=== PATIENT | male | born 1940 | race Caucasian/White ===

== ENCOUNTER → 2016-09-30 | Outpatient (CLI) | payer MEDICARE, OTHER ==
[2016-06-11 15:03] VITALS: BP 95/42
[~2016-09-30] MED LIST: ACLI400A2 IH; AMLO5TAB4 PO; ASPI-171 PO; BUSP10TA PO; CLON1TAB3 PO; CLOP75TA PO; DICL100G7 TP; DUTA0.5C PO; FLUO40CA9 PO; HYDR-2666 PO; HYDR25TA9 PO; LIDO700A4 TP; LISI-338 PO; LISI2.5T PO; LITH300T3 PO; MOME13HF2 IH; PROAIR HFA8.5 GM INH; PROP1VIA IV; TAMS0.4C97 PO; buspar
[2016-09-30 11:06] LABS: BILIRUBIN,URINE NEGATIVE (NEG); GLUCOSE,URINE NEGATIVE (NEG); NITRITE,URINE NEGATIVE (NEG); UROBILINOGEN,URINE 0.2 mg/dL (0.2 mg/dL)
[2016-09-30 11:25] LABS: BACTERIA,URINE FEW /HPF (0-FEW); RBC,URINE 0 /HPF (0-2); WBC,URINE TNTC /HPF (0-4)
[2016-09-30 11:26] LABS: PROTEIN,URINE 30 mg/dL (NEG-TRACE)
== END | disposition home or self-care (01) ==
LOC: SPEC 10:51
PROVIDERS: ATTEND Family Medicine
DX: N39.0 Urinary tract infection, site not specified (principal)
CPT/HCPCS: 81001; 87086; 87186

== ENCOUNTER → 2016-12-14 | Outpatient (CLI) | payer MEDICARE, OTHER ==
[2016-06-11 15:03] VITALS: BP 95/42
[2016-12-14 20:37] LABS: BILIRUBIN,URINE NEGATIVE (NEG); GLUCOSE,URINE NEGATIVE (NEG); NITRITE,URINE NEGATIVE (NEG); PROTEIN,URINE NEGATIVE (NEG-TRACE); UROBILINOGEN,URINE 0.2 mg/dL (0.2 mg/dL)
[2016-12-14 20:48] LABS: BACTERIA,URINE MANY /HPF (0-FEW); RBC,URINE 0 /HPF (0-2); WBC,URINE 20-40 /HPF (0-4)
[2016-12-14 20:49] LABS: SQUAMOUS EPITHELIAL CELL,UR FEW /LPF
== END | disposition home or self-care (01) ==
LOC: SPEC 13:30
PROVIDERS: ATTEND Family Medicine
DX: N39.0 Urinary tract infection, site not specified (principal)
CPT/HCPCS: 81001; 87086

== ENCOUNTER → 2017-02-24 | Outpatient (CLI) | payer MEDICARE, OTHER ==
[2016-06-11 15:03] VITALS: BP 95/42
[~2017-02-24] MED LIST changes: +ACET325T9 PO; +ALBU2.5V14 NEB; +ATOR10TA60 PO; +BISA-42 PO; +BISA-42 RC; +BUDE10.2 IH; +CIPR500T94 PO; +DICL100G18 TP; -DICL100G7 TP; +GUAI237L83 PO; -HYDR-2666 PO; +HYDR-2758 PO; +LINE600T PO; +MAG360OR24 PO; +MAGN400O7 PO; +METO25TA4 PO; +NITR1PAT9 TD; +NYST15PO9 TP; +PANT20TA2 PO; +TIOT18CA IH
[2017-02-24 10:23] LABS: BACTERIA,URINE MANY /HPF (0-FEW); BILIRUBIN,URINE NEGATIVE (NEG); GLUCOSE,URINE NEGATIVE (NEG); NITRITE,URINE NEGATIVE (NEG); PROTEIN,URINE NEGATIVE (NEG-TRACE); UROBILINOGEN,URINE 0.2 mg/dL (0.2 mg/dL); WBC,URINE TNTC /HPF (0-4)
== END | disposition home or self-care (01) ==
LOC: SPEC 08:30
PROVIDERS: ATTEND Family Medicine
DX: N39.0 Urinary tract infection, site not specified (principal)
CPT/HCPCS: 81001; 87086; 87186

== ENCOUNTER 2017-02-25 12:21 | Inpatient (IN) | payer MEDICARE, OTHER ==
[~2017-02-25] VITALS: Ht 180.3 cm; Wt 113.0 kg
[~2017-02-25 12:21] MED LIST changes: -ACET325T9 PO; -ALBU2.5V14 NEB; -ATOR10TA60 PO; -BISA-42 PO; -BISA-42 RC; -BUDE10.2 IH; -CIPR500T94 PO; -GUAI237L83 PO; -LINE600T PO; -MAG360OR24 PO; -MAGN400O7 PO; -METO25TA4 PO; -NITR1PAT9 TD; -NYST15PO9 TP; -PANT20TA2 PO; -TIOT18CA IH
--- NOTE | 2017-02-25 13:05 | PHYS DOC ---
Past Medical History Past Medical History: Anxiety, Bipolar, COPD, Diabetes-Type II, Hypertension, Renal Failure, UTI Additional Past Medical Histor: Morbid obesity Past Surgical History: Other Additional Past Surgical Histo: Ear Alcohol Use: None Drug Use: None Adult General Chief Complaint Chief Complaint: FEVER HPI HPI Patient is a 76 year old male who presents with. He states he was on a antibiotics for a urinary tract infections been having a fever overnight. He also presents with some substernal chest pressure that's been there since she has today. He states is nonradiating. Nothing makes it better or worse. He denies any abdominal pain, shortness of breath. Review of Systems Review of Systems Constitutional: Denies fever or chills [] Eyes: Denies change in visual acuity, redness, or eye pain [] HENT: Denies nasal congestion or sore throat [] Respiratory: Denies cough or shortness of breath [] Cardiovascular: No additional information not addressed in HPI [] GI: Denies abdominal pain, nausea, vomiting, bloody stools or diarrhea [] : Denies dysuria or hematuria [] Musculoskeletal: Denies back pain or joint pain [] Integument: Denies rash or skin lesions [] Neurologic: Denies headache, focal weakness or sensory changes [] Endocrine: Denies polyuria or polydipsia [] Current Medications Current Medications Current Medications Medications (Trade) Dose Ordered Sig/Jeannette Start Time Stop Time Status Last Admin Dose Admin Aspirin (Eriak Aspirin) 325 mg 1X ONCE 02/25/17 16:00 02/25/17 16:01 DC Aspirin (Ecotrin) 81 mg [id number] 02/26/17 08:00 Clopidogrel Bisulfate (Plavix) 75 mg DAILY 02/26/17 09:00 Furosemide (Lasix) 40 mg 1X ONCE 02/25/17 17:00 02/25/17 17:01 Magnesium Sulfate/ Dextrose 100 ml @ 25 mls/hr 1X ONCE 02/25/17 16:30 02/25/17 20:29 Ondansetron HCl (Zofran) 4 mg PRN Q8HRS PRN 02/25/17 16:00 02/26/17 15:59 Piperacillin Sod/ Tazobactam Sod (Zosyn Per Pharmacy) 1 each PRN DAILY PRN 02/25/17 15:45 Piperacillin Sod/ Tazobactam Sod 4.5 gm/Sodium Chloride 100 ml @ 200 mls/hr 1X ONCE 02/25/17 16:00 02/25/17 16:29 DC Vancomycin HCl (Vanco Per Pharmacy) 1 each PRN DAILY PRN 02/25/17 15:45 Vancomycin HCl 2 gm/Sodium Chloride 500 ml @ 250 mls/hr 1X ONCE 02/25/17 16:30 02/25/17 18:29 Allergies Allergies Allergies Coded Allergies Type Severity Reaction Last Updated Verified I S O L A T I O N *CONTACT* Allergy Unknown 06/03/16 Yes No Known Medication Allergies Allergy Unknown 06/03/16 Yes Physical Exam Physical Exam Constitutional: Well developed, well nourished, no acute distress, non-toxic appearance. [] HENT: Normocephalic, atraumatic, bilateral external ears normal, oropharynx moist, no oral exudates, nose normal. [] Eyes: PERRLA, EOMI, conjunctiva normal, no discharge. [] Neck: Normal range of motion, no tenderness, supple, no stridor. [] Cardiovascular:Heart rate regular rhythm, no murmur [] Lungs & Thorax: Bilateral breath sounds clear to auscultation [] Abdomen: Bowel sounds normal, soft, no tenderness, no masses, no pulsatile masses. [] Skin: Warm, dry, no erythema, no rash. [] Back: No tenderness, no CVA tenderness. [] Extremities: No tenderness, no cyanosis, no clubbing, ROM intact, no edema. [] Neurologic: Alert and oriented X 3, normal motor function, normal sensory function, no focal deficits noted. [] Psychologic: Affect normal, judgement normal, mood normal. [] Current Patient Data Vital Signs Vital Signs Date Time Temp Pulse Resp B/P (MAP) Pulse Ox O2 Delivery O2 Flow Rate FiO2 02/25/17 12:28 99.6 107 26 149/71 (97) 94 Nasal Cannula 3.0 99.6 Lab Values Laboratory Tests Test 02/25/17 14:30 White Blood Count 10.3 x10^3/uL (4.0-11.0) Red Blood Count 3.54 x10^6/uL (4.30-5.70) L Hemoglobin 9.7 g/dL (13.0-17.5) L Hematocrit 30.6 % (39.0-53.0) L Mean Corpuscular Volume 87 fL (79-100) Mean Corpuscular Hemoglobin 28 pg (25-35) Mean Corpuscular Hemoglobin Concent 32 g/dL (31-37) Red Cell Distribution Width 16.0 % (11.5-14.5) H Platelet Count 164 x10^3/uL (140-400) Neutrophils (%) (Auto) 99 % (31-73) H Lymphocytes (%) (Auto) 1 % (24-48) L Monocytes (%) (Auto) 0 % (0-9) Eosinophils (%) (Auto) 0 % (0-3) Basophils (%) (Auto) 0 % (0-3) Neutrophils # (Auto) 10.2 x10^3uL (1.8-7.7) H Lymphocytes # (Auto) 0.1 x10^3/uL (1.0-4.8) L Monocytes # (Auto) 0.0 x10^3/uL (0.0-1.1) Eosinophils # (Auto) 0.0 x10^3/uL (0.0-0.7) Basophils # (Auto) 0.0 x10^3/uL (0.0-0.2) Platelet Estimate Pending Prothrombin Time 15.6 SEC (11.7-14.0) H Prothrombin Time INR 1.3 (0.8-1.1) H Sodium Level 138 mmol/L (136-145) Potassium Level 4.6 mmol/L (3.5-5.1) Chloride Level 104 mmol/L (98-107) Carbon Dioxide Level 23 mmol/L (21-32) Anion Gap 11 (6-14) Blood Urea Nitrogen 40 mg/dL (8-26) H Creatinine 2.3 mg/dL (0.7-1.3) H Estimated GFR (Cockcroft-Gault) 27.8 Glucose Level 117 mg/dL (70-99) H Calcium Level 8.3 mg/dL (8.5-10.1) L Magnesium Level 1.2 mg/dL (1.8-2.4) L Total Bilirubin 0.4 mg/dL (0.2-1.0) Direct Bilirubin 0.1 mg/dL (0.0-0.2) Aspartate Amino Transferase (AST) 20 U/L (15-37) Alanine Aminotransferase (ALT) 19 U/L (16-63) Alkaline Phosphatase 80 U/L (46-116) Creatine Kinase 69 U/L (39-308) Creatine Kinase MB (Mass) < 0.5 ng/mL (0.0-3.6) Creatine Kinase MB Relative Index 0.7 % (0-4) Troponin I Quantitative 0.201 ng/mL (0.000-0.055) UI-Zju-Q-Type Natriuretic Peptide 71308 pg/mL (0-449) H Total Protein 6.4 g/dL (6.4-8.2) Albumin 3.2 g/dL (3.4-5.0) L Triglycerides Level 50 mg/dL (0-150) Cholesterol Level 122 mg/dL (0-200) LDL Cholesterol, Calculated 71 mg/dL (0-100) VLDL Cholesterol, Calculated 10 mg/dL (0-40) Non-HDL Cholesterol Calculated 81 mg/dL (0-129) HDL Cholesterol 41 mg/dL (40-60) Cholesterol/HDL Ratio 3.0 Lipase 87 U/L (73-393) Laboratory Tests 02/25/17 14:30 Laboratory Tests 02/25/17 14:30 EKG EKG EKG shows sinus rhythm with a rate of [address] depression in lead 2, T-wave inversions noted in leads V4 V5 V6, left axis deviation, QTC 473 ms, as interpreted by me. Radiology/Procedures Radiology/Procedures [facility] [address] [place] [address] IMAGING REPORT Signed PATIENT: CHAPARRO FUNG ACCOUNT: [id number] : 1940 LOCATION: ER AGE: 76 SEX: M EXAM STATUS: REG ER ORD. PHYSICIAN: ANNA SHAHID MD REASON: fever PROCEDURE: PORTABLE CHEST 1V Portable AP upright chest x-ray History: Fever. Body aches. Findings: Since February 12, 2017, there is a new finding of bilateral perihilar interstitial lung infiltrates or pulmonary edema. A left infrahilar lung infiltrate is seen. The heart size and mediastinum are stable. No pneumothorax or pleural effusion is seen. IMPRESSION: Bilateral bronchitis or interstitial pulmonary edema. Left infrahilar infiltrate which may represent pulmonary edema or developing pneumonia or aspiration pneumonitis. DICTATED and SIGNED BY: LUPE GUY MD DATE: 02/25/17 1345 CC: ANNA SHAHID MD; LOY BATES MD ~ Impressions: Pneumonia Elevated troponin UTI Course & Med Decision Making Course & Med Decision Making Pertinent Labs and Imaging studies reviewed. (See chart for details) Patient presents with history of a fever and a UTI. He complains of mild chest discomfort. His EKG is nonacute. Does have an elevated troponin of 0.2. Spoke with Dr. Bates who is agreeable to admitting the patient because of his chest x- ray shows infiltrate starting on ankle myosin and Zosyn and have a cardiology consultation. Patient's in stable condition this time be admitted the hospital. I spoke with Lorraine with cardiology. Jackie Disclaimer Dragon Disclaimer This electronic medical record was generated, in whole or in part, using a voice recognition dictation system. Departure Departure Impression: Primary Impression: Pneumonia Disposition: ADMITTED INPATIENT Admitting Physician: Lexx Bates Condition: STABLE Referrals: LOY BATES MD (PCP) Problem Qualifiers Primary Impression: Pneumonia Pneumonia type: due to unspecified organism Laterality: unspecified laterality Lung location: unspecified part of lung Qualified Codes: J18.9 - Pneumonia, unspecified organism ANNA SHAHID MD Feb 25, 2017 13:05
--- NOTE | 2017-02-25 13:46 | RAD ---
Portable AP upright chest x-ray History: Fever. Body aches. Findings: Since February 12, 2017, there is a new finding of bilateral perihilar interstitial lung infiltrates or pulmonary edema. A left infrahilar lung infiltrate is seen. The heart size and mediastinum are stable. No pneumothorax or pleural effusion is seen. IMPRESSION: Bilateral bronchitis or interstitial pulmonary edema. Left infrahilar infiltrate which may represent pulmonary edema or developing pneumonia or aspiration pneumonitis.
--- NOTE | 2017-02-25 14:51 | EKG ---
[facility] [address] [place] [address] Test Date: 2017-02-25 Test Time: 14:42:03 Pat Name: CHAPARRO FUNG Department: Room: Gender: M Wan Support Specialist: : 1940 Requested By: ANNA SHAHID Order Number: [id number] Reading MD: Reynold Condon Measurements Intervals [place] Rate: 93 P: 24 [place]: 164 QRS: -17 QRSD: 94 T: -82 QT: 378 QTc: 473 Interpretive Statements SINUS RHYTHM NON SPECIFIC ST/T CHANGES Electronically Signed On 02-25-2017 23:23:11 CDT by Reynold Condon
[2017-02-25 15:18] LABS: BASO % 0 % (0-3); EOS % 0 % (0-3); HEMATOCRIT 30.6 % (39.0-53.0); HEMOGLOBIN 9.7 g/dL (13.0-17.5); LYMPH # 0.1 x10^3/uL (1.0-4.8); LYMPH % 1 % (24-48); MEAN CORPUSCULAR HEMOGLOBIN 28 pg (25-35); MEAN CORPUSCULAR HGB CONC 32 g/dL (31-37); MEAN CORPUSCULAR VOLUME 87 fL (79-100); MONO % 0 % (0-9); NEUT % 99 % (31-73); PLATELET COUNT 164 x10^3/uL (140-400); RED BLOOD COUNT 3.54 x10^6/uL (4.30-5.70); WHITE BLOOD COUNT 10.3 x10^3/uL (4.0-11.0)
[2017-02-25 15:20] LABS: CALCIUM 8.3 mg/dL (8.5-10.1); CREATININE 2.3 mg/dL (0.7-1.3); GFR 27.8; POTASSIUM 4.6 mmol/L (3.5-5.1)
[2017-02-25 15:26] LABS: ALBUMIN 3.2 g/dL (3.4-5.0); DIRECT BILIRUBIN 0.1 mg/dL (0.0-0.2); MAGNESIUM 1.2 mg/dL (1.8-2.4); TOTAL BILIRUBIN 0.4 mg/dL (0.2-1.0); TOTAL PROTEIN 6.4 g/dL (6.4-8.2)
[2017-02-25 15:27] LABS: INR 1.3 (0.8-1.1); PROTHROMBIN TIME PATIENT 15.6 SEC (11.7-14.0)
[2017-02-25 15:35] LABS: CREATINE KINASE 69 U/L (39-308)
[2017-02-25 15:36] LABS: CKMB MASS < 0.5 ng/mL (0.0-3.6)
[2017-02-25] MEDS ORDERED: PIP/TAZO PER PHARMACY MC PRN (15:45)
[2017-02-25] MEDS ORDERED: ASPIRIN 325 MG TABLET PO ONE (16:00)
[2017-02-25] MEDS ORDERED: PIPERACILLIN/TAZOBACTAM 4.5 GM in IV NORMAL SALINE 100ML 100 ML IV ONE (16:00)
[2017-02-25] MEDS ORDERED: ONDANSETRON PF 4 MG/2 ML VIAL. IV PRN ×2 (16:00→18:15)
--- NOTE | 2017-02-25 16:05 | PDOC2 ---
CARDIAC CONSULT DATE OF CONSULT Date of Consult DATE: 02/25/17 TIME: 15:43 REASON FOR CONSULT Reason for Consult: Chest pain REFERRING PHYSICIAN Referring Physician: Thomas SOURCE Source: Chart review, Patient HISTORY OF PRESENT ILLNESS HISTORY OF PRESENT ILLNESS This is a 76 yo male admitted for multiple complaints. He is rather a poor historian. Reports of chills in the last 2-3 days, he was reportedly having fever with apparent hx of UTI. Verbalized body aches and complained of CP but none for me. Also mild SOA. Currently he is laying flat for his echo and appears uncomfortable but her O2 sat is >92% and denies any SOA. Reports some nausea and vomiting this am. Denies any palpitations. [place] [facility] [place] her mobility baseline is poor and he is sedentary and WC bound. Currently CP free, reports no jaw or radiated arm pain. Reported decreased appetite. PAST MEDICAL HISTORY Cardiovascular: CAD, HTN, Hyperlipidemia Pulmonary: COPD CENTRAL NERVOUS SYSTEM: Other (No pertinent history) GI: Constipation, GERD Heme/Onc: Anemia NOS Hepatobiliary: No pertinent hx Psych: Anxiety, Bipolar Musculoskeletal: Osteoarthritis, Other (deconditioning) Rheumatologic: No pertinent hx Infectious disease: Other (MRSA and VRE) ENT: No pertinent hx Renal/: Chronic renal insuff, UTI, Urinary Incontinence Dermatology: Other (decubitus coccyx ulcer) PAST SURGICAL HISTORY Past Surgical History PCI/stent 05/2016 FAMILY HISTORY Family History noncontributory SOCIAL HISTORY Smoke: No ALCOHOL: none Drugs: None Lives: [facility] ALLERGIES ALLERGIES: Coded Allergies: I S O L A T I O N *CONTACT* (Verified Allergy, Unknown, 06/03/16) mrsa No Known Medication Allergies (Verified Allergy, Unknown, 06/03/16) ROS Review of System limited details, poor historian PHYSICAL EXAM General: Alert, Cooperative, mild distress HEENT: Atraumatic, Mucous membr. moist/pink Lungs: Other (bibasilar crackles, upper rhonchi) Heart: Regular rate (SR), Normal S1, Normal S2, Other (S4; 2/6 systolic murmur to LLS border) Abdomen: Soft, No tenderness Extremities: No cyanosis, Other (4+ bilateral LE pitting edema) Skin: No breakdown, No significant lesion Neuro: Sensation intact, Other (trembling voice) Psych/Mental Status: Mood NL MUSCULOSKELETAL: Osteoarthritic changes both hands VITALS VITALS Vital Signs Date Time Temp Pulse Resp B/P (MAP) Pulse Ox O2 Delivery O2 Flow Rate FiO2 02/25/17 12:28 99.6 107 26 149/71 (97) 94 Nasal Cannula 3.0 99.6 LABS Lab: Laboratory Tests Test 02/25/17 14:30 White Blood Count 10.3 x10^3/uL (4.0-11.0) Red Blood Count 3.54 x10^6/uL (4.30-5.70) Hemoglobin 9.7 g/dL (13.0-17.5) Hematocrit 30.6 % (39.0-53.0) Mean Corpuscular Volume 87 fL (79-100) Mean Corpuscular Hemoglobin 28 pg (25-35) Mean Corpuscular Hemoglobin Concent 32 g/dL (31-37) Red Cell Distribution Width 16.0 % (11.5-14.5) Platelet Count 164 x10^3/uL (140-400) Neutrophils (%) (Auto) 99 % (31-73) Lymphocytes (%) (Auto) 1 % (24-48) Monocytes (%) (Auto) 0 % (0-9) Eosinophils (%) (Auto) 0 % (0-3) Basophils (%) (Auto) 0 % (0-3) Neutrophils # (Auto) 10.2 x10^3uL (1.8-7.7) Lymphocytes # (Auto) 0.1 x10^3/uL (1.0-4.8) Monocytes # (Auto) 0.0 x10^3/uL (0.0-1.1) Eosinophils # (Auto) 0.0 x10^3/uL (0.0-0.7) Basophils # (Auto) 0.0 x10^3/uL (0.0-0.2) Prothrombin Time 15.6 SEC (11.7-14.0) Prothromb Time International Ratio 1.3 (0.8-1.1) Sodium Level 138 mmol/L (136-145) Potassium Level 4.6 mmol/L (3.5-5.1) Chloride Level 104 mmol/L (98-107) Carbon Dioxide Level 23 mmol/L (21-32) Anion Gap 11 (6-14) Blood Urea Nitrogen 40 mg/dL (8-26) Creatinine 2.3 mg/dL (0.7-1.3) Estimated GFR (Cockcroft-Gault) 27.8 Glucose Level 117 mg/dL (70-99) Calcium Level 8.3 mg/dL (8.5-10.1) Magnesium Level 1.2 mg/dL (1.8-2.4) Total Bilirubin 0.4 mg/dL (0.2-1.0) Direct Bilirubin 0.1 mg/dL (0.0-0.2) Aspartate Amino Transf (AST/SGOT) 20 U/L (15-37) Alanine Aminotransferase (ALT/SGPT) 19 U/L (16-63) Alkaline Phosphatase 80 U/L (46-116) Creatine Kinase 69 U/L (39-308) Creatine Kinase MB (Mass) < 0.5 ng/mL (0.0-3.6) Creatine Kinase MB Relative Index 0.7 % (0-4) Troponin I Quantitative 0.201 ng/mL (0.000-0.055) TX-Rsi-S-Type Natriuretic Peptide 70539 pg/mL (0-449) Total Protein 6.4 g/dL (6.4-8.2) Albumin 3.2 g/dL (3.4-5.0) Lipase 87 U/L (73-393) HEART CATH HEART CATH CORONARY ANGIOGRAPHY: LM is a large caliber vessel withan ostial 30% stenosis. LAD is a large caliber vessel with mild diffuse irregularities of up to 40%. D1 is a large caliber vessel with a patent mid stent. LCx is a moderate caliber non-dominant vessel with a proximal 100% occlusion at the site of the previously placed stent. RCA is a large caliber dominant vessel with mild to moderate diffuse irregularities of up to 30%. RPDA and RPL are moderate caliber vessels with mild diffuse irregularities of up to 30%. Based on lack of chest pain or EKG changes and small size the previously visualized LCx segment, further intervention was deferred in favor of medical therapy. Conclusion 1. Two vessel coronary artery disease. 2. Patent 1st diagonal stent. 3. Occluded LCx stent. Recommendations Aggressive Medical Therapy DATE: 06/09/161707 Conclusion 1. Mildly elevated left sided filling pressures. 2. Successful PCI of the 1st diagonal with a Vision 2.5/12 BMS 3. Successful PCI of the Lcx/1st OM with a Resolute 2.25/30 JORGE A. Recommendations Cardiac Rehabilitation Referral Aggressive Medical Therapy Medications Administered Aspirin (any) Beta Mary (any) Statin (any) Ticagrelor DATE: 06/03/16 1650 ASSESSMENT/PLAN ASSESSMENT/PLAN 1. Fever/UTI 2. NSTEMI: Initial troponin 0.2 in the setting of fever and DUONG. EKG with inferolateral ST depression changes. Presently CP free. 3. CAD: prior PCI/stent as described in report. Notable for small size LCx with occluded stent which was then treated medically 4. Acute on chronic systolic CHF 5. DUONG on CKD: Cr 2.3 6. DLP 7. HTN: controlled 8. Morbid obesity/deconditioning: sedentary with BMI of 50. 9. Hx of MRSA/VRE Recommendations 1. Preliminary TTE with reduced EF at 40%. Lasix IV x1. 2. Heparin drip protocol 3. Continue with DAPT. 4. Secondary prevention per home med list. 5. Hold ACEi/ARB 6. Replace Mg. 7. Trend troponin, lipid panel. 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
[2017-02-25] MEDS ORDERED: MAGNESIUM SULFATE 4GM 100 ML IV ONE (16:30)
[2017-02-25] MEDS ORDERED: HEPARIN for IV BOLUS 10,000 UNIT/10 ML VIAL. IV PRN (16:30)
[2017-02-25] MEDS ORDERED: LABETALOL 20 MG/4 ML DISP.SYRIN. IVP PRN (16:30)
[2017-02-25] MEDS ORDERED: VANCOMYCIN 2 GM in IV NORMAL SALINE 500ML BAG 500 ML IV ONE (16:30)
[2017-02-25] MEDS ORDERED: HEPARIN 25,000UTS/500ML PREMIX 500 ML IV PRN (16:30)
--- NOTE | 2017-02-25 16:54 | ACF ---
Admission Forms Criteria SEPSIS and OTHER FEBRILE ILLNESS, W/O FOCAL INFECTION Clinical Indications for Admission to Inpatient Care ( Place 'X' for any and all applicable criteria): Admission is indicated for ANY ONE of the following (1)(2)(3)(4): [ ] I. Bacteremia [X ]II. Suspected or identified specific infection requiring hospitalization (eg, meningitis, endocarditis) [ ]III. Hemodynamic instability [ ]IV. Altered mental status [ ]V. Failure or unavailability of outpatient antimicrobial treatment [ ]. Hypoxemia [ ]VII. Seizures [ ]VIII. High-risk febrile neutropenia [ ]IX. Need for parenteral antibiotic in patient who is likely to abuse vascular access device (eg, injection drug user) [A](7) [ ]X. Temperature greater than 104.9 degrees F (40.5 degrees C) (oral) [ ]XI. Inpatient admission required rather than observation care because of ANY ONE of the following: [ ]1) Specific infection identified that is too severe for outpatient treatment or observation care trial [ ]2) Metabolic disorder (eg, hypoglycemia, hyperglycemia, metabolic acidosis) that is severe or persistent [ ]3) Temperature greater than 103.1 degrees F (39.5 degrees C) ( oral) that is not responsive to observation care treatment [ ]4) IV fluid to replace significant ongoing (eg, for over 24 hours) losses (> 3 L/m2 per day) [ ]5) Supplemental oxygen or respiratory treatments for over 24 hours that is performable only in acute inpatient setting [ ]6) Parenteral nutrition regimen need that must be implemented on inpatient basis [ ]7) Strict or protective (eg, laminar flow) isolation [ ]8) Other condition, treatment or monitoring requiring inpatient admission Extended stay beyond goal length of stay may be needed for(1)(3) [ ]a) Sepsis or septic shock(22) [ ]b) Positive blood cultures [ ]c) Insufficient oral intake [ ]d) High-risk febrile neutropenia(29)(30) [ ]e) Continued fever and clinical instability [ ]f) Clinically active comorbid illness (e.g,heart failure, renal failure , diabetes) The original [employer] content created by [employer] has been revised. The portions of the content which have been revised are identified through the use of italic text or in bold, and [employer] has neither reviewed nor approved the modified material. All other unmodified content is copyright [facility]. Please see references footnoted in the original [facility] edition 2016 Admission Criteria Met?: Yes MICHEAL DICKENS Feb 25, 2017 16:54
[2017-02-25] MEDS ORDERED: FUROSEMIDE 40 MG/4 ML VIAL. IVP ONE (17:00)
[2017-02-25 17:58] LABS: PLT ESTIMATE ADEQUATE (ADEQUATE)
[2017-02-25 17:59] LABS: ANISOCYTOSIS SLIGHT; HYPOCHROMIA SLIGHT; OVALOCYTES OCC; POIKILOCYTOSIS SLIGHT; POLYCHROMASIA SLIGHT; TEAR DROP CELLS OCC
--- NOTE | 2017-02-25 18:12 | PDOC1 ---
History and Physical Date of Admission Date of Admission DATE: 02/25/17 TIME: 17:47 Identification/Chief Complaint Chief Complaint fever, chest pain Problems: Source Source: Caregiver, Chart review, Patient History of Present Illness History of Present Illness Mino is a LTC patient at [facility] who was started yesterday on cipro for a UTI but had a 101 fever today and sent to the ER for further eval and tx and complained of chest pain while in the ER and has a slightly elevated troponin and elevated proBNP and has known cardiac disease, having been stented x [address] Condon and being admitted. Pt seen in ER. He has a history of diabetes and has urinary retention from spinal stenosis and is generally confined to bed or a wheelchair but does go to the dining room for meals. His chest Xray suggests an infiltrate vs CHF but he has not been noted to aspirate or have and new respiratory complaints Past Medical History Cardiovascular: CAD, HTN, Hyperlipidemia Pulmonary: COPD CENTRAL NERVOUS SYSTEM: Other (No pertinent history) GI: Constipation, GERD Heme/Onc: Anemia NOS Hepatobiliary: No pertinent hx Psych: Anxiety, Bipolar Musculoskeletal: Osteoarthritis, Other (deconditioning) Rheumatologic: No pertinent hx Infectious disease: Other (MRSA and VRE) ENT: No pertinent hx Renal/: Chronic renal insuff, UTI, Urinary Incontinence Dermatology: Other (decubitus coccyx ulcer) Past Surgical History Past Surgical History: No pertinent history Social History Smoke: No ALCOHOL: none Drugs: None Current Problem List Problem List Problems Medical Problems: (1) Pneumonia Status: Acute Problems: (1) Sepsis (2) Chest pain (3) CAD (coronary artery disease), [place] coronary artery Current Medications Current Medications Current Medications Vancomycin HCl (Vanco Per Pharmacy) 1 each PRN DAILY PRN [facility] SEE COMMENTS; Start 02/25/17 at 15:45 Piperacillin Sod/ Tazobactam Sod (Zosyn Per Pharmacy) 1 each PRN DAILY PRN [facility] SEE COMMENTS; Start 02/25/17 at 15:45 Aspirin (Erika Aspirin) 325 mg 1X ONCE PO Last administered on 02/25/17t 17:17 ; Start 02/25/17 at 16:00; Stop 02/25/17 at 16:01; Status DC Vancomycin HCl 2 gm/Sodium Chloride 500 ml @ 250 mls/hr 1X ONCE IV ; Start at 16:30; Stop 02/25/17 at 18:29 Piperacillin Sod/ Tazobactam Sod 4.5 gm/Sodium Chloride 100 ml @ 200 mls/hr 1X ONCE IV Last administered on 02/25/17 17:04; Start 02/25/17 at 16:00; Stop 02/25/17 at 16:29; Status DC Ondansetron HCl (Zofran) 4 mg PRN Q8HRS PRN IV NAUSEA/VOMITING; Start 02/25/17 at 16:00; Stop 02/26/17 at 15:59 Magnesium Sulfate/ Dextrose 100 ml @ 25 mls/hr 1X ONCE IV Last administered on 02/25/17 17:03; Start 02/25/17 at 16:30; Stop 02/25/17 at 20:29 Aspirin (Ecotrin) 81 mg DAILYWBKFT PO ; Start 02/26/17 at 08:00 Clopidogrel Bisulfate (Plavix) 75 mg DAILY PO ; Start 02/26/17 at 09:00 Furosemide (Lasix) 40 mg 1X ONCE IVP Last administered on 02/25/17 17:17; Start 02/25/17 at 17:00; Stop 02/25/17 at 17:01; Status DC Heparin Sodium/ Dextrose 500 ml @ 20 mls/hr CONT PRN IV SEE I/O RECORD; Start 02/25/17 at 16:30 Heparin Sodium (Porcine) (Heparin Sodium) 4,050 unit PRN Q6HRS PRN IV FOR UFH LEVEL LESS THAN 0.2; Start 02/25/17 at 16:30 Labetalol HCl (Normodyne) 20 mg PRN Q2HR PRN IVP ELEVATED BP, SEE COMMENTS; Start 02/25/17 at 16:30 Active Scripts Active Reported Clopidogrel (Clopidogrel Bisulfate) 75 Mg Tablet 1 Tab PO DAILY Lo-Dose Aspirin EC (Aspirin) 81 Mg Tablet. 81 Mg PO Voltaren (Diclofenac Sodium) 100 Gm Gel..gram. 100 Gm TP TID Tudorza Pressair (Aclidinium [place]) 400 Mcg Aer.pow.ba 400 Mcg IH BID Proair Hfa Inhaler (Albuterol Sulfate) 8.5 Gm Hfa.aer.ad 1 Puff INH PRN Q6HRS PRN [place] Carbonate 300 Mg Tablet 300 Mg PO HS Lisinopril 2.5 Mg Tablet 1 Tab PO DAILY Lidoderm (Lidocaine) 700 Mg Adh..patch 1 Patch TP DAILY Hydrocodone-Apap 5-325 (Hydrocodone Bit/Acetaminophen) 1 Each Tablet 1 Tab PO QID Flomax (Tamsulosin Hcl) 0.4 Mg Cap.er.24h 1 Cap PO DAILY Dulera 100 Mcg/5 Mcg Inhaler (Mometasone/Formoterol) 13 Gm Hfa.aer.ad 2 Puff IH BID Buspirone Hcl 10 Mg Tablet 10 Mg PO TID Avodart (Dutasteride) 0.5 Mg Capsule 1 Cap PO DAILY Prozac (Fluoxetine Hcl) 40 Mg Capsule 40 Mg PO DAILY Clonazepam 1 Mg Tablet 1 Mg PO TID Allergies Allergies: Coded Allergies: I S O L A T I O N *CONTACT* (Verified Allergy, Unknown, 06/03/16) mrsa No Known Medication Allergies (Verified Allergy, Unknown, 06/03/16) ROS General: YES: Chills, Night Sweats, Fatigue, Malaise PSYCHOLOGICAL ROS: YES: Anxiety, Concentration difficultie, Depression, Disorientation, No: Behavioral Disorder, Decreased libido, Hallucinations, Hostility, Irritablity, Memory difficulties, Mood Swings, Obsessive thoughts, Physical abuse, Sexual abuse, Sleep disturbances, Suicidal ideation Eyes: Yes Uses glasses, No Blurry vision, No Decreased vision, No Double vision, No Dry eyes, No Excessive tearing, No Eye Pain, No Itchy Eyes, No Loss of vision, No Photophobia , No [place], No Uses contacts HEENT: YES: Snoring, No: Heacaches, Visual Changes, Hearing change, Nasal congestion, Nasal discharge, Oral lesions, Sinus pain, Sore Throat, Epistaxis, Sneezing, Tinnitus , Vertigo, Vocal changes ALLERGY AND IMMUNOLOGY: No: Hives, Insect Bite Sensitivity, Itchy/Watery Eyes, Nasal Congestion, Post Nasal Drip, Seasonal Allergies Hematological and Lymphatic: No: Bleeding Problems, Blood Clots, Blood Transfusions, Brusing, Night Sweats, Pallor, Swollen Lymph Nodes ENDOCRINE: YES: Malaise/lethargy, No: Hair Pattern Changes, Hot Flashes, Mood Swings, Palpitations, Polydipsia/ polyuria, Skin Changes, Temperature Intolerance, Unexpected Weight Changes Respiratory: YES: Pleuritic Pain, Shortness of breath, No: Cough, Hemoptysis, Orthopnea, SOB with excertion, Sputum Changes, Stridor , Tachypnea, Wheezing Cardiovascular: yes Chest Pain, yes Edema, No Palpitations, No Orthopnea, No Paroxysmal Noc. Dyspnea, No Lt Headedness Gastrointestinal: No Nausea, No Vomiting, No Abdominal Pain, No Diarrhea, No Constipation, No Melena, No Hematochezia Genitourinary: YES Dysuria, YES Frequency, YES Incontinence, YES Retention, YES Urgency Musculoskeletal: Yes Gait Disturbance, Yes Joint Pain, Yes Joint Stiffness, Yes Muscular Weakness Neurological: Yes Bowel/Bladder ControlChng, Yes Confusion, Yes Weakness Skin: Yes Dry Skin Physical Exam General: Alert, Cooperative, mild distress HEENT: Atraumatic Lungs: Clear to auscultation Heart: RRR, no murmurs, no jug vein distention Abdomen: Normal bowel sounds, Soft, No tenderness, Other (morbidly obese) Extremities: No clubbing, No cyanosis Skin: No breakdown Psych/Mental Status: Other (confused) Vitals Vitals Vital Signs Date Time Temp Pulse Resp B/P (MAP) Pulse Ox O2 Delivery O2 Flow Rate FiO2 02/25/17 17:23 80 23 100/55 (70) 94 Nasal Cannula 2.0 02/25/17 12:28 99.6 99.6 Labs Labs Laboratory Tests Test 02/25/17 14:30 White Blood Count 10.3 x10^3/uL (4.0-11.0) Red Blood Count 3.54 x10^6/uL (4.30-5.70) Hemoglobin 9.7 g/dL (13.0-17.5) Hematocrit 30.6 % (39.0-53.0) Mean Corpuscular Volume 87 fL (79-100) Mean Corpuscular Hemoglobin 28 pg (25-35) Mean Corpuscular Hemoglobin Concent 32 g/dL (31-37) Red Cell Distribution Width 16.0 % (11.5-14.5) Platelet Count 164 x10^3/uL (140-400) Neutrophils (%) (Auto) 99 % (31-73) Lymphocytes (%) (Auto) 1 % (24-48) Monocytes (%) (Auto) 0 % (0-9) Eosinophils (%) (Auto) 0 % (0-3) Basophils (%) (Auto) 0 % (0-3) Neutrophils # (Auto) 10.2 x10^3uL (1.8-7.7) Lymphocytes # (Auto) 0.1 x10^3/uL (1.0-4.8) Monocytes # (Auto) 0.0 x10^3/uL (0.0-1.1) Eosinophils # (Auto) 0.0 x10^3/uL (0.0-0.7) Basophils # (Auto) 0.0 x10^3/uL (0.0-0.2) Prothrombin Time 15.6 SEC (11.7-14.0) Prothromb Time International Ratio 1.3 (0.8-1.1) Sodium Level 138 mmol/L (136-145) Potassium Level 4.6 mmol/L (3.5-5.1) Chloride Level 104 mmol/L (98-107) Carbon Dioxide Level 23 mmol/L (21-32) Anion Gap 11 (6-14) Blood Urea Nitrogen 40 mg/dL (8-26) Creatinine 2.3 mg/dL (0.7-1.3) Estimated GFR (Cockcroft-Gault) 27.8 Glucose Level 117 mg/dL (70-99) Calcium Level 8.3 mg/dL (8.5-10.1) Magnesium Level 1.2 mg/dL (1.8-2.4) Total Bilirubin 0.4 mg/dL (0.2-1.0) Direct Bilirubin 0.1 mg/dL (0.0-0.2) Aspartate Amino Transf (AST/SGOT) 20 U/L (15-37) Alanine Aminotransferase (ALT/SGPT) 19 U/L (16-63) Alkaline Phosphatase 80 U/L (46-116) Creatine Kinase 69 U/L (39-308) Creatine Kinase MB (Mass) < 0.5 ng/mL (0.0-3.6) Creatine Kinase MB Relative Index 0.7 % (0-4) Troponin I Quantitative 0.201 ng/mL (0.000-0.055) GE-Ntb-M-Type Natriuretic Peptide 17892 pg/mL (0-449) Total Protein 6.4 g/dL (6.4-8.2) Albumin 3.2 g/dL (3.4-5.0) Triglycerides Level 50 mg/dL (0-150) Cholesterol Level 122 mg/dL (0-200) LDL Cholesterol, Calculated 71 mg/dL (0-100) VLDL Cholesterol, Calculated 10 mg/dL (0-40) Non-HDL Cholesterol Calculated 81 mg/dL (0-129) HDL Cholesterol 41 mg/dL (40-60) Cholesterol/HDL Ratio 3.0 Lipase 87 U/L (73-393) Laboratory Tests Test 02/25/17 14:30 White Blood Count 10.3 x10^3/uL (4.0-11.0) Red Blood Count 3.54 x10^6/uL (4.30-5.70) Hemoglobin 9.7 g/dL (13.0-17.5) Hematocrit 30.6 % (39.0-53.0) Mean Corpuscular Volume 87 fL (79-100) Mean Corpuscular Hemoglobin 28 pg (25-35) Mean Corpuscular Hemoglobin Concent 32 g/dL (31-37) Red Cell Distribution Width 16.0 % (11.5-14.5) Platelet Count 164 x10^3/uL (140-400) Neutrophils (%) (Auto) 99 % (31-73) Lymphocytes (%) (Auto) 1 % (24-48) Monocytes (%) (Auto) 0 % (0-9) Eosinophils (%) (Auto) 0 % (0-3) Basophils (%) (Auto) 0 % (0-3) Neutrophils # (Auto) 10.2 x10^3uL (1.8-7.7) Lymphocytes # (Auto) 0.1 x10^3/uL (1.0-4.8) Monocytes # (Auto) 0.0 x10^3/uL (0.0-1.1) Eosinophils # (Auto) 0.0 x10^3/uL (0.0-0.7) Basophils # (Auto) 0.0 x10^3/uL (0.0-0.2) Prothrombin Time 15.6 SEC (11.7-14.0) Prothromb Time International Ratio 1.3 (0.8-1.1) Sodium Level 138 mmol/L (136-145) Potassium Level 4.6 mmol/L (3.5-5.1) Chloride Level 104 mmol/L (98-107) Carbon Dioxide Level 23 mmol/L (21-32) Anion Gap 11 (6-14) Blood Urea Nitrogen 40 mg/dL (8-26) Creatinine 2.3 mg/dL (0.7-1.3) Estimated GFR (Cockcroft-Gault) 27.8 Glucose Level 117 mg/dL (70-99) Calcium Level 8.3 mg/dL (8.5-10.1) Magnesium Level 1.2 mg/dL (1.8-2.4) Total Bilirubin 0.4 mg/dL (0.2-1.0) Direct Bilirubin 0.1 mg/dL (0.0-0.2) Aspartate Amino Transf (AST/SGOT) 20 U/L (15-37) Alanine Aminotransferase (ALT/SGPT) 19 U/L (16-63) Alkaline Phosphatase 80 U/L (46-116) Creatine Kinase 69 U/L (39-308) Creatine Kinase MB (Mass) < 0.5 ng/mL (0.0-3.6) Creatine Kinase MB Relative Index 0.7 % (0-4) Troponin I Quantitative 0.201 ng/mL (0.000-0.055) QS-Jtu-E-Type Natriuretic Peptide 74609 pg/mL (0-449) Total Protein 6.4 g/dL (6.4-8.2) Albumin 3.2 g/dL (3.4-5.0) Triglycerides Level 50 mg/dL (0-150) Cholesterol Level 122 mg/dL (0-200) LDL Cholesterol, Calculated 71 mg/dL (0-100) VLDL Cholesterol, Calculated 10 mg/dL (0-40) Non-HDL Cholesterol Calculated 81 mg/dL (0-129) HDL Cholesterol 41 mg/dL (40-60) Cholesterol/HDL Ratio 3.0 Lipase 87 U/L (73-393) Images Images INTERVENTIONAL TECHNIQUE: (from June 03, 2016) Based upon the present symptoms of dyspnea, angiographic findings of severe stenosis and elevated biomarkers and intervention was performed on the left circumflex and first diagonal vessels. Bivalirudin was used for anticoagulation. Through a 6 [place] EBU 3.75 guide catheter a 0.014 inch Happy [place] run through wire was advanced into the first diagonal. Next, the lesion was direct stented with a 2.5 x 12 MultiLink vision bare metal stent. Subsequently, the wire was then redirected into the left circumflex and distal obtuse marginal vessels. This lesion was then direct stented with a resolute to 2.25 x 30 mm drug-eluting stent. Post PCI angiography revealed excellent stent expansion in the left circumflex and diagonal vessels without any proximal guide her distal wire related complications. All catheter exchanges and advancements were performed over a guidewire. At case completion the right radial sheath was removed and a Terumo radial band was applied with 14 ml of air. The patient tolerated the procedure well and there were no immediate complications. Conclusion 1. Mildly elevated left sided filling pressures. 2. Successful PCI of the 1st diagonal with a Vision 2.5/12 BMS 3. Successful PCI of the Lcx/1st OM with a Resolute 2.25/30 JORGE A. Recommendations Cardiac Rehabilitation Referral Aggressive Medical Therapy CXR today: IMPRESSION: Bilateral bronchitis or interstitial pulmonary edema. Left infrahilar infiltrate which may represent pulmonary edema or developing pneumonia or aspiration pneumonitis. VTE Prophylaxis Ordered VTE Prophylaxis Devices: Yes VTE Pharmacological Prophylaxi: Yes Assessment/Plan Assessment/Plan 1. Chest pain likely from ischemia with known CAD, s/p D1, LCx/M1 stents 06/15 - serial troponin, Heparin drip, cardiology consult 2. gram negative sepsis - urinary source - IV antibiotics 3. aspiration pneumonitis vs CHF - IV lasix, antibiotics 4. chronic diastolic heart failure - continue meds 5. Type 2 diabetes - SSI 6. spinal stenosis with urinary retention and LE weakness with limited mobility 7. Morbid obesity Problem Qualifiers (1) Sepsis: Sepsis type: Escherichia coli Qualified Codes: A41.51 - Sepsis due to Escherichia coli [e. coli] (2) Chest pain: Chest pain type: chest pain due to myocardial ischemia (3) CAD (coronary artery disease), [place] coronary artery: [place] vs. transplanted heart: [place] heart Associated angina: with unstable angina Qualified Codes: I25.110 - Atherosclerotic heart disease of [place] coronary artery with unstable angina pectoris LOY MULLER MD Feb 25, 2017 18:12
[2017-02-25] MEDS ORDERED: ACETAMINOPHEN 325 MG TABLET. PO PRN (18:15)
[2017-02-25] MEDS ORDERED: NITROGLYCERIN SUBLINGUAL 0.4 MG BOTTLE OF 25. SL PRN (18:15)
[2017-02-25] MEDS ORDERED: 0.9 % SODIUM CHLORIDE 10 ML DISP.SYRIN. IV PRN (18:15)
[2017-02-25] MEDS: VANCOMYCIN PER PHARMACY MC PRN (19:01)
[2017-02-25] MEDS: SENNOSIDES/DOCUSATE 8.6/50MG TABLET. PO SCH (21:00)
[2017-02-25] MEDS: HEPARIN PF for SUB-Q USE 5,000 UNIT/0.5 ML VIAL. SQ SCH ×2 (21:00→22:16)
[2017-02-25 21:02] VITALS: BP 108/52
[2017-02-25 21:11] LABS: BILIRUBIN,URINE NEGATIVE (NEG); GLUCOSE,URINE NEGATIVE (NEG); NITRITE,URINE NEGATIVE (NEG); PH,URINE 7.5; PROTEIN,URINE 30 mg/dL (NEG-TRACE); UROBILINOGEN,URINE 0.2 mg/dL (0.2 mg/dL)
[2017-02-25 21:20] LABS: BACTERIA,URINE MANY /HPF (0-FEW); SQUAMOUS EPITHELIAL CELL,UR FEW /LPF; WBC,URINE TNTC /HPF (0-4)
[2017-02-25] MEDS: PIPERACILLIN/TAZOBACTAM 4.5 GM in IV NORMAL SALINE 100ML 100 ML IV SCH (23:01)
[2017-02-25 23:05] VITALS: BP 107/53
[2017-02-25] MEDS: ZOLPIDEM 5 MG TABLET. PO PRN (23:05)
[2017-02-25] MEDS: MORPHINE SULFATE 2 MG/ML DISP.SYRIN. IV PRN (23:06)
[2017-02-26] VITALS (17 sets, daily range): BP systolic 72–142; BP diastolic 33–88
[2017-02-26] MEDS ORDERED: GUAI237L83 PO (02:31)
[2017-02-26] MEDS ORDERED: MAGN400O7 PO (02:31)
[2017-02-26] MEDS ORDERED: ACET325T9 PO (02:31)
[2017-02-26] MEDS ORDERED: BISA-42 RC (02:31)
[2017-02-26] MEDS ORDERED: METO25TA4 PO (02:31)
[2017-02-26] MEDS ORDERED: NYST15PO9 TP (02:31)
[2017-02-26] MEDS ORDERED: PANT20TA2 PO (02:31)
[2017-02-26] MEDS ORDERED: TIOT18CA IH (02:31)
[2017-02-26] MEDS ORDERED: NITR1PAT9 TD (02:31)
[2017-02-26] MEDS ORDERED: MAG360OR24 PO (02:31)
[2017-02-26] MEDS ORDERED: BISA-42 PO (02:31)
[2017-02-26] MEDS ORDERED: ATOR10TA60 PO (02:31)
[2017-02-26] MEDS ORDERED: CIPR500T94 PO (02:31)
[2017-02-26] MEDS ORDERED: BUDE10.2 IH (02:31)
[2017-02-26] MEDS ORDERED: FLUO40CA9 PO (02:40)
[2017-02-26] MEDS ORDERED: ALBU2.5V14 NEB (02:50)
[2017-02-26] MEDS: MORPHINE SULFATE 2 MG/ML DISP.SYRIN. IV PRN (04:18)
[2017-02-26 05:19] LABS: BASO # 0.1 x10^3/uL (0.0-0.2); BASO % 0 % (0-3); EOS % 0 % (0-3); HEMATOCRIT 28.6 % (39.0-53.0); HEMOGLOBIN 8.8 g/dL (13.0-17.5); LYMPH # 0.3 x10^3/uL (1.0-4.8); LYMPH % 1 % (24-48); MEAN CORPUSCULAR HEMOGLOBIN 27 pg (25-35); MEAN CORPUSCULAR HGB CONC 31 g/dL (31-37); MEAN CORPUSCULAR VOLUME 88 fL (79-100); MONO % 3 % (0-9); NEUT % 96 % (31-73); PLATELET COUNT 155 x10^3/uL (140-400); RED BLOOD COUNT 3.24 x10^6/uL (4.30-5.70); RED CELL DISTRIBUTION WIDTH 16.2 % (11.5-14.5)
[2017-02-26 05:33] LABS: CALCIUM 8.2 mg/dL (8.5-10.1); CREATININE 2.9 mg/dL (0.7-1.3); GFR 21.3; POTASSIUM 5.1 mmol/L (3.5-5.1); WHITE BLOOD COUNT 34.3 x10^3/uL (4.0-11.0)
[2017-02-26 05:37] LABS: MAGNESIUM 2.3 mg/dL (1.8-2.4); PHOSPHORUS 4.7 mg/dL (2.6-4.7)
[2017-02-26] MEDS: PIPERACILLIN/TAZOBACTAM 4.5 GM in IV NORMAL SALINE 100ML 100 ML IV SCH (05:42)
[2017-02-26 06:37] LABS: PLT ESTIMATE ADEQUATE (ADEQUATE)
[2017-02-26 06:51] LABS: ANISOCYTOSIS SLIGHT; OVALOCYTES FEW; TEAR DROP CELLS FEW
[2017-02-26 06:53] LABS: POLYCHROMASIA SLIGHT
[2017-02-26] MEDS ORDERED: NON FORMULARY ITEM (Albuterol Sulfate (Proair Hfa Inhaler) 1 PUFF) INH PRN (08:00)
[2017-02-26] MEDS ORDERED: NYSTATIN TOPICAL POWDER 15GM BOTTLE. TP PRN ×2 (08:00→08:45)
[2017-02-26] MEDS ORDERED: MAGNESIUM HYDROXIDE 2,400 MG/30 ML ORAL.SUSP. PO PRN (08:00)
[2017-02-26] MEDS ORDERED: ACETAMINOPHEN 325 MG TABLET. PO PRN (08:00)
[2017-02-26] MEDS ORDERED: BISACODYL 5 MG TABLET.DR. PO PRN (08:00)
[2017-02-26] MEDS ORDERED: MAG HYDROX/ALUMINUM HYD/SIMETH 30 ML ORAL.SUSP PO PRN (08:30)
[2017-02-26] MEDS ORDERED: ALBUTEROL SULFATE 2.5 MG/3 ML NEBU. NEB PRN (08:30)
[2017-02-26] MEDS ORDERED: guaiFENesin DM 200MG/20MG 10 ML SYRUP PO PRN (08:30)
--- NOTE | 2017-02-26 08:31 | EKG ---
[facility] [address] [place] [id number] Test Date: 2017-02-26 Test Time: 07:44:56 Pat Name: CHAPARRO FUNG Department: Room: Gender: M Manager Disaster Recovery: : 1940 Requested By: ROSALBA PACHECO Order Number: [id number] Reading MD: Measurements Intervals [place] Rate: 76 P: 90 HI: 192 QRS: -21 QRSD: 92 T: -90 QT: 442 QTc: 502 Interpretive Statements SINUS RHYTHM LEFTWARD AXIS R-S TRANSITION ZONE IN V LEADS DISPLACED TO THE RIGHT CONSIDER LEFT VENTRICULAR HYPERTROPHY ST & T ABNORMALITY, CONSIDER INFERIOR ISCHEMIA OR LEFT VENTRICULAR STRAIN T ABNORMALITY IN ANTERIOR LEADS LATERAL LEADS ABNORMAL ECG RI6.01 No previous ECG available for comparison
--- NOTE | 2017-02-26 08:31 | PDOC ---
PROGRESS NOTES Subjective Subjective Mr. Patrick reports a difficult night of sleep and worry about making it to the morning. He states he is not having trouble breathing while laying semi- recumbent. He does report his snore is a barrier to adequate sleep. He did not get much sleep last night. He does not report in current chest pain or pleuritic pain. He has difficulty articulating his words and moans frequently with breaths. Objective Objective His white blood cells valorie to 34.3 overnight from 10.3 with bandemia. His temperature remained stable throughout the night around 98 degrees F. His is mildly anemic. His BUN is 55 and Cr 2.9, up from admission. BP was 142/60 overnight and 108/54 this morning. Troponin is trending down back to .167 after a peak of .264. Vital Signs Date Time Temp Pulse Resp B/P (MAP) Pulse Ox O2 Delivery O2 Flow Rate FiO2 02/26/17 07:43 98.7 76 19 108/54 (72) 97 Nasal Cannula 2.0 98.7 Intake and Output 02/26/17 06:59 Intake Total 100 ml Output Total 3150 ml Balance -3050 ml Intake Oral 0 ml IV Total 100 ml Output Urine Total 3150 ml Physical Exam Physical Exam Heart - difficult to auscultate due to loud moans with breathing and the extent of his chest wall. Lungs - good air movement anteriorly, tachypneic. Extremities - there is some 3+ edema on the right leg extending up to mid fernandez, there is no edema in the left leg. He has difficulty articulating words, he makes expiratory moans. Abdomen: Soft Heart: Regular rate, Other (monitor sinus ,rate normal, no PVCs) Extremities: No clubbing, No cyanosis General: Alert, Cooperative, mild distress Neck: No JVD Neuro: Normal speech, Other (but having 2-3 word dyspnea) Psych/Mental Status: Mental status NL Skin: Other (minor traumatic bruising of arms, yeast of groin area) Diagnosis CHEST PAIN: CAD RESPIRATORY DISEASE: Pulmonary edema (Acute) RENAL FAILURE: Acute (Acute tubular necrosis) Assessment Assessment Problems Medical Problems: (1) gram negative sepsis with end organ involvement Status: Acute 2. DUONG - developing with rise in BUN and Cr, likely pre-renal 3. Acute on Chronic Heart Failure - improving with diuresis 4. UTI - Infection - infection appears uncontrolled at this time but temperature remains normal, leukemoid reaction concerning for worsening sepsis. Plan Plan of Care Sepsis - start sepsis protocol, consult ID, add Levaquin, await urine C&S done as OP, await blood cultures (positive for gram negative rods 1 of 2 bottles) Pulmonary Edema - continue lasix, continue O2, repeat CXR reviewed and similar, start MYRIAM inhibitor home med DUONG - monitor, repeat BMP, Acute on Chronic Heart failure - continue lasix, O2, start MYRIAM, continue current medications, no evidence of AMI per enzymes, cardiology following UTI-Infection - continue antibiotics, repeat CBC with differential Comment Review of Relevant I have reviewed the following items wilmer (where applicable) has been applied. Labs Laboratory Tests Test 02/25/17 14:30 02/25/17 20:55 02/25/17 21:02 02/25/17 22:10 White Blood Count 10.3 x10^3/uL (4.0-11.0) Red Blood Count 3.54 x10^6/uL (4.30-5.70) Hemoglobin 9.7 g/dL (13.0-17.5) Hematocrit 30.6 % (39.0-53.0) Mean Corpuscular Volume 87 fL (79-100) Mean Corpuscular Hemoglobin 28 pg (25-35) Mean Corpuscular Hemoglobin Concent 32 g/dL (31-37) Red Cell Distribution Width 16.0 % (11.5-14.5) Platelet Count 164 x10^3/uL (140-400) Neutrophils (%) (Auto) 99 % (31-73) Lymphocytes (%) (Auto) 1 % (24-48) Monocytes (%) (Auto) 0 % (0-9) Eosinophils (%) (Auto) 0 % (0-3) Basophils (%) (Auto) 0 % (0-3) Neutrophils # (Auto) 10.2 x10^3uL (1.8-7.7) Lymphocytes # (Auto) 0.1 x10^3/uL (1.0-4.8) Monocytes # (Auto) 0.0 x10^3/uL (0.0-1.1) Eosinophils # (Auto) 0.0 x10^3/uL (0.0-0.7) Basophils # (Auto) 0.0 x10^3/uL (0.0-0.2) Segmented Neutrophils % 63 % (35-66) Band Neutrophils % 33 % (0-9) Metamyelocytes % 3 % (0-0) Myelocytes % 1 % (0-0) Platelet Estimate Adequate (ADEQUATE) Large Platelets Present Polychromasia Slight Hypochromasia Slight Poikilocytosis Slight Basophilic Stippling Present Anisocytosis Slight Tear Drop Cells Occ Ovalocytes Occ Prothrombin Time 15.6 SEC (11.7-14.0) Prothromb Time International Ratio 1.3 (0.8-1.1) Activated Partial Thromboplast Time 31 SEC (24-38) Sodium Level 138 mmol/L (136-145) Potassium Level 4.6 mmol/L (3.5-5.1) Chloride Level 104 mmol/L (98-107) Carbon Dioxide Level 23 mmol/L (21-32) Anion Gap 11 (6-14) Blood Urea Nitrogen 40 mg/dL (8-26) Creatinine 2.3 mg/dL (0.7-1.3) Estimated GFR (Cockcroft-Gault) 27.8 Glucose Level 117 mg/dL (70-99) Calcium Level 8.3 mg/dL (8.5-10.1) Magnesium Level 1.2 mg/dL (1.8-2.4) Total Bilirubin 0.4 mg/dL (0.2-1.0) Direct Bilirubin 0.1 mg/dL (0.0-0.2) Aspartate Amino Transf (AST/SGOT) 20 U/L (15-37) Alanine Aminotransferase (ALT/SGPT) 19 U/L (16-63) Alkaline Phosphatase 80 U/L (46-116) Creatine Kinase 69 U/L (39-308) Creatine Kinase MB (Mass) < 0.5 ng/mL (0.0-3.6) Creatine Kinase MB Relative Index 0.7 % (0-4) Troponin I Quantitative 0.201 ng/mL (0.000-0.055) 0.264 ng/mL (0.000-0.055) DF-Dab-X-Type Natriuretic Peptide 57271 pg/mL (0-449) Total Protein 6.4 g/dL (6.4-8.2) Albumin 3.2 g/dL (3.4-5.0) Triglycerides Level 50 mg/dL (0-150) Cholesterol Level 122 mg/dL (0-200) LDL Cholesterol, Calculated 71 mg/dL (0-100) VLDL Cholesterol, Calculated 10 mg/dL (0-40) Non-HDL Cholesterol Calculated 81 mg/dL (0-129) HDL Cholesterol 41 mg/dL (40-60) Cholesterol/HDL Ratio 3.0 Lipase 87 U/L (73-393) Glucose (Fingerstick) 147 mg/dL (70-99) Urine Collection Type Void Urine Color Yellow Urine Clarity Cloudy Urine pH 7.5 Urine Specific [place]mm[place] 1.010 Urine Protein 30 mg/dL (NEG-TRACE) Urine Glucose (UA) Negative mg/dL (NEG) Urine Ketones (Stick) Negative mg/dL (NEG) Urine Blood Moderate (NEG) Urine Nitrite Negative (NEG) Urine Bilirubin Negative (NEG) Urine Urobilinogen Dipstick 0.2 mg/dL (0.2 mg/dL) Urine Leukocyte Esterase Large (NEG) Urine RBC 3-5 /HPF (0-2) Urine WBC Tntc /HPF (0-4) Urine Squamous Epithelial Cells Few /LPF Urine Bacteria Many /HPF (0-FEW) Test 02/26/17 04:15 White Blood Count 34.3 x10^3/uL (4.0-11.0) Red Blood Count 3.24 x10^6/uL (4.30-5.70) Hemoglobin 8.8 g/dL (13.0-17.5) Hematocrit 28.6 % (39.0-53.0) Mean Corpuscular Volume 88 fL (79-100) Mean Corpuscular Hemoglobin 27 pg (25-35) Mean Corpuscular Hemoglobin Concent 31 g/dL (31-37) Red Cell Distribution Width 16.2 % (11.5-14.5) Platelet Count 155 x10^3/uL (140-400) Neutrophils (%) (Auto) 96 % (31-73) Lymphocytes (%) (Auto) 1 % (24-48) Monocytes (%) (Auto) 3 % (0-9) Eosinophils (%) (Auto) 0 % (0-3) Basophils (%) (Auto) 0 % (0-3) Neutrophils # (Auto) 32.8 x10^3uL (1.8-7.7) Lymphocytes # (Auto) 0.3 x10^3/uL (1.0-4.8) Monocytes # (Auto) 1.1 x10^3/uL (0.0-1.1) Eosinophils # (Auto) 0.0 x10^3/uL (0.0-0.7) Basophils # (Auto) 0.1 x10^3/uL (0.0-0.2) Segmented Neutrophils % 47 % (35-66) Band Neutrophils % 38 % (0-9) Lymphocytes % 3 % (24-48) Monocytes % 4 % (0-10) Metamyelocytes % 5 % (0-0) Myelocytes % 3 % (0-0) Platelet Estimate Adequate (ADEQUATE) Polychromasia Slight Anisocytosis Slight Tear Drop Cells Few Ovalocytes Few Heparin Anti-Xa Act, Unfractionated 0.33 IU/mL (0.30-0.70) Sodium Level 137 mmol/L (136-145) Potassium Level 5.1 mmol/L (3.5-5.1) Chloride Level 101 mmol/L (98-107) Carbon Dioxide Level 26 mmol/L (21-32) Anion Gap 10 (6-14) Blood Urea Nitrogen 55 mg/dL (8-26) Creatinine 2.9 mg/dL (0.7-1.3) Estimated GFR (Cockcroft-Gault) 21.3 Glucose Level 113 mg/dL (70-99) Calcium Level 8.2 mg/dL (8.5-10.1) Phosphorus Level 4.7 mg/dL (2.6-4.7) Magnesium Level 2.3 mg/dL (1.8-2.4) Troponin I Quantitative 0.167 ng/mL (0.000-0.055) Thyroid Stimulating Hormone (TSH) 1.515 uIU/mL (0.358-3.74) Laboratory Tests Test 02/25/17 14:30 02/25/17 20:55 02/25/17 21:02 02/25/17 22:10 White Blood Count 10.3 x10^3/uL (4.0-11.0) Red Blood Count 3.54 x10^6/uL (4.30-5.70) Hemoglobin 9.7 g/dL (13.0-17.5) Hematocrit 30.6 % (39.0-53.0) Mean Corpuscular Volume 87 fL (79-100) Mean Corpuscular Hemoglobin 28 pg (25-35) Mean Corpuscular Hemoglobin Concent 32 g/dL (31-37) Red Cell Distribution Width 16.0 % (11.5-14.5) Platelet Count 164 x10^3/uL (140-400) Neutrophils (%) (Auto) 99 % (31-73) Lymphocytes (%) (Auto) 1 % (24-48) Monocytes (%) (Auto) 0 % (0-9) Eosinophils (%) (Auto) 0 % (0-3) Basophils (%) (Auto) 0 % (0-3) Neutrophils # (Auto) 10.2 x10^3uL (1.8-7.7) Lymphocytes # (Auto) 0.1 x10^3/uL (1.0-4.8) Monocytes # (Auto) 0.0 x10^3/uL (0.0-1.1) Eosinophils # (Auto) 0.0 x10^3/uL (0.0-0.7) Basophils # (Auto) 0.0 x10^3/uL (0.0-0.2) Segmented Neutrophils % 63 % (35-66) Band Neutrophils % 33 % (0-9) Metamyelocytes % 3 % (0-0) Myelocytes % 1 % (0-0) Platelet Estimate Adequate (ADEQUATE) Large Platelets Present Polychromasia Slight Hypochromasia Slight Poikilocytosis Slight Basophilic Stippling Present Anisocytosis Slight Tear Drop Cells Occ Ovalocytes Occ Prothrombin Time 15.6 SEC (11.7-14.0) Prothromb Time International Ratio 1.3 (0.8-1.1) Activated Partial Thromboplast Time 31 SEC (24-38) Sodium Level 138 mmol/L (136-145) Potassium Level 4.6 mmol/L (3.5-5.1) Chloride Level 104 mmol/L (98-107) Carbon Dioxide Level 23 mmol/L (21-32) Anion Gap 11 (6-14) Blood Urea Nitrogen 40 mg/dL (8-26) Creatinine 2.3 mg/dL (0.7-1.3) Estimated GFR (Cockcroft-Gault) 27.8 Glucose Level 117 mg/dL (70-99) Calcium Level 8.3 mg/dL (8.5-10.1) Magnesium Level 1.2 mg/dL (1.8-2.4) Total Bilirubin 0.4 mg/dL (0.2-1.0) Direct Bilirubin 0.1 mg/dL (0.0-0.2) Aspartate Amino Transf (AST/SGOT) 20 U/L (15-37) Alanine Aminotransferase (ALT/SGPT) 19 U/L (16-63) Alkaline Phosphatase 80 U/L (46-116) Creatine Kinase 69 U/L (39-308) Creatine Kinase MB (Mass) < 0.5 ng/mL (0.0-3.6) Creatine Kinase MB Relative Index 0.7 % (0-4) Troponin I Quantitative 0.201 ng/mL (0.000-0.055) 0.264 ng/mL (0.000-0.055) DN-Tta-F-Type Natriuretic Peptide 62345 pg/mL (0-449) Total Protein 6.4 g/dL (6.4-8.2) Albumin 3.2 g/dL (3.4-5.0) Triglycerides Level 50 mg/dL (0-150) Cholesterol Level 122 mg/dL (0-200) LDL Cholesterol, Calculated 71 mg/dL (0-100) VLDL Cholesterol, Calculated 10 mg/dL (0-40) Non-HDL Cholesterol Calculated 81 mg/dL (0-129) HDL Cholesterol 41 mg/dL (40-60) Cholesterol/HDL Ratio 3.0 Lipase 87 U/L (73-393) Glucose (Fingerstick) 147 mg/dL (70-99) Urine Collection Type Void Urine Color Yellow Urine Clarity Cloudy Urine pH 7.5 Urine Specific [place] 1.010 Urine Protein 30 mg/dL (NEG-TRACE) Urine Glucose (UA) Negative mg/dL (NEG) Urine Ketones (Stick) Negative mg/dL (NEG) Urine Blood Moderate (NEG) Urine Nitrite Negative (NEG) Urine Bilirubin Negative (NEG) Urine Urobilinogen Dipstick 0.2 mg/dL (0.2 mg/dL) Urine Leukocyte Esterase Large (NEG) Urine RBC 3-5 /HPF (0-2) Urine WBC Tntc /HPF (0-4) Urine Squamous Epithelial Cells Few /LPF Urine Bacteria Many /HPF (0-FEW) Test 02/26/17 04:15 White Blood Count 34.3 x10^3/uL (4.0-11.0) Red Blood Count 3.24 x10^6/uL (4.30-5.70) Hemoglobin 8.8 g/dL (13.0-17.5) Hematocrit 28.6 % (39.0-53.0) Mean Corpuscular Volume 88 fL (79-100) Mean Corpuscular Hemoglobin 27 pg (25-35) Mean Corpuscular Hemoglobin Concent 31 g/dL (31-37) Red Cell Distribution Width 16.2 % (11.5-14.5) Platelet Count 155 x10^3/uL (140-400) Neutrophils (%) (Auto) 96 % (31-73) Lymphocytes (%) (Auto) 1 % (24-48) Monocytes (%) (Auto) 3 % (0-9) Eosinophils (%) (Auto) 0 % (0-3) Basophils (%) (Auto) 0 % (0-3) Neutrophils # (Auto) 32.8 x10^3uL (1.8-7.7) Lymphocytes # (Auto) 0.3 x10^3/uL (1.0-4.8) Monocytes # (Auto) 1.1 x10^3/uL (0.0-1.1) Eosinophils # (Auto) 0.0 x10^3/uL (0.0-0.7) Basophils # (Auto) 0.1 x10^3/uL (0.0-0.2) Segmented Neutrophils % 47 % (35-66) Band Neutrophils % 38 % (0-9) Lymphocytes % 3 % (24-48) Monocytes % 4 % (0-10) Metamyelocytes % 5 % (0-0) Myelocytes % 3 % (0-0) Platelet Estimate Adequate (ADEQUATE) Polychromasia Slight Anisocytosis Slight Tear Drop Cells Few Ovalocytes Few Heparin Anti-Xa Act, Unfractionated 0.33 IU/mL (0.30-0.70) Sodium Level 137 mmol/L (136-145) Potassium Level 5.1 mmol/L (3.5-5.1) Chloride Level 101 mmol/L (98-107) Carbon Dioxide Level 26 mmol/L (21-32) Anion Gap 10 (6-14) Blood Urea Nitrogen 55 mg/dL (8-26) Creatinine 2.9 mg/dL (0.7-1.3) Estimated GFR (Cockcroft-Gault) 21.3 Glucose Level 113 mg/dL (70-99) Calcium Level 8.2 mg/dL (8.5-10.1) Phosphorus Level 4.7 mg/dL (2.6-4.7) Magnesium Level 2.3 mg/dL (1.8-2.4) Troponin I Quantitative 0.167 ng/mL (0.000-0.055) Thyroid Stimulating Hormone (TSH) 1.515 uIU/mL (0.358-3.74) Medications Current Medications Vancomycin HCl (Vanco Per Pharmacy) 1 each PRN DAILY PRN MC SEE COMMENTS Last administered on 02/25/17 19:01; Start 02/25/17 at 15:45 Piperacillin Sod/ Tazobactam Sod (Zosyn Per Pharmacy) 1 each PRN DAILY PRN MC SEE COMMENTS; Start 02/25/17 at 15:45 Aspirin (Erika Aspirin) 325 mg 1X ONCE PO Last administered on 02/25/17 17:17 ; Start 02/25/17 at 16:00; Stop 02/25/17 at 16:01; Status DC Vancomycin HCl 2 gm/Sodium Chloride 500 ml @ 250 mls/hr 1X ONCE IV Last administered on 02/25/17 17:56; Start 02/25/17 at 16:30; Stop 02/25/17 at 18:29 ; Status DC Piperacillin Sod/ Tazobactam Sod 4.5 gm/Sodium Chloride 100 ml @ 200 mls/hr 1X ONCE IV Last administered on 02/25/17 17:04; Start 02/25/17 at 16:00; Stop 02/25/17 at 16:29; Status DC Ondansetron HCl (Zofran) 4 mg PRN Q8HRS PRN IV NAUSEA/VOMITING; Start 02/25/17 at 16:00; Stop 02/26/17 at 15:59 Magnesium Sulfate/ Dextrose 100 ml @ 25 mls/hr 1X ONCE IV Last administered on 02/25/17 17:03; Start 02/25/17 at 16:30; Stop 02/25/17 at 20:29; Status DC Aspirin (Ecotrin) 81 mg DAILYWBKFT PO ; Start 02/26/17 at 08:00 Clopidogrel Bisulfate (Plavix) 75 mg DAILY PO ; Start 02/26/17 at 09:00 Furosemide (Lasix) 40 mg 1X ONCE IVP Last administered on 02/25/17 17:17; Start 02/25/17 at 17:00; Stop 02/25/17 at 17:01; Status DC Heparin Sodium/ Dextrose 500 ml @ 20 mls/hr CONT PRN IV SEE I/O RECORD Last administered on 02/25/17 22:12; Start 02/25/17 at 16:30 Heparin Sodium (Porcine) (Heparin Sodium) 4,050 unit PRN Q6HRS PRN IV FOR UFH LEVEL LESS THAN 0.2; Start 02/25/17 at 16:30 Labetalol HCl (Normodyne) 20 mg PRN Q2HR PRN IVP ELEVATED BP, SEE COMMENTS; Start 02/25/17 at 16:30 Nitroglycerin (Nitrostat) 0.4 mg PRN Q5MIN PRN SL CHEST PAIN; Start 02/25/17 at 18:15 Morphine Sulfate 1 mg PRN Q10MIN PRN IV CHEST PAIN Last administered on 04:18; Start 02/25/17 at 18:15 Acetaminophen (Tylenol) 650 mg PRN Q6HRS PRN PO MILD PAIN / TEMP; Start at 18:15 Ondansetron HCl (Zofran) 4 mg PRN Q6HRS PRN IV NAUSEA/VOMITING; Start 02/25/17 at 18:15 Zolpidem Tartrate (Ambien) 5 mg PRN QHS PRN PO INSOMNIA Last administered on 23:05; Start 02/25/17 at 18:15 Heparin Sodium (Porcine) (Heparin Sq) 5,000 unit Q12HR SQ Last administered on 02/25/17 22:16; Start 02/25/17 at 19:00 Sodium Chloride (Normal Saline Flush) 3 ml QSHIFT PRN IV AFTER MEDS AND BLOOD DRAWS; Start 02/25/17 at 18:15 Senna/Docusate Sodium (Senna Plus) 1 tab BID PO ; Start 02/25/17 at 21:00 Vancomycin HCl 2 gm/Sodium Chloride 500 ml @ 250 mls/hr Q24H IV ; Start at 18:00 Vancomycin HCl 1 each 1X ONCE MC ; Start 02/27/17 at 17:30; Stop 02/27/17 at 17 :31 Piperacillin Sod/ Tazobactam Sod 4.5 gm/Sodium Chloride 100 ml @ 200 mls/hr Q6HRS IV Last administered on 02/26/17t 05:42; Start 02/26/17 at 00:00 Active Scripts Active Reported Albuterol Sulfate Conc Neb Soln (Albuterol Sulfate) 2.5 Mg/0.5 Ml Vial.neb 2.5 Mg NEB PRN Q4HRS PRN Symbicort 160-4.5 Mcg Inhaler (Budesonide/Formoterol Fumarate) 10.2 Gm Hfa.aer.ad 1 Puff IH DAILY Spiriva (Tiotropium Barron) 18 Mcg Cap.w.dev 1 Cap IH DAILY Nystatin 15 Gm Powder 15 Gm TP PRN PRN NITRO-DUR 0.4mg/hr (Nitroglycerin) 1 Each Patch.td24 1 Each TD DAILY Atorvastatin Calcium 10 Mg Tablet 10 Mg PO HS Cipro (Ciprofloxacin Hcl) 500 Mg Tablet 500 Mg PO BID 7 Days Metoprolol Tartrate 25 Mg Tablet 25 Mg PO BID Alum-Mag Hydroxide-Simeth Liq (Mag Hydrox/Al Hydrox/Simeth) 360 Ml Oral.susp 30 Ml PO PRN Q2HR PRN Dulcolax (Bisacodyl) 5 Mg Tablet.dr 1 Supp RC PRN DAILY PRN Robitussin Cough-Chest Dm Liq (Guaifenesin/Dextromethorphan) 237 Ml Liquid 10 Ml PO PRN Q4HRS PRN Milk Of Magnesia (Magnesium Hydroxide) 400 Mg/5 Ml Oral.susp 400 Mg PO PRN DAILY PRN Tylenol (Acetaminophen) 325 Mg Tablet 650 Mg PO PRN Q4HRS PRN Protonix (Pantoprazole Sodium) 20 Mg Tablet. 20 Mg PO DAILY Clopidogrel (Clopidogrel Bisulfate) 75 Mg Tablet 1 Tab PO DAILY Lo-Dose Aspirin EC (Aspirin) 81 Mg Tablet. 81 Mg PO Voltaren (Diclofenac Sodium) 100 Gm Gel..gram. 100 Gm TP TID Proair Hfa Inhaler (Albuterol Sulfate) 8.5 Gm Hfa.aer.ad 1 Puff INH PRN Q6HRS PRN [place] Carbonate 300 Mg Tablet 300 Mg PO HS Lisinopril 2.5 Mg Tablet 1 Tab PO DAILY Hydrocodone-Apap 5-325 (Hydrocodone Bit/Acetaminophen) 1 Each Tablet 1 Tab PO QID Flomax (Tamsulosin Hcl) 0.4 Mg Cap.er.24h 1 Cap PO DAILY Buspirone Hcl 10 Mg Tablet 10 Mg PO TID Avodart (Dutasteride) 0.5 Mg Capsule 1 Cap PO DAILY Prozac (Fluoxetine Hcl) 40 Mg Capsule 40 Mg PO DAILY Vitals/I & O Vital Sign - Last 24 Hours 02/25/17 02/25/17 02/25/17 02/25/17 12:28 15:56 16:20 17:23 Temp 99.6 99.6 Pulse 107 89 86 80 Resp 25 18 23 B/P (MAP) 149/71 (97) 116/50 (72) 123/54 (77) 100/55 (70) Pulse Ox 94 94 93 94 O2 Delivery Nasal Cannula Nasal Cannula Nasal Cannula Nasal Cannula O2 Flow Rate 3.0 2.0 2.0 2.0 02/25/17 02/25/17 02/25/17 02/25/17 18:20 19:15 21:02 23:05 Temp 97.5 97.2 97.5 97.2 Pulse 80 77 75 68 Resp 23 24 22 14 B/P (MAP) 161/77 (105) 167/76 (106) 108/52 (70) 107/53 (71) Pulse Ox 95 94 94 94 O2 Delivery Nasal Cannula Nasal Cannula Nasal Cannula Nasal Cannula O2 Flow Rate 2.0 2.0 2.0 2.0 02/25/17 02/25/17 02/26/17 02/26/17 23:06 23:39 03:05 07:43 Temp 97.9 98.7 97.9 98.7 Pulse 69 76 Resp 18 16 19 B/P (MAP) 142/60 (87) 108/54 (72) Pulse Ox 94 94 98 97 O2 Delivery Nasal Cannula Nasal Cannula O2 Flow Rate 2.0 2.0 2.0 2.0 Intake and Output 02/25/17 02/25/17 02/26/17 14:59 22:59 06:59 Intake Total 100 ml 0 ml Output Total 1500 ml 1650 ml Balance -1400 ml -1650 ml LOY MULLER MD Feb 26, 2017 08:31
[2017-02-26] MEDS: HYDROcodone/APAP 5/325MG 1 TAB TABLET PO SCH ×4 (08:34→21:06)
[2017-02-26] MEDS: busPIRone 10 MG TABLET. PO SCH ×3 (08:34→21:06)
[2017-02-26] MEDS: ASPIRIN ENTERIC COATED 81 MG TABLET.DR. PO SCH (08:34)
[2017-02-26] MEDS: CLOPIDOGREL BISULFATE 75 MG TABLET PO SCH (08:34)
[2017-02-26] MEDS: FLUoxetine HCL 20 MG CAPSULE PO SCH (08:35)
[2017-02-26] MEDS: PANTOPRAZOLE 40 MG TABLET.DR. PO SCH (08:35)
[2017-02-26] MEDS: TAMSULOSIN 0.4 MG CAP.ER.24H. PO SCH (08:35)
[2017-02-26] MEDS: SENNOSIDES/DOCUSATE 8.6/50MG TABLET. PO SCH ×2 (08:35→21:06)
[2017-02-26] MEDS: DUTASTERIDE 0.5 MG CAPSULE PO SCH (08:36)
[2017-02-26] MEDS: METOPROLOL TART IMMED RELEASE 25 MG TABLET. PO SCH ×2 (08:39→21:00)
[2017-02-26] MEDS: HEPARIN PF for SUB-Q USE 5,000 UNIT/0.5 ML VIAL. SQ SCH (08:39)
[2017-02-26] MEDS: NITROGLYCERIN 0.4MG/HR PATCH. TD SCH (08:40)
--- NOTE | 2017-02-26 08:55 | RAD ---
Indication: CHF. Time of exam 0844 hours. Correlation is made with prior study 1 day earlier. The heart is enlarged. There is central congestion but no overt failure. No effusion or pneumothorax is seen. Impression: Improved central congestive changes when compared with exam one day earlier.
[2017-02-26] MEDS ORDERED: NOREPINEPHRIN PREMIX 250 ML IV PRN ×2 (09:00→21:30)
[2017-02-26] MEDS ORDERED: DICLOFENAC SODIUM 1% TOPICAL GEL 100GM TUBE. TP SCH (09:00)
[2017-02-26] MEDS ORDERED: IV NORMAL SALINE 500ML BAG 500 ML IV PRN (09:00)
[2017-02-26] MEDS ORDERED: LISINOPRIL 2.5 MG TABLET PO SCH (09:00)
[2017-02-26] MEDS: IV NORMAL SALINE 1000ML BAG 1,000 ML IV SCH ×5 (09:13→11:54)
[2017-02-26] MEDS: IPRATRPIUM/ALBUTEROL 0.5/2.5MG 3 ML NEBU. NEB SCH ×4 (09:14→19:59)
[2017-02-26] MEDS: BUDESONIDE 0.5 MG/2 ML NEBU. NEB SCH ×2 (09:15→19:59)
[2017-02-26] MEDS: DICLOFENAC SODIUM 1% TOPICAL GEL 100GM TUBE. TP SCH ×3 (10:22→21:18)
[2017-02-26] MEDS: VANCOMYCIN PER PHARMACY MC PRN (10:51)
--- NOTE | 2017-02-26 11:00 | PDOC ---
Infectious Disease Note Subjective Subjective ID CONSULT DICTATION SYSTEM DOWN HPI: 76 y/ obese is a LTC patient at [facility] who was started on cipro for a UTI but had a 101 fever and was sent to the ER for further eval and tx. He complained of chest pain while in the ER and has a slightly elevated troponin and elevated proBNP and has known cardiac disease, having been stented x [address] Condon and being admitted. He has a history of diabetes and has urinary retention from spinal stenosis and is generally confined to bed or a wheelchair but does go to the dining room for meals. His chest Xray suggests an infiltrate vs CHF but he has not been noted to aspirate or have and new respiratory complaints. CXR this am is better. This am had a barton placed and had 1500 ml returned. This am blood cults + for GNR. Has h/o UTI with proteus res to quinolones. H/o MRSA +. C/o knee pain b/c it needs to be replaced and now has hip pain as well. Has had a dry cough. No sinus drainage/N/V. Had some loose stool the other day with some cramping. No Rash, mild SOA Past Medical History Cardiovascular: CAD, HTN, Hyperlipidemia Pulmonary: COPD CENTRAL NERVOUS SYSTEM: Other (No pertinent history) GI: Constipation, GERD, Obesity Heme/Onc: Anemia NOS Hepatobiliary: No pertinent hx Psych: Anxiety, Bipolar Musculoskeletal: Osteoarthritis, Other (deconditioning) Rheumatologic: No pertinent hx Infectious disease: Other (MRSA and VRE) ENT: No pertinent hx Renal/: Chronic renal insuff, UTI -h/p proteus, Urinary Incontinence Dermatology: Other (decubitus coccyx ulcer) Past Surgical History Past Surgical History: No pertinent history Social History Smoke: No ALCOHOL: none Drugs: None FM Hx - non contributory MEDS reviewed in [facility] NKDA ROS ROS Otherwise neg except for what is above Vital Sign Vital Signs Vital Signs Date Time Temp Pulse Resp B/P (MAP) Pulse Ox O2 Delivery O2 Flow Rate FiO2 02/26/17 10:14 98.2 78 20 92/54 (67) 90 Nasal Cannula 2.0 98.2 Physical Exam PHYSICAL EXAM GENERAL: NAD, morbidly obese. looks a little tired HEENT: PERRL, OC/OP- dry NECK: Supple, no JVD, no LN LUNGS: Clear HEART: S1S2, no gallop, no murmur ABD: Soft, NT, no organomegaly, no rebound, Obese. mild erythema R lower and mid quad Barton EXT: Trace edema, no cyanosis VP SCIENTIFIC: Alert, oriented x 3, no focal neurologic deficit SKIN: No generalized rash but yeast in groin IV: ok Labs Lab Laboratory Tests Test 02/25/17 14:30 02/25/17 20:55 02/25/17 21:02 02/25/17 22:10 White Blood Count 10.3 x10^3/uL (4.0-11.0) Red Blood Count 3.54 x10^6/uL (4.30-5.70) Hemoglobin 9.7 g/dL (13.0-17.5) Hematocrit 30.6 % (39.0-53.0) Mean Corpuscular Volume 87 fL (79-100) Mean Corpuscular Hemoglobin 28 pg (25-35) Mean Corpuscular Hemoglobin Concent 32 g/dL (31-37) Red Cell Distribution Width 16.0 % (11.5-14.5) Platelet Count 164 x10^3/uL (140-400) Neutrophils (%) (Auto) 99 % (31-73) Lymphocytes (%) (Auto) 1 % (24-48) Monocytes (%) (Auto) 0 % (0-9) Eosinophils (%) (Auto) 0 % (0-3) Basophils (%) (Auto) 0 % (0-3) Neutrophils # (Auto) 10.2 x10^3uL (1.8-7.7) Lymphocytes # (Auto) 0.1 x10^3/uL (1.0-4.8) Monocytes # (Auto) 0.0 x10^3/uL (0.0-1.1) Eosinophils # (Auto) 0.0 x10^3/uL (0.0-0.7) Basophils # (Auto) 0.0 x10^3/uL (0.0-0.2) Segmented Neutrophils % 63 % (35-66) Band Neutrophils % 33 % (0-9) Metamyelocytes % 3 % (0-0) Myelocytes % 1 % (0-0) Platelet Estimate Adequate (ADEQUATE) Large Platelets Present Polychromasia Slight Hypochromasia Slight Poikilocytosis Slight Basophilic Stippling Present Anisocytosis Slight Tear Drop Cells Occ Ovalocytes Occ Prothrombin Time 15.6 SEC (11.7-14.0) Prothromb Time International Ratio 1.3 (0.8-1.1) Activated Partial Thromboplast Time 31 SEC (24-38) Sodium Level 138 mmol/L (136-145) Potassium Level 4.6 mmol/L (3.5-5.1) Chloride Level 104 mmol/L (98-107) Carbon Dioxide Level 23 mmol/L (21-32) Anion Gap 11 (6-14) Blood Urea Nitrogen 40 mg/dL (8-26) Creatinine 2.3 mg/dL (0.7-1.3) Estimated GFR (Cockcroft-Gault) 27.8 Glucose Level 117 mg/dL (70-99) Calcium Level 8.3 mg/dL (8.5-10.1) Magnesium Level 1.2 mg/dL (1.8-2.4) Total Bilirubin 0.4 mg/dL (0.2-1.0) Direct Bilirubin 0.1 mg/dL (0.0-0.2) Aspartate Amino Transf (AST/SGOT) 20 U/L (15-37) Alanine Aminotransferase (ALT/SGPT) 19 U/L (16-63) Alkaline Phosphatase 80 U/L (46-116) Creatine Kinase 69 U/L (39-308) Creatine Kinase MB (Mass) < 0.5 ng/mL (0.0-3.6) Creatine Kinase MB Relative Index 0.7 % (0-4) Troponin I Quantitative 0.201 ng/mL (0.000-0.055) 0.264 ng/mL (0.000-0.055) ZW-Qii-K-Type Natriuretic Peptide 38569 pg/mL (0-449) Total Protein 6.4 g/dL (6.4-8.2) Albumin 3.2 g/dL (3.4-5.0) Triglycerides Level 50 mg/dL (0-150) Cholesterol Level 122 mg/dL (0-200) LDL Cholesterol, Calculated 71 mg/dL (0-100) VLDL Cholesterol, Calculated 10 mg/dL (0-40) Non-HDL Cholesterol Calculated 81 mg/dL (0-129) HDL Cholesterol 41 mg/dL (40-60) Cholesterol/HDL Ratio 3.0 Lipase 87 U/L (73-393) Glucose (Fingerstick) 147 mg/dL (70-99) Urine Collection Type Void Urine Color Yellow Urine Clarity Cloudy Urine pH 7.5 Urine Specific [place] 1.010 Urine Protein 30 mg/dL (NEG-TRACE) Urine Glucose (UA) Negative mg/dL (NEG) Urine Ketones (Stick) Negative mg/dL (NEG) Urine Blood Moderate (NEG) Urine Nitrite Negative (NEG) Urine Bilirubin Negative (NEG) Urine Urobilinogen Dipstick 0.2 mg/dL (0.2 mg/dL) Urine Leukocyte Esterase Large (NEG) Urine RBC 3-5 /HPF (0-2) Urine WBC Tntc /HPF (0-4) Urine Squamous Epithelial Cells Few /LPF Urine Bacteria Many /HPF (0-FEW) Test 02/26/17 04:15 White Blood Count 34.3 x10^3/uL (4.0-11.0) Red Blood Count 3.24 x10^6/uL (4.30-5.70) Hemoglobin 8.8 g/dL (13.0-17.5) Hematocrit 28.6 % (39.0-53.0) Mean Corpuscular Volume 88 fL (79-100) Mean Corpuscular Hemoglobin 27 pg (25-35) Mean Corpuscular Hemoglobin Concent 31 g/dL (31-37) Red Cell Distribution Width 16.2 % (11.5-14.5) Platelet Count 155 x10^3/uL (140-400) Neutrophils (%) (Auto) 96 % (31-73) Lymphocytes (%) (Auto) 1 % (24-48) Monocytes (%) (Auto) 3 % (0-9) Eosinophils (%) (Auto) 0 % (0-3) Basophils (%) (Auto) 0 % (0-3) Neutrophils # (Auto) 32.8 x10^3uL (1.8-7.7) Lymphocytes # (Auto) 0.3 x10^3/uL (1.0-4.8) Monocytes # (Auto) 1.1 x10^3/uL (0.0-1.1) Eosinophils # (Auto) 0.0 x10^3/uL (0.0-0.7) Basophils # (Auto) 0.1 x10^3/uL (0.0-0.2) Segmented Neutrophils % 47 % (35-66) Band Neutrophils % 38 % (0-9) Lymphocytes % 3 % (24-48) Monocytes % 4 % (0-10) Metamyelocytes % 5 % (0-0) Myelocytes % 3 % (0-0) Platelet Estimate Adequate (ADEQUATE) Polychromasia Slight Anisocytosis Slight Tear Drop Cells Few Ovalocytes Few Heparin Anti-Xa Act, Unfractionated 0.33 IU/mL (0.30-0.70) Sodium Level 137 mmol/L (136-145) Potassium Level 5.1 mmol/L (3.5-5.1) Chloride Level 101 mmol/L (98-107) Carbon Dioxide Level 26 mmol/L (21-32) Anion Gap 10 (6-14) Blood Urea Nitrogen 55 mg/dL (8-26) Creatinine 2.9 mg/dL (0.7-1.3) Estimated GFR (Cockcroft-Gault) 21.3 Glucose Level 113 mg/dL (70-99) Calcium Level 8.2 mg/dL (8.5-10.1) Phosphorus Level 4.7 mg/dL (2.6-4.7) Magnesium Level 2.3 mg/dL (1.8-2.4) Troponin I Quantitative 0.167 ng/mL (0.000-0.055) Thyroid Stimulating Hormone (TSH) 1.515 uIU/mL (0.358-3.74) Objective Assessment GNR sepsis POA. now with Hypotension Leukocytosis - large increase urinary retention -s/p barton this am with 1500 out DUONG UTI - POA Abd redness ? early cellulitis Yeast H/u MRSA Afib with CHF on CXR C/o loose stool Plan Plan of Care D/c Levoflox with h/o previous resistance from Urine cult D/c vanc with GNR and increasing Cr Change zosyn to Meropenem Micafungin for yeast with h/o Afib Check C-diff add Flagyl F/u procalcitonin F/u labs and cults F/u right lower quad erythema may need additional GPC coverage To ICU Reviewed previous records 35 mins CC time D/w Cardiology - chicoe D/w nursing Thank you VANESSA NINA MD Feb 26, 2017 11:00
--- NOTE | 2017-02-26 11:24 | PDOC ---
ROSALBA PACHECO [employer]GRAM[employer] 02/26/17 1124: CARDIO Progress Notes Date and Time Date of Service 02/26/2017 Time of Evaluation 1050 Subjective Subjective: No Chest Pain, No shortness of breath, No Palpitations Vitals Vitals Vital Signs Date Time Temp Pulse Resp B/P (MAP) Pulse Ox O2 Delivery O2 Flow Rate FiO2 02/26/17 11:01 91 Nasal Cannula 3.0 02/26/17 10:14 98.2 78 20 92/54 (67) 98.2 Weight Weight [ ] Input and Output Intake and Output Intake and Output 02/26/17 06:59 Intake Total 100 ml Output Total 3150 ml Balance -3050 ml Intake Oral 0 ml IV Total 100 ml Output Urine Total 3150 ml Laboratory Labs Laboratory Tests Test 02/25/17 14:30 02/25/17 20:55 02/25/17 21:02 02/25/17 22:10 White Blood Count 10.3 x10^3/uL (4.0-11.0) Red Blood Count 3.54 x10^6/uL (4.30-5.70) Hemoglobin 9.7 g/dL (13.0-17.5) Hematocrit 30.6 % (39.0-53.0) Mean Corpuscular Volume 87 fL (79-100) Mean Corpuscular Hemoglobin 28 pg (25-35) Mean Corpuscular Hemoglobin Concent 32 g/dL (31-37) Red Cell Distribution Width 16.0 % (11.5-14.5) Platelet Count 164 x10^3/uL (140-400) Neutrophils (%) (Auto) 99 % (31-73) Lymphocytes (%) (Auto) 1 % (24-48) Monocytes (%) (Auto) 0 % (0-9) Eosinophils (%) (Auto) 0 % (0-3) Basophils (%) (Auto) 0 % (0-3) Neutrophils # (Auto) 10.2 x10^3uL (1.8-7.7) Lymphocytes # (Auto) 0.1 x10^3/uL (1.0-4.8) Monocytes # (Auto) 0.0 x10^3/uL (0.0-1.1) Eosinophils # (Auto) 0.0 x10^3/uL (0.0-0.7) Basophils # (Auto) 0.0 x10^3/uL (0.0-0.2) Segmented Neutrophils % 63 % (35-66) Band Neutrophils % 33 % (0-9) Metamyelocytes % 3 % (0-0) Myelocytes % 1 % (0-0) Platelet Estimate Adequate (ADEQUATE) Large Platelets Present Polychromasia Slight Hypochromasia Slight Poikilocytosis Slight Basophilic Stippling Present Anisocytosis Slight Tear Drop Cells Occ Ovalocytes Occ Prothrombin Time 15.6 SEC (11.7-14.0) Prothromb Time International Ratio 1.3 (0.8-1.1) Activated Partial Thromboplast Time 31 SEC (24-38) Sodium Level 138 mmol/L (136-145) Potassium Level 4.6 mmol/L (3.5-5.1) Chloride Level 104 mmol/L (98-107) Carbon Dioxide Level 23 mmol/L (21-32) Anion Gap 11 (6-14) Blood Urea Nitrogen 40 mg/dL (8-26) Creatinine 2.3 mg/dL (0.7-1.3) Estimated GFR (Cockcroft-Gault) 27.8 Glucose Level 117 mg/dL (70-99) Calcium Level 8.3 mg/dL (8.5-10.1) Magnesium Level 1.2 mg/dL (1.8-2.4) Total Bilirubin 0.4 mg/dL (0.2-1.0) Direct Bilirubin 0.1 mg/dL (0.0-0.2) Aspartate Amino Transf (AST/SGOT) 20 U/L (15-37) Alanine Aminotransferase (ALT/SGPT) 19 U/L (16-63) Alkaline Phosphatase 80 U/L (46-116) Creatine Kinase 69 U/L (39-308) Creatine Kinase MB (Mass) < 0.5 ng/mL (0.0-3.6) Creatine Kinase MB Relative Index 0.7 % (0-4) Troponin I Quantitative 0.201 ng/mL (0.000-0.055) 0.264 ng/mL (0.000-0.055) KN-Noi-L-Type Natriuretic Peptide 88846 pg/mL (0-449) Total Protein 6.4 g/dL (6.4-8.2) Albumin 3.2 g/dL (3.4-5.0) Triglycerides Level 50 mg/dL (0-150) Cholesterol Level 122 mg/dL (0-200) LDL Cholesterol, Calculated 71 mg/dL (0-100) VLDL Cholesterol, Calculated 10 mg/dL (0-40) Non-HDL Cholesterol Calculated 81 mg/dL (0-129) HDL Cholesterol 41 mg/dL (40-60) Cholesterol/HDL Ratio 3.0 Lipase 87 U/L (73-393) Glucose (Fingerstick) 147 mg/dL (70-99) Urine Collection Type Void Urine Color Yellow Urine Clarity Cloudy Urine pH 7.5 Urine Specific [place] 1.010 Urine Protein 30 mg/dL (NEG-TRACE) Urine Glucose (UA) Negative mg/dL (NEG) Urine Ketones (Stick) Negative mg/dL (NEG) Urine Blood Moderate (NEG) Urine Nitrite Negative (NEG) Urine Bilirubin Negative (NEG) Urine Urobilinogen Dipstick 0.2 mg/dL (0.2 mg/dL) Urine Leukocyte Esterase Large (NEG) Urine RBC 3-5 /HPF (0-2) Urine WBC Tntc /HPF (0-4) Urine Squamous Epithelial Cells Few /LPF Urine Bacteria Many /HPF (0-FEW) Test 02/26/17 04:15 White Blood Count 34.3 x10^3/uL (4.0-11.0) Red Blood Count 3.24 x10^6/uL (4.30-5.70) Hemoglobin 8.8 g/dL (13.0-17.5) Hematocrit 28.6 % (39.0-53.0) Mean Corpuscular Volume 88 fL (79-100) Mean Corpuscular Hemoglobin 27 pg (25-35) Mean Corpuscular Hemoglobin Concent 31 g/dL (31-37) Red Cell Distribution Width 16.2 % (11.5-14.5) Platelet Count 155 x10^3/uL (140-400) Neutrophils (%) (Auto) 96 % (31-73) Lymphocytes (%) (Auto) 1 % (24-48) Monocytes (%) (Auto) 3 % (0-9) Eosinophils (%) (Auto) 0 % (0-3) Basophils (%) (Auto) 0 % (0-3) Neutrophils # (Auto) 32.8 x10^3uL (1.8-7.7) Lymphocytes # (Auto) 0.3 x10^3/uL (1.0-4.8) Monocytes # (Auto) 1.1 x10^3/uL (0.0-1.1) Eosinophils # (Auto) 0.0 x10^3/uL (0.0-0.7) Basophils # (Auto) 0.1 x10^3/uL (0.0-0.2) Segmented Neutrophils % 47 % (35-66) Band Neutrophils % 38 % (0-9) Lymphocytes % 3 % (24-48) Monocytes % 4 % (0-10) Metamyelocytes % 5 % (0-0) Myelocytes % 3 % (0-0) Platelet Estimate Adequate (ADEQUATE) Polychromasia Slight Anisocytosis Slight Tear Drop Cells Few Ovalocytes Few Heparin Anti-Xa Act, Unfractionated 0.33 IU/mL (0.30-0.70) Sodium Level 137 mmol/L (136-145) Potassium Level 5.1 mmol/L (3.5-5.1) Chloride Level 101 mmol/L (98-107) Carbon Dioxide Level 26 mmol/L (21-32) Anion Gap 10 (6-14) Blood Urea Nitrogen 55 mg/dL (8-26) Creatinine 2.9 mg/dL (0.7-1.3) Estimated GFR (Cockcroft-Gault) 21.3 Glucose Level 113 mg/dL (70-99) Calcium Level 8.2 mg/dL (8.5-10.1) Phosphorus Level 4.7 mg/dL (2.6-4.7) Magnesium Level 2.3 mg/dL (1.8-2.4) Troponin I Quantitative 0.167 ng/mL (0.000-0.055) Thyroid Stimulating Hormone (TSH) 1.515 uIU/mL (0.358-3.74) Microbiology Micro Microbiology 02/25/17 Blood Culture - Final, Complete Physical Exam HEENT: Neck Supple W Full Motion Chest: Symmetric LUNGS: Other (faint crackles to bases with upper rhonchi) Heart: RRR (SR without significant ectopies), no murmurs, no jug vein distention Abdomen: Soft N/T Extremities: No Calf Tenderness, Other (2-3+ bilateral LE pitting edema) Neurology: alert, oriented, follow commands Assessment Assessment 1. Fever/UTI/sepsis: significant increase in WBC 2. NSTEMI: Peaked at 0.26 with underlying sepsis/UTI, DUONG. CP free, no SOA. 3. CAD: PCI/stents in the past. 4. Acute on chronic systolic CHF: appears improved. 5. DUONG on CKD: Cr up to 2.9 likely partially induced by urinary retention/ hydronephrosis 6. DLP: well controlled 7. HTN: presently hypotensive 8. Morbid obesity/deconditioning: sedentary with BMI of 50. 9. Hx of MRSA/VRE Recommendations 1. Preliminary TTE with reduced EF at 40%, final report pending. Will diurese with lasix once BP more adequate, dobutmaine as noted below. 2. IVF to commence per sepsis protocol. Once BP is more adequate then will start on dobutamine drip. 3. DC heparin, continue with DAPT. No intervenable lesions from recent [facility] review. Will treat CAD medically 4. ID following, pt transferring to ICU 5. Secondary prevention per home med list. 6. Hold ACEi/ARB for now. Will start on BB once BP trend is adequate. 7. Supportive care. RADHA FROST MD 02/26/172047: ROSALBA PACHECO APRN Feb 26, 2017 11:24 RADHA FROST MD Feb 26, 2017 20:48
[2017-02-26 11:39] LABS: ALBUMIN 2.4 g/dL (3.4-5.0); ALBUMIN/GLOBULIN RATIO 0.8 (1.0-1.7); CALCIUM 7.6 mg/dL (8.5-10.1); CREATININE 2.9 mg/dL (0.7-1.3); GFR 21.3; TOTAL BILIRUBIN 0.4 mg/dL (0.2-1.0); TOTAL PROTEIN 5.6 g/dL (6.4-8.2)
[2017-02-26] MEDS ORDERED: IV NORMAL SALINE 1000ML BAG 1,000 ML IV ONE ×3 (12:30→14:30)
[2017-02-26] MEDS ORDERED: DEXTROSE 50% 25 GM / 50ML DISP.SYRIN. IV PRN (12:45)
--- NOTE | 2017-02-26 14:00 | RAD ---
Portable AP upright chest x-ray performed at 1349 Indications: PICC line placement. IMPRESSION: Left upper extremity PICC line has been placed and the tip is seen reflected back upon itself within the left axillary region.
[2017-02-26] MEDS: MEROPENEM 500 MG in IV NORMAL SALINE 50ML 50 ML IV SCH ×4 (14:39→23:54)
--- NOTE | 2017-02-26 15:04 | CARD ---
APPROVED REPORT EXAM: Two-dimensional and M-mode echocardiogram with Doppler and color Doppler. Other Information Quality : Fair/LimitedHR: 86bpm Rhythm : NSR INDICATION Chest pain RISK FACTORS Obesity 2D DIMENSIONS RVDd3.9 (2.9-3.5cm)Left Atrium(2D)4.0 (1.6-4.0cm) IVSd1.2 (0.7-1.1cm)Aortic Root(2D)3.0 (2.0-3.7cm) LVDd7.0 (3.9-5.9cm)LVOT Diameter2.4 (1.8-2.4cm) PWd1.3 (0.7-1.1cm)LVDs5.4 (2.5-4.0cm) FS (%) 23.5 %SV116.4 ml LVEF(%)45.7 (>50%) Aortic Valve AoV Peak Dimitry.138.7cm/sAoV VTI26.0cm AO Peak GR.7.7mmHgLVOT Peak Dimitry.95.0cm/s AO Mean GR.4mmHgAVA (VMAX)3.08cm2 Mitral Valve MV E Pmccfeut94.9cm/sMV E Peak Gr.3mmHg MV DECEL [id number] A Hinihcvu649.0cm/s MV E Mean Gr.2mmHgE/A Ratio0.8 MV A [id number] Pulmonary Vein S1 Viwskmqz18.5cm/sD2 Ivifkuct17.3cm/s PVa [id number] LEFT VENTRICLE The patient was uncooperative during the examination. The exam was prematurely terminated by the giuseppe ent and did not allow for apical 2-3 or subcostal views. The Left Ventricle is mildly dilated. There is mild concentric left ventricular hypertrophy. Left ventricle systolic function is mildly impaired. The Ejection Fraction is 40-45%. There is mild to moderate global hypokinesis of the left ventricle. Transmitral Doppler flow pattern is Grade II-pseudonormal filling dynamics. No left ventricle thromb us noted on this study. RIGHT VENTRICLE The right ventricle is normal size. There is normal right ventricular wall thickness. The right ventr icular systolic function is normal. ATRIA The left atrium is mildly dilated. The right atrium size is normal. The interatrial septum is intact with no evidence for an atrial septal defect or patent foramen ovale as noted on 2-D or Doppler imagi ng. AORTIC VALVE The aortic valve is not well visualized but appears to open well. The aortic valve is mildly scleroti c. Doppler and Color Flow revealed no significant aortic regurgitation. There is no significant aorti c valvular stenosis. MITRAL VALVE Mitral annular calcification is mild. The mitral valve leaflets are thickened. There is no evidence o f mitral valve prolapse. There is no mitral valve stenosis. Doppler and Color Flow revealed no mitral valve regurgitation noted. TRICUSPID VALVE Doppler and Color Flow revealed no tricuspid valve regurgitation noted. Unable to determine pulmonary artery pressure at exam time. PULMONIC VALVE The pulmonic valve is not well visualized, unable to adequately assess. Doppler and Color Flow reveal ed no pulmonic valvular regurgitation. There is no pulmonic valvular stenosis. GREAT VESSELS The aortic root is normal in size. The ascending aorta is normal in size. The pulmonary is not well v isualized. The patient did not allow for subcostal views. Unable to assess the IVC. PERICARDIAL EFFUSION There is no evidence of significant pericardial effusion. Critical Notification Critical Value: No <Conclusion> Left ventricle systolic function is mildly impaired. The Ejection Fraction is 40%. Mild to moderate global hypokinesis.
[2017-02-26] MEDS: MICAFUNGIN 100 MG in IV DEXTROSE 5% 100 ML IV SCH (15:50)
[2017-02-26] MEDS: INSULIN ASPART 300 UNITS/3 ML INSULN.PEN SQ SCH (17:00)
[2017-02-26] MEDS ORDERED: VANCOMYCIN 2 GM in IV NORMAL SALINE 500ML BAG 500 ML IV SCH (18:00)
[2017-02-26] MEDS ORDERED: MEROPENEM 500 MG in IV NORMAL SALINE 50ML 50 ML IV SCH (20:00)
[2017-02-26] MEDS: MUPIROCIN 2 % NASAL OINTMENT 22GM TUBE. NS SCH (21:06)
[2017-02-26] MEDS: LITHIUM CARBONATE 300 MG CAPSULE PO SCH (21:06)
[2017-02-26] MEDS: ATORVASTATIN CALCIUM 10 MG TABLET. PO SCH (21:06)
[2017-02-27] VITALS (20 sets, daily range): BP systolic 91–144; BP diastolic 44–74
[2017-02-27 05:34] LABS: BASO # 0.1 x10^3/uL (0.0-0.2); BASO % 1 % (0-3); EOS % 0 % (0-3); HEMOGLOBIN 7.8 g/dL (13.0-17.5); LYMPH # 0.2 x10^3/uL (1.0-4.8); LYMPH % 1 % (24-48); MEAN CORPUSCULAR HEMOGLOBIN 28 pg (25-35); MEAN CORPUSCULAR HGB CONC 33 g/dL (31-37); MEAN CORPUSCULAR VOLUME 85 fL (79-100); MONO % 4 % (0-9); NEUT % 94 % (31-73); PLATELET COUNT 118 x10^3/uL (140-400); RED BLOOD COUNT 2.83 x10^6/uL (4.30-5.70); RED CELL DISTRIBUTION WIDTH 16.8 % (11.5-14.5); WHITE BLOOD COUNT 18.1 x10^3/uL (4.0-11.0)
[2017-02-27 05:52] LABS: CALCIUM 7.6 mg/dL (8.5-10.1); CREATININE 2.6 mg/dL (0.7-1.3); GFR 24.1; POTASSIUM 4.5 mmol/L (3.5-5.1)
[2017-02-27] MEDS: MEROPENEM 500 MG in IV NORMAL SALINE 50ML 50 ML IV SCH ×4 (06:03→23:35)
[2017-02-27] MEDS: INSULIN ASPART 300 UNITS/3 ML INSULN.PEN SQ SCH ×3 (08:00→17:00)
[2017-02-27] MEDS: TAMSULOSIN 0.4 MG CAP.ER.24H. PO SCH (08:32)
[2017-02-27] MEDS: DUTASTERIDE 0.5 MG CAPSULE PO SCH (08:32)
[2017-02-27] MEDS: busPIRone 10 MG TABLET. PO SCH ×3 (08:32→20:49)
[2017-02-27] MEDS: PANTOPRAZOLE 40 MG TABLET.DR. PO SCH (08:32)
[2017-02-27] MEDS: FLUoxetine HCL 20 MG CAPSULE PO SCH (08:32)
[2017-02-27] MEDS: METOPROLOL TART IMMED RELEASE 25 MG TABLET. PO SCH (08:32)
[2017-02-27] MEDS: CLOPIDOGREL BISULFATE 75 MG TABLET PO SCH (08:32)
[2017-02-27] MEDS: SENNOSIDES/DOCUSATE 8.6/50MG TABLET. PO SCH ×2 (08:32→20:49)
[2017-02-27] MEDS: NITROGLYCERIN 0.4MG/HR PATCH. TD SCH (08:33)
[2017-02-27] MEDS: HYDROcodone/APAP 5/325MG 1 TAB TABLET PO SCH ×4 (08:33→20:49)
[2017-02-27] MEDS: MUPIROCIN 2 % NASAL OINTMENT 22GM TUBE. NS SCH ×2 (08:33→20:50)
[2017-02-27] MEDS: ASPIRIN ENTERIC COATED 81 MG TABLET.DR. PO SCH (08:33)
[2017-02-27] MEDS: DICLOFENAC SODIUM 1% TOPICAL GEL 100GM TUBE. TP SCH ×3 (08:34→20:50)
--- NOTE | 2017-02-27 08:58 | PDOC ---
Subjective: Subjective: Sitting up in bed alert and oriented and in no distress, has some mid abdominal discomfort but no diarrhea, no nausea, no chest pain, no SOA but is sneezing and has some heartburn. Objective: Objective: Afebrile overnight with improving WBC and stable renal function with good urine output. Off Levophed and maintaining BP. 1 of 2 blood cultures positive for Gm _ rods, urine from 02/24 growing Morganelli which is sensitive to Meropenenum, positive for nasal MRSA Vital Signs: Vital Signs Date Time Temp Pulse Resp B/P (MAP) Pulse Ox O2 Delivery O2 Flow Rate FiO2 02/27/17 08:33 98 Room Air 02/27/17 08:32 85 118/57 02/27/17 06:00 21 4.0 02/27/17 04:00 97.7 97.7 Physical Exam: Abdomen: Normal bowel sounds, Soft, Other (vague mid abdominal tenderness) Heart: Regular rate, No murmurs Extremities: No clubbing, No cyanosis, No edema General: Alert, Oriented X3, Cooperative, No acute distress HEENT: Atraumatic, Mucous membr. moist/pink Lungs: Normal air movement Musculoskeletal: Weakness Neck: Supple Neuro: Normal speech Psych/Mental Status: Mental status NL, Mood NL Skin: No breakdown Labs/Imaging: CBC, BMP, cultures noted. CXR yesterday improved Assessment/Plan A/P: (1) gram negative sepsis with end organ involvement - now off Levophed, off fluid protocol, on appropriate antibiotics per C&S from 02/24 urine, should be able to transfer out of ICU Status: Acute 2. DUONG - stable BUN and Cr, good urine output, monitor lab 3. Acute on Chronic Heart Failure - compensated 4. Morganella morganii UTI - Infection - infection controlled at this time but temperature remains normal, leukemoid reaction improving 5. GERD, on PPI 6. rhinitis, add Claritin, LOY Farnsworth MD Feb 27, 2017 08:58
[2017-02-27] MEDS: IPRATRPIUM/ALBUTEROL 0.5/2.5MG 3 ML NEBU. NEB SCH ×5 (09:12→21:15)
[2017-02-27] MEDS: BUDESONIDE 0.5 MG/2 ML NEBU. NEB SCH ×2 (09:12→21:15)
--- NOTE | 2017-02-27 09:28 | RAD ---
Indication: Pulmonary edema. Time of exam 0921 hours. Correlation is made with prior study from 1 day earlier. The heart is enlarged. No congestive failure is identified. No effusion or pneumothorax is detected. There may be minimal atelectasis in the left base. Impression: Minimal left basilar subsegmental atelectasis. There is no evidence of congestive failure.
[2017-02-27] MEDS: CETIRIZINE HCL 10 MG TABLET. PO SCH (10:27)
[2017-02-27] MEDS: MICAFUNGIN 100 MG in IV DEXTROSE 5% 100 ML IV SCH (10:29)
--- NOTE | 2017-02-27 10:32 | PDOC ---
Infectious Disease Note Subjective Subjective Feeling better over-all Diminished appetite, tried to eat some breakfast. + gas. Denies N/V/D ROS ROS GEN: Denies fevers, chills, sweats CV: Denies chest pain RESP: Denies shortness of air, cough Vital Sign Vital Signs Vital Signs Date Time Temp Pulse Resp B/P (MAP) Pulse Ox O2 Delivery O2 Flow Rate FiO2 02/27/17 10:04 80 29 108/55 (72) 98 Room Air 02/27/17 09:34 4.0 02/27/17 08:00 97.6 97.6 Physical Exam PHYSICAL EXAM GENERAL: Propped up in bed, calm, NAD HEENT: OC/OP- dry LUNGS: Clear HEART: S1S2, no gallop, no murmur ABD: Obese, soft, NT, mild erythema right lower and mid quad : Mccormick EXT: Trace BLE edema, no cyanosis SERVICE ATTENDANT: Alert, oriented x 3, no focal neurologic deficit SKIN: No generalized rash but yeast in groin LUE-PICC. clean Labs Lab Laboratory Tests Test 02/26/17 10:50 02/26/17 17:18 02/26/17 21:17 02/27/17 05:20 Heparin Anti-Xa Act, Unfractionated 0.29 IU/mL (0.30-0.70) Sodium Level 132 mmol/L (136-145) 136 mmol/L (136-145) Potassium Level 5.0 mmol/L (3.5-5.1) 4.5 mmol/L (3.5-5.1) Chloride Level 101 mmol/L (98-107) 105 mmol/L (98-107) Carbon Dioxide Level 23 mmol/L (21-32) 23 mmol/L (21-32) Anion Gap 8 (6-14) 8 (6-14) Blood Urea Nitrogen 59 mg/dL (8-26) 58 mg/dL (8-26) Creatinine 2.9 mg/dL (0.7-1.3) 2.6 mg/dL (0.7-1.3) Estimated GFR (Cockcroft-Gault) 21.3 24.1 BUN/Creatinine Ratio 20 (6-20) Glucose Level 122 mg/dL (70-99) 90 mg/dL (70-99) Lactic Acid Level 1.1 mmol/L (0.4-2.0) Calcium Level 7.6 mg/dL (8.5-10.1) 7.6 mg/dL (8.5-10.1) Total Bilirubin 0.4 mg/dL (0.2-1.0) Aspartate Amino Transf (AST/SGOT) 21 U/L (15-37) Alanine Aminotransferase (ALT/SGPT) 15 U/L (16-63) Alkaline Phosphatase 34 U/L (46-116) EH-Ktt-E-Type Natriuretic Peptide > 20383 pg/mL (0-449) Total Protein 5.6 g/dL (6.4-8.2) Albumin 2.4 g/dL (3.4-5.0) Albumin/Globulin Ratio 0.8 (1.0-1.7) Procalcitonin > 125.00 ng/mL (0.00-0.10) Glucose (Fingerstick) 118 mg/dL (70-99) 101 mg/dL (70-99) White Blood Count 18.1 x10^3/uL (4.0-11.0) Red Blood Count 2.83 x10^6/uL (4.30-5.70) Hemoglobin 7.8 g/dL (13.0-17.5) Hematocrit 24.0 % (39.0-53.0) Mean Corpuscular Volume 85 fL (79-100) Mean Corpuscular Hemoglobin 28 pg (25-35) Mean Corpuscular Hemoglobin Concent 33 g/dL (31-37) Red Cell Distribution Width 16.8 % (11.5-14.5) Platelet Count 118 x10^3/uL (140-400) Neutrophils (%) (Auto) 94 % (31-73) Lymphocytes (%) (Auto) 1 % (24-48) Monocytes (%) (Auto) 4 % (0-9) Eosinophils (%) (Auto) 0 % (0-3) Basophils (%) (Auto) 1 % (0-3) Neutrophils # (Auto) 17.0 x10^3uL (1.8-7.7) Lymphocytes # (Auto) 0.2 x10^3/uL (1.0-4.8) Monocytes # (Auto) 0.7 x10^3/uL (0.0-1.1) Eosinophils # (Auto) 0.1 x10^3/uL (0.0-0.7) Basophils # (Auto) 0.1 x10^3/uL (0.0-0.2) Test 02/27/17 08:37 Glucose (Fingerstick) 90 mg/dL (70-99) Indication: Pulmonary edema. Time of exam 0921 hours. Correlation is made with prior study from 1 day earlier. The heart is enlarged. No congestive failure is identified. No effusion or pneumothorax is detected. There may be minimal atelectasis in the left base. Impression: Minimal left basilar subsegmental atelectasis. There is no evidence of congestive failure. Micro BLD CULT RESULT 1 Preliminary Gram negative rods Objective Assessment GNR sepsis POA. Now hypotension Leukocytosis - large increase, better Urinary retention -s/p Mccormick DUONG UTI - POA Abd redness ? early cellulitis Yeast H/o MRSA. + nares 02/26 Afib with CHF on CXR Plan Plan of Care Meropenem Micafungin for yeast with h/o Afib C-diff pending, continue Flagyl Procalcitonin >125 F/u labs and cults Monitor right lower quad erythema, may need additional GPC coverage Last dose vanc 02/26. Attending Co-Sign The patient was seen and interviewed as well as examined at the bedside. The chart was reviewed. The case was discussed. Agree with the plan of care. CATIA MOON APRN Feb 27, 2017 10:32 DINESH TOM MD Feb 27, 2017 14:09
--- NOTE | 2017-02-27 11:27 | PDOC ---
FELICIA POLLACK FAILURE ANALYSIS TECHNICIAN 02/27/17 1127: CARDIO Progress Notes Date and Time Date of Service 02/27/17 Time of Evaluation 1050 Subjective Subjective: No Chest Pain, No shortness of breath, No Palpitations, Other ( mild abd tenderness ) Vitals Vitals Vital Signs Date Time Temp Pulse Resp B/P (MAP) Pulse Ox O2 Delivery O2 Flow Rate FiO2 02/27/17 11:04 78 14 98/52 (67) 96 Room Air 02/27/17 09:34 4.0 02/27/17 08:00 97.6 97.6 Weight Weight [ ] Input and Output Intake and Output Intake and Output 02/27/17 06:59 Intake Total 4509.5 ml Output Total 1515 ml Balance 2994.5 ml Intake Oral 950 ml IV Total 3409.5 ml Other 150 ml Output Urine Total 1515 ml Laboratory Labs Laboratory Tests Test 02/26/17 17:18 02/26/17 21:17 02/27/17 05:20 02/27/17 08:37 Glucose (Fingerstick) 118 mg/dL (70-99) 101 mg/dL (70-99) 90 mg/dL (70-99) White Blood Count 18.1 x10^3/uL (4.0-11.0) Red Blood Count 2.83 x10^6/uL (4.30-5.70) Hemoglobin 7.8 g/dL (13.0-17.5) Hematocrit 24.0 % (39.0-53.0) Mean Corpuscular Volume 85 fL (79-100) Mean Corpuscular Hemoglobin 28 pg (25-35) Mean Corpuscular Hemoglobin Concent 33 g/dL (31-37) Red Cell Distribution Width 16.8 % (11.5-14.5) Platelet Count 118 x10^3/uL (140-400) Neutrophils (%) (Auto) 94 % (31-73) Lymphocytes (%) (Auto) 1 % (24-48) Monocytes (%) (Auto) 4 % (0-9) Eosinophils (%) (Auto) 0 % (0-3) Basophils (%) (Auto) 1 % (0-3) Neutrophils # (Auto) 17.0 x10^3uL (1.8-7.7) Lymphocytes # (Auto) 0.2 x10^3/uL (1.0-4.8) Monocytes # (Auto) 0.7 x10^3/uL (0.0-1.1) Eosinophils # (Auto) 0.1 x10^3/uL (0.0-0.7) Basophils # (Auto) 0.1 x10^3/uL (0.0-0.2) Sodium Level 136 mmol/L (136-145) Potassium Level 4.5 mmol/L (3.5-5.1) Chloride Level 105 mmol/L (98-107) Carbon Dioxide Level 23 mmol/L (21-32) Anion Gap 8 (6-14) Blood Urea Nitrogen 58 mg/dL (8-26) Creatinine 2.6 mg/dL (0.7-1.3) Estimated GFR (Cockcroft-Gault) 24.1 Glucose Level 90 mg/dL (70-99) Calcium Level 7.6 mg/dL (8.5-10.1) Microbiology Micro Microbiology 02/26/17 Blood Culture - Preliminary, Resulted NO GROWTH AFTER 1 DAY Physical Exam HEENT: Neck Supple W Full Motion Chest: Symmetric LUNGS: Other (diminished bases ) Heart: RRR (SR without significant ectopies), no murmurs, no jug vein distention Abdomen: Soft N/T, Other (obese ) Extremities: 2+ Dorsalis Pedis, No Calf Tenderness, Other (1+ bialteral LE pitting edema ) Neurology: alert, oriented, follow commands Plan Plan 1. UTI/Sepsis with hypotension 2. NSTEMI 3. Acute on chronic systolic HF . 4. CAD; s/p PCI/stents in the past 5. DUONG on CKD Recommendations Off pressor support; maintaining low-normotensive BP. BB resumed. No MYRIAM/ARB with DUONG Echo pending to evaluate LV function/presence of WMA May need mild diuresis; monitor I & O Continue supportive care RADHA FROST MD 02/27/17 1621: CARDIO Progress Notes Plan Plan Pt. seen and examined. Agree with above CREDIT FRONT OFFICE DEVELOPER Note. No acute events overnight. Doing well off pressors today. More alert today. On exam he has abdominal pain/tenderness. Minimal trop elevation. From a purely CV perspective he is stable. Continue ASA, Statin and Plavix. Would hold metoprolol until stable for 24 hours off pressors. Supportive care. FELICIA POLLACK APRN Feb 27, 2017 11:27 RADHA FROST MD Feb 27, 2017 18:57
[2017-02-27] MEDS: MONTELUKAST SODIUM 10 MG TABLET. PO SCH (20:49)
[2017-02-27] MEDS: ZOLPIDEM 5 MG TABLET. PO PRN (20:49)
[2017-02-27] MEDS: LITHIUM CARBONATE 300 MG CAPSULE PO SCH (20:49)
[2017-02-27] MEDS: ATORVASTATIN CALCIUM 10 MG TABLET. PO SCH (20:49)
[2017-02-28 02:34] VITALS: BP 127/61
[2017-02-28 04:41] LABS: BASO % 0 % (0-3); EOS % 1 % (0-3); HEMATOCRIT 25.3 % (39.0-53.0); HEMOGLOBIN 8.1 g/dL (13.0-17.5); LYMPH # 0.5 x10^3/uL (1.0-4.8); LYMPH % 3 % (24-48); MEAN CORPUSCULAR HEMOGLOBIN 27 pg (25-35); MEAN CORPUSCULAR HGB CONC 32 g/dL (31-37); MEAN CORPUSCULAR VOLUME 85 fL (79-100); MONO % 4 % (0-9); NEUT % 92 % (31-73); PLATELET COUNT 122 x10^3/uL (140-400); RED BLOOD COUNT 2.99 x10^6/uL (4.30-5.70); RED CELL DISTRIBUTION WIDTH 16.3 % (11.5-14.5); WHITE BLOOD COUNT 14.4 x10^3/uL (4.0-11.0)
[2017-02-28 04:56] LABS: CALCIUM 7.9 mg/dL (8.5-10.1); CREATININE 2.1 mg/dL (0.7-1.3); GFR 30.9; POTASSIUM 4.4 mmol/L (3.5-5.1)
[2017-02-28] MEDS: MEROPENEM 500 MG in IV NORMAL SALINE 50ML 50 ML IV SCH ×3 (05:36→17:25)
[2017-02-28 07:50] VITALS: BP 126/57
[2017-02-28] MEDS: INSULIN ASPART 300 UNITS/3 ML INSULN.PEN SQ SCH (08:00)
[2017-02-28] MEDS: BUDESONIDE 0.5 MG/2 ML NEBU. NEB SCH ×2 (08:34→19:51)
[2017-02-28] MEDS: IPRATRPIUM/ALBUTEROL 0.5/2.5MG 3 ML NEBU. NEB SCH ×4 (08:34→19:51)
[2017-02-28] MEDS: CLOPIDOGREL BISULFATE 75 MG TABLET PO SCH (08:59)
[2017-02-28] MEDS: CETIRIZINE HCL 10 MG TABLET. PO SCH (09:00)
[2017-02-28] MEDS: HYDROcodone/APAP 5/325MG 1 TAB TABLET PO SCH ×4 (09:00→20:39)
[2017-02-28] MEDS: FLUoxetine HCL 20 MG CAPSULE PO SCH (09:00)
[2017-02-28] MEDS: ASPIRIN ENTERIC COATED 81 MG TABLET.DR. PO SCH (09:00)
[2017-02-28] MEDS: SENNOSIDES/DOCUSATE 8.6/50MG TABLET. PO SCH ×2 (09:00→20:38)
[2017-02-28] MEDS: TAMSULOSIN 0.4 MG CAP.ER.24H. PO SCH (09:00)
[2017-02-28] MEDS: PANTOPRAZOLE 40 MG TABLET.DR. PO SCH (09:00)
[2017-02-28] MEDS: MUPIROCIN 2 % NASAL OINTMENT 22GM TUBE. NS SCH ×2 (09:01→20:39)
[2017-02-28] MEDS: DUTASTERIDE 0.5 MG CAPSULE PO SCH (09:01)
[2017-02-28] MEDS: DICLOFENAC SODIUM 1% TOPICAL GEL 100GM TUBE. TP SCH ×3 (09:01→20:39)
[2017-02-28] MEDS: busPIRone 10 MG TABLET. PO SCH ×3 (09:02→20:38)
[2017-02-28] MEDS: NITROGLYCERIN 0.4MG/HR PATCH. TD SCH (09:02)
--- NOTE | 2017-02-28 09:38 | PDOC ---
SUBJECTIVE Subjective Pt states that he is feeling better this morning. Abdominal pain, nausea and vomiting have all improved. He is feeling short of air; not bad at rest, but worsens with any movement. OBJECTIVE Vital Signs Vital Signs Date Time Temp Pulse Resp B/P (MAP) Pulse Ox O2 Delivery O2 Flow Rate FiO2 02/28/17 09:00 18 95 Room Air 4.0 02/28/17 08:34 95 Room Air 02/28/17 07:50 98.1 81 18 126/57 (80) 91 Room Air 98.1 02/28/17 02:34 98.9 88 20 127/61 (83) 96 Room Air 98.9 02/27/17 22:48 99.1 93 20 126/61 (82) 94 Room Air 99.1 02/27/17 21:49 20 95 Room Air 02/27/17 21:17 95 Room Air 02/27/17 21:17 95 Room Air 02/27/17 20:49 20 94 Room Air 02/27/17 19:15 Room Air 02/27/17 19:00 98.1 79 20 116/58 (77) 96 Room Air 98.1 02/27/17 17:39 Room Air 02/27/17 17:22 Room Air 02/27/17 16:59 98.3 66 14 122/60 (80) 84 Room Air 98.3 02/27/17 16:30 Room Air 02/27/17 15:15 83 20 124/60 (81) 96 Room Air 02/27/17 13:28 83 20 94/51 (65) 98 Room Air 02/27/17 13:00 Room Air 02/27/17 12:26 98 Room Air 02/27/17 12:10 75 25 96/53 (67) 96 Room Air 02/27/17 12:08 Room Air 02/27/17 11:04 78 14 98/52 (67) 96 Room Air 02/27/17 10:04 80 29 108/55 (72) 98 Room Air 02/27/17 09:34 4.0 I & O Intake and Output 02/28/17 06:59 Intake Total 780 ml Output Total 1650 ml Balance -870 ml Intake Oral 630 ml IV Total 150 ml Output Urine Total 1650 ml PHYSICAL EXAM Physical Exam Abdomen: Normal bowel sounds, Soft, NTTP Heart: Regular rate and rhythm, No murmurs/rubs/gallops Extremities: No clubbing, No cyanosis, No edema General: Alert, Oriented X3, Cooperative, No acute distress HEENT: Atraumatic, Mucous membr. moist/pink Lungs: Normal air movement, CTAB Neck: Supple, no JVD Neuro: Normal speech, CN2-12 GI Psych/Mental Status: Mental status NL, Mood NL Skin: No breakdown ASSESSMENT/PLAN Assessment/Plan Pt is a 76yo CM admitted with urosepsis 1. Urosepsis 2/2 morganella morganii with multiple resistances- ID following. Pt currently receiving Meropenem and also receiving Metronidazole and Micafungin. Pt is no longer requiring pressors and his WBC has decreased to 14.4 from 34.3. He no longer has a bandemia 2. DUONG - Cr continuing to improve. Cr has decreased from 2.9 to 2.1. Baseline around 1.5-1.6. CTM 3. Acute on Chronic Heart Failure - compensated 4. GERD, on PPI 5. Anemia- stable. Hb currently 8.1. Pt's baseline seems to range from 8.1- 10.9. No active bleeding. Likely multifactorial; iron studies pending 6. Thrombocytopenia- mild. Likely 2/2 infection. CTM 7. Depression/Psychiatric conditions- pt has been continued on his [place] 300mg QHS, Fluoxetine 40mg, Buspar 10mg TID. [place] level pending 8. HLD- pt continued on Atorvastatin 10mg 9. ? Hyperglycemia- pt has not required any insulin. HbA1C 12/14 was 5.1. Will discontinue SSI and blood sugar checks 10. +MRSA colonization screening- cont Bactroban 11. BPH- cont Avodart 12. NSTEMI- with history of CAD. Cardiology following. Pt is currently on Plavix. 13. COPD- pt continued on Duonebs, Pulmicort and Albuterol 14. Hx Afib Problems: COMMENT Lab Laboratory Tests Test 02/27/17 12:26 02/27/17 16:44 02/27/17 21:48 02/28/17 04:30 Glucose (Fingerstick) 99 mg/dL (70-99) 332 mg/dL (70-99) 135 mg/dL (70-99) White Blood Count 14.4 x10^3/uL (4.0-11.0) Red Blood Count 2.99 x10^6/uL (4.30-5.70) Hemoglobin 8.1 g/dL (13.0-17.5) Hematocrit 25.3 % (39.0-53.0) Mean Corpuscular Volume 85 fL (79-100) Mean Corpuscular Hemoglobin 27 pg (25-35) Mean Corpuscular Hemoglobin Concent 32 g/dL (31-37) Red Cell Distribution Width 16.3 % (11.5-14.5) Platelet Count 122 x10^3/uL (140-400) Neutrophils (%) (Auto) 92 % (31-73) Lymphocytes (%) (Auto) 3 % (24-48) Monocytes (%) (Auto) 4 % (0-9) Eosinophils (%) (Auto) 1 % (0-3) Basophils (%) (Auto) 0 % (0-3) Neutrophils # (Auto) 13.2 x10^3uL (1.8-7.7) Lymphocytes # (Auto) 0.5 x10^3/uL (1.0-4.8) Monocytes # (Auto) 0.6 x10^3/uL (0.0-1.1) Eosinophils # (Auto) 0.2 x10^3/uL (0.0-0.7) Basophils # (Auto) 0.0 x10^3/uL (0.0-0.2) Sodium Level 139 mmol/L (136-145) Potassium Level 4.4 mmol/L (3.5-5.1) Chloride Level 106 mmol/L (98-107) Carbon Dioxide Level 23 mmol/L (21-32) Anion Gap 10 (6-14) Blood Urea Nitrogen 51 mg/dL (8-26) Creatinine 2.1 mg/dL (0.7-1.3) Estimated GFR (Cockcroft-Gault) 30.9 Glucose Level 91 mg/dL (70-99) Calcium Level 7.9 mg/dL (8.5-10.1) Test 02/28/17 07:51 Glucose (Fingerstick) 102 mg/dL (70-99) SHERRON CASTILLO MD Feb 28, 2017 09:38
[2017-02-28 10:26] LABS: LI 0.7 mmol/L (0.6-1.2)
[2017-02-28 10:27] LABS: % SAT IRON 7 % (15-34); IRON,SERUM 15 ug/dL (65-175)
--- NOTE | 2017-02-28 11:16 | PDOC ---
PROGRESS NOTES Subjective Subjective The patient is feeling better today. Objective Objective Vital Signs Date Time Temp Pulse Resp B/P (MAP) Pulse Ox O2 Delivery O2 Flow Rate FiO2 02/28/17 11:01 95 Room Air 4.0 02/28/17 09:00 18 02/28/17 07:50 98.1 81 126/57 (80) 98.1 Intake and Output 02/28/17 07:00 Intake Total 780 ml Output Total 1650 ml Balance -870 ml Intake Oral 630 ml IV Total 150 ml Output Urine Total 1650 ml # Bowel Movements 1 Physical Exam Abdomen: Normal bowel sounds Heart: Regular rate General: mild distress Lungs: Clear to auscultation Assessment Assessment Problems Medical Problems: (1) Pneumonia Status: Acute 1. UTI/Sepsis with hypotension. Significantly improved today. Continuing antibiotics as above. 2. NSTEMI. Blood pressure and rhythm stable. Continue on present treatment. 3. Acute on chronic systolic HF . Heart failure also improving. 4. CAD; s/p PCI/stents in the past. Continue present treatments. 5. DUONG on CKD. Renal function improved. Comment Review of Relevant I have reviewed the following items wilmer (where applicable) has been applied. Labs Laboratory Tests Test 02/26/17 17:18 02/26/17 21:17 02/27/17 05:20 02/27/17 08:37 Glucose (Fingerstick) 118 mg/dL (70-99) 101 mg/dL (70-99) 90 mg/dL (70-99) White Blood Count 18.1 x10^3/uL (4.0-11.0) Red Blood Count 2.83 x10^6/uL (4.30-5.70) Hemoglobin 7.8 g/dL (13.0-17.5) Hematocrit 24.0 % (39.0-53.0) Mean Corpuscular Volume 85 fL (79-100) Mean Corpuscular Hemoglobin 28 pg (25-35) Mean Corpuscular Hemoglobin Concent 33 g/dL (31-37) Red Cell Distribution Width 16.8 % (11.5-14.5) Platelet Count 118 x10^3/uL (140-400) Neutrophils (%) (Auto) 94 % (31-73) Lymphocytes (%) (Auto) 1 % (24-48) Monocytes (%) (Auto) 4 % (0-9) Eosinophils (%) (Auto) 0 % (0-3) Basophils (%) (Auto) 1 % (0-3) Neutrophils # (Auto) 17.0 x10^3uL (1.8-7.7) Lymphocytes # (Auto) 0.2 x10^3/uL (1.0-4.8) Monocytes # (Auto) 0.7 x10^3/uL (0.0-1.1) Eosinophils # (Auto) 0.1 x10^3/uL (0.0-0.7) Basophils # (Auto) 0.1 x10^3/uL (0.0-0.2) Sodium Level 136 mmol/L (136-145) Potassium Level 4.5 mmol/L (3.5-5.1) Chloride Level 105 mmol/L (98-107) Carbon Dioxide Level 23 mmol/L (21-32) Anion Gap 8 (6-14) Blood Urea Nitrogen 58 mg/dL (8-26) Creatinine 2.6 mg/dL (0.7-1.3) Estimated GFR (Cockcroft-Gault) 24.1 Glucose Level 90 mg/dL (70-99) Calcium Level 7.6 mg/dL (8.5-10.1) Test 02/27/17 12:26 02/27/17 16:44 02/27/17 21:48 02/28/17 04:30 Glucose (Fingerstick) 99 mg/dL (70-99) 332 mg/dL (70-99) 135 mg/dL (70-99) White Blood Count 14.4 x10^3/uL (4.0-11.0) Red Blood Count 2.99 x10^6/uL (4.30-5.70) Hemoglobin 8.1 g/dL (13.0-17.5) Hematocrit 25.3 % (39.0-53.0) Mean Corpuscular Volume 85 fL (79-100) Mean Corpuscular Hemoglobin 27 pg (25-35) Mean Corpuscular Hemoglobin Concent 32 g/dL (31-37) Red Cell Distribution Width 16.3 % (11.5-14.5) Platelet Count 122 x10^3/uL (140-400) Neutrophils (%) (Auto) 92 % (31-73) Lymphocytes (%) (Auto) 3 % (24-48) Monocytes (%) (Auto) 4 % (0-9) Eosinophils (%) (Auto) 1 % (0-3) Basophils (%) (Auto) 0 % (0-3) Neutrophils # (Auto) 13.2 x10^3uL (1.8-7.7) Lymphocytes # (Auto) 0.5 x10^3/uL (1.0-4.8) Monocytes # (Auto) 0.6 x10^3/uL (0.0-1.1) Eosinophils # (Auto) 0.2 x10^3/uL (0.0-0.7) Basophils # (Auto) 0.0 x10^3/uL (0.0-0.2) Sodium Level 139 mmol/L (136-145) Potassium Level 4.4 mmol/L (3.5-5.1) Chloride Level 106 mmol/L (98-107) Carbon Dioxide Level 23 mmol/L (21-32) Anion Gap 10 (6-14) Blood Urea Nitrogen 51 mg/dL (8-26) Creatinine 2.1 mg/dL (0.7-1.3) Estimated GFR (Cockcroft-Gault) 30.9 Glucose Level 91 mg/dL (70-99) Calcium Level 7.9 mg/dL (8.5-10.1) Iron Level 15 ug/dL (65-175) Total Iron Binding Capacity 229 ug/dL (250-450) Iron Saturation 7 % (15-34) [place] Level 0.7 mmol/L (0.6-1.2) [place] Last Dose Date 02/27/17 [place] Last Dose Time 2000 Test 02/28/17 07:51 Glucose (Fingerstick) 102 mg/dL (70-99) Laboratory Tests Test 02/27/17 12:26 02/27/17 16:44 02/27/17 21:48 02/28/17 04:30 Glucose (Fingerstick) 99 mg/dL (70-99) 332 mg/dL (70-99) 135 mg/dL (70-99) White Blood Count 14.4 x10^3/uL (4.0-11.0) Red Blood Count 2.99 x10^6/uL (4.30-5.70) Hemoglobin 8.1 g/dL (13.0-17.5) Hematocrit 25.3 % (39.0-53.0) Mean Corpuscular Volume 85 fL (79-100) Mean Corpuscular Hemoglobin 27 pg (25-35) Mean Corpuscular Hemoglobin Concent 32 g/dL (31-37) Red Cell Distribution Width 16.3 % (11.5-14.5) Platelet Count 122 x10^3/uL (140-400) Neutrophils (%) (Auto) 92 % (31-73) Lymphocytes (%) (Auto) 3 % (24-48) Monocytes (%) (Auto) 4 % (0-9) Eosinophils (%) (Auto) 1 % (0-3) Basophils (%) (Auto) 0 % (0-3) Neutrophils # (Auto) 13.2 x10^3uL (1.8-7.7) Lymphocytes # (Auto) 0.5 x10^3/uL (1.0-4.8) Monocytes # (Auto) 0.6 x10^3/uL (0.0-1.1) Eosinophils # (Auto) 0.2 x10^3/uL (0.0-0.7) Basophils # (Auto) 0.0 x10^3/uL (0.0-0.2) Sodium Level 139 mmol/L (136-145) Potassium Level 4.4 mmol/L (3.5-5.1) Chloride Level 106 mmol/L (98-107) Carbon Dioxide Level 23 mmol/L (21-32) Anion Gap 10 (6-14) Blood Urea Nitrogen 51 mg/dL (8-26) Creatinine 2.1 mg/dL (0.7-1.3) Estimated GFR (Cockcroft-Gault) 30.9 Glucose Level 91 mg/dL (70-99) Calcium Level 7.9 mg/dL (8.5-10.1) Iron Level 15 ug/dL (65-175) Total Iron Binding Capacity 229 ug/dL (250-450) Iron Saturation 7 % (15-34) [place] Level 0.7 mmol/L (0.6-1.2) [place] Last Dose Date 02/27/17 [place] Last Dose Time 2000 Test 02/28/17 07:51 Glucose (Fingerstick) 102 mg/dL (70-99) Microbiology 6/29/17 Blood Culture - Preliminary, Resulted NO GROWTH AFTER 2 DAYS Medications Current Medications Vancomycin HCl (Vanco Per Pharmacy) 1 each PRN DAILY PRN MC SEE COMMENTS Last administered on 02/26/17 10:51; Start 02/25/17 at 15:45; Stop 02/26/17 at 10:55 ; Status DC Piperacillin Sod/ Tazobactam Sod (Zosyn Per Pharmacy) 1 each PRN DAILY PRN MC SEE COMMENTS; Start 02/25/17 at 15:45; Stop 02/27/17 at 10:29; Status DC Aspirin (Erika Aspirin) 325 mg 1X ONCE PO Last administered on 02/25/17 17:17 ; Start 02/25/17 at 16:00; Stop 02/25/17 at 16:01; Status DC Vancomycin HCl 2 gm/Sodium Chloride 500 ml @ 250 mls/hr 1X ONCE IV Last administered on 02/25/17 17:56; Start 02/25/17 at 16:30; Stop 02/25/17 at 18:29 ; Status DC Piperacillin Sod/ Tazobactam Sod 4.5 gm/Sodium Chloride 100 ml @ 200 mls/hr 1X ONCE IV Last administered on 02/25/17 17:04; Start 02/25/17 at 16:00; Stop 02/25/17 at 16:29; Status DC Ondansetron HCl (Zofran) 4 mg PRN Q8HRS PRN IV NAUSEA/VOMITING; Start 02/25/17 at 16:00; Stop 02/26/17 at 08:05; Status DC Magnesium Sulfate/ Dextrose 100 ml @ 25 mls/hr 1X ONCE IV Last administered on 02/25/17 17:03; Start 02/25/17 at 16:30; Stop 02/25/17 at 20:29; Status DC Aspirin (Ecotrin) 81 mg DAILYWBKFT PO Last administered on 02/28/17 09:00; Start 02/26/17 at 08:00 Clopidogrel Bisulfate (Plavix) 75 mg DAILY PO Last administered on 02/28/17 08: 59; Start 02/26/17 at 09:00 Furosemide (Lasix) 40 mg 1X ONCE IVP Last administered on 02/25/17 17:17; Start 02/25/17 at 17:00; Stop 02/25/17 at 17:01; Status DC Heparin Sodium/ Dextrose 500 ml @ 20 mls/hr CONT PRN IV SEE I/O RECORD Last administered on 02/25/17 22:12; Start 02/25/17 at 16:30; Stop 02/26/17 at 12:51 ; Status DC Heparin Sodium (Porcine) (Heparin Sodium) 4,050 unit PRN Q6HRS PRN IV FOR UFH LEVEL LESS THAN 0.2; Start 02/25/17 at 16:30; Stop 02/26/17 at 12:51; Status DC Labetalol HCl (Normodyne) 20 mg PRN Q2HR PRN IVP ELEVATED BP, SEE COMMENTS; Start 02/25/17 at 16:30; Stop 02/28/17 at 09:37; Status DC Nitroglycerin (Nitrostat) 0.4 mg PRN Q5MIN PRN SL CHEST PAIN; Start 02/25/17 at 18:15 Morphine Sulfate 1 mg PRN Q10MIN PRN IV CHEST PAIN Last administered on 04:18; Start 02/25/17 at 18:15 Acetaminophen (Tylenol) 650 mg PRN Q6HRS PRN PO MILD PAIN / TEMP; Start at 18:15; Stop 02/26/17 at 08:05; Status DC Ondansetron HCl (Zofran) 4 mg PRN Q6HRS PRN IV NAUSEA/VOMITING Last administered on 02/27/17 19:01; Start 02/25/17 at 18:15 Zolpidem Tartrate (Ambien) 5 mg PRN QHS PRN PO INSOMNIA Last administered on 20:49; Start 02/25/17 at 18:15; Stop 02/28/17 at 21:00 Heparin Sodium (Porcine) (Heparin Sq) 5,000 unit Q12HR SQ Last administered on 02/25/17 22:16; Start 02/25/17 at 19:00; Stop 02/26/17 at 09:45; Status DC Sodium Chloride (Normal Saline Flush) 3 ml QSHIFT PRN IV AFTER MEDS AND BLOOD DRAWS; Start 02/25/17 at 18:15 Senna/Docusate Sodium (Senna Plus) 1 tab BID PO Last administered on 02/28/17 09:00; Start 02/25/17 at 21:00 Vancomycin HCl 2 gm/Sodium Chloride 500 ml @ 250 mls/hr Q24H IV ; Start at 18:00; Stop 02/26/17 at 18:00; Status DC Vancomycin HCl 1 each 1X ONCE MC ; Start 02/27/17 at 17:30; Stop 02/27/17 at 17 :31; Status Cancel Piperacillin Sod/ Tazobactam Sod 4.5 gm/Sodium Chloride 100 ml @ 200 mls/hr Q6HRS IV Last administered on 02/26/17 05:42; Start 02/26/17 at 00:00; Stop at 10:55; Status DC Acetaminophen (Tylenol) 650 mg PRN Q4HRS PRN PO MILD PAIN / TEMP; Start at 08:00 Atorvastatin Calcium (Lipitor) 10 mg HS PO Last administered on 02/27/17 20:49 ; Start 02/26/17 at 21:00 Bisacodyl (Dulcolax Tab) 5 mg PRN DAILY PRN PO CONSTIPATION; Start 02/26/17 at 08:00 Buspirone HCl (Buspar) 10 mg TID PO Last administered on 02/28/17 09:02; Start 02/26/17 at 09:00 Diclofenac Sodium (Voltaren) 100 [place] TID TP ; Start 02/26/17 at 09:00; Stop at 09:00; Status DC Dutasteride (Avodart) 0.5 mg DAILY PO Last administered on 02/28/17 09:01; Start 02/26/17 at 09:00 Acetaminophen/ Hydrocodone Bitart (Lortab 5/325) 1 tab QID PO Last administered on 02/28/17 09:00; Start 02/26/17 at 09:00 Lisinopril (Prinivil) 2.5 mg DAILY PO ; Start 02/26/17 at 09:00; Stop 02/26/17 at 09:00; Status DC Magnesium Hydroxide (Milk Of Magnesia) 400 mg PRN DAILY PRN PO CONSTIPATION; Start 02/26/17 at 08:00 Metoprolol Tartrate (Lopressor) 25 mg BID PO Last administered on 02/27/17 08: 32; Start 02/26/17 at 09:00; Stop 02/27/17 at 19:06; Status DC Nitroglycerin (Nitro-Dur 0.4mg) 1 patch DAILY TD Last administered on 02/28/17 09:02; Start 02/26/17 at 09:00 Nystatin (Nystop) 15 [place] PRN BID PRN TP REDNESS; Start 02/26/17 at 08:00; Stop 02/26/17 at 08:37; Status DC Tamsulosin HCl (Flomax) 0.4 mg DAILY PO Last administered on 02/28/17 09:00; Start 02/26/17 at 09:00 Albuterol Sulfate (Ventolin Neb Soln) 2.5 mg PRN Q4HRS PRN NEB SHORTNESS OF BREATH; Start 02/26/17 at 08:30 Non-Formulary Medication 1 puff PRN Q6HRS PRN INH SHORTNESS OF BREATH; Start at 08:00; Status UNV Budesonide (Pulmicort) 0.5 mg RTBID NEB Last administered on 02/28/17 08:34; Start 02/26/17 at 08:30 Fluoxetine HCl (PROzac) 40 mg DAILY PO Last administered on 02/28/17 09:00; Start 02/26/17 at 09:00 Guaifenesin (Robitussin Dm) 10 ml PRN Q4HRS PRN PO COUGH; Start 02/26/17 at 08: 30 [place] Carbonate 300 mg QHS PO Last administered on 02/27/17 20:49; Start at 21:00 Al Hydroxide/Mg Hydroxide (Mylanta Plus Xs) 30 ml PRN Q2HR PRN PO HEARTBURN / GAS; Start 02/26/17 at 08:30 Pantoprazole Sodium (Protonix) 40 mg DAILYAC PO Last administered on 02/28/17 09:00; Start 02/26/17 at 09:00 Albuterol/ Ipratropium (Duoneb) 3 ml RTQID NEB Last administered on 02/28/17 08 :34; Start 02/26/17 at 08:30 Nystatin (Nystop) 1 [place] PRN BID PRN TP REDNESS; Start 02/26/17 at 08:45 Diclofenac Sodium (Voltaren) 1 [place] TID TP Last administered on 02/28/17 09:01; Start 02/26/17 at 09:00 Levofloxacin/ Dextrose 100 ml @ 100 mls/hr 1X ONCE IV Last administered on 10:21; Start 02/26/17 at 09:30; Stop 02/26/17 at 10:29; Status DC Sodium Chloride 1,000 ml @ 4,800 mls/hr Q13M IV Last administered on 11:54; Start 02/26/17 at 09:00; Stop 02/26/17 at 10:00; Status DC Sodium Chloride 500 ml @ 1,000 mls/hr PRN Q30MIN PRN IV SEE COMMENTS; Start at 09:00; Stop 02/26/17 at 12:23; Status DC Norepinephrine Bitartrate 250 ml @ 0 mls/hr CONT PRN IV SEE I/O RECORD; Start 02/26/17 at 09:00; Stop 02/26/17 at 10:41; Status DC Dobutamine HCl/ Dextrose 250 ml @ 0 mls/hr CONT PRN IV SEE I/O RECORD; Start at 09:00; Stop 02/28/17 at 09:37; Status DC Meropenem 500 mg/ Sodium Chloride 50 ml @ 100 mls/hr Q6HRS IV Last administered on 02/28/17 05:36; Start 02/26/17 at 12:00 Micafungin Sodium 100 mg/Dextrose 100 ml @ 100 mls/hr Q24H IV Last administered on 02/27/17 10:29; Start 02/26/17 at 11:00 Metronidazole 100 ml @ 100 mls/hr Q8HRS IV Last administered on 02/28/17 05:36 ; Start 02/26/17 at 11:30 Sodium Chloride 1,000 ml @ 1,000 mls/hr 1X ONCE IV Last administered on 14:39; Start 02/26/17 at 12:30; Stop 02/26/17 at 13:29; Status DC Sodium Chloride 1,000 ml @ 1,000 mls/hr 1X ONCE IV Last administered on 15:49; Start 02/26/17 at 13:30; Stop 02/26/17 at 14:45; Status DC Sodium Chloride 1,000 ml @ 1,000 mls/hr 1X ONCE IV Last administered on 16:52; Start 02/26/17 at 14:30; Stop 02/26/17 at 15:29; Status DC Insulin Aspart (NovoLOG) 0-7 UNITS TIDWMEALS SQ ; Start 02/26/17 at 17:00; Stop 02/28/17 at 09:37; Status DC Dextrose (Dextrose 50%-Water Syringe) 12.5 gm PRN Q15MIN PRN IV SEE COMMENTS; Start 02/26/17 at 12:45; Stop 02/28/17 at 09:37; Status DC Meropenem 500 mg/ Sodium Chloride 50 ml @ 100 mls/hr Q6HRS IV ; Start 02/26/17 at 20:00; Status UNV Mupirocin (Bactroban) 1 [place] BID NS Last administered on 02/28/17 09:01; Start 02/26/17 at 21:00 Norepinephrine Bitartrate 250 ml @ 0 mls/hr CONT PRN IV SEE I/O RECORD Last administered on 02/26/17 22:41; Start 02/26/17 at 21:30; Stop 02/28/17 at 09:37 ; Status DC Cetirizine HCl (ZyrTEC) 10 mg DAILY PO Last administered on 02/28/17 09:00; Start 02/27/17 at 09:30 Montelukast Sodium (Singulair) 10 mg QHS PO Last administered on 02/27/17 20: 49; Start 02/27/17 at 21:00 Zolpidem Tartrate (Ambien) 5 mg QHS PO ; Start 02/28/17 at 21:00 Active Scripts Active Reported Albuterol Sulfate Conc Neb Soln (Albuterol Sulfate) 2.5 Mg/0.5 Ml Vial.neb 2.5 Mg NEB PRN Q4HRS PRN Symbicort 160-4.5 Mcg Inhaler (Budesonide/Formoterol Fumarate) 10.2 Gm Hfa.aer.ad 1 Puff IH DAILY Spiriva (Tiotropium [place]) 18 Mcg Cap.w.dev 1 Cap IH DAILY Nystatin 15 Gm Powder 15 Gm TP PRN PRN NITRO-DUR 0.4mg/hr (Nitroglycerin) 1 Each Patch.td24 1 Each TD DAILY Atorvastatin Calcium 10 Mg Tablet 10 Mg PO HS Cipro (Ciprofloxacin Hcl) 500 Mg Tablet 500 Mg PO BID 7 Days Metoprolol Tartrate 25 Mg Tablet 25 Mg PO BID Alum-Mag Hydroxide-Simeth Liq (Mag Hydrox/Al Hydrox/Simeth) 360 Ml Oral.susp 30 Ml PO PRN Q2HR PRN Dulcolax (Bisacodyl) 5 Mg Tablet.dr 1 Supp RC PRN DAILY PRN Robitussin Cough-Chest Dm Liq (Guaifenesin/Dextromethorphan) 237 Ml Liquid 10 Ml PO PRN Q4HRS PRN Milk Of Magnesia (Magnesium Hydroxide) 400 Mg/5 Ml Oral.susp 400 Mg PO PRN DAILY PRN Tylenol (Acetaminophen) 325 Mg Tablet 650 Mg PO PRN Q4HRS PRN Protonix (Pantoprazole Sodium) 20 Mg Tablet. 20 Mg PO DAILY Clopidogrel (Clopidogrel Bisulfate) 75 Mg Tablet 1 Tab PO DAILY Lo-Dose Aspirin EC (Aspirin) 81 Mg Tablet.dr 81 Mg PO Voltaren (Diclofenac Sodium) 100 Gm Gel..gram. 100 Gm TP TID Proair Hfa Inhaler (Albuterol Sulfate) 8.5 Gm Hfa.aer.ad 1 Puff INH PRN Q6HRS PRN [place] Carbonate 300 Mg Tablet 300 Mg PO HS Lisinopril 2.5 Mg Tablet 1 Tab PO DAILY Hydrocodone-Apap 5-325 (Hydrocodone Bit/Acetaminophen) 1 Each Tablet 1 Tab PO QID Flomax (Tamsulosin Hcl) 0.4 Mg Cap.er.24h 1 Cap PO DAILY Buspirone Hcl 10 Mg Tablet 10 Mg PO TID Avodart (Dutasteride) 0.5 Mg Capsule 1 Cap PO DAILY Prozac (Fluoxetine Hcl) 40 Mg Capsule 40 Mg PO DAILY Vitals/I & O Vital Sign - Last 24 Hours 02/27/17 02/27/17 02/27/17 02/27/17 12:08 12:10 12:26 13:00 Pulse 75 Resp 25 B/P (MAP) 96/53 (67) Pulse Ox 96 98 O2 Delivery Room Air Room Air Room Air Room Air 02/27/17 02/27/17 02/27/17 02/27/17 13:28 15:15 16:30 16:59 Temp 98.3 98.3 Pulse 83 83 66 Resp 20 20 14 B/P (MAP) 94/51 (65) 124/60 (81) 122/60 (80) Pulse Ox 98 96 84 O2 Delivery Room Air Room Air Room Air Room Air 02/27/17 02/27/17 02/27/17 02/27/17 17:22 17:39 19:00 19:15 Temp 98.1 98.1 Pulse 79 Resp 20 B/P (MAP) 116/58 (77) Pulse Ox 96 O2 Delivery Room Air Room Air Room Air Room Air 02/27/17 02/27/17 02/27/17 02/27/17 20:49 21:17 21:17 21:49 Resp 20 20 Pulse Ox 94 95 95 O2 Delivery Room Air Room Air Room Air 02/27/17 02/28/17 02/28/17 02/28/17 22:48 02:34 07:50 08:00 Temp 99.1 98.9 98.1 99.1 98.9 98.1 Pulse 93 88 81 Resp 20 20 18 B/P (MAP) 126/61 (82) 127/61 (83) 126/57 (80) Pulse Ox 94 96 91 O2 Delivery Room Air Room Air Room Air Room Air 02/28/17 02/28/17 02/28/17 08:34 09:00 11:01 Resp 18 Pulse Ox 95 95 95 O2 Delivery Room Air Room Air Room Air O2 Flow Rate 4.0 4.0 Intake and Output 02/27/17 02/27/17 02/28/17 15:00 23:00 07:00 Intake Total 480 ml 300 ml Output Total 1650 ml Balance 480 ml -1350 ml ALESSIO WELLINGTON MD Feb 28, 2017 11:15
[2017-02-28 11:30] VITALS: BP 130/49
[2017-02-28] MEDS: MICAFUNGIN 100 MG in IV DEXTROSE 5% 100 ML IV SCH ×2 (11:33→12:58)
--- NOTE | 2017-02-28 11:59 | PDOC ---
Infectious Disease Note Subjective Subjective Comfortable + BM Appetite better ROS ROS GEN: Denies fevers, chills, sweats CV: Denies chest pain RESP: Denies shortness of air, cough GI: Denies n/v/d Vital Sign Vital Signs Vital Signs Date Time Temp Pulse Resp B/P (MAP) Pulse Ox O2 Delivery O2 Flow Rate FiO2 02/28/17 11:30 97.4 82 18 130/49 (76) 92 Room Air 97.4 02/28/17 11:01 4.0 Physical Exam PHYSICAL EXAM GENERAL: Sitting in the chair, relaxed appearance, NAD HEENT: OC/OP- dry LUNGS: Clear HEART: S1S2, no gallop, no murmur ABD: Obese, soft, NT, mild erythema right lower and mid quad : Mccormick EXT: Trace BLE edema, no cyanosis FUNERAL COUNSELOR: Alert, oriented x 3, no focal neurologic deficit SKIN: No generalized rash but yeast in groin LUE-PICC. clean Labs Lab Laboratory Tests Test 02/27/17 12:26 02/27/17 16:44 02/27/17 21:48 02/28/17 04:30 Glucose (Fingerstick) 99 mg/dL (70-99) 332 mg/dL (70-99) 135 mg/dL (70-99) White Blood Count 14.4 x10^3/uL (4.0-11.0) Red Blood Count 2.99 x10^6/uL (4.30-5.70) Hemoglobin 8.1 g/dL (13.0-17.5) Hematocrit 25.3 % (39.0-53.0) Mean Corpuscular Volume 85 fL (79-100) Mean Corpuscular Hemoglobin 27 pg (25-35) Mean Corpuscular Hemoglobin Concent 32 g/dL (31-37) Red Cell Distribution Width 16.3 % (11.5-14.5) Platelet Count 122 x10^3/uL (140-400) Neutrophils (%) (Auto) 92 % (31-73) Lymphocytes (%) (Auto) 3 % (24-48) Monocytes (%) (Auto) 4 % (0-9) Eosinophils (%) (Auto) 1 % (0-3) Basophils (%) (Auto) 0 % (0-3) Neutrophils # (Auto) 13.2 x10^3uL (1.8-7.7) Lymphocytes # (Auto) 0.5 x10^3/uL (1.0-4.8) Monocytes # (Auto) 0.6 x10^3/uL (0.0-1.1) Eosinophils # (Auto) 0.2 x10^3/uL (0.0-0.7) Basophils # (Auto) 0.0 x10^3/uL (0.0-0.2) Sodium Level 139 mmol/L (136-145) Potassium Level 4.4 mmol/L (3.5-5.1) Chloride Level 106 mmol/L (98-107) Carbon Dioxide Level 23 mmol/L (21-32) Anion Gap 10 (6-14) Blood Urea Nitrogen 51 mg/dL (8-26) Creatinine 2.1 mg/dL (0.7-1.3) Estimated GFR (Cockcroft-Gault) 30.9 Glucose Level 91 mg/dL (70-99) Calcium Level 7.9 mg/dL (8.5-10.1) Iron Level 15 ug/dL (65-175) Total Iron Binding Capacity 229 ug/dL (250-450) Iron Saturation 7 % (15-34) [place] Level 0.7 mmol/L (0.6-1.2) [place] Last Dose Date 02/27/17 [place] Last Dose Time 2000 Test 02/28/17 07:51 02/28/17 11:23 Glucose (Fingerstick) 102 mg/dL (70-99) 122 mg/dL (70-99) Micro 6.29. [place] BLOOD CULTURE Preliminary NO GROWTH AFTER 2 DAYS 02/25. BLOOD CULT RESULT 1 Preliminary Morganella morganii Antibiotic RSLT#1 Amoxicillin/Clavulanic Acid R Ampicillin R Cefazolin R Cefepime S Ceftriaxone S Cefuroxime R Cephalothin R Ciprofloxacin S Ertapenem S Gentamicin S Levofloxacin S Nitrofurantoin R Piperacillin I Tetracycline R Tobramycin S Trimethoprim/Sulfa S Objective Assessment GNR sepsis POA. Now hypotension. Morganella Leukocytosis - large increase, better Urinary retention -s/p Mccormick DUONG UTI - POA Abd redness ? early cellulitis Yeast H/o MRSA. + nares 02/26 Afib with CHF on CXR Plan Plan of Care Meropenem Micafungin for yeast with h/o Afib C-diff pending, continue Flagyl Procalcitonin >125 F/u labs and cults Monitor right lower quad erythema, may need additional GPC coverage Last dose vanc 02/26. Attending Co-Sign The patient was seen and interviewed as well as examined at the bedside. The chart was reviewed. The case was discussed. Agree with the plan of care. CATIA MOON APRN Feb 28, 2017 11:59 DINESH TOM MD Feb 28, 2017 13:26
[2017-02-28 15:15] VITALS: BP 134/57
[2017-02-28 19:35] VITALS: BP 123/66
[2017-02-28] MEDS: LITHIUM CARBONATE 300 MG CAPSULE PO SCH (20:38)
[2017-02-28] MEDS: MONTELUKAST SODIUM 10 MG TABLET. PO SCH (20:38)
[2017-02-28] MEDS: ATORVASTATIN CALCIUM 10 MG TABLET. PO SCH (20:38)
[2017-02-28] MEDS: ZOLPIDEM 5 MG TABLET. PO SCH (21:00)
[2017-02-28 22:11] VITALS: BP 119/49
[2017-03-01] MEDS: MEROPENEM 500 MG in IV NORMAL SALINE 50ML 50 ML IV SCH ×4 (00:47→18:04)
[2017-03-01 03:53] VITALS: BP 131/40
[2017-03-01 05:17] LABS: BASO % 0 % (0-3); EOS % 4 % (0-3); HEMATOCRIT 25.1 % (39.0-53.0); HEMOGLOBIN 8.2 g/dL (13.0-17.5); LYMPH # 0.5 x10^3/uL (1.0-4.8); LYMPH % 5 % (24-48); MEAN CORPUSCULAR HEMOGLOBIN 28 pg (25-35); MEAN CORPUSCULAR HGB CONC 33 g/dL (31-37); MEAN CORPUSCULAR VOLUME 85 fL (79-100); MONO % 6 % (0-9); NEUT % 86 % (31-73); PLATELET COUNT 134 x10^3/uL (140-400); RED BLOOD COUNT 2.95 x10^6/uL (4.30-5.70); RED CELL DISTRIBUTION WIDTH 16.6 % (11.5-14.5); WHITE BLOOD COUNT 10.3 x10^3/uL (4.0-11.0)
[2017-03-01 05:41] LABS: CREATININE 1.8 mg/dL (0.7-1.3); GFR 36.9; POTASSIUM 4.5 mmol/L (3.5-5.1)
[2017-03-01] MEDS: PANTOPRAZOLE 40 MG TABLET.DR. PO SCH (06:42)
[2017-03-01 07:00] VITALS: BP 111/60
[2017-03-01] MEDS: IPRATRPIUM/ALBUTEROL 0.5/2.5MG 3 ML NEBU. NEB SCH ×4 (07:47→19:36)
[2017-03-01] MEDS: BUDESONIDE 0.5 MG/2 ML NEBU. NEB SCH ×2 (07:47→19:36)
[2017-03-01] MEDS: MUPIROCIN 2 % NASAL OINTMENT 22GM TUBE. NS SCH ×2 (09:00→21:01)
[2017-03-01] MEDS: DICLOFENAC SODIUM 1% TOPICAL GEL 100GM TUBE. TP SCH ×3 (09:00→18:03)
[2017-03-01] MEDS: DUTASTERIDE 0.5 MG CAPSULE PO SCH (10:05)
[2017-03-01] MEDS: ASPIRIN ENTERIC COATED 81 MG TABLET.DR. PO SCH (10:06)
[2017-03-01] MEDS: TAMSULOSIN 0.4 MG CAP.ER.24H. PO SCH (10:06)
[2017-03-01] MEDS: FLUoxetine HCL 20 MG CAPSULE PO SCH (10:06)
[2017-03-01] MEDS: CETIRIZINE HCL 10 MG TABLET. PO SCH (10:06)
[2017-03-01] MEDS: SENNOSIDES/DOCUSATE 8.6/50MG TABLET. PO SCH ×2 (10:06→21:00)
[2017-03-01] MEDS: CLOPIDOGREL BISULFATE 75 MG TABLET PO SCH (10:06)
[2017-03-01] MEDS: HYDROcodone/APAP 5/325MG 1 TAB TABLET PO SCH ×4 (10:07→21:00)
[2017-03-01] MEDS: busPIRone 10 MG TABLET. PO SCH ×3 (10:07→21:05)
--- NOTE | 2017-03-01 10:21 | PDOC ---
SUBJECTIVE Subjective Pt feeling much better today. Breathing is better as well. OBJECTIVE Vital Signs Vital Signs Date Time Temp Pulse Resp B/P (MAP) Pulse Ox O2 Delivery O2 Flow Rate FiO2 03/01/17 10:07 18 03/01/17 07:55 94 Room Air 03/01/17 07:49 94 Room Air 03/01/17 07:00 98.0 90 18 111/60 (77) 92 Room Air 98.0 03/01/17 03:53 97.7 84 18 131/40 (70) 95 Room Air 97.7 02/28/17 22:11 97.9 85 18 119/49 (72) 97 Room Air 97.9 02/28/17 20:39 Room Air 02/28/17 19:53 92 Room Air 02/28/17 19:51 92 Room Air 02/28/17 19:35 98.2 80 18 123/66 (85) 93 Room Air 98.2 02/28/17 19:22 Room Air 02/28/17 18:26 18 96 Room Air 4.0 02/28/17 17:25 18 96 Room Air 4.0 02/28/17 15:45 96 Room Air 02/28/17 15:15 97.6 71 16 134/57 (82) 93 Room Air 97.6 02/28/17 13:31 16 95 Room Air 4.0 02/28/17 12:17 95 Room Air 02/28/17 11:30 97.4 82 18 130/49 (76) 92 Room Air 97.4 I & O Intake and Output 03/01/17 07:00 Intake Total 800 ml Output Total 2375 ml Balance -1575 ml Intake Oral 500 ml Blood Product 300 ml Output Urine Total 2375 ml # Bowel Movements 4 PHYSICAL EXAM Physical Exam Abdomen: Normal bowel sounds, Soft, NTTP Heart: Regular rate and rhythm, No murmurs/rubs/gallops Extremities: No clubbing, No cyanosis, No edema General: Alert, Oriented X3, Cooperative, No acute distress HEENT: Atraumatic, Mucous membr. moist/pink Lungs: Normal air movement, CTAB Neck: Supple, no JVD Neuro: Normal speech, CN2-12 GI Psych/Mental Status: Mental status NL, Mood NL Skin: No breakdown ASSESSMENT/PLAN Assessment/Plan Pt is a 76yo CM admitted with urosepsis 1. Urosepsis 2/2 morganella morganii and enterococcus with multiple resistances - ID following. Pt currently receiving Meropenem and also receiving Metronidazole and Micafungin. C diff negative so likely deescalation of Metronidazole. Pt is no longer requiring pressors and his WBC has decreased to 10.3 from 34.3. He no longer has a bandemia 2. DUONG - Cr continuing to improve. Cr has decreased from 2.9 to 1.8. Baseline around 1.5-1.6. CTM 3. Acute on Chronic Heart Failure - compensated 4. GERD, on PPI 5. Anemia- stable. Hb currently 8.2. Pt's baseline seems to range from 8.1- 10.9. No active bleeding. Iron studies show combined iron deficiency and anemia of chronic disease. Will start Ferrous Sulfate. 6. Thrombocytopenia- mild, likely 2/2 infection. Improving. 7. Depression/Psychiatric conditions- pt has been continued on his [place] 300mg QHS, Fluoxetine 40mg, Buspar 10mg TID. [place] level WNL 8. HLD- pt continued on Atorvastatin 10mg 9. ? Hyperglycemia- pt has not required any insulin. HbA1C 12/14 was 5.1. Will discontinue SSI and blood sugar checks 10. +MRSA colonization screening- cont Bactroban 11. BPH- cont Avodart 12. NSTEMI- with history of CAD. Cardiology following. Pt is currently on Plavix. 13. COPD- pt continued on Duonebs, Pulmicort and Albuterol 14. Hx Afib Problems: COMMENT Lab Laboratory Tests Test 02/28/17 11:23 02/28/17 16:05 02/28/17 20:21 03/01/17 05:00 Glucose (Fingerstick) 122 mg/dL (70-99) 126 mg/dL (70-99) 122 mg/dL (70-99) White Blood Count 10.3 x10^3/uL (4.0-11.0) Red Blood Count 2.95 x10^6/uL (4.30-5.70) Hemoglobin 8.2 g/dL (13.0-17.5) Hematocrit 25.1 % (39.0-53.0) Mean Corpuscular Volume 85 fL (79-100) Mean Corpuscular Hemoglobin 28 pg (25-35) Mean Corpuscular Hemoglobin Concent 33 g/dL (31-37) Red Cell Distribution Width 16.6 % (11.5-14.5) Platelet Count 134 x10^3/uL (140-400) Neutrophils (%) (Auto) 86 % (31-73) Lymphocytes (%) (Auto) 5 % (24-48) Monocytes (%) (Auto) 6 % (0-9) Eosinophils (%) (Auto) 4 % (0-3) Basophils (%) (Auto) 0 % (0-3) Neutrophils # (Auto) 8.8 x10^3uL (1.8-7.7) Lymphocytes # (Auto) 0.5 x10^3/uL (1.0-4.8) Monocytes # (Auto) 0.6 x10^3/uL (0.0-1.1) Eosinophils # (Auto) 0.4 x10^3/uL (0.0-0.7) Basophils # (Auto) 0.0 x10^3/uL (0.0-0.2) Sodium Level 141 mmol/L (136-145) Potassium Level 4.5 mmol/L (3.5-5.1) Chloride Level 109 mmol/L (98-107) Carbon Dioxide Level 25 mmol/L (21-32) Anion Gap 7 (6-14) Blood Urea Nitrogen 42 mg/dL (8-26) Creatinine 1.8 mg/dL (0.7-1.3) Estimated GFR (Cockcroft-Gault) 36.9 Glucose Level 95 mg/dL (70-99) Calcium Level 8.0 mg/dL (8.5-10.1) Test 03/01/17 07:26 Glucose (Fingerstick) 83 mg/dL (70-99) SHERRON CASTILLO MD Mar 01, 2017 10:21
--- NOTE | 2017-03-01 10:39 | PDOC ---
Infectious Disease Note Subjective Subjective Comfortable, denies pain ROS ROS GEN: Denies fevers, chills, sweats CV: Denies chest pain RESP: Denies shortness of air, cough GI: Denies n/v/d NEURO: Denies confusion, dizziness Vital Sign Vital Signs Vital Signs Date Time Temp Pulse Resp B/P (MAP) Pulse Ox O2 Delivery O2 Flow Rate FiO2 03/01/17 10:07 18 03/01/17 07:55 94 Room Air 03/01/17 07:00 98.0 90 111/60 (77) 98.0 02/28/17 18:26 4.0 Physical Exam PHYSICAL EXAM GENERAL: Lying down, NAD HEENT: OC/OP- dry LUNGS: Clear HEART: S1S2, no gallop, no murmur ABD: Obese, soft, NT : Mccormick EXT: Trace BLE edema, no cyanosis CARDIOVASCULAR LAB DIRECTOR: Alert, oriented x 3, no focal neurologic deficit SKIN: No generalized rash but yeast in groin LUE-PICC. clean Labs Lab Laboratory Tests Test 02/28/17 11:23 02/28/17 16:05 02/28/17 20:21 03/01/17 05:00 Glucose (Fingerstick) 122 mg/dL (70-99) 126 mg/dL (70-99) 122 mg/dL (70-99) White Blood Count 10.3 x10^3/uL (4.0-11.0) Red Blood Count 2.95 x10^6/uL (4.30-5.70) Hemoglobin 8.2 g/dL (13.0-17.5) Hematocrit 25.1 % (39.0-53.0) Mean Corpuscular Volume 85 fL (79-100) Mean Corpuscular Hemoglobin 28 pg (25-35) Mean Corpuscular Hemoglobin Concent 33 g/dL (31-37) Red Cell Distribution Width 16.6 % (11.5-14.5) Platelet Count 134 x10^3/uL (140-400) Neutrophils (%) (Auto) 86 % (31-73) Lymphocytes (%) (Auto) 5 % (24-48) Monocytes (%) (Auto) 6 % (0-9) Eosinophils (%) (Auto) 4 % (0-3) Basophils (%) (Auto) 0 % (0-3) Neutrophils # (Auto) 8.8 x10^3uL (1.8-7.7) Lymphocytes # (Auto) 0.5 x10^3/uL (1.0-4.8) Monocytes # (Auto) 0.6 x10^3/uL (0.0-1.1) Eosinophils # (Auto) 0.4 x10^3/uL (0.0-0.7) Basophils # (Auto) 0.0 x10^3/uL (0.0-0.2) Sodium Level 141 mmol/L (136-145) Potassium Level 4.5 mmol/L (3.5-5.1) Chloride Level 109 mmol/L (98-107) Carbon Dioxide Level 25 mmol/L (21-32) Anion Gap 7 (6-14) Blood Urea Nitrogen 42 mg/dL (8-26) Creatinine 1.8 mg/dL (0.7-1.3) Estimated GFR (Cockcroft-Gault) 36.9 Glucose Level 95 mg/dL (70-99) Calcium Level 8.0 mg/dL (8.5-10.1) Test 03/01/17 07:26 Glucose (Fingerstick) 83 mg/dL (70-99) Micro 6.29. Repeat BLOOD CULTURE Preliminary NO GROWTH AFTER 2 DAYS 02/25. BLOOD CULT RESULT 1 Preliminary Morganella morganii Antibiotic RSLT#1 Amoxicillin/Clavulanic Acid R Ampicillin R Cefazolin R Cefepime S Ceftriaxone S Cefuroxime R Cephalothin R Ciprofloxacin S Ertapenem S Gentamicin S Levofloxacin S Nitrofurantoin R Piperacillin I Tetracycline R Tobramycin S Trimethoprim/Sulfa S URINE CULTURE RES 1 Preliminary Morganella morganii URINE CULTURE RES 2 Preliminary Enterococcus species Greater than 100,000 colony forming units per mL Antibiotic RSLT#1 RSLT#2 Amoxicillin/Clavulanic Acid R Ampicillin R Cefazolin R Cefepime S Ceftriaxone S Cefuroxime R Cephalothin R Ciprofloxacin I Ertapenem S Gentamicin S Levofloxacin S Nitrofurantoin R Piperacillin I Tetracycline R Tobramycin S Trimethoprim/Sulfa S Objective Assessment GNR sepsis POA. Now hypotension. Morganella Leukocytosis, improving Urinary retention -s/p Mccormick DUONG UTI - POA. Morganella & enterococcus spp Abd redness ? early cellulitis Yeast H/o MRSA. + nares 02/26 Afib with CHF on CXR Plan Plan of Care Meropenem Micafungin for yeast with h/o Afib C-diff pending neg, 02/28. d/c Flagyl Procalcitonin >125 f/u enterococcus sensitivities. clinically improving Last dose vanc 02/26. Attending Co-Sign The patient was seen and interviewed as well as examined at the bedside. The chart was reviewed. The case was discussed. Agree with the plan of care. CATIA MOON APRN Mar 01, 2017 10:39 DINESH TOM MD Mar 01, 2017 13:22
[2017-03-01 11:00] VITALS: BP 147/69
[2017-03-01] MEDS: NITROGLYCERIN 0.4MG/HR PATCH. TD SCH (13:39)
[2017-03-01 15:00] VITALS: BP 151/83
[2017-03-01 19:29] VITALS: BP 137/56
[2017-03-01] MEDS: ATORVASTATIN CALCIUM 10 MG TABLET. PO SCH (21:00)
[2017-03-01] MEDS: MONTELUKAST SODIUM 10 MG TABLET. PO SCH (21:01)
[2017-03-01] MEDS: LITHIUM CARBONATE 300 MG CAPSULE PO SCH (21:01)
[2017-03-01] MEDS: ZOLPIDEM 5 MG TABLET. PO SCH (21:05)
[2017-03-01] MEDS: NYSTATIN TOPICAL POWDER 15GM BOTTLE. TP SCH (21:54)
[2017-03-01 22:00] VITALS: BP 125/55
[2017-03-02] MEDS: MEROPENEM 500 MG in IV NORMAL SALINE 50ML 50 ML IV SCH ×2 (00:44→05:29)
[2017-03-02 03:04] VITALS: BP 153/68
[2017-03-02] MEDS: PANTOPRAZOLE 40 MG TABLET.DR. PO SCH ×2 (06:17→09:13)
[2017-03-02 07:00] VITALS: BP 169/69
[2017-03-02] MEDS ORDERED: FERROUS SULFATE 325 MG TABLET. PO SCH (08:00)
[2017-03-02] MEDS: IPRATRPIUM/ALBUTEROL 0.5/2.5MG 3 ML NEBU. NEB SCH ×2 (08:09→11:49)
[2017-03-02] MEDS: BUDESONIDE 0.5 MG/2 ML NEBU. NEB SCH (08:09)
--- NOTE | 2017-03-02 08:34 | PDOC ---
Infectious Disease Note Subjective Subjective Comfortable, denies pain ROS ROS GEN: Denies fevers, chills, sweats HEENT: Denies blurred vision, sore throat CV: Denies chest pain RESP: Denies shortness of air, cough GI: Denies n/v/d NEURO: Denies confusion, dizziness Vital Sign Vital Signs Vital Signs Date Time Temp Pulse Resp B/P (MAP) Pulse Ox O2 Delivery O2 Flow Rate FiO2 03/02/17 08:11 Room Air 03/02/17 07:00 97.8 81 22 169/69 (102) 92 97.8 03/01/17 19:06 4.0 Physical Exam PHYSICAL EXAM GENERAL: NAD, Alert HEENT: PERRL, OC/OP NECK: Supple, no JVD, no LN LUNGS: Clear HEART: S1S2, no gallop, no murmur ABD: Soft, NT, no organomegaly, no rebound EXT: No edema, no cyanosis RESIDENT CARE ASSISTANT: Alert, oriented x 3, no focal neurologic deficit SKIN: No rash IV: ok Labs Lab Laboratory Tests Test 03/01/17 11:31 03/01/17 16:31 03/01/17 20:58 03/02/17 07:07 Glucose (Fingerstick) 109 mg/dL (70-99) 114 mg/dL (70-99) 109 mg/dL (70-99) 92 mg/dL (70-99) Objective Assessment GNR sepsis POA. Now hypotension. Morganella Leukocytosis, improving Urinary retention -s/p Mccormick DUONG UTI - POA. Morganella & enterococcus spp Abd redness ? early cellulitis Yeast H/o MRSA. + nares 02/26 Afib with CHF on CXR Plan Plan of Care change to po cipro and zyvox supportive care pt/ot DINESH TOM MD Mar 02, 2017 08:34
[2017-03-02] MEDS ORDERED: LINEZOLID 600 MG TABLET PO SCH (09:00)
[2017-03-02] MEDS ORDERED: CIPROFLOXACIN HCL 250 MG TABLET. PO SCH (09:00)
[2017-03-02] MEDS ORDERED: LINE600T PO (09:03)
--- NOTE | 2017-03-02 09:07 | PDOC3 ---
Discharge Summary* Date of Admission: Feb 25, 2017 Date of Discharge: Mar 02, 2017 Admitting Diagnosis Problems Medical Problems: (1) Gram-negative sepsis with end-organ dysfunction Status: Acute Problems: (1) Gram-negative sepsis with organ dysfunction (2) Elevated troponin (3) Chest pain (4) acute renal failure with dehydration (5) Benign essential hypertension Final Diagnosis Problems Medical Problems: (1) Gram-negative sepsis with organ dysfunction Status: Acute CONSULTS Infectious Disease - [facility] Card[facility] - [place] Procedures PICC line Brief Hospital Course Mr. Patrick is a 76 old male who presented with fever and history of UTI treated with ciprofloxacin. He then developed chest pain eventually determined to be secondary to demand ischemia from what blood cultures proved to be Morganella. He was admitted to telemetry for monitoring, and started on Vancomycin and Zosyn IV. Because of sepsis he was transferred to the ICU for sepsis protocol and required 3 liters of saline and pressor support with Levaphed, his WBC's were greater than 30,000. Morganella grew in blood culture and the patient was switched to IV meropenem. His heart function remained stable, urinary retention was treated with Mccormick, his fever and WBC's trended down over the course of 2 days and he is currently stable on telemetry and is transitioned to po Cipro and Zyvox which he will remain on for another week. Disposition/Orders: Other (Discharge to SNF) CONDITION AT DISCHARGE: Improved, Stable Diet: Cardiac Scheduled Atorvastatin Calcium (Atorvastatin Calcium), 10 MG PO HS, (Reported) Budesonide/Formoterol Fumarate (Symbicort 160-4.5 Mcg Inhaler), 1 PUFF IH DAILY, (Reported) Buspirone Hcl (Buspirone Hcl), 10 MG PO TID, (Reported) Ciprofloxacin Hcl (Cipro), 500 MG PO BID, (Reported) Clopidogrel Bisulfate (Clopidogrel), 1 TAB PO DAILY, (Reported) Diclofenac Sodium (Voltaren), 100 GM TP TID, (Reported) Dutasteride (Avodart), 1 CAP PO DAILY, (Reported) Fluoxetine Hcl (Prozac), 40 MG PO DAILY, (Reported) Hydrocodone Bit/Acetaminophen (Hydrocodone-Apap 5-325 ), 1 TAB PO QID, ( Reported) Linezolid (Zyvox), 600 MG PO BID, (Reported) Lisinopril (Lisinopril), 1 TAB PO DAILY, (Reported) Chillum Carbonate (Chillum Carbonate), 300 MG PO HS, (Reported) Metoprolol Tartrate (Metoprolol Tartrate), 25 MG PO BID, (Reported) Nitroglycerin (NITRO-DUR 0.4mg/hr), 1 EACH TD DAILY, (Reported) Pantoprazole Sodium (Protonix), 20 MG PO DAILY, (Reported) Tamsulosin Hcl (Flomax), 1 CAP PO DAILY, (Reported) Tiotropium [place] (Spiriva), 1 CAP IH DAILY, (Reported) Scheduled PRN Acetaminophen (Tylenol), 650 MG PO PRN Q4HRS PRN for MILD PAIN / TEMP, (Reported ) Albuterol Sulfate (Proair Hfa Inhaler), 1 PUFF INH PRN Q6HRS PRN for SHORTNESS OF BREATH, (Reported) Albuterol Sulfate (Albuterol Sulfate Conc Neb Soln), 2.5 MG NEB PRN Q4HRS PRN for SHORTNESS OF BREATH, (Reported) Bisacodyl (Dulcolax), 1 SUPP RC PRN DAILY PRN for CONSTIPATION, (Reported) Guaifenesin/Dextromethorphan (Robitussin Cough-Chest Dm Liq), 10 ML PO PRN Q4HRS PRN for COUGH, (Reported) Mag Hydrox/Al Hydrox/Simeth (Alum-Mag Hydroxide-Simeth Liq), 30 ML PO PRN Q2HR PRN for HEARTBURN / GAS, (Reported) Magnesium Hydroxide (Milk Of Magnesia), 400 MG PO PRN DAILY PRN for CONSTIPATION , (Reported) Nystatin (Nystatin), 15 GM TP PRN PRN for REDNESS, (Reported) Miscellaneous Medications Aspirin (Lo-Dose Aspirin EC), 81 MG PO, (Reported) Discontinued Medications Bisacodyl (Dulcolax), 4 TAB PO ONCE, (Reported) Clonazepam (Clonazepam), 1 MG PO TID, (Reported) Fluoxetine Hcl (Prozac), 1 CAP PO DAILY, (Reported) Lidocaine (Lidoderm), 1 PATCH TP DAILY, (Reported) Mometasone/Formoterol (Dulera 100 Mcg/5 Mcg Inhaler), 2 PUFF IH BID, (Reported) FOLLOW UP APPOINTMENT: I will see him at [facility] at [facility] Time Spent Total time spent with patient 30 minutes for coordination of care, counseling, and education. LOY MULLER MD Mar 02, 2017 09:07
[2017-03-02] MEDS: ASPIRIN ENTERIC COATED 81 MG TABLET.DR. PO SCH (09:12)
[2017-03-02] MEDS: MUPIROCIN 2 % NASAL OINTMENT 22GM TUBE. NS SCH (09:12)
[2017-03-02] MEDS: FLUoxetine HCL 20 MG CAPSULE PO SCH (09:12)
[2017-03-02] MEDS: busPIRone 10 MG TABLET. PO SCH (09:12)
[2017-03-02] MEDS: DUTASTERIDE 0.5 MG CAPSULE PO SCH (09:12)
[2017-03-02] MEDS: CLOPIDOGREL BISULFATE 75 MG TABLET PO SCH (09:13)
[2017-03-02] MEDS: TAMSULOSIN 0.4 MG CAP.ER.24H. PO SCH (09:13)
[2017-03-02] MEDS: CETIRIZINE HCL 10 MG TABLET. PO SCH (09:13)
[2017-03-02] MEDS: SENNOSIDES/DOCUSATE 8.6/50MG TABLET. PO SCH (09:13)
[2017-03-02] MEDS: NITROGLYCERIN 0.4MG/HR PATCH. TD SCH (09:14)
[2017-03-02] MEDS: HYDROcodone/APAP 5/325MG 1 TAB TABLET PO SCH (09:15)
[2017-03-02] MEDS: DICLOFENAC SODIUM 1% TOPICAL GEL 100GM TUBE. TP SCH (10:09)
[2017-03-02] MEDS: NYSTATIN TOPICAL POWDER 15GM BOTTLE. TP SCH (10:09)
[2017-03-02 11:00] VITALS: BP 157/65
--- NOTE | 2017-03-02 12:10 | PDOC ---
FELICIA POLLACK BUSINESS STRATEGIST 03/02/17 1210: CARDIO Progress Notes Date and Time Date of Service 03/02/17 Time of Evaluation 1130 Subjective Subjective: No Chest Pain, No shortness of breath, No Palpitations, Other ( mild abd tenderness ) Vitals Vitals Vital Signs Date Time Temp Pulse Resp B/P (MAP) Pulse Ox O2 Delivery O2 Flow Rate FiO2 03/02/17 11:50 Room Air 03/02/17 11:00 97.8 85 22 157/65 (95) 95 97.8 03/02/17 09:15 4.0 Weight Weight [ ] Input and Output Intake and Output Intake and Output 03/02/17 07:00 Intake Total 2138 ml Output Total 2850 ml Balance -712 ml Intake Oral 1738 ml IV Total 100 ml Other 300 ml Output Urine Total 2850 ml # Bowel Movements 1 Laboratory Labs Laboratory Tests Test 03/01/17 16:31 03/01/17 20:58 03/02/17 07:07 Glucose (Fingerstick) 114 mg/dL (70-99) 109 mg/dL (70-99) 92 mg/dL (70-99) Microbiology Micro Microbiology 02/26/17 Blood Culture - Preliminary, Resulted NO GROWTH AFTER 4 DAYS 02/25/17 Urine Culture - Final, Complete 02/25/17 Urine Culture Result 1 (MANDEEP) - Final, Complete 02/25/17 Urine Culture Result 2 (MANDEEP) - Final, Complete 02/25/17 Antimicrobic Susceptibility - Final, Complete Physical Exam HEENT: Neck Supple W Full Motion Chest: Symmetric LUNGS: Other (diminished bases ) Heart: RRR (SR without significant ectopies), no murmurs, no jug vein distention Abdomen: Soft N/T, Other (obese ) Extremities: 2+ Dorsalis Pedis, No Calf Tenderness, Other (1+ bialteral LE pitting edema ) Neurology: alert, oriented, follow commands Assessment Assessment 1. UTI/Sepsis with hypotension 2. NSTEMI 3. Acute on chronic systolic HF; LVEF 40%. 4. CAD; s/p PCI/stents in the past 5. DUONG on CKD Recommendations Continue supportive care Add low-dose oral Lasix for optimization K high-normal range. Facility to monitor and replace as warranted. May discharge from a CV standpoint with f/u in 4-6 weeks. RADHA FROST MD 03/02/17 2208: CARDIO Progress Notes Plan Plan Pt. seen and examined. Agree with above [employer]OOK[employer] note. No acute events overnight. On exam he is severely debilitated. Mild LE edema. Supportive care and add lasix. Follow up in 4-6 weeks. 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 FELICIA POLLACK APRN Mar 02, 2017 12:10 RADHA FROST MD Mar 02, 2017 22:08
[2017-03-02] MEDS ORDERED: FUROSEMIDE 20 MG TABLET PO SCH (13:00)
== END 2017-03-02 12:30 | DRG 871 ==
LOC: ER 12:21 → 2 SOUTH 17:27 → 1 WEST ICU 02-26 11:30 → 2 NORTH 02-27 16:38
PROVIDERS: ADMIT Family Medicine; ATTEND Family Medicine
DX: A41.51 Sepsis due to Escherichia coli [E. coli] (principal); I21.4 Non-ST elevation (NSTEMI) myocardial infarction; I50.43 Acute on chronic combined systolic (congestive) and diastolic (congestive) heart failure; J44.0 Chronic obstructive pulmonary disease with (acute) lower respiratory infection; N17.9 Acute kidney failure, unspecified; N39.0 Urinary tract infection, site not specified; N13.30 Unspecified hydronephrosis; I25.110 Atherosclerotic heart disease of native coronary artery with unstable angina pectoris; L03.90 Cellulitis, unspecified; D50.9 Iron deficiency anemia, unspecified; D63.8 Anemia in other chronic diseases classified elsewhere; D69.6 Thrombocytopenia, unspecified; E11.22 Type 2 diabetes mellitus with diabetic chronic kidney disease; E11.65 Type 2 diabetes mellitus with hyperglycemia; E66.01 Morbid (severe) obesity due to excess calories; Z68.34 Body mass index [BMI] 34.0-34.9, adult; E78.5 Hyperlipidemia, unspecified; F32.9 Major depressive disorder, single episode, unspecified; I48.91 Unspecified atrial fibrillation; J31.0 Chronic rhinitis; K21.9 Gastro-esophageal reflux disease without esophagitis; M48.00 Spinal stenosis, site unspecified; N18.9 Chronic kidney disease, unspecified; N40.1 Benign prostatic hyperplasia with lower urinary tract symptoms; N39.498 Other specified urinary incontinence; R35.0 Frequency of micturition; R33.8 Other retention of urine; Z86.14 Personal history of Methicillin resistant Staphylococcus aureus infection; Z99.3 Dependence on wheelchair; Z98.61 Coronary angioplasty status; Z79.899 Other long term (current) drug therapy; J44.9 Chronic obstructive pulmonary disease, unspecified
CPT/HCPCS: 36415; 71010; 80048; 80053; 80061; 80076; 80178; 81001; 82553; 82962; 83540; 83550; 83605; 83690; 83735; 83880; 84100; 84145; 84443; 84484; 85007; 85027; 85520; 85610; 85730; 86850; 86900; 86901; 87040; 87086; 87186; 87205; 87324; 87641; 93005; 93306; 94250; 94640; 94760; 96365; 96366; J1815; J1940; J1956; J2185; J2248; J2270; J2405; J2543; J3370; J3475; J3490; J7030; J7040; J7620; 97110; 97530; 99285-25

== ENCOUNTER 2017-04-12 10:08 | Inpatient (IN) | payer MEDICARE, OTHER ==
[~2017-04-12] VITALS: Ht 180.3 cm; Wt 152.0 kg
[~2017-04-12 10:08] MED LIST changes: -CETI10TA16 PO; -FERR-26 PO; -FURO40TA4 PO; -MAG355OR11 PO; -METO25TA9 PO; -MONT10TA9 PO; -NITR0.4T SL; -ONDA4TAB12 PO; -PANT40TA5 PO; -PROP20TA PO; -SENN-37 PO; -ZOLP5TAB5 PO
--- NOTE | 2017-04-12 11:05 | RAD ---
AP portable chest radiograph 04/12/2017 Clinical History: Hypoxia and vomiting. 2 AP portable semi erect digital radiographs of the chest was obtained. Comparison study is dated 02/27/2017. The patient is rotated to the right. The cardiac silhouette is borderline enlarged. The thoracic aorta is tortuous. No acute pulmonary infiltrate is seen. No pneumothorax or definite pleural effusion is noted. The osseous structures are unchanged. Impression: No acute abnormality is seen.
[2017-04-12 11:14] LABS: BASO % 1 % (0-3); EOS % 1 % (0-3); HEMATOCRIT 28.5 % (39.0-53.0); LYMPH # 0.2 x10^3/uL (1.0-4.8); LYMPH % 3 % (24-48); MEAN CORPUSCULAR HEMOGLOBIN 27 pg (25-35); MEAN CORPUSCULAR HGB CONC 32 g/dL (31-37); MEAN CORPUSCULAR VOLUME 85 fL (79-100); MONO % 1 % (0-9); NEUT % 95 % (31-73); PLATELET COUNT 172 x10^3/uL (140-400); RED BLOOD COUNT 3.34 x10^6/uL (4.30-5.70); RED CELL DISTRIBUTION WIDTH 17.2 % (11.5-14.5); WHITE BLOOD COUNT 6.2 x10^3/uL (4.0-11.0)
[2017-04-12 11:20] LABS: GFR 32.6
[2017-04-12 11:36] LABS: ALBUMIN/GLOBULIN RATIO 0.8 (1.0-1.7); TOTAL BILIRUBIN 0.4 mg/dL (0.2-1.0); TOTAL PROTEIN 6.7 g/dL (6.4-8.2)
[2017-04-12 11:40] LABS: PLT ESTIMATE ADEQUATE (ADEQUATE)
[2017-04-12 11:41] LABS: ANISOCYTOSIS SLIGHT; POLYCHROMASIA SLIGHT
[2017-04-12 11:42] LABS: OVALOCYTES FEW
[2017-04-12 12:08] LABS: INR 1.1 (0.8-1.1); PROTHROMBIN TIME PATIENT 13.7 SEC (11.7-14.0)
[2017-04-12] MEDS ORDERED: IV NORMAL SALINE 500ML BAG 500 ML IV ONE (12:30)
[2017-04-12] MEDS ORDERED: PIP/TAZO PER PHARMACY MC PRN (12:45)
--- NOTE | 2017-04-12 12:46 | PHYS DOC ---
Past Medical History Past Medical History: Anxiety, Bipolar, COPD, Diabetes-Type II, Hypertension, MO, Renal Failure, UTI Additional Past Medical Histor: Morbid obesity Past Surgical History: Other Additional Past Surgical Histo: Ear, CARDIAC STENTS Alcohol Use: None Drug Use: None Adult General Chief Complaint Chief Complaint: WEAKNESS/GENERALIZED HPI HPI Patient is a 76 year old male, patient of Dr. Bates, who presents by EMS with the complaint of weakness today. The patient has generalized weakness. He was also "shaking all over". Paramedics report that his O2 sat was in the low 80s, it came up and they put him on oxygen. Patient states to me that he is not having any pain. He feels weak and doesn't feel well. He was a little short of breath, that is better. He's had no GI symptoms. He is not on home oxygen. Chart reviewed, the patient was hospitalized in January and released March 02 with a final diagnosis of sepsis from a UTI. PCP Dr. Bates Review of Systems Review of Systems Constitutional: No measured fever, but he is having generalized shaking that may be chills. HENT: Denies nasal congestion or sore throat [] Respiratory: As in history of present illness Cardiovascular: Denies chest pain GI: Denies abdominal pain : Patient was not able to urinate in the ED Musculoskeletal: Denies back pain or joint pain [] Integument: Denies rash or skin lesions [] Neurologic: Denies headache, focal weakness or sensory changes [] Current Medications Current Medications Current Medications Medications (Trade) Dose Ordered Sig/Jeannette Start Time Stop Time Status Last Admin Dose Admin Piperacillin Sod/ Tazobactam Sod (Zosyn Per Pharmacy) 1 each PRN DAILY PRN 04/12/17 12:45 Piperacillin Sod/ Tazobactam Sod 2.25 gm/Sodium Chloride 50 ml @ 100 mls/hr Q6HRS 04/12/17 13:00 04/12/17 12:54 100 MLS/HR Sodium Chloride 1,000 ml @ 100 mls/hr Q10H 04/12/17 12:47 04/13/17 12:46 Allergies Allergies Allergies Coded Allergies Type Severity Reaction Last Updated Verified No Known Medication Allergies Allergy Unknown 06/03/16 Yes Physical Exam Physical Exam Constitutional: Obese male, alert, mentating normally, who is having generalized shaking that may be shaking chills, afebrile HENT: Normocephalic, atraumatic, bilateral external ears normal, nose normal. [] Eyes: conjunctiva normal, no discharge. [] Neck: Normal range of motion, no stridor. [] Cardiovascular:Heart rate regular rhythm, no murmur [] Lungs & Thorax: Bilateral breath sounds clear to auscultation [] Abdomen: Bowel sounds normal, soft, no tenderness, no masses, no pulsatile masses. [] Skin: Warm, dry, no erythema, no rash. [] Extremities: No tenderness, no cyanosis, no clubbing, ROM intact, no edema. [] Neurologic: Alert and oriented X 3, normal motor function, normal sensory function, no focal deficits noted. [] Current Patient Data Vital Signs Vital Signs Date Time Temp Pulse Resp B/P (MAP) Pulse Ox O2 Delivery O2 Flow Rate FiO2 04/12/17 12:33 84 22 131/60 (83) 97 Nasal Cannula 2.0 04/12/17 10:22 98.2 98.2 Lab Values Laboratory Tests Test 04/12/17 10:55 04/12/17 11:35 White Blood Count 6.2 x10^3/uL (4.0-11.0) Red Blood Count 3.34 x10^6/uL (4.30-5.70) L Hemoglobin 9.0 g/dL (13.0-17.5) L Hematocrit 28.5 % (39.0-53.0) L Mean Corpuscular Volume 85 fL (79-100) Mean Corpuscular Hemoglobin 27 pg (25-35) Mean Corpuscular Hemoglobin Concent 32 g/dL (31-37) Red Cell Distribution Width 17.2 % (11.5-14.5) H Platelet Count 172 x10^3/uL (140-400) Neutrophils (%) (Auto) 95 % (31-73) H Lymphocytes (%) (Auto) 3 % (24-48) L Monocytes (%) (Auto) 1 % (0-9) Eosinophils (%) (Auto) 1 % (0-3) Basophils (%) (Auto) 1 % (0-3) Neutrophils # (Auto) 5.9 x10^3uL (1.8-7.7) Lymphocytes # (Auto) 0.2 x10^3/uL (1.0-4.8) L Monocytes # (Auto) 0.0 x10^3/uL (0.0-1.1) Eosinophils # (Auto) 0.1 x10^3/uL (0.0-0.7) Basophils # (Auto) 0.0 x10^3/uL (0.0-0.2) Segmented Neutrophils % 56 % (35-66) Band Neutrophils % 40 % (0-9) H Lymphocytes % 3 % (24-48) L Monocytes % 1 % (0-10) Platelet Estimate Adequate (ADEQUATE) Large Platelets Few Polychromasia Slight Anisocytosis Slight Ovalocytes Few Sodium Level 135 mmol/L (136-145) L Potassium Level 5.0 mmol/L (3.5-5.1) Chloride Level 102 mmol/L (98-107) Carbon Dioxide Level 26 mmol/L (21-32) Anion Gap 7 (6-14) Blood Urea Nitrogen 50 mg/dL (8-26) H Creatinine 2.0 mg/dL (0.7-1.3) H Estimated GFR (Cockcroft-Gault) 32.6 BUN/Creatinine Ratio 25 (6-20) H Glucose Level 182 mg/dL (70-99) H Lactic Acid Level 2.1 mmol/L (0.4-2.0) H Calcium Level 8.0 mg/dL (8.5-10.1) L Total Bilirubin 0.4 mg/dL (0.2-1.0) Aspartate Amino Transferase (AST) 20 U/L (15-37) Alanine Aminotransferase (ALT) 23 U/L (16-63) Alkaline Phosphatase 71 U/L (46-116) BK-Ngt-J-Type Natriuretic Peptide 02911 pg/mL (0-449) H Total Protein 6.7 g/dL (6.4-8.2) Albumin 3.0 g/dL (3.4-5.0) L Albumin/Globulin Ratio 0.8 (1.0-1.7) L Prothrombin Time 13.7 SEC (11.7-14.0) Prothrombin Time INR 1.1 (0.8-1.1) PTT 25 SEC (24-38) Laboratory Tests 04/12/17 10:55 Laboratory Tests 04/12/17 10:55 EKG EKG [] Radiology/Procedures Radiology/Procedures One view portable chest x-ray read by the radiologist. No acute infiltrate. [] Course & Med Decision Making Course & Med Decision Making Pertinent Labs and Imaging studies reviewed. (See chart for details) 76-year-old male brought from home with weakness and generalized shaking which might be chills. Also paramedics reported his O2 sat in the field in the low 80s. He does not usually wear oxygen at home. Evaluation in the ED. The patient is alert and mentating normally but is weak and doesn't feel well. I saw his generalized shaking and it certainly might be shaking chills although he was not febrile here. It's concerning because he recently had an episode of sepsis from UTI. ED nursing staff encourage the patient to give us a urine sample but he was just not able to spontaneously urinate. ED nursing staff then tried to use a straight catheter to obtain urine. ED RN informed me that she was not able to give any urine, felt some resistance, no complaint from the patient, but when the catheter was removed, there was some blood from the urethra. Bladder scan was done and the patient had less than 200 and also in the bladder so we will just wait and see if he is able to urinate later. Labs, chest x-ray unrevealing as to source of complaints at this time. He could have pneumonia that is just not showing up on the chest x-ray yet. He could have urosepsis again. His lactic acid is slightly elevated at 2.1. He was given a fluid bolus for that. I recommended that the patient be admitted for further evaluation and IV antibiotics and oxygen therapy, he is agreeable to that plan. I discussed the case with Dr. Asif, taking calls for Dr. Bates. She will admit the patient. I wrote bridge orders. [] Dragon Disclaimer Dragon Disclaimer This electronic medical record was generated, in whole or in part, using a voice recognition dictation system. Departure Departure Impression: Primary Impression: Weakness Additional Impressions: Shaking chills Elevated lactic acid level Hypoxia Disposition: ADMITTED INPATIENT Admitting Physician: Mohsen Michael Condition: GUARDED Referrals: LUL HACKETT MD (PCP) Problem Qualifiers LOVE LORA MD Apr 12, 2017 12:46
[2017-04-12] MEDS ORDERED: IV NORMAL SALINE 1000ML BAG 1,000 ML IV SCH (12:47)
[2017-04-12] MEDS: PIPERACILLIN/TAZOBACTAM 2.25 GM in IV NORMAL SALINE 50ML 50 ML IV SCH ×3 (12:54→23:59)
[2017-04-12 14:51] VITALS: BP 130/63
[2017-04-12] MEDS ORDERED: METO25TA9 PO (17:07)
[2017-04-12] MEDS ORDERED: PANT40TA5 PO (17:07)
[2017-04-12] MEDS ORDERED: FURO40TA4 PO (17:07)
[2017-04-12] MEDS ORDERED: ONDA4TAB12 PO (17:07)
[2017-04-12] MEDS ORDERED: LISI-338 PO (17:07)
[2017-04-12] MEDS ORDERED: NITR0.4T SL (17:11)
[2017-04-12] MEDS ORDERED: MAG355OR11 PO (17:11)
[2017-04-12] MEDS ORDERED: PROP20TA PO (17:11)
[2017-04-12] MEDS ORDERED: FERR-26 PO (17:15)
[2017-04-12] MEDS ORDERED: TIOT18CA IH (17:15)
[2017-04-12] MEDS ORDERED: MONT10TA9 PO (17:15)
[2017-04-12] MEDS ORDERED: SENN-37 PO (17:15)
[2017-04-12] MEDS ORDERED: ZOLP5TAB5 PO (17:15)
[2017-04-12] MEDS ORDERED: CETI10TA16 PO (17:15)
[2017-04-12] MEDS ORDERED: ALBUTEROL SULFATE 2.5 MG/3 ML NEBU. NEB PRN (18:45)
[2017-04-12 19:20] VITALS: BP 174/92
[2017-04-12] MEDS ORDERED: LISINOPRIL 5 MG TABLET. PO SCH (19:30)
[2017-04-12 19:47] LABS: HCO3 ABG 19 mmol/L (21-28); PCO2 ABG 34 mmHg (35-46); PH ABG 7.37 (7.35-7.45); SAT O2 ABG 85 % (92-99)
[2017-04-12 19:54] LABS: FIO2 ABG 40; PO2 ABG 50 mmHg (65-108)
[2017-04-12] MEDS ORDERED: FUROSEMIDE 40 MG/4 ML VIAL. IVP ONE (20:00)
[2017-04-12 20:20] VITALS: BP 186/75
[2017-04-12] MEDS ORDERED: ONDANSETRON PF 4 MG/2 ML VIAL. ONE ×2 (20:29→21:00)
--- NOTE | 2017-04-12 20:37 | RAD ---
EXAM: Chest, single view. HISTORY: Rapid onset shortness of breath. COMPARISON: Chest radiograph obtained on the same date. FINDINGS: A frontal view of the chest obtained. There has been interval increase in diffuse mixed interstitial and alveolar infiltrate throughout both lungs. There are stable suspected trace effusions. There is no pneumothorax. There is stable enlargement of the cardiac silhouette. IMPRESSION: 1. Diffuse mixed interstitial and alveolar infiltrate, increased compared to a study obtained earlier on the same date. 2. Suspected trace pleural effusions. 3. Stable enlargement of the cardiac silhouette. Electronically signed by: Krissy Woodard MD (04/12/2017 8:34 PM) [id number]
[2017-04-12 21:00] VITALS: BP 164/80
[2017-04-12] MEDS: METOPROLOL SUCC 24HR ER 25 MG TAB.ER.24H. PO SCH (21:32)
[2017-04-12] MEDS: CLOPIDOGREL BISULFATE 75 MG TABLET PO SCH (21:32)
[2017-04-12 22:00] VITALS: BP 165/66
[2017-04-12 23:00] VITALS: BP 153/68
[2017-04-13] VITALS (30 sets, daily range): BP systolic 80–130; BP diastolic 32–67
--- NOTE | 2017-04-13 01:23 | ACF ---
Admission Forms Criteria GENERAL ADMISSION CRITERIA (Place 'X' for any and all applicable criteria): Admission is indicated for ANY ONE of the following: [ ]I. Hemodynamic instability as indicated by ANY ONE of the following(1)(2) (3)(4)(5): [ ]a) Vital sign abnormality not readily corrected by appropriate treatment within 12 to 24 hours indicated by ANY ONE of the following: [ ]i) Hypotension [ ]ii) Symptomatic Tachycardia unresponsive to treatment (eg , analgesia, fluids, sedation as indicated) [ ]iii) Orthostatic vital sign changes unresponsive to treatment (eg, fluids) [ ]b) Vital sign abnormality that is severe indicated by ANY ONE of the following: [ ]i) Inadequate perfusion indicated by ANY ONE of the following: [ ]1) Lactic acidosis (greater than 2 mmol/L) [ ]2) New abnormal capillary refill (greater than 3 seconds) [ ]3) Other metabolic acidosis (arterial pH less than 7.35) not otherwise explained [ ]4) Reduced urine output [ ]5) Altered mental status [ ]6) Myocardial Ischemia [ ]v) Mean arterial pressure[A] less than 60 mm Hg [ ]vi) Mean arterial pressure[A] less than 70 mm Hg after 30 minutes of appropriate treatment (eg, fluid resuscitation) [ ]vii) IV inotropic or vasopressor medication required to maintain adequate blood pressure or perfusion [ ]viii) Sustained heart rate greater than 120 beats per minute in adult or child 6 years or older[B]] [ ]II. Hypertension requiring inpatient treatment as indicated by ANY ONE of the following(6)(7)(8): [ ]a) SBP greater than 220 mm Hg or DBP greater than 120 mm Hg despite treatment [ ]b) SBP greater than 140 mm Hg or DBP greater than 100 mm Hg with evidence of acute end organ damage as indicated by ANY ONE of the following: [ ]i) Encephalopathy [ ]ii) Acute renal failure as indicated by new onset of ANY ONE of the following(9)(10)(11)(12)(13): [ ]1) A 3-fold rise in serum creatinine from baseline [ ]2) Serum creatinine greater than 4 mg/dL ( 354 micromoles/L) with acute rise greater than 0.5 mg/dL (44.2 micromoles/L) [ ]3) Reduction of more than 75% in estimated glomerular filtration rate from baseline [ ]4) Estimated glomerular filtration rate less than 35 mL/min/1.73m2 (0.59 mL/sec/1.73m2) in child up to 18 years of age [ ]5) Cessation of urine output indicated by ALL of the following: [ ]A. Adequate volume status [ ]B. Inadequate urine output as indicated by ANY ONE of the following: [ ]a. Urine output less than 0.3 mL/kg/hr for 24 hours [ ]b. Anuria (urine output less than 0.1 mL/kg/hr) for 12 hours [ ]iii) Aortic dissection [ ]iv) Myocardial ischemia [ ]v) Left ventricular heart failure [ ]vi) Retinal hemorrhage [ ]vii) Other significant finding [ ]c) Hypertension in child requiring inpatient treatment as indicated by ALL of the following(14)(15)(16): [ ]i) Outpatient treatment not effective, not available, or not appropriate [ ]ii) SBP or DBP greater than 95th percentile for age [ ]iii) Evidence of acute end organ damage as indicated by ANY ONE of the following: [ ]1) Altered mental status [ ]2) Acute renal failure as indicated by new onset of ANY ONE of the following(9)(10)(11)(12)(13): [ ]A. A 3-fold rise in serum creatinine from baseline [ ]B. Serum creatinine greater than 4 mg/dL (354 micromoles/L) with acute rise greater than 0.5 mg/dL (44.2 micromoles/L) [ ]C. Reduction of more than 75% in estimated glomerular filtration rate from baseline [ ]D. Estimated glomerular filtration rate less than 35 mL/min/1.73m2 (0.59 mL/sec/1.73m2)in child up to 18 years of age [ ]E. Cessation of urine output indicated by ALL of the following: [ ]a. Adequate volume status [ ]b. Inadequate urine output as indicated by ANY ONE of the following: [ ]1) Urine output less than 0.3 mL/kg/hr for 24 hours [ ]2) Anuria (urine output less than 0.1 mL/kg/hr) for 12 hours [ ]3) Severe headache [ ]4) Visual disturbance [ ]5) Retinal hemorrhage [ ]6) Other significant finding [ ]III. Acute cardiac or peripheral ischemia as indicated by ANY ONE of the following: [ ]a) Acute coronary syndrome(17)(18) [ ]b) Acute peripheral ischemia (eg, pulseless, cool, mottled, or cyanotic extremity)(19) [ ]IV. Cardiac arrhythmias or findings of immediate concern indicated by ANY ONE of the following(20)(21): [ ]a) Heart rhythms that are inherently dangerous or unstable indicated by ANY ONE of the following(22)(23)(24): [ ]i) Resuscitated ventricular fibrillation or cardiac arrest [ ]ii) Ventricular escape rhythm [ ]iii) Sustained ventricular tachycardia (30 seconds or more of ventricular rhythm at greater than 100 beats per minute) [ ]iv) Nonsustained ventricular tachycardia and ANY ONE of the following: [ ]1) Suspected cardiac ischemia as cause or consequence of ventricular tachycardia [ ]2) In setting of acute myocarditis [ ]b) Unstable cardiac conduction defects indicated by ANY ONE of the following(24)(25)(26): [ ]i) Type II second-degree atrioventricular block [ ]ii) Third-degree atrioventricular block [ ]iii) New-onset left bundle branch block with suspected myocardial ischemia [ ]c) Any heart rhythm and ANY ONE of the following(22)(23)(27)(28)( 29): [ ] i) Continuous long-term ECG monitoring needed (eg, initiation of drug requiring monitoring for more than 24 hours) [ ] ii) Patient has automatic implanted cardioverter defibrillator that is repeatedly firing, malfunctioning, or in need of immediate adjustment of settings beyond the scope of ambulatory or observation care. [ ]d) Heart rhythms of concern due to ANY ONE of the following: [ ]i) Hypotension [ ]ii) Respiratory distress [ ]iii) Association with other significant symptoms (eg, bradycardia with syncope or ongoing dizziness, supraventricular tachycardia with chest pain) (27)(28) (30) [ ] V. Severe heart failure as indicated by ANY ONE of the following ( 31)(32): [ ]a) Respiratory distress [ ]b) Hypotension [ ]c) Anasarca (refractory to outpatient therapy) [ ]d) Cardiac arrhythmias of immediate concern [ ]e) Myocardial ischemia [ ]. Respiratory abnormalities, including ANY ONE of the following(33)(34) (35)(36): [ ]a) Respiratory rate greater than 30 breaths per minute unresponsive to treatment [A] [ ]b) New saturation of arterial oxygen less than 90% [ ]c) New partial pressure of carbon dioxide greater than 44 mm Hg ( 5.9 kPa) [ ]d) Supplemental oxygen or respiratory treatments needed that are new or not performable at other levels of care [ ]e) New-onset cyanosis [ ]f) Inability to protect airway [ ]g) Chronic lung disease with severe deterioration (not responsive to emergency and observation care treatment as appropriate) as indicated by ANY ONE of the following(34)(36 ): [ ]i) SaO2 5% below baseline in patient with chronic hypoxemia [ ]ii) New requirement for supplemental oxygen to keep SaO2 at baseline or acceptable level [ ]iii) Required supplemental oxygen performable only in acute inpatient setting [ ]iv) Severe airflow or ventilation abnormalities [ ]v) Previously mobile patient unable to walk between rooms [ ]vi Inability to eat or sleep due to dyspnea [ ]vii) Rapid rate of exacerbation onset [ ]viii) Altered mental status ]VII. Severe airflow or ventilation abnormalities (not responsive to emergency and observation care treatment as appropriate) as indicated by ANY ONE of the following(33)(34)(35)(37): [ ]a) PCO2 greater than 42 mm Hg (5.6 kPa) and pH less than 7.35 (new ) [ ]b) Documented PCO2 increased more than 5 mm Hg (0.7 kPa) from disease baseline [ ]c) Airflow measurements [B] less than 60% of previous best or predicted (eg, peak expiratory flow rate less than 300 L/minute) despite intensive emergent treatment [C] [ ]d) Required respiratory treatments that are performable only in acute inpatient setting [ ]VIII. Impending or actual respiratory arrest ( Also use Respiratory Failure GRG for severe respiratory disease and long-term mechanical ventilation patients) [ ]IX. Neurologic abnormalities, including ANY ONE of the following: [ ]a) New findings that suggest ANY ONE of the following: [ ]i) AGRICULTURE INTERN infection(38) [ ]ii) Cerebral bleeding, ischemia, or vasospasm(39)(40) [ ]iii) Increased intracranial pressure, hydrocephalus, or cerebral edema(41)(42)(43) [ ]iv) Spinal cord injury(44) [ ]b) Uncontrolled seizures(45) [ ]c) New-onset coma (eg, Samara coma scale score less than 9) or unexplained abnormal mental status (eg, Samara coma scale score less than 14) [D](41)(46)(47) [ ]X. New-onset severe neurologic findings requiring inpatient care; examples include(42)(48)(49): [ ]a) Papilledema [ ]b) Cerebral edema [ ]c) Mass effect on CT scan [ ]XI. Suspected acute intra-abdominal process with peritoneal signs, abdominal mass, or similar findings (50)(51)(52) [ ]XII. Severe physiologic disorder remaining after emergency or observation level care (as appropriate) as indicated by ANY ONE of the following (53): [ ]a) Significant dehydration [ ]b) Diabetic ketoacidosis [ ]c) Hyperglycemic hyperosmolar state (eg, osmolality greater than 320 mOsm/kg (mmol/kg) [ ]d) Hypoglycemia [ ]e) Other (new) acid-base disorder with pH less than 7.35 or greater than 7.5(54) [ ]f) Thyroid storm (55) [ ]g) Myxedema coma (55) [ ]XIII. Abdominal abnormalities with ANY ONE of the following(56)(57): [ ]a) Absent bowel sounds with complete ileus [ ]b) Signs of intestinal obstruction or peritonitis [E] [ ]c) Nausea and vomiting that cannot be controlled with outpatient or observation care [ ]XIV. Acute renal failure as indicated by new onset of ANY ONE of the following(9)(10)(11)(12)(13): [ ]a) A 3-fold rise in serum creatinine from baseline [ ]b) Serum creatinine greater than 4 mg/dL (354 micromoles/L) with acute rise greater than 0.5 mg/dL (44.2 micromoles/L) [ ]c) Reduction of more than 75% in estimated glomerular filtration rate from baseline [ ]d) Estimated glomerular filtration rate less than 35 mL/min/ 1.73m2 (0.59 mL/sec/1.73m2) in child up to 18 years of age [ ]e) Cessation of urine output indicated by ALL of the following: [ ]i) Adequate volume status [ ]ii) Inadequate urine output as indicated by ANY ONE of the following: [ ]1) Urine output less than 0.3 mL/kg/hr for 24 hours [ ]2) Anuria (urine output less than 0.1 mL/kg/hr) for 12 hours [ ]XV. Significant uremic complications as indicated by ANY ONE of the following(58)(59)(60): [ ]a) Outpatient therapy is ineffective or not feasible for ANY ONE of the following: [ ]i) Severe heart failure [ ]ii) Severehypertension [ ]iii) Pleural effusion [ ]iv) Pericarditis or pericardial effusion [ ]b) Cardiac arrhythmias of immediate concern [ ]c) Intractable nausea or vomiting [ ]d) Recurrent seizures [ ]e) Encephalopathy [ ]f) Bleeding abnormalities (eg, platelet dysfunction) with active (eg, gastrointestinal) bleeding [ ]g) Dialysis indicated before long-term access or ambulatory arrangements can be made [ ]h) Significant metabolic or electrolyte abnormalities (eg, severe acidosis or hyperkalemia) [ ]XVI. High fever or other high-risk infection situation as indicated by ANY ONE of the following(61)(62)(63)(64): [ ]a) Outpatient and observation care antimicrobial treatment unavailable, not effective, or not appropriate [ ]b) Documented bacteremia [ ]c) Temperature greater than 40.5 degrees C (104.9 degrees F) ( oral) [ ]d) Temperature greater than 39.5 degrees C (103.1 degrees F) ( oral) or less than 36 degrees C (96.8 degrees F) (rectal) that does not respond to e treatment and observation care [ ] XVII. Temperature less than 95 degrees F (35 degrees C)(rectal)(65) [ ] XVIII. Severe nutritional abnormalities as indicated by ALL of the following (66)(67): [ ]a) Inability to tolerate or establish sufficient oral or other enteral nutrition in outpatient setting [ ]b) Parenteral nutrition regimen need that must be implemented on inpatient basis [ ] XIX. Severe electrolyte abnormalities indicated by ALL of the following(68) (69)(70): [ ]a) Electrolytes and associated findings are not as expected for patient baseline or acceptable treatment effects. [ ]b) Severe abnormalities indicated by ANY ONE of the following: [ ]i) Sodium less than 130 mEq/L (mmol/L) (new) [ ]ii)Sodium less than 135 mEq/L (mmol/L) with ANY ONE of the following: [ ]1) Uncorrectable (to near normal or chronic baseline) after trial of outpatient and emergency treatment [ ]2) Altered mental status [ ]3) Seizures [ ]4) Severe medical etiology requiring inpatient management (eg, heart failure, hypovolemia) [ ]iii) Sodium greater than 155 mEq/L (mmol/L) [ ]iv) Sodium greater than 150 mEq/L (mmol/L) with ANY ONE of the following: [ ]1) Uncorrectable (to near normal or chronic baseline) with outpatient and emergency treatment [ ]2) Altered mental status [ ]3) Seizures [ ]4) Severe medical etiology (eg, hypovolemia, diabetes insipidus) [ ]v) Potassium less than 2.5 mEq/L (mmol/L) despite outpatient and emergency treatment [ ]vi) Potassium less than 3 mEq/L (mmol/L) with ANY ONE of the following: [ ]1) Weakness [ ]2) Cardiac abnormality (eg, arrhythmia, conduction disturbance) [ ]3) Cardiac ischemia [ ]4) Ileus [ ]5) Ongoing medical cause requiring inpatient management (eg, acute renal wasting or SIADH) [ ]6) Other severe symptoms [ ]vii) Potassium greater than 6.5 mEq/L (mmol/L) [ ]viii) Potassium greater than 5 mEq/L (mmol/L) with ANY ONE of the following: [ ]1) Uncorrectable (to near normal or chronic baseline) with outpatient and emergency treatment [ ]2) Severe ECG findings [F] [ ]3) Acute worsening of renal failure (creatinine greater than 2.5 mg/dL (221 micromoles/L) or significant elevation for age and size) [ ]4) Severe weakness [ ]5) Severe medical etiology (eg, hemolysis, infection, drug overdose) [ ]ix) Calcium less than 7 mg/dL (1.75 mmol/L) despite outpatient and emergency treatment (72) [ ]x) Calcium less than 8 mg/dL (2 mmol/L) with significant symptoms or findings; examples include(72): [ ]1) Altered mental status [ ]2) Muscle spasms [ ]3) Seizures [ ]4) Breathing difficulty [ ]5) Cardiac abnormality (eg, arrhythmia or conduction disturbance) [ ]xi) Calcium greater than 14 mg/dL (3.5 mmol/L)(72) [ ]xii) Calcium greater than 12 mg/dL (3 mmol/L) with ANY ONE of the following(72): [ ]1) Uncorrectable (to near normal or chronic baseline) with outpatient and emergency treatment [ ]2) Significant dehydration or hypovolemia as indicated by ALL of the following(70)(73)(74): [ ]A. Not resolved with initial treatments [ ]B. Clinically significant dehydration as indicated by ANY ONE of the following: [ ]a. Vomiting refractory to outpatient treatment (ie, precluding oral rehydration) [ ]b. Inability to drink [ ]c. Hypernatremia or other electrolyte abnormality unable to be corrected with outpatient and emergency treatment [ ]d. Failure to remain hydrated with outpatient therapy [ ]e. Reduced urine output [ ]f. Hypotension [ ]g. Serious cause for dehydration requiring acute hospitalization (eg, bowel obstruction, increased intracranial pressure, infectious cause) [ ]h. Child with ANY ONE of the following(75): [ ]1) Severe abdominal tenderness [ ]2) Adequate care not available at home [ ]3) Severe dehydration ( greater than 9% loss of body weight) [ ]4) Significant symptoms or findings; examples include: [ ]A. Altered mental status [ ]B. Cardiac abnormality (eg, arrhythmia, conduction disturbance) [ ]C. Malignant etiology requiring inpatient treatment [ ]xiii) Phosphorus less than 1 mg/dL (0.32 mmol/L) [ ]xiv) Phosphorus less than 1.5 mg/dL (0.48 mmol/L) with ANY ONE of the following: [ ]1) Patient unresponsive to outpatient and emergency treatment [ ]2) Significant symptoms or findings; examples include: [ ]A. Weakness [ ]B. Altered mental status [ ]C. Breathing difficulty [ ]D. Seizures [ ]E. Rhabdomyolysis [ ]xv) Phosphorus greater than 10 mg/dL (3.2 mmol/L) [ ]xvi) Phosphorus greater than 4.5 mg/dL (1.45 mmol/L) (new) with ANY ONE of the following: [ ]1) Severe medical etiology (eg, crush injury, acute renal failure) [ ]2) Associated hypocalcemia with significant findings; examples include: [ ]A. Neurologic symptoms [ ]B. Altered mental status [ ]C. Muscle spasms [ ]D. Seizures [ ]E. Breathing difficulty [ ]F. Cardiac abnormality (eg, arrhythmia, conduction disturbance) [ ]xvii) Magnesium less than 1 mg/dL (0.41 mmol/L) [ ]xviii) Magnesium less than 1.5 mg/dL (0.62 mmol/L) with ANY ONE of the following: [ ]1) Patient unresponsive to outpatient and emergency treatment [ ]2) Associated hypocalcemia with significant findings; examples include: [ ]A. Altered mental status [ ]B. Muscle spasms [ ]C. Seizures [ ]D. Breathing difficulty [ ]E. Cardiac abnormality (eg, arrhythmia , conduction disturbance) [ ]3) Associated hypokalemia (potassium less than 3 mEq/L (mmol/L)) with risk of arrhythmia [ ]xix) Magnesium greater than 4 mEq/L (2 mmol/L) [ ]xx) Magnesium greater than 2.5 mEq/L (1.25 mmol/L) with significant symptoms or findings; examples include: [ ]1) Weakness [ ]2) Altered mental status [ ]3) Cardiac abnormality (eg, arrhythmia, conduction disturbance) [ ]4) Breathing difficulty [ ]5) Severe medical etiology (eg, renal failure, hypovolemia) [ ]xxi) Uric acid greater than 20 mg/dL (1190 micromoles/L)(76) [ ]xxii) Uric acid greater than 8 mg/dL (476 micromoles/L) with significant symptoms or findings of tumor lysis syndrome; examples include(76): [ ]1) Creatinine greater than 1.5 times upper limit of normal [ ]2) Cardiac abnormality (eg, arrhythmia, conduction disturbance) [ ]3) Seizure [ ]XX. Acute blood loss causing significant abnormality as indicated by ANY ONE of the following(77)(78): [ ]a) Hemoglobin less than 10 g/dL (100 g/L) (not baseline) [ ]b) Hematocrit less than 30% (0.30) (not baseline) [ ]c) Repeat hematocrit decreased more than 2% (0.02) [ ]d) Uncontrolled bleeding [ ]XXI. Severe anemia indicated by ANY ONE of the following(78)(79): [ ]a) Altered mental status [ ]b) Chest pain [ ]c) Exertional dyspnea [ ]d) Syncope [ ]e) Other findings suggesting inadequate perfusion [ ]f) Treatment with transfusion or volume replacement is ineffective at resolving ANY ONE of the following [G]: [ ]i) Tachycardia for age [ ]ii) Orthostatic vital sign changes as indicated by ANY ONE of the following(80): [ ]1) Fall in SBP of 20 mm Hg or more 1 to 3 minutes after patient sits or stands from recumbent position [ ]2) Fall in DBP of 10 mm Hg or more 1 to 3 minutes after patient sits or stands from recumbent position [ ]XXII. High-risk low platelet count as indicated by ANY ONE of the following( 81)(82): [ ]a) Severe or life-threatening bleeding (eg, intracranial, major gastrointestinal, or extensive mucosal bleeding), with any reduced platelet count [ ]b) Platelet count less than 20,000/mm3 (20 x109/L) with any active bleeding [ ]c) Platelet count less than 10,000/mm3 (10 x109/L) with minor purpura or petechiae [ ]d) Platelet count less than 5000/mm3 (5 x109/L) [ ]e) Low platelet count with hemolytic anemia [ ]XXIII. Disseminated intravascular coagulation(77)(83) [ ]XXIV. Severe adverse drug or systemic toxin reaction requiring inpatient treatment; examples include(84)(85): [ ]a) Serotonin syndrome(86) [ ]b) Neuroleptic malignant syndrome(86) [ ]c) Cholinergic syndrome with severe symptoms (eg, bronchorrhea, weakness, mental status changes, seizures) [ ]d) Sympathetic syndrome with severe symptoms (eg, seizures, mental status changes, cardiac dysrhythmias) [ ]e) Anticholinergic syndrome [ ]XXV. Severe pain requiring acute inpatient management as indicated by ALL of the following (87)(88)(89): [ ]a) Continuous or frequent (eg, every 2 to 4 hours) parenteral analgesics required [H] [ ]b) Rapid improvement expected from treatment or acute intervention (eg, surgery, anesthesia procedure) [ ]XXVI.Severe behavioral health issues judged unmanageable at a lower level of care (eg, residential) in a patient who is ANY ONE of the following(91) [ ]a) Acutely suicidal [ ]b) A danger to self (eg, self-mutilating or suicidal behavior) [ ]c) A danger to others (eg, assaultive or homicidal behavior) [ ]d) Incapacitated because of grave disability (eg, inability to provide for self at lower level of care) (92) [X ]XXVII. Inpatient monitoring needed; examples include(1)(3)(87)(93)(94)(95)( 96): [X ]a) Vital signs, neurologic signs, or vascular checks more frequently than every 4 hours [ ]b) Cardiac or respiratory monitoring beyond the scope (eg, over 24 hours) of observation care [ ]c) Pulmonary artery catheter monitoring [ ]d) Suspected compartment syndrome(97) (98) [ ]e) Cerebral bleeding, hydrocephalus, or vasospasm monitoring [ ]f) Increased intracranial pressure or cerebral edema monitoring [ ]g) monitoring [ ]XXVIII. Treatment requiring inpatient care; examples include: [ ]a) IV fluid to replace significant ongoing losses (greater than 3 L/m2 per day)(53) [ ]b) High concentration oxygen (greater than 40%)(33)(99)(100) [ ]c) Frequent respiratory therapy (more frequently than every 4 hours) to maintain airflow rates greater than 60% of baseline(33)(99)(100) [ ]d) Epidural analgesia(87) [ ]e) IV anticoagulation, vasoactive, or antiarrhythmic medication(19 )(23) [ ]f) Acute thrombolytics (generally require 24 hours of observation )(101)(102) [ ]XXIX. Emergency procedures needed; examples include: [ ]a) Emergency inpatient surgery [ ]b) Temporary pacemaker placement(103) [ ]c) Chest tube placement with active evacuation (eg, suction, drainage)(104) [ ]d) Emergent cardioversion(105) [ ]e) Emergent cardiac or vascular procedures (eg, cardiac catheterization, angioplasty) (17)(18) [ ]f) Emergent dialysis access placement and institution(10)(106) [ ]g) Emergent pericardiocentesis(107) [ ]h) Emergent plasmapheresis or leukapheresis(83) [ ]i) Emergent tracheostomy The original [employer] content created by [employer] has been revised. The portions of the content which have been revised are identified through the use of italic text or in bold, and [facility] has neither reviewed nor approved the modified material. All other unmodified content is copyright [employer]. Please see references footnoted in the original [employer] edition 2016 Admission Criteria Met?: Yes DEN GEIGER Apr 13, 2017 01:23
[2017-04-13] MEDS: PIPERACILLIN/TAZOBACTAM 2.25 GM in IV NORMAL SALINE 50ML 50 ML IV SCH (05:54)
[2017-04-13] MEDS ORDERED: NON FORMULARY ITEM (Albuterol Sulfate (Proair Hfa Inhaler) 1 PUFF) INH PRN (08:45)
[2017-04-13] MEDS ORDERED: MAGNESIUM HYDROXIDE 2,400 MG/30 ML ORAL.SUSP. PO PRN (08:45)
[2017-04-13] MEDS ORDERED: ACETAMINOPHEN 325 MG TABLET. PO PRN (08:45)
[2017-04-13] MEDS ORDERED: BISACODYL 5 MG TABLET.DR. PO PRN (08:45)
[2017-04-13] MEDS ORDERED: NITROGLYCERIN SUBLINGUAL 0.4 MG BOTTLE OF 25. SL PRN (08:45)
[2017-04-13] MEDS ORDERED: NYSTATIN TOPICAL POWDER 15GM BOTTLE. TP PRN (08:45)
[2017-04-13] MEDS ORDERED: ONDANSETRON ODT 4 MG TAB.RAPDIS. PO PRN (08:45)
--- NOTE | 2017-04-13 08:50 | PDOC ---
Provider Note Provider Note H&P dictated but it appears he is septic from urinary source but the developed acute respiratory failure from fluid bolus, he has spinal stenosis and urinary retention and has been having residuals per bladder scanning and treating with prn straight cath, now requiring bipap. Will cover for now with broad spectrum antibiotics and consult ID, pulm and cardiology. Urine not collected in ER apparently so culture now not likely to be helpful Yenny MULLER MD Apr 13, 2017 08:50
--- NOTE | 2017-04-13 08:50 | RAD ---
Portable chest, 04/13/2017, 6:26 AM: History: Acute respiratory failure Comparison is made to yesterday evenings study at 8:23 PM. The heart is mildly enlarged. The patient is rotated to the right. There are mild ongoing patchy bilateral pulmonary infiltrates. The underlying pulmonary vascularity is poorly defined. No pleural fluid or pneumothorax is evident. IMPRESSION: Mild ongoing patchy pulmonary infiltrates with loss of vascular margination suggesting mild pulmonary edema versus pneumonia.
[2017-04-13] MEDS ORDERED: VANCOMYCIN 2 GM in IV NORMAL SALINE 500ML BAG 500 ML IV ONE (09:00)
[2017-04-13] MEDS ORDERED: VANCOMYCIN 1.25 GM in IV NORMAL SALINE 250ML 250 ML IV ONE (09:00)
[2017-04-13] MEDS: METOPROLOL SUCC 24HR ER 25 MG TAB.ER.24H. PO SCH (09:00)
[2017-04-13] MEDS ORDERED: NON FORMULARY ITEM (Tiotropium Bromide (Spiriva) 1 INH) IH SCH (09:00)
[2017-04-13] MEDS ORDERED: NON FORMULARY ITEM (Budesonide/Formoterol Fumarate (Symbicort 160-4.5 Mcg Inhaler) 1 PUFF) IH SCH (09:00)
[2017-04-13] MEDS ORDERED: FUROSEMIDE 40 MG/4 ML VIAL. IVP ONE ×2 (09:00→17:30)
[2017-04-13 09:04] LABS: BASO % 0 % (0-3); EOS % 0 % (0-3); HEMATOCRIT 27.2 % (39.0-53.0); HEMOGLOBIN 8.6 g/dL (13.0-17.5); LYMPH # 0.1 x10^3/uL (1.0-4.8); LYMPH % 1 % (24-48); MEAN CORPUSCULAR HEMOGLOBIN 27 pg (25-35); MEAN CORPUSCULAR HGB CONC 32 g/dL (31-37); MEAN CORPUSCULAR VOLUME 85 fL (79-100); MONO % 2 % (0-9); NEUT % 97 % (31-73); PLATELET COUNT 149 x10^3/uL (140-400); RED CELL DISTRIBUTION WIDTH 16.6 % (11.5-14.5); WHITE BLOOD COUNT 11.6 x10^3/uL (4.0-11.0)
[2017-04-13 09:17] LABS: ALBUMIN 2.5 g/dL (3.4-5.0); ALBUMIN/GLOBULIN RATIO 0.7 (1.0-1.7); CALCIUM 7.7 mg/dL (8.5-10.1); CREATININE 2.5 mg/dL (0.7-1.3); GFR 25.2; POTASSIUM 3.7 mmol/L (3.5-5.1); TOTAL BILIRUBIN 0.5 mg/dL (0.2-1.0); TOTAL PROTEIN 5.9 g/dL (6.4-8.2)
[2017-04-13] MEDS: ASPIRIN ENTERIC COATED 81 MG TABLET.DR. PO SCH (09:23)
[2017-04-13] MEDS: FERROUS SULFATE 325 MG TABLET. PO SCH (09:23)
[2017-04-13] MEDS: DUTASTERIDE 0.5 MG CAPSULE PO SCH (09:23)
[2017-04-13] MEDS: CLOPIDOGREL BISULFATE 75 MG TABLET PO SCH (09:24)
[2017-04-13] MEDS: FLUoxetine HCL 20 MG CAPSULE PO SCH (09:24)
[2017-04-13] MEDS: PANTOPRAZOLE 40 MG TABLET.DR. PO SCH (09:24)
[2017-04-13] MEDS: SENNOSIDES/DOCUSATE 8.6/50MG TABLET. PO SCH ×2 (09:24→20:14)
[2017-04-13] MEDS: FUROSEMIDE 40 MG TABLET. PO SCH (09:24)
[2017-04-13] MEDS: CETIRIZINE HCL 10 MG TABLET. PO SCH (09:24)
[2017-04-13] MEDS: TAMSULOSIN 0.4 MG CAP.ER.24H. PO SCH (09:24)
[2017-04-13] MEDS: busPIRone 10 MG TABLET. PO SCH ×3 (09:24→20:15)
[2017-04-13] MEDS: HYDROcodone/APAP 5/325MG 1 TAB TABLET PO SCH ×2 (09:25→13:00)
[2017-04-13 09:37] LABS: BILIRUBIN,URINE NEGATIVE (NEG); GLUCOSE,URINE NEGATIVE (NEG); NITRITE,URINE NEGATIVE (NEG); PH,URINE 5.5; PROTEIN,URINE 30 mg/dL (NEG-TRACE); UROBILINOGEN,URINE 0.2 mg/dL (0.2 mg/dL)
[2017-04-13 09:50] LABS: SQUAMOUS EPITHELIAL CELL,UR MOD /LPF
[2017-04-13 09:52] LABS: BACTERIA,URINE MODERATE /HPF (0-FEW); WBC,URINE >40 /HPF (0-4)
--- NOTE | 2017-04-13 09:57 | CARD ---
APPROVED REPORT EXAM: Two-dimensional and M-mode echocardiogram with Doppler and color Doppler. Other Information Quality : FairHR: 59bpm Rhythm : Bradycardia INDICATION Congestive Heart Failure RISK FACTORS Obesity 2D DIMENSIONS RVDd2.7 (2.9-3.5cm)Left Atrium(2D)3.9 (1.6-4.0cm) IVSd1.3 (0.7-1.1cm)Aortic Root(2D)2.9 (2.0-3.7cm) LVDd6.1 (3.9-5.9cm)LVOT Diameter2.4 (1.8-2.4cm) PWd1.5 (0.7-1.1cm)LVDs5.2 (2.5-4.0cm) FS (%) 14.8 %SV58.4 ml LVEF(%)30.8 (>50%) M-Mode DIMENSIONS IVSd6.38 (0.7-1.1cm)LVDd1.44 (4.0-5.6cm) Aortic Valve AoV Peak Dimitry.191.6cm/sAoV VTI48.4cm AO Peak GR.14.7mmHgLVOT VTI 26.34cm AO Mean GR.9mmHg Mitral Valve MV E Qyvujmlt92.8cm/sMV E Peak Gr.4mmHg MV DECEL [id number] A Afnimhzj27.4cm/s MV E Mean Gr.1mmHgE/A Ratio0.7 MV A [id number] TDI Lateral E' P. V5.86cm/sMedial E' P. V6.44cm/s E/Lateral E'11.7E/Medial E'10.7 Tricuspid Valve TR P. Idzaoxaf433vv/sRAP [id number] TR Peak Gr.13mmHg Pulmonary Vein S1 Nxedjntr37.6cm/sS2 Qwxsjbzj40.85cm/s D2 Juosyakm42.8cm/sPVa [id number] LEFT VENTRICLE The Left Ventricle is mildly dilated. There is mild concentric left ventricular hypertrophy. Mild LV dysfunction. EF 40%. No significant change compared to prior. There is moderate global hypokinesis of the left ventricle. Transmitral Doppler flow pattern is Grade I-abnormal relaxation pattern. No left ventricle thrombus noted on this study. RIGHT VENTRICLE The right ventricle is normal size. There is normal right ventricular wall thickness. Grossly normal RV function. ATRIA The left atrium size is normal. The right atrium size is normal. The interatrial septum is intact wit h no evidence for an atrial septal defect or patent foramen ovale as noted on 2-D or Doppler imaging. AORTIC VALVE The aortic valve is not well visualized but appears mildly calcified and opens adequately. Doppler an d Color Flow revealed no significant aortic regurgitation. There is no significant aortic valvular st enosis. MITRAL VALVE Mitral annular calcification is mild. The mitral valve leaflets are thickened. There is no evidence o f mitral valve prolapse. There is no mitral valve stenosis. Doppler and Color Flow revealed trace cullen ral regurgitation. TRICUSPID VALVE Doppler and Color Flow revealed trace tricuspid regurgitation. The pulmonary artery systolic pressure is estimated at 16 mmHg. PULMONIC VALVE The pulmonic valve is not visualized but appears to open adequately. Doppler and Color Flow revealed no pulmonic valvular regurgitation. There is no pulmonic valvular stenosis by spectral Doppler. GREAT VESSELS The aortic root is normal in size. The ascending aorta is normal in size. The pulmonary artery is not visualized. The IVC was obscured, unable to assess. PERICARDIAL EFFUSION There is no evidence of significant pericardial effusion. Critical Notification Critical Value: No <Conclusion> Mild LV dysfunction. EF 40%. No significant change compared to prior. There is moderate global hypokinesis of the left ventricle.
--- NOTE | 2017-04-13 10:48 | PDOC2 ---
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 Bates SOURCE Source: Chart review, Patient HISTORY OF PRESENT ILLNESS HISTORY OF PRESENT ILLNESS This is a 76 yo male, well known to our service, who presented secondary to weakness. HPI obtained from chart review as patient is lethargic and presently on BiPAP. Concern for sepsis upon admission. Treated with IVF's. Patient became SOA- rapid response called, which prompted this consult. Patient placed on BiPAP and transferred to ICU. Also noted with urinary retention. Mccormick placed- 1700 cc output immediately following. PAST MEDICAL HISTORY Past Medical History Cardiovascular: CAD, HTN, Hyperlipidemia, CHF (systolic), ICM Pulmonary: COPD CENTRAL NERVOUS SYSTEM: Other (No pertinent history) GI: Constipation, GERD Heme/Onc: Anemia NOS Hepatobiliary: No pertinent hx Psych: Anxiety, Bipolar Musculoskeletal: Osteoarthritis, Other (deconditioning) Rheumatologic: No pertinent hx Infectious disease: Other (MRSA and VRE) ENT: No pertinent hx Renal/: Chronic renal insuff, UTI, Urinary Incontinence Dermatology: Other (decubitus coccyx ulcer) PAST SURGICAL HISTORY Past Surgical History PCI/stent 05/2016 FAMILY HISTORY Family History: Other (noncontributory ) SOCIAL HISTORY Social History Smoke: No ALCOHOL: none Drugs: None Lives: [facility]) CURRENT MEDICATIONS CURRENT MEDICATIONS Current Medications Medications (Trade) Dose Ordered Sig/Jeannette Route PRN Reason Start Time Stop Time Status Last Admin Dose Admin Sodium Chloride 500 ml @ 500 mls/hr 1X ONCE IV 04/12/17 12:30 04/12/17 13:29 DC 04/12/17 12:38 Piperacillin Sod/ Tazobactam Sod 2.25 gm/Sodium Chloride 50 ml @ 100 mls/hr Q6HRS IV 04/12/17 13:00 04/13/17 05:54 Sodium Chloride 1,000 ml @ 100 mls/hr Q10H IV 04/12/17 12:47 04/12/17 22:37 DC 04/12/17 14:11 Lisinopril (Prinivil) 5 mg DAILY PO 04/12/17 19:30 04/12/17 21:31 Metoprolol Succinate (Toprol Xl) 25 mg DAILY PO 04/12/17 19:30 04/12/17 21:32 Albuterol Sulfate (Ventolin Neb Soln) 2.5 mg PRN Q4HRS PRN NEB SHORTNESS OF BREATH 04/12/17 18:45 04/12/17 19:26 Clopidogrel Bisulfate (Plavix) 75 mg DAILY PO 04/12/17 19:30 04/13/17 09:24 Furosemide (Lasix) 40 mg 1X ONCE IVP 04/12/17 20:00 04/12/17 20:01 DC 04/12/17 20:39 Levofloxacin/ Dextrose 100 ml @ 100 mls/hr 1X ONCE IV 04/13/17 09:00 04/13/17 09:59 DC 04/13/17 09:25 Aspirin (Ecotrin) 81 mg DAILYWBKFT PO 04/13/17 09:00 04/13/17 09:23 Buspirone HCl (Buspar) 10 mg TID PO 04/13/17 09:00 04/13/17 09:24 Cetirizine HCl (ZyrTEC) 10 mg DAILY PO 04/13/17 09:00 04/13/17 09:24 Dutasteride (Avodart) 0.5 mg DAILY PO 04/13/17 09:00 04/13/17 09:23 Ferrous Sulfate (Feosol) 325 mg DAILY PO 04/13/17 09:00 04/13/17 09:23 Furosemide (Lasix) 40 mg DAILY PO 04/13/17 09:00 04/13/17 09:24 Acetaminophen/ Hydrocodone Bitart (Lortab 5/325) 1 tab QID PO 04/13/17 09:00 04/13/17 09:25 Pantoprazole Sodium (Protonix) 40 mg DAILYAC PO 04/13/17 09:00 04/13/17 09:24 Senna/Docusate Sodium (Senna Plus) 1 tab BID PO 04/13/17 09:00 04/13/17 09:24 Tamsulosin HCl (Flomax) 0.4 mg DAILY PO 04/13/17 09:00 04/13/17 09:24 Fluoxetine HCl (PROzac) 40 mg DAILY PO 04/13/17 09:00 04/13/17 09:24 Vancomycin HCl 2 gm/Sodium Chloride 500 ml @ 250 mls/hr 1X ONCE IV 04/13/17 09:00 04/13/17 10:59 04/13/17 09:26 ALLERGIES ALLERGIES: Coded Allergies: I S O L A T I O N *CONTACT* (Verified Allergy, Unknown, 04/13/17) mrsa/vre No Known Medication Allergies (Verified Allergy, Unknown, 06/03/16) ROS Review of System unobtainable. PHYSICAL EXAM PHYSICAL EXAM General: Alert, Cooperative, mild distress HEENT: Atraumatic, Mucous membr. moist/pink Lungs: Other (bibasilar crackles, upper rhonchi- on BiPAP) Heart: Regular rate (SR), Normal S1, Normal S2, Other (heart tones difficult to appreciate) Abdomen: Soft, No tenderness Extremities: No cyanosis, no edema Skin: No breakdown, No significant lesion Neuro: Sensation intact Psych/Mental Status: lethargic MUSCULOSKELETAL: Osteoarthritic changes both hands VITALS VITALS Vital Signs Date Time Temp Pulse Resp B/P (MAP) Pulse Ox O2 Delivery O2 Flow Rate FiO2 04/13/17 10:00 67 32 116/48 (70) 97 BiPAP/CPAP 04/13/17 08:00 97.6 97.6 04/13/17 08:00 5.0 LABS Lab: Laboratory Tests Test 04/12/17 10:55 04/12/17 11:35 04/12/17 19:46 04/13/17 03:24 White Blood Count 6.2 x10^3/uL (4.0-11.0) 11.6 x10^3/uL (4.0-11.0) Red Blood Count 3.34 x10^6/uL (4.30-5.70) 3.20 x10^6/uL (4.30-5.70) Hemoglobin 9.0 g/dL (13.0-17.5) 8.6 g/dL (13.0-17.5) Hematocrit 28.5 % (39.0-53.0) 27.2 % (39.0-53.0) Mean Corpuscular Volume 85 fL (79-100) 85 fL (79-100) Mean Corpuscular Hemoglobin 27 pg (25-35) 27 pg (25-35) Mean Corpuscular Hemoglobin Concent 32 g/dL (31-37) 32 g/dL (31-37) Red Cell Distribution Width 17.2 % (11.5-14.5) 16.6 % (11.5-14.5) Platelet Count 172 x10^3/uL (140-400) 149 x10^3/uL (140-400) Neutrophils (%) (Auto) 95 % (31-73) 97 % (31-73) Lymphocytes (%) (Auto) 3 % (24-48) 1 % (24-48) Monocytes (%) (Auto) 1 % (0-9) 2 % (0-9) Eosinophils (%) (Auto) 1 % (0-3) 0 % (0-3) Basophils (%) (Auto) 1 % (0-3) 0 % (0-3) Neutrophils # (Auto) 5.9 x10^3uL (1.8-7.7) 11.3 x10^3uL (1.8-7.7) Lymphocytes # (Auto) 0.2 x10^3/uL (1.0-4.8) 0.1 x10^3/uL (1.0-4.8) Monocytes # (Auto) 0.0 x10^3/uL (0.0-1.1) 0.2 x10^3/uL (0.0-1.1) Eosinophils # (Auto) 0.1 x10^3/uL (0.0-0.7) 0.0 x10^3/uL (0.0-0.7) Basophils # (Auto) 0.0 x10^3/uL (0.0-0.2) 0.0 x10^3/uL (0.0-0.2) Segmented Neutrophils % 56 % (35-66) Band Neutrophils % 40 % (0-9) Lymphocytes % 3 % (24-48) Monocytes % 1 % (0-10) Platelet Estimate Adequate (ADEQUATE) Large Platelets Few Polychromasia Slight Anisocytosis Slight Ovalocytes Few Sodium Level 135 mmol/L (136-145) 136 mmol/L (136-145) Potassium Level 5.0 mmol/L (3.5-5.1) 3.7 mmol/L (3.5-5.1) Chloride Level 102 mmol/L (98-107) 103 mmol/L (98-107) Carbon Dioxide Level 26 mmol/L (21-32) 23 mmol/L (21-32) Anion Gap 7 (6-14) 10 (6-14) Blood Urea Nitrogen 50 mg/dL (8-26) 48 mg/dL (8-26) Creatinine 2.0 mg/dL (0.7-1.3) 2.5 mg/dL (0.7-1.3) Estimated GFR (Cockcroft-Gault) 32.6 25.2 BUN/Creatinine Ratio 25 (6-20) 19 (6-20) Glucose Level 182 mg/dL (70-99) 139 mg/dL (70-99) Lactic Acid Level 2.1 mmol/L (0.4-2.0) 1.1 mmol/L (0.4-2.0) Calcium Level 8.0 mg/dL (8.5-10.1) 7.7 mg/dL (8.5-10.1) Total Bilirubin 0.4 mg/dL (0.2-1.0) 0.5 mg/dL (0.2-1.0) Aspartate Amino Transf (AST/SGOT) 20 U/L (15-37) 56 U/L (15-37) Alanine Aminotransferase (ALT/SGPT) 23 U/L (16-63) 60 U/L (16-63) Alkaline Phosphatase 71 U/L (46-116) 53 U/L (46-116) KX-Hkk-V-Type Natriuretic Peptide 80237 pg/mL (0-449) Total Protein 6.7 g/dL (6.4-8.2) 5.9 g/dL (6.4-8.2) Albumin 3.0 g/dL (3.4-5.0) 2.5 g/dL (3.4-5.0) Albumin/Globulin Ratio 0.8 (1.0-1.7) 0.7 (1.0-1.7) Prothrombin Time 13.7 SEC (11.7-14.0) Prothromb Time International Ratio 1.1 (0.8-1.1) Activated Partial Thromboplast Time 25 SEC (24-38) O2 Saturation 85 % (92-99) Arterial Blood pH 7.37 (7.35-7.45) Arterial Blood pCO2 at Patient Temp 34 mmHg (35-46) Arterial Blood pO2 at Patient Temp 50 mmHg (65-108) Arterial Blood HCO3 19 mmol/L (21-28) Arterial Blood Base Excess -6 mmol/L (-3-3) FiO2 40 Troponin I Quantitative 0.198 ng/mL (0.000-0.055) ECHOCARDIOGRAM ECHOCARDIOGRAM DATE: 02/26/17 1504 <Conclusion> Left ventricle systolic function is mildly impaired. The Ejection Fraction is 40 %. Mild to moderate global hypokinesis. DATE: 04/13/17 0956 <Conclusion> Mild LV dysfunction. EF 40%. No significant change compared to prior. There is moderate global hypokinesis of the left ventricle. HEART CATH HEART CATH DATE: 06/03/16 1650 Conclusion 1. Mildly elevated left sided filling pressures. 2. Successful PCI of the 1st diagonal with a Vision 2.5/12 BMS 3. Successful PCI of the Lcx/1st OM with a Resolute 2.25/30 JORGE A. Recommendations Cardiac Rehabilitation Referral Aggressive Medical Therapy Medications Administered Aspirin (any) Beta Mary (any) Statin (any) Ticagrelor DATE: 06/09/16 1708 CORONARY ANGIOGRAPHY: LM is a large caliber vessel withan ostial 30% stenosis. LAD is a large caliber vessel with mild diffuse irregularities of up to 40%. D1 is a large caliber vessel with a patent mid stent. LCx is a moderate caliber non-dominant vessel with a proximal 100% occlusion at the site of the previously placed stent. RCA is a large caliber dominant vessel with mild to moderate diffuse irregularities of up to 30%. RPDA and RPL are moderate caliber vessels with mild diffuse irregularities of up to 30%. Based on lack of chest pain or EKG changes and small size the previously visualized LCx segment, further intervention was deferred in favor of medical therapy. Conclusion 1. Two vessel coronary artery disease. 2. Patent 1st diagonal stent. 3. Occluded LCx stent. Recommendations Aggressive Medical Therapy ASSESSMENT/PLAN ASSESSMENT/PLAN 1. Leukocytosis/fevers/UTI/ ?sepsis. 2. Acute on chronic systolic HF with ICM; LVEF 40% 3. NSTEMI: Initial troponin 0.198 in the setting of fever and DUONG. 4. Acute on chronic respiratory failure 5. CAD s/p PCI/stents as noted above. 6. DUONG on CKD 7. Dyslipidemia 8. Hypertension 9. Urinary retention Recommendations Trend troponin Resume secondary prevention measures including DAPT. Continue to manage CAD medically as cath films have recently been reviewed and no clear lesions to intervene upon were identified. . Hold ACEi/ARB given DUONG Continue diuresis with close motoring of output and renal function Consider inotrope given increased CR and now decreased urine output. Will d/w primary evs manager. Supportive care. Problems: RADHA FROST MD 04/13/17 1718: CARDIAC CONSULT ALLERGIES ALLERGIES: Coded Allergies: I S O L A T I O N *CONTACT* (Verified Allergy, Unknown, 04/13/17) mrsa/vre No Known Medication Allergies (Verified Allergy, Unknown, 06/03/16) ASSESSMENT/PLAN ASSESSMENT/PLAN Pt. seen and examined. Agree with above METAL HANGER note. 76 y.o well known to our service. Presenting again with sepsis picture. Stop dobutamine given frequent PVC's Switch to levo -d/w with RN Supportive care. Thanks for consultation. Critically ill - CC time 40 min. Problems: FELICIA POLLACK APRN Apr 13, 2017 10:48 RADHA FROST MD Apr 13, 2017 17:18
--- NOTE | 2017-04-13 11:01 | PDOC ---
Infectious Disease Note Vital Sign Vital Signs Vital Signs Date Time Temp Pulse Resp B/P (MAP) Pulse Ox O2 Delivery O2 Flow Rate FiO2 04/13/17 09:25 22 100 BiPAP/CPAP 04/13/17 09:00 65 119/56 (77) 04/13/17 08:00 97.6 97.6 04/13/17 08:00 5.0 Labs Lab Laboratory Tests Test 04/12/17 10:55 04/12/17 11:35 04/12/17 19:46 04/13/17 03:24 White Blood Count 6.2 x10^3/uL (4.0-11.0) 11.6 x10^3/uL (4.0-11.0) Red Blood Count 3.34 x10^6/uL (4.30-5.70) 3.20 x10^6/uL (4.30-5.70) Hemoglobin 9.0 g/dL (13.0-17.5) 8.6 g/dL (13.0-17.5) Hematocrit 28.5 % (39.0-53.0) 27.2 % (39.0-53.0) Mean Corpuscular Volume 85 fL (79-100) 85 fL (79-100) Mean Corpuscular Hemoglobin 27 pg (25-35) 27 pg (25-35) Mean Corpuscular Hemoglobin Concent 32 g/dL (31-37) 32 g/dL (31-37) Red Cell Distribution Width 17.2 % (11.5-14.5) 16.6 % (11.5-14.5) Platelet Count 172 x10^3/uL (140-400) 149 x10^3/uL (140-400) Neutrophils (%) (Auto) 95 % (31-73) 97 % (31-73) Lymphocytes (%) (Auto) 3 % (24-48) 1 % (24-48) Monocytes (%) (Auto) 1 % (0-9) 2 % (0-9) Eosinophils (%) (Auto) 1 % (0-3) 0 % (0-3) Basophils (%) (Auto) 1 % (0-3) 0 % (0-3) Neutrophils # (Auto) 5.9 x10^3uL (1.8-7.7) 11.3 x10^3uL (1.8-7.7) Lymphocytes # (Auto) 0.2 x10^3/uL (1.0-4.8) 0.1 x10^3/uL (1.0-4.8) Monocytes # (Auto) 0.0 x10^3/uL (0.0-1.1) 0.2 x10^3/uL (0.0-1.1) Eosinophils # (Auto) 0.1 x10^3/uL (0.0-0.7) 0.0 x10^3/uL (0.0-0.7) Basophils # (Auto) 0.0 x10^3/uL (0.0-0.2) 0.0 x10^3/uL (0.0-0.2) Segmented Neutrophils % 56 % (35-66) Band Neutrophils % 40 % (0-9) Lymphocytes % 3 % (24-48) Monocytes % 1 % (0-10) Platelet Estimate Adequate (ADEQUATE) Large Platelets Few Polychromasia Slight Anisocytosis Slight Ovalocytes Few Sodium Level 135 mmol/L (136-145) 136 mmol/L (136-145) Potassium Level 5.0 mmol/L (3.5-5.1) 3.7 mmol/L (3.5-5.1) Chloride Level 102 mmol/L (98-107) 103 mmol/L (98-107) Carbon Dioxide Level 26 mmol/L (21-32) 23 mmol/L (21-32) Anion Gap 7 (6-14) 10 (6-14) Blood Urea Nitrogen 50 mg/dL (8-26) 48 mg/dL (8-26) Creatinine 2.0 mg/dL (0.7-1.3) 2.5 mg/dL (0.7-1.3) Estimated GFR (Cockcroft-Gault) 32.6 25.2 BUN/Creatinine Ratio 25 (6-20) 19 (6-20) Glucose Level 182 mg/dL (70-99) 139 mg/dL (70-99) Lactic Acid Level 2.1 mmol/L (0.4-2.0) 1.1 mmol/L (0.4-2.0) Calcium Level 8.0 mg/dL (8.5-10.1) 7.7 mg/dL (8.5-10.1) Total Bilirubin 0.4 mg/dL (0.2-1.0) 0.5 mg/dL (0.2-1.0) Aspartate Amino Transf (AST/SGOT) 20 U/L (15-37) 56 U/L (15-37) Alanine Aminotransferase (ALT/SGPT) 23 U/L (16-63) 60 U/L (16-63) Alkaline Phosphatase 71 U/L (46-116) 53 U/L (46-116) HV-Qya-J-Type Natriuretic Peptide 38412 pg/mL (0-449) Total Protein 6.7 g/dL (6.4-8.2) 5.9 g/dL (6.4-8.2) Albumin 3.0 g/dL (3.4-5.0) 2.5 g/dL (3.4-5.0) Albumin/Globulin Ratio 0.8 (1.0-1.7) 0.7 (1.0-1.7) Prothrombin Time 13.7 SEC (11.7-14.0) Prothromb Time International Ratio 1.1 (0.8-1.1) Activated Partial Thromboplast Time 25 SEC (24-38) O2 Saturation 85 % (92-99) Arterial Blood pH 7.37 (7.35-7.45) Arterial Blood pCO2 at Patient Temp 34 mmHg (35-46) Arterial Blood pO2 at Patient Temp 50 mmHg (65-108) Arterial Blood HCO3 19 mmol/L (21-28) Arterial Blood Base Excess -6 mmol/L (-3-3) FiO2 40 Troponin I Quantitative 0.198 ng/mL (0.000-0.055) Objective Assessment Sepsis with hypotension, POA Leukocytosis with bandemia HCAP, now on BiPAP ? UTI, POA DUONG Urinary retention s/p indwelling Mccormick. 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 Nina recommends to change to Zyvox and Meropenem. obtain sputum culture monitor labs and f/u cultures Also c/o NV/D after eating some soup prior to admit but now better D/w Dr. Bates and RN Critically ill Thank you [phone] Attending Co-Sign Attending Co-Sign The patient was seen and interviewed as well as examined at the bedside. The chart was reviewed. The case was discussed. Agree with the plan of care. CATIA MOON APRN Apr 13, 2017 11:01 VANESSA NINA MD Apr 13, 2017 14:40
[2017-04-13 11:22] LABS: HCO3 ABG 23 mmol/L (21-28); PCO2 ABG 52 mmHg (35-46); PH ABG 7.27 (7.35-7.45); PO2 ABG 58 mmHg (65-108); SAT O2 ABG 87 % (92-99)
[2017-04-13 11:35] LABS: FIO2 ABG 30
[2017-04-13] MEDS: IPRATRPIUM/ALBUTEROL 0.5/2.5MG 3 ML NEBU. NEB SCH ×3 (11:48→19:45)
[2017-04-13] MEDS: BUDESONIDE 0.5 MG/2 ML NEBU. NEB SCH ×2 (11:48→19:45)
[2017-04-13] MEDS ORDERED: MEROPENEM 500 MG in IV NORMAL SALINE 50ML 50 ML IV SCH (12:00)
--- NOTE | 2017-04-13 12:06 | CONS ---
DATE OF CONSULTATION: ATTENDING PHYSICIAN: Dr. Mohsen Asif. REASON FOR CONSULTATION: Respiratory failure. HISTORY OF PRESENT ILLNESS: The patient is a 76-year-old obese male who has history of COPD, bipolar disorder, anxiety, type 2 diabetes, hypertension, VA, renal insufficiency and UTI. He presented to Emergency Department after he was noted to be progressively weak. He was shaking all over. Paramedics report that his oxygen saturation was in the low 80s. He was seen in the ER and it was felt that he may have recurrent UTI with sepsis. He was started on antibiotics and also aggressive IV fluid resuscitation. Later, I was called after the patient had a rapid response. The patient was noted to be with worsening hypoxia. He was struggling to breathe. His arterial blood gases revealed a pH of 7.37, pCO2 of 34 and a pO2 of 50 with a bicarbonate of 19 on 40% FIO2. He was placed on BiPAP. Chest x-ray was reviewed and it showed development of bilateral interstitial infiltrates consistent with interstitial edema. His ejection fraction was 40% and has moderate global hypokinesis and is being managed medically. At that time, Lasix was given to the patient and he was kept on BiPAP. He made clinical improvement, he is down to 35% FIO2. His chest x-ray is starting to show improving CHF. He is also on broad-spectrum antibiotics. I have been asked to see him for further evaluation. He nods yes and no to questions. He states he smoked for 40 years before quitting. No history of TOBY and no history of deep vein thrombosis or pulmonary embolism. PAST MEDICAL HISTORY: Significant for anxiety, bipolar disorder, COPD, , type 2 diabetes, hypertension, VA, renal failure, UTI, morbid obesity. PAST SURGICAL HISTORY: History of cardiac stents in the past. ALLERGIES: None. CURRENT MEDICATIONS: Reviewed as listed in the MRAD including broad-spectrum antibiotics and nebulizer. REVIEW OF SYSTEMS: Limited, but pertinent positives discussed in my history of present illness, otherwise noncontributory. SOCIAL HISTORY: Smoked for 40 years before quitting. PHYSICAL EXAMINATION: GENERAL: He is awake, following commands. VITAL SIGNS: Blood pressure /48, pulse ox is 97%, afebrile. HEENT: Sclerae nonicteric. NECK: Supple. LUNGS: Diminished breath sounds. CARDIOVASCULAR: Regular rate. ABDOMEN: Soft, obese. EXTREMITIES: With 1+ pitting edema, more on the right than on the left. LABORATORY DATA: Reviewed. BUN 48 and a creatinine of 2.5, creatinine is slightly increased. Troponin 0.198. Albumin 2.5. White cell count was 6.2, now 11.6, hemoglobin 8.6 and platelets are 149. IMPRESSION: 1. Acute hypoxic respiratory failure, which worsened while in the hospital due to development of interstitial pulmonary edema post-fluid resuscitation. 2. Abnormal chest x-ray with development of bilateral interstitial infiltrates with fluid resuscitation, treated with Lasix and now improving. 3. Underlying cardiomyopathy with an EF of 40%, being managed medically. He has moderate global hypokinesis. 4. Suspected urinary tract infection. 5. Chronic renal insufficiency. 6. Increased troponin level. 7. Moderate protein-calorie malnutrition. 8. Underlying chronic obstructive pulmonary disease. 9. Anemia. RECOMMENDATIONS: 1. I will repeat arterial blood gases and if they show improvement, then we will discontinue BiPAP and try him on nasal cannula. 2. Antibiotics per Infectious Disease. 3. Follow Cardiology recommendations. 4. Follow urine cultures. 5. Monitor white cell count. 6. Monitor hemoglobin. 7. Improve nutritional status. 8. Renal function needs to be closely monitored and we may have to hold Lasix if creatinine continues to increase. 9. Consider IV dobutamine if okayed by Cardiology. 10. Discussed with RN and RT and Cardiology SERVICE SECRETARY. Critical care time 45 minutes. NICHOLAS DAVENPORT MD DR: GREGOR/brandon JOB#: [id number] / [id number] RENU
[2017-04-13] MEDS: MEROPENEM 500 MG in IV NORMAL SALINE 50ML 50 ML IV SCH ×2 (13:06→22:00)
--- NOTE | 2017-04-13 13:12 | CONS ---
DATE OF CONSULTATION: 04/13/2017 DATE OF SERVICE: 04/13/2017 Jet Titus, nurse practitioner dictating for Dr. Robert Nina, Infectious Disease. REFERRING PHYSICIAN: Dr. Bates. REASON FOR CONSULTATION: Probable sepsis. HISTORY OF PRESENT ILLNESS: The patient is a 76-year-old male who is currently in the intensive care unit on BiPAP. He is somewhat encephalopathic unable to provide history of present illness, past medical history, and review of systems. According to the medical record and RN, he is a care home resident at [facility] who was sent to the Emergency Room for evaluation and treatment of hypoxia, generalized weakness and shaking. His white blood cell count was 6200 with segs 56% and bands 40%. Lactic acid 2.1 and BNP greater than 24,000. He was in acute renal failure with creatinine of 2.0 and BUN 50. Recent chest x-ray showed mild ongoing patchy pulmonary infiltrates with loss of vascular margination. No pleural fluid or pneumothorax evident. In addition an indwelling Mccormick catheter was placed that returned more than 1700 mL of milky odorous urine. Urinalysis was positive for WBCs greater than 40, leukocyte esterase large, negative nitrite and moderate squamous epithelial cells. Urine and blood cultures are pending. He has a history of urinary retention due to spinal stenosis requiring intermittent catheterizations. He was hospitalized last month with sepsis associated with Morganella bacteremia, and Morganella and VRE urinary tract infection. The patient is afebrile. He was hypotensive earlier, responsive to IV fluids. Concern for sepsis, ID has been asked to consult. PAST MEDICAL HISTORY: 1. Morganella sepsis sensitive to cefepime, ceftriaxone, levofloxacin, ciprofloxacin, ertapenem, gentamicin, tobramycin and trimethoprim/sulfa, otherwise resistant. 2. Urinary tract infection head with Morganella morganii sensitive to cefepime, ceftriaxone, ertapenem, gentamicin, levofloxacin, tobramycin, otherwise resistant. 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 4. History of positive MRSA nares. 5. Chronic obstructive pulmonary disease. 6. Obesity. 7. Spinal stenosis. 8. Hypertension. 9. Chronic anxiety. 10. Hyperlipidemia. 11. Gastroesophageal reflux disease. 12. Osteoarthritis. 13. Urinary retention requiring intermittent catheterizations. 14. Chronic kidney disease. 15. Decubitus coccyx ulcer. 16. Bipolar. 17. Diabetes. 18. History of skin cancer. PAST SURGICAL HISTORY: Cardiac stent. FAMILY HISTORY: Positive for angina. SOCIAL HISTORY: The patient is a care home resident at [facility]. He is bed/wheelchair bound. ALLERGIES: No known drug allergies. CURRENT MEDICATIONS: One time dose of vancomycin, one time dose of levofloxacin, piperacillin/tazobactam. Other medications are available and have been reviewed on the MAR. REVIEW OF SYSTEMS: Unobtainable as the patient is on BiPAP and mumbles to questions. PHYSICAL EXAMINATION: VITAL SIGNS: Temperature is 97.6, blood pressure 119/56, heart rate 65, respiratory rate 22, pulse oximetry is 100% on BiPAP. Weight is 346 pounds, BMI 48. HEENT: The patient is squinting eyes, on BiPAP. Oral mucosa is dry. NECK: Supple. LUNGS: Fine crackles and wheezes. HEART: Normal S1 and S2. ABDOMEN: Obese, bowel sounds are present. Soft. No grimace or guarding to palpation. GENITOURINARY: Mccormick in place. EXTREMITIES: No gross edema or cyanosis. SKIN: Without rash. Peripheral IV. No pressure wounds reported per RN. NEUROLOGIC: Arouses to voice. LABORATORY DATA: Today's WBC 11.6, hemoglobin 8.6, platelet count 149,000. Electrolyte panel remarkable for creatinine 2.5, BUN 48 and glucose 139. Repeat lactic acid 1.1. Total bilirubin 0.5, AST 56, ALT 60, troponin 0.198, BNP greater than 24,000, albumin 2.5. Urine and blood cultures pending. Urinalysis per HPI. Recent chest x-ray per HPI. IMPRESSION: 1. Sepsis with hypotension, present on admission. 2. Healthcare-acquired pneumonia. 3. Urinary tract infection suspected, present on admission. 4. Acute kidney injury. 5. Urinary retention, status post indwelling Mccormick. 6. Acute congestive heart failure. 7. Positive methicillin-resistant Staphylococcus aureus, nares. PLAN: 1. In light of acute kidney injury and previous bacterial cultures, would recommend to change antibiotics to Zyvox and meropenem. We will add a sputum culture. Monitor laboratory values and will modify antibiotics pending culture result. 2. Critically ill. Thank you, Dr. Bates, for asking us to participate in this patient's care. Should you have further questions or concerns, please call. ROBERT NINA MD DR: Mel JOB#: [id number] / [id number]
[2017-04-13 14:49] LABS: HCO3 ABG 21 mmol/L (21-28); PCO2 ABG 35 mmHg (35-46); PO2 ABG 95 mmHg (65-108); SAT O2 ABG 97 % (92-99)
[2017-04-13 14:50] LABS: FIO2 ABG 30
[2017-04-13 15:37] LABS: HCO3 ABG 23 mmol/L (21-28); PCO2 ABG 39 mmHg (35-46); PH ABG 7.38 (7.35-7.45); PO2 ABG 70 mmHg (65-108); SAT O2 ABG 94 % (92-99)
[2017-04-13 15:39] LABS: FIO2 ABG 28
[2017-04-13] MEDS: NOREPINEPHRIN PREMIX 250 ML IV PRN (16:24)
--- NOTE | 2017-04-13 19:08 | HP ---
ADMIT DATE: 04/12/2017 ADMISSION DIAGNOSIS: Sepsis. HISTORY OF PRESENT ILLNESS: This is a 76-year-old senior living care patient at [facility] who has had issues with urinary retention since hospitalization here for urinary tract infection. That required him to have his Mccormick catheter removed. He has been to bladder scan frequently since then, he has had occasional residuals. He was feeling poorly with generalized weakness and noted to have a type of shaking all over, tremor. Staff noted his oxygen saturations were low and EMS was summoned and they placed him on nasal cannula oxygen and his saturations improved. He was transported to the ER where he was seen and evaluated. He had been noted to have a fever, but he was shaking while in the Emergency Room. He denied chills. His white count was normal, but he had several bands on his differential, total of 40%. His BNP was elevated at nearly 25,000. He was mildly anemic. His BUN and creatinine were above baseline. His blood sugar was elevated. Chest x-ray initially was unrevealing. He was admitted to the floor with sepsis protocol. He received quite a bit of fluids. He then developed some respiratory distress and rapid was called and he was transferred to the intensive care unit. Overnight, he has been on BiPAP. His arterial blood gas last evening showed a pH of 7.37 with a pCO2 of 34 and pO2 of 50 on 40%. He was seen and evaluated this morning. He is somewhat lethargic. He does open his eyes, but is not responsive as normal. There is no more shaking going on though. PAST MEDICAL HISTORY: Significant for a spinal stenosis and neurogenic bladder. He is unable to walk, suffers from morbid obesity, coronary artery disease with stent placement in May of last year, hypertension, COPD, asthma, chronic respiratory failure with oxygen use, resistant urinary tract infections, MRSA nasal screen positive, VRE in urine 6 weeks ago, diet-controlled diabetes, tremor treated in the past with propranolol, anxiety, depression, bipolar. PAST SURGICAL HISTORY: Cardiac stents. ALLERGIES: None. PREHOSPITALIZATION MEDICATIONS: Include Tylenol 325 q. 4 hours p.r.n., albuterol inhaled q. 6 hours p.r.n. and nebulized q. 4 hours p.r.n., aspirin 81 daily, atorvastatin 10 mg daily, Dulcolax 5 mg tablet daily p.r.n., Symbicort 160/4.5, buspirone 10 mg t.i.d., cetirizine 10 mg daily, clopidogrel 75 mg daily, diclofenac gel topically t.i.d., Avodart 0.5 mg daily, iron 325 mg daily, fluoxetine 40 mg daily, furosemide 40 mg daily, hydrocodone APAP 5/325 q.i.d. p.r.n., lisinopril 5 mg daily, lithium carbonate 300 mg at bedtime, metoprolol 25 mg extended release daily, montelukast 10 mg daily, nitroglycerin 0.4 mg sublingual p.r.n. chest pain, nystatin ____ topically p.r.n. yeast, propranolol 20 mg daily for tremors, pantoprazole 40 mg daily, tamsulosin 0.4 mg daily, Spiriva 1 inhalation daily, zolpidem 5 mg at bedtime. FAMILY HISTORY: Noncontributory. SOCIAL HISTORY: Does not smoke or drink, long-term care patient at [facility]. REVIEW OF SYSTEMS: Positive for shaking without fever or chills. He has been losing weight lately trying to get below 450 pounds so he can transferred to a different facility. He has had some frequent episodes of urinary retention and has required straight catheterization periodically. He had not had any recent chest pain. He has had intermittent cough, but no dysphagia. No diarrhea. He is nonambulatory due to spinal stenosis and obesity. Typical day includes going to the dining room for meals and then sleeping a good part of the rest of the day. He has been confused. He had not had any sore throat, earache. He has not had any illness exposure. PHYSICAL EXAMINATION: VITAL SIGNS: He has been afebrile since admission. Initially hypertensive, received metoprolol and lisinopril for that and then required fluids. He has been hypotensive here recently. When seen this morning, he was on BiPAP. GENERAL: He would respond to questions, although it was difficult to understand with the mask on. He seemed oriented. He had been less alert though prior to that. Eyes would open track. HEENT: Mucous membranes are moist. NECK: Supple. HEART: Regular. LUNGS: Coarse sounds bilaterally. ABDOMEN: Morbidly obese with bowel sounds present. EXTREMITIES: Without clubbing or cyanosis. SKIN: No significant bruising was encountered. LABORATORY DATA: He is anemic with hemoglobin of 9, MCV of 85, 40% bands with a white count of 6.2 that has gone up this morning to 11.6. His hemoglobin was dropped to 8.6, but that was after hydration. INR is normal. Chemistries, his creatinine has bumped up from a baseline of 1.3 to 2, repeat is 2.5. Lactic acid initially 2.1, improved to 1.1, calcium is low at 7.7. His albumin is also low at 2.5. Troponin is elevated at 0.198. Magnesium is low at 1.5. Urinalysis was yellow and turbid with a small amount of blood, large amount of leukocyte esterase, greater than 40 WBCs, moderate squamous epithelial cells from the 12th. MRSA nasal screen is positive. Blood cultures are negative. Chest x-ray, his initial one was read as no acute abnormality, subsequent one last evening showed diffuse mixed interstitial and alveolar infiltrate with enlargement of the cardiac silhouette and follow up this morning shows mild ongoing patchy pulmonary infiltrates with loss of vascular margination, suggesting mild pulmonary edema versus pneumonia. ASSESSMENT: 1. Sepsis, this is most likely is a urinary source. 2. Acute respiratory failure with interstitial pulmonary edemas, sepsis protocol, fluid resuscitation. 3. Acute on chronic ____ systolic heart failure with ejection fraction of 40% on echo, moderate global hypokinesis. 4. Likely urinary tract infection. 5. Acute kidney injury with stage 3 chronic renal disease. 6. Abnormal troponin. 7. Hypocalcemia, likely related to moderate protein calorie malnutrition. 8. Chronic obstructive pulmonary disease. 9. Anemia with a normal MCV, likely of chronic disease. 10. 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 11. Bipolar. 12. Depression. 13. Anxiety with occasional tremor related to that. PLAN: He is admitted initially to a medical bed, last night he developed acute respiratory distress overnight, was transferred into the intensive care unit, since that time I have consulted Pulmonary, Infectious Disease and Cardiology. He has responded to diuresis with improved blood gas since but that has left him with hypotension, requiring pressor support. Blood cultures are negative to this point. He will remain in the intensive care unit in serious condition. W Gómez MULLER MD DR: Polly JOB#: [id number] / [id number]
[2017-04-13] MEDS: ATORVASTATIN CALCIUM 10 MG TABLET. PO SCH (20:14)
[2017-04-13] MEDS: MONTELUKAST SODIUM 10 MG TABLET. PO SCH (20:15)
[2017-04-13] MEDS: LITHIUM CARBONATE 300 MG CAPSULE PO SCH (20:15)
[2017-04-14] VITALS (32 sets, daily range): BP systolic 82–162; BP diastolic 37–74
[2017-04-14] MEDS: NOREPINEPHRIN PREMIX 250 ML IV PRN (03:18)
[2017-04-14] MEDS: MEROPENEM 500 MG in IV NORMAL SALINE 50ML 50 ML IV SCH ×3 (05:32→22:18)
[2017-04-14 06:51] LABS: BASO % 0 % (0-3); EOS % 1 % (0-3); HEMATOCRIT 27.2 % (39.0-53.0); HEMOGLOBIN 8.9 g/dL (13.0-17.5); LYMPH # 0.7 x10^3/uL (1.0-4.8); LYMPH % 5 % (24-48); MEAN CORPUSCULAR HEMOGLOBIN 27 pg (25-35); MEAN CORPUSCULAR HGB CONC 33 g/dL (31-37); MEAN CORPUSCULAR VOLUME 83 fL (79-100); MONO % 7 % (0-9); NEUT % 87 % (31-73); PLATELET COUNT 141 x10^3/uL (140-400); RED BLOOD COUNT 3.29 x10^6/uL (4.30-5.70); RED CELL DISTRIBUTION WIDTH 17.5 % (11.5-14.5); WHITE BLOOD COUNT 14.7 x10^3/uL (4.0-11.0)
[2017-04-14 07:05] LABS: ALBUMIN 2.6 g/dL (3.4-5.0); ALBUMIN/GLOBULIN RATIO 0.7 (1.0-1.7); CALCIUM 8.5 mg/dL (8.5-10.1); TOTAL PROTEIN 6.4 g/dL (6.4-8.2)
[2017-04-14 07:06] LABS: CREATININE 2.3 mg/dL (0.7-1.3); GFR 27.8; POTASSIUM 4.2 mmol/L (3.5-5.1); TOTAL BILIRUBIN 0.6 mg/dL (0.2-1.0)
--- NOTE | 2017-04-14 07:39 | RAD ---
Portable chest, 04/14/2017: History: Congestive heart failure Comparison is made to yesterday's study. The patient is rotated to the right. The heart is enlarged. The pulmonary vascularity remains prominent with loss of vascular margination. There are minimal residual left perihilar infiltrates. Mild right lung infiltrates have cleared since 04/12/2017. No new pulmonary abnormality is seen. There is no evidence of pleural fluid or pneumothorax. IMPRESSION: Resolving mild pulmonary edema.
[2017-04-14] MEDS: IPRATRPIUM/ALBUTEROL 0.5/2.5MG 3 ML NEBU. NEB SCH ×4 (08:00→19:07)
[2017-04-14] MEDS: BUDESONIDE 0.5 MG/2 ML NEBU. NEB SCH ×2 (08:00→19:07)
[2017-04-14] MEDS ORDERED: DEXTROSE 50% 25 GM / 50ML DISP.SYRIN. IV PRN (08:45)
--- NOTE | 2017-04-14 08:54 | PDOC ---
Infectious Disease Note Subjective Subjective Didn't sleep well but is feeling better ROS ROS GEN: Denies fevers, chills, sweats HEENT: Denies blurred vision, sore throat CV: Denies chest pain RESP: Denies shortness of air, cough GI: Denies n/v/d NEURO: Denies confusion, dizziness MSK: Denies weakness, joint pain/swelling Vital Sign Vital Signs Vital Signs Date Time Temp Pulse Resp B/P (MAP) Pulse Ox O2 Delivery O2 Flow Rate FiO2 04/14/17 08:04 98 Nasal Cannula 2.0 04/14/17 08:00 98.8 74 16 119/56 (77) 98.8 Physical Exam PHYSICAL EXAM GENERAL: NAD, Alert, coop. In chair and eating HEENT: PERRL, OC/OP -clear NECK: Supple, no JVD, no LN LUNGS: Clear HEART: S1S2, no gallop, no murmur ABD: Soft, NT, no organomegaly, no rebound, obese Mccormick EXT: No edema, no cyanosis [employer]END[employer]: Alert, oriented x 3, no focal neurologic deficit SKIN: No rash IV: ok Labs Lab Laboratory Tests Test 04/13/17 11:05 04/13/17 13:30 04/13/17 15:25 04/13/17 18:30 O2 Saturation 87 % (92-99) 97 % (92-99) 94 % (92-99) Arterial Blood pH 7.27 (7.35-7.45) 7.40 (7.35-7.45) 7.38 (7.35-7.45) Arterial Blood pCO2 at Patient Temp 52 mmHg (35-46) 35 mmHg (35-46) 39 mmHg (35-46) Arterial Blood pO2 at Patient Temp 58 mmHg (65-108) 95 mmHg (65-108) 70 mmHg (65-108) Arterial Blood HCO3 23 mmol/L (21-28) 21 mmol/L (21-28) 23 mmol/L (21-28) Arterial Blood Base Excess -4 mmol/L (-3-3) -4 mmol/L (-3-3) -3 mmol/L (-3-3) FiO2 30 30 28 Troponin I Quantitative 0.037 ng/mL (0.000-0.055) Test 04/14/17 00:30 04/14/17 05:00 04/14/17 05:20 Troponin I Quantitative 0.031 ng/mL (0.000-0.055) White Blood Count 14.7 x10^3/uL (4.0-11.0) Red Blood Count 3.29 x10^6/uL (4.30-5.70) Hemoglobin 8.9 g/dL (13.0-17.5) Hematocrit 27.2 % (39.0-53.0) Mean Corpuscular Volume 83 fL (79-100) Mean Corpuscular Hemoglobin 27 pg (25-35) Mean Corpuscular Hemoglobin Concent 33 g/dL (31-37) Red Cell Distribution Width 17.5 % (11.5-14.5) Platelet Count 141 x10^3/uL (140-400) Neutrophils (%) (Auto) 87 % (31-73) Lymphocytes (%) (Auto) 5 % (24-48) Monocytes (%) (Auto) 7 % (0-9) Eosinophils (%) (Auto) 1 % (0-3) Basophils (%) (Auto) 0 % (0-3) Neutrophils # (Auto) 12.8 x10^3uL (1.8-7.7) Lymphocytes # (Auto) 0.7 x10^3/uL (1.0-4.8) Monocytes # (Auto) 1.0 x10^3/uL (0.0-1.1) Eosinophils # (Auto) 0.2 x10^3/uL (0.0-0.7) Basophils # (Auto) 0.0 x10^3/uL (0.0-0.2) Sodium Level 135 mmol/L (136-145) Potassium Level 4.2 mmol/L (3.5-5.1) Chloride Level 101 mmol/L (98-107) Carbon Dioxide Level 23 mmol/L (21-32) Anion Gap 11 (6-14) Blood Urea Nitrogen 54 mg/dL (8-26) Creatinine 2.3 mg/dL (0.7-1.3) Estimated GFR (Cockcroft-Gault) 27.8 BUN/Creatinine Ratio 23 (6-20) Glucose Level 116 mg/dL (70-99) Calcium Level 8.5 mg/dL (8.5-10.1) Total Bilirubin 0.6 mg/dL (0.2-1.0) Aspartate Amino Transf (AST/SGOT) 32 U/L (15-37) Alanine Aminotransferase (ALT/SGPT) 45 U/L (16-63) Alkaline Phosphatase 67 U/L (46-116) Total Protein 6.4 g/dL (6.4-8.2) Albumin 2.6 g/dL (3.4-5.0) Albumin/Globulin Ratio 0.7 (1.0-1.7) Objective Assessment Sepsis with hypotension, POA on 8 of Levophed - but clinically looks better Leukocytosis with bandemia HCAP, now on BiPAP. Levoflox dose 04/13 ? UTI, POA DUONG Urinary retention s/p indwelling Mccormick. Acute CHF + MRSA nares h/o Morganella and VRE Plan Plan of Care Cont Zyvox and Meropenem. Add Micafungin monitor labs and f/u cultures May need additional imaging if WBC persists VANESSA NINA MD Apr 14, 2017 08:54
--- NOTE | 2017-04-14 08:57 | PDOC ---
ICU PROGRESS NOTES Subjective Up in chair, no respiratory distress, hungry, wants to eat, alert, he does not remember his initial hospitalization and he thought he was in [facility] and it was the 70s yesterday but now knows that was incorrect Objective Objective Still on pressor support, diuresed well, WBC increasing but afebrile, CXR improved edema, no pneumonia noted Vitals Vital Signs Date Time Temp Pulse Resp B/P (MAP) Pulse Ox O2 Delivery O2 Flow Rate FiO2 04/14/17 08:04 98 Nasal Cannula 2.0 04/14/17 08:00 98.8 74 16 119/56 (77) 98.8 Input & Output Intake and Output 04/14/17 07:00 Intake Total 828.541 ml Output Total 4160 ml Balance -3331.459 ml Intake Oral 150 ml IV Total 678.541 ml Output Urine Total 4160 ml # Bowel Movements 1 Ventilator Settings O2 Flow Rate: 2.0 Oxygen Delivery Device: Nasal Cannula Temperature (97-99 F): No FiO2: 22 SpO2: 98 DVT Prophylaxis DVT Prophylaxis on clopidogrel Stress Ulcer Prophylaxis Stress Ulcer Prophylaxis pantoprazole Imaging Imaging CXR improved Labs Labs WBC 14.6 K, cr 2.3, albumin 2.6, troponins went down, cultures negative Medications Medications Current Medications Acetaminophen (Tylenol) 650 mg PRN Q4HRS PRN PO MILD PAIN / TEMP Last administered on 04/14/17 02:14; Start 04/13/17 at 08:45 Acetaminophen/ Hydrocodone Bitart (Lortab 5/325) 1 tab QID PO Last administered on 04/13/17 09:25; Start 04/13/17 at 09:00; Stop 04/13/17 at 17:11 ; Status DC Albuterol/ Ipratropium (Duoneb) 3 ml RTQID NEB Last administered on 04/14/17 08:00; Start 04/13/17 at 12:00 Aspirin (Ecotrin) 81 mg DAILYWBKFT PO Last administered on 04/13/17 09:23; Start 04/13/17 at 09:00 Atorvastatin Calcium (Lipitor) 10 mg HS PO Last administered on 04/13/17 20:14 ; Start 04/13/17 at 21:00 Bisacodyl (Dulcolax Tab) 5 mg PRN DAILY PRN PO CONSTIPATION; Start 04/13/17 at 08:45 Budesonide (Pulmicort) 0.5 mg RTBID NEB Last administered on 04/14/17 08:00; Start 04/13/17 at 09:30 Buspirone HCl (Buspar) 10 mg TID PO Last administered on 04/13/17 20:15; Start 04/13/17 at 09:00 Cetirizine HCl (ZyrTEC) 10 mg DAILY PO Last administered on 04/13/17 09:24; Start 04/13/17 at 09:00 Dextrose (Dextrose 50%-Water Syringe) 12.5 gm PRN Q15MIN PRN IV SEE COMMENTS; Start 04/14/17 at 08:45 Dobutamine HCl/ Dextrose 250 ml @ 0 mls/hr CONT PRN IV SEE I/O RECORD Last administered on 04/13/17 15:28; Start 04/13/17 at 15:15 Dutasteride (Avodart) 0.5 mg DAILY PO Last administered on 04/13/17 09:23; Start 04/13/17 at 09:00 Ferrous Sulfate (Feosol) 325 mg DAILY PO Last administered on 04/13/17 09:23; Start 04/13/17 at 09:00 Fluoxetine HCl (PROzac) 40 mg DAILY PO Last administered on 04/13/17 09:24; Start 04/13/17 at 09:00 Furosemide (Lasix) 40 mg 1X ONCE IVP ; Start 04/13/17 at 09:00; Stop 04/13/17 at 09:01; Status DC Furosemide (Lasix) 40 mg 1X ONCE IVP Last administered on 04/13/17 17:35; Start 04/13/17 at 17:30; Stop 04/13/17 at 17:31; Status DC Furosemide (Lasix) 40 mg DAILY PO Last administered on 04/13/17 09:24; Start 04/13/17 at 09:00 Insulin Aspart (NovoLOG) 0-5 UNITS TIDWMEALS SQ ; Start 04/14/17 at 12:00 Levofloxacin/ Dextrose 100 ml @ 100 mls/hr 1X ONCE IV Last administered on 09:25; Start 04/13/17 at 09:00; Stop 04/13/17 at 09:59; Status DC Linezolid 300 ml @ 300 mls/hr Q12HR IV Last administered on 04/13/17 20:15; Start 04/13/17 at 11:00 Rhame Carbonate 300 mg QHS PO Last administered on 04/13/17 20:15; Start at 21:00 Magnesium Hydroxide (Milk Of Magnesia) 400 mg PRN DAILY PRN PO CONSTIPATION; Start 04/13/17 at 08:45 Meropenem 500 mg/ Sodium Chloride 50 ml @ 100 mls/hr Q12HR IV ; Start 04/13/17 at 12:00; Stop 04/13/17 at 12:00; Status DC Meropenem 500 mg/ Sodium Chloride 50 ml @ 100 mls/hr Q8HRS IV Last administered on 04/14/17 05:32; Start 04/13/17 at 12:00 Montelukast Sodium (Singulair) 10 mg HS PO Last administered on 04/13/17 20:15 ; Start 04/13/17 at 21:00 Nitroglycerin (Nitrostat) 0.4 mg PRN Q5MIN PRN SL CHEST PAIN; Start 04/13/17 at 08:45 Non-Formulary Medication 1 inh DAILY IH ; Start 04/13/17 at 09:00; Status UNV Non-Formulary Medication 1 puff DAILY IH ; Start 04/13/17 at 09:00; Status UNV Non-Formulary Medication 1 puff PRN Q6HRS PRN INH SHORTNESS OF BREATH; Start at 08:45; Status UNV Norepinephrine Bitartrate 250 ml @ 0 mls/hr CONT PRN IV SEE I/O RECORD Last administered on 04/14/17 03:18; Start 04/13/17 at 16:15 Nystatin (Nystop) 15 mustapha TID PRN PRN TP REDNESS; Start 04/13/17 at 08:45 Ondansetron HCl (Zofran Odt) 4 mg PRN Q6HRS PRN PO NAUSEA/VOMITING; Start 04/13 at 08:45 Pantoprazole Sodium (Protonix) 40 mg DAILYAC PO Last administered on 04/13/17 09:24; Start 04/13/17 at 09:00 Senna/Docusate Sodium (Senna Plus) 1 tab BID PO Last administered on 04/13/17 20:14; Start 04/13/17 at 09:00 Tamsulosin HCl (Flomax) 0.4 mg DAILY PO Last administered on 04/13/17 09:24; Start 04/13/17 at 09:00 Vancomycin HCl 1.25 gm/Sodium Chloride 250 ml @ 166.667 mls/hr 1X ONCE IV ; Start 04/13/17 at 09:00; Stop 04/13/17 at 10:29; Status Cancel Vancomycin HCl 2 gm/Sodium Chloride 500 ml @ 250 mls/hr 1X ONCE IV Last administered on 04/13/17 09:26; Start 04/13/17 at 09:00; Stop 04/13/17 at 10:32 ; Status DC Physical Exam ROS: No Nausea, No Chest Pain, No Abdominal Pain, No Increase Cough General: Alert, Oriented X4, No acute distress Mental Status: Bipolar Lungs: Clear Cardiovascular: S1, S2 Abdomen: Soft, Non-tender Skin: Warm, Dry Neuro Exam: Alert, Oriented, Normal Speech Impression . 1. Sepsis, this is most likely is a urinary source. 2. Acute respiratory failure with interstitial pulmonary edemas, sepsis protocol, fluid resuscitation. 3. Acute on chronic systolic/diastolic heart failure with ejection fraction of 40% on echo, moderate global hypokinesis. 4. Likely urinary tract infection. 5. Acute kidney injury with stage 3 chronic renal disease. 6. Abnormal troponin. 7. Hypocalcemia, likely related to moderate protein calorie malnutrition. 8. Chronic obstructive pulmonary disease. 9. Anemia with a normal MCV, likely of chronic disease. 10. 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 11. Bipolar. 12. Depression. 13. Anxiety with occasional tremor related to that. 14. toxic encephalopathy - resolved Plan . 1. Sepsis, this is most likely is a urinary source - antibiotics per ID. 2. Acute respiratory failure with interstitial pulmonary edema, sepsis protocol, fluid resuscitation. Responded to diuresis, now resolved. 3. Acute on chronic systolic/diastolic heart failure with ejection fraction of 40% on echo, moderate global hypokinesis. still on pressor support but should wean off and if does will transfer to monitored bed 4. Likely urinary tract infection. 5. Acute kidney injury with stage 3 chronic renal disease - stable, mild bump in creatinine after diuresis 6. Abnormal troponin, now down, likely demand ischemia but he has known CAD and had NSTEMI 10 mo ago. 7. Hypocalcemia, likely related to moderate protein calorie malnutrition. 8. Chronic obstructive pulmonary disease. 9. Anemia with a normal MCV, likely of chronic disease. 10. 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 11. Bipolar. 12. Depression. 13. Anxiety with occasional tremor related to that. 14. toxic encephalopathy - resolved 15. diet controlled diabetes, - ADA diet, SSI if needed Yenny MULLER MD Apr 14, 2017 08:57
[2017-04-14] MEDS: METOPROLOL SUCC 24HR ER 25 MG TAB.ER.24H. PO SCH (09:00)
--- NOTE | 2017-04-14 09:17 | PDOC ---
ICU PROGRESS NOTES Subjective Up in chair, no respiratory distress, hungry, wants to eat, alert, he does not remember his initial hospitalization and he thought he was in [facility] and it was the 70s yesterday but now knows that was incorrect Objective Objective Still on pressor support, diuresed well, WBC increasing but afebrile, CXR improved edema, no pneumonia noted Vitals Vital Signs Date Time Temp Pulse Resp B/P (MAP) Pulse Ox O2 Delivery O2 Flow Rate FiO2 04/14/17 08:04 98 Nasal Cannula 2.0 04/14/17 08:00 98.8 74 16 119/56 (77) 98.8 Input & Output Intake and Output 04/14/17 07:00 Intake Total 828.541 ml Output Total 4160 ml Balance -3331.459 ml Intake Oral 150 ml IV Total 678.541 ml Output Urine Total 4160 ml # Bowel Movements 1 Ventilator Settings O2 Flow Rate: 2.0 Oxygen Delivery Device: Nasal Cannula Temperature (97-99 F): No FiO2: 22 SpO2: 98 DVT Prophylaxis DVT Prophylaxis on clopidogrel Stress Ulcer Prophylaxis Stress Ulcer Prophylaxis pantoprazole Imaging Imaging CXR improved Medications Medications Current Medications Albuterol/ Ipratropium (Duoneb) 3 ml RTQID NEB Last administered on 04/14/17 08:00; Start 04/13/17 at 12:00 Atorvastatin Calcium (Lipitor) 10 mg HS PO Last administered on 04/13/17 20:14 ; Start 04/13/17 at 21:00 Budesonide (Pulmicort) 0.5 mg RTBID NEB Last administered on 04/14/17 08:00; Start 04/13/17 at 09:30 Dextrose (Dextrose 50%-Water Syringe) 12.5 gm PRN Q15MIN PRN IV SEE COMMENTS; Start 04/14/17 at 08:45 Dobutamine HCl/ Dextrose 250 ml @ 0 mls/hr CONT PRN IV SEE I/O RECORD Last administered on 04/13/17 15:28; Start 04/13/17 at 15:15 Furosemide (Lasix) 40 mg 1X ONCE IVP Last administered on 04/13/17 17:35; Start 04/13/17 at 17:30; Stop 04/13/17 at 17:31; Status DC Insulin Aspart (NovoLOG) 0-5 UNITS TIDWMEALS SQ ; Start 04/14/17 at 12:00 Linezolid 300 ml @ 300 mls/hr Q12HR IV Last administered on 04/13/17 20:15; Start 04/13/17 at 11:00 [place] Carbonate 300 mg QHS PO Last administered on 04/13/17 20:15; Start at 21:00 Meropenem 500 mg/ Sodium Chloride 50 ml @ 100 mls/hr Q12HR IV ; Start 04/13/17 at 12:00; Stop 04/13/17 at 12:00; Status DC Meropenem 500 mg/ Sodium Chloride 50 ml @ 100 mls/hr Q8HRS IV Last administered on 04/14/17 05:32; Start 04/13/17 at 12:00 Micafungin Sodium 100 mg/Dextrose 100 ml @ 100 mls/hr Q24H IV ; Start 04/14/17 at 10:00 Montelukast Sodium (Singulair) 10 mg HS PO Last administered on 04/13/17 20:15 ; Start 04/13/17 at 21:00 Norepinephrine Bitartrate 250 ml @ 0 mls/hr CONT PRN IV SEE I/O RECORD Last administered on 04/14/17 03:18; Start 04/13/17 at 16:15 Physical Exam ROS: No Nausea, No Chest Pain, No Abdominal Pain, No Increase Cough General: Alert, Oriented X4, No acute distress Mental Status: Bipolar Lungs: Clear Cardiovascular: S1, S2 Abdomen: Soft, Non-tender Skin: Warm, Dry Neuro Exam: Alert, Oriented, Normal Speech Impression . 1. Sepsis, this is most likely is a urinary source. 2. Acute respiratory failure with interstitial pulmonary edemas, sepsis protocol, fluid resuscitation. 3. Acute on chronic systolic/diastolic heart failure with ejection fraction of 40% on echo, moderate global hypokinesis. 4. Likely urinary tract infection. 5. Acute kidney injury with stage 3 chronic renal disease. 6. Abnormal troponin. 7. Hypocalcemia, likely related to moderate protein calorie malnutrition. 8. Chronic obstructive pulmonary disease. 9. Anemia with a normal MCV, likely of chronic disease. 10. 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 11. Bipolar. 12. Depression. 13. Anxiety with occasional tremor related to that. 14. toxic encephalopathy - resolved Plan . 1. Sepsis, this is most likely is a urinary source - antibiotics per ID. 2. Acute respiratory failure with interstitial pulmonary edema, sepsis protocol, fluid resuscitation. Responded to diuresis, now resolved. 3. Acute on chronic systolic/diastolic heart failure with ejection fraction of 40% on echo, moderate global hypokinesis. still on pressor support but should wean off and if does will transfer to monitored bed 4. Likely urinary tract infection. 5. Acute kidney injury with stage 3 chronic renal disease - stable, mild bump in creatinine after diuresis 6. Abnormal troponin, now down, likely demand ischemia but he has known CAD and had NSTEMI 10 mo ago. 7. Hypocalcemia, likely related to moderate protein calorie malnutrition. 8. Chronic obstructive pulmonary disease. 9. Anemia with a normal MCV, likely of chronic disease. 10. 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 11. Bipolar. 12. Depression. 13. Anxiety with occasional tremor related to that. 14. toxic encephalopathy - resolved 15. diet controlled diabetes, - ADA diet, SSI if needed Yenny MULLER MD Apr 14, 2017 09:17
[2017-04-14] MEDS: TAMSULOSIN 0.4 MG CAP.ER.24H. PO SCH (09:48)
[2017-04-14] MEDS: ASPIRIN ENTERIC COATED 81 MG TABLET.DR. PO SCH (09:49)
[2017-04-14] MEDS: PANTOPRAZOLE 40 MG TABLET.DR. PO SCH (09:49)
[2017-04-14] MEDS: busPIRone 10 MG TABLET. PO SCH ×3 (09:49→21:23)
[2017-04-14] MEDS: CETIRIZINE HCL 10 MG TABLET. PO SCH (09:49)
[2017-04-14] MEDS: FLUoxetine HCL 20 MG CAPSULE PO SCH (09:49)
[2017-04-14] MEDS: FERROUS SULFATE 325 MG TABLET. PO SCH (09:49)
[2017-04-14] MEDS: DUTASTERIDE 0.5 MG CAPSULE PO SCH (09:49)
[2017-04-14] MEDS: SENNOSIDES/DOCUSATE 8.6/50MG TABLET. PO SCH ×2 (09:49→21:00)
[2017-04-14] MEDS: FUROSEMIDE 40 MG TABLET. PO SCH (09:49)
[2017-04-14] MEDS: CLOPIDOGREL BISULFATE 75 MG TABLET PO SCH (09:49)
--- NOTE | 2017-04-14 10:28 | PDOC ---
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 04/14/17 1028: CARDIO Progress Notes Date and Time Date of Service 04/14/17 Time of Evaluation 1040 Subjective Subjective: No Chest Pain, No shortness of breath, No Palpitations Vitals Vitals Vital Signs Date Time Temp Pulse Resp B/P (MAP) Pulse Ox O2 Delivery O2 Flow Rate FiO2 04/14/17 10:00 70 14 110/54 (72) 97 Nasal Cannula 2.0 04/14/17 08:00 98.8 98.8 Weight Weight [ ] Input and Output Intake and Output Intake and Output 04/14/17 07:00 Intake Total 828.541 ml Output Total 4160 ml Balance -3331.459 ml Intake Oral 150 ml IV Total 678.541 ml Output Urine Total 4160 ml # Bowel Movements 1 Laboratory Labs Laboratory Tests Test 04/13/17 11:05 04/13/17 13:30 04/13/17 15:25 04/13/17 18:30 O2 Saturation 87 % (92-99) 97 % (92-99) 94 % (92-99) Arterial Blood pH 7.27 (7.35-7.45) 7.40 (7.35-7.45) 7.38 (7.35-7.45) Arterial Blood pCO2 at Patient Temp 52 mmHg (35-46) 35 mmHg (35-46) 39 mmHg (35-46) Arterial Blood pO2 at Patient Temp 58 mmHg (65-108) 95 mmHg (65-108) 70 mmHg (65-108) Arterial Blood HCO3 23 mmol/L (21-28) 21 mmol/L (21-28) 23 mmol/L (21-28) Arterial Blood Base Excess -4 mmol/L (-3-3) -4 mmol/L (-3-3) -3 mmol/L (-3-3) FiO2 30 30 28 Troponin I Quantitative 0.037 ng/mL (0.000-0.055) Test 04/14/17 00:30 04/14/17 05:00 04/14/17 05:20 Troponin I Quantitative 0.031 ng/mL (0.000-0.055) White Blood Count 14.7 x10^3/uL (4.0-11.0) Red Blood Count 3.29 x10^6/uL (4.30-5.70) Hemoglobin 8.9 g/dL (13.0-17.5) Hematocrit 27.2 % (39.0-53.0) Mean Corpuscular Volume 83 fL (79-100) Mean Corpuscular Hemoglobin 27 pg (25-35) Mean Corpuscular Hemoglobin Concent 33 g/dL (31-37) Red Cell Distribution Width 17.5 % (11.5-14.5) Platelet Count 141 x10^3/uL (140-400) Neutrophils (%) (Auto) 87 % (31-73) Lymphocytes (%) (Auto) 5 % (24-48) Monocytes (%) (Auto) 7 % (0-9) Eosinophils (%) (Auto) 1 % (0-3) Basophils (%) (Auto) 0 % (0-3) Neutrophils # (Auto) 12.8 x10^3uL (1.8-7.7) Lymphocytes # (Auto) 0.7 x10^3/uL (1.0-4.8) Monocytes # (Auto) 1.0 x10^3/uL (0.0-1.1) Eosinophils # (Auto) 0.2 x10^3/uL (0.0-0.7) Basophils # (Auto) 0.0 x10^3/uL (0.0-0.2) Sodium Level 135 mmol/L (136-145) Potassium Level 4.2 mmol/L (3.5-5.1) Chloride Level 101 mmol/L (98-107) Carbon Dioxide Level 23 mmol/L (21-32) Anion Gap 11 (6-14) Blood Urea Nitrogen 54 mg/dL (8-26) Creatinine 2.3 mg/dL (0.7-1.3) Estimated GFR (Cockcroft-Gault) 27.8 BUN/Creatinine Ratio 23 (6-20) Glucose Level 116 mg/dL (70-99) Calcium Level 8.5 mg/dL (8.5-10.1) Total Bilirubin 0.6 mg/dL (0.2-1.0) Aspartate Amino Transf (AST/SGOT) 32 U/L (15-37) Alanine Aminotransferase (ALT/SGPT) 45 U/L (16-63) Alkaline Phosphatase 67 U/L (46-116) Total Protein 6.4 g/dL (6.4-8.2) Albumin 2.6 g/dL (3.4-5.0) Albumin/Globulin Ratio 0.7 (1.0-1.7) Microbiology Micro Microbiology 04/12/17 Blood Culture - Preliminary, Resulted NO GROWTH AFTER 1 DAY Physical Exam HEENT: Neck Supple W Full Motion Chest: Symmetric LUNGS: Clear to Auscultation, Other (diminished bases) Heart: S1S2, RRR Abdomen: Soft N/T, Other (truncal obesity ) Extremities: No Edema, No Calf Tenderness Neurology: alert, oriented, follow commands Assessment Assessment 1. Sepsis with hypotension; requiring pressor support 2. Acute on chronic systolic HF with ICM; LVEF 40% 3. Acute on chronic respiratory failure 4. CAD s/p PCI/stents 5. DUONG on CKD Recommendations Better compensated. Neg 3L yesterday. Cr stable No further aggressive diuresis warranted at this time. Titrate off Levo Supportive care. RADHA FROST MD 04/15/17 0848: CARDIO Progress Notes Plan Plan Late entry for 04/14/2017 Pt. seen and examined. Agree with above LABORER HIDE HOUSE note. Supportive care from a CV perspective for now. Will follow along. FELICIA POLLACK APRN Apr 14, 2017 10:28 RADHA FROST MD Apr 15, 2017 08:48
[2017-04-14] MEDS: INSULIN ASPART 300 UNITS/3 ML INSULN.PEN SQ SCH ×2 (12:00→17:00)
--- NOTE | 2017-04-14 12:14 | PDOC ---
PULMONARY PROGRESS NOTES Subjective fully awake no soa on 12 mics of levophed Vitals Vital Signs Date Time Temp Pulse Resp B/P (MAP) Pulse Ox O2 Delivery O2 Flow Rate FiO2 04/14/17 11:00 82 18 124/61 (82) 96 Nasal Cannula 2.0 04/14/17 08:00 98.8 98.8 ROS: No Nausea, No Chest Pain, No Abdominal Pain, No Increase Cough General: Alert, Oriented X4, No acute distress Lungs: Clear Cardiovascular: S1, S2 Abdomen: Soft, Non-tender Neuro Exam: Alert, Oriented, Normal Speech Extremities: Other (1+edema) Skin: Warm, Dry Labs Laboratory Tests Test 04/12/17 19:46 04/12/17 21:00 04/13/17 03:24 04/13/17 11:05 O2 Saturation 85 % (92-99) 87 % (92-99) Arterial Blood pH 7.37 (7.35-7.45) 7.27 (7.35-7.45) Arterial Blood pCO2 at Patient Temp 34 mmHg (35-46) 52 mmHg (35-46) Arterial Blood pO2 at Patient Temp 50 mmHg (65-108) 58 mmHg (65-108) Arterial Blood HCO3 19 mmol/L (21-28) 23 mmol/L (21-28) Arterial Blood Base Excess -6 mmol/L (-3-3) -4 mmol/L (-3-3) FiO2 40 30 Nasal Screen MRSA (PCR) Positive (Negative) White Blood Count 11.6 x10^3/uL (4.0-11.0) Red Blood Count 3.20 x10^6/uL (4.30-5.70) Hemoglobin 8.6 g/dL (13.0-17.5) Hematocrit 27.2 % (39.0-53.0) Mean Corpuscular Volume 85 fL (79-100) Mean Corpuscular Hemoglobin 27 pg (25-35) Mean Corpuscular Hemoglobin Concent 32 g/dL (31-37) Red Cell Distribution Width 16.6 % (11.5-14.5) Platelet Count 149 x10^3/uL (140-400) Neutrophils (%) (Auto) 97 % (31-73) Lymphocytes (%) (Auto) 1 % (24-48) Monocytes (%) (Auto) 2 % (0-9) Eosinophils (%) (Auto) 0 % (0-3) Basophils (%) (Auto) 0 % (0-3) Neutrophils # (Auto) 11.3 x10^3uL (1.8-7.7) Lymphocytes # (Auto) 0.1 x10^3/uL (1.0-4.8) Monocytes # (Auto) 0.2 x10^3/uL (0.0-1.1) Eosinophils # (Auto) 0.0 x10^3/uL (0.0-0.7) Basophils # (Auto) 0.0 x10^3/uL (0.0-0.2) Sodium Level 136 mmol/L (136-145) Potassium Level 3.7 mmol/L (3.5-5.1) Chloride Level 103 mmol/L (98-107) Carbon Dioxide Level 23 mmol/L (21-32) Anion Gap 10 (6-14) Blood Urea Nitrogen 48 mg/dL (8-26) Creatinine 2.5 mg/dL (0.7-1.3) Estimated GFR (Cockcroft-Gault) 25.2 BUN/Creatinine Ratio 19 (6-20) Glucose Level 139 mg/dL (70-99) Lactic Acid Level 1.1 mmol/L (0.4-2.0) Calcium Level 7.7 mg/dL (8.5-10.1) Magnesium Level 1.5 mg/dL (1.8-2.4) Total Bilirubin 0.5 mg/dL (0.2-1.0) Aspartate Amino Transf (AST/SGOT) 56 U/L (15-37) Alanine Aminotransferase (ALT/SGPT) 60 U/L (16-63) Alkaline Phosphatase 53 U/L (46-116) Troponin I Quantitative 0.198 ng/mL (0.000-0.055) Total Protein 5.9 g/dL (6.4-8.2) Albumin 2.5 g/dL (3.4-5.0) Albumin/Globulin Ratio 0.7 (1.0-1.7) Test 04/13/17 13:30 04/13/17 15:25 04/13/17 18:30 04/14/17 00:30 O2 Saturation 97 % (92-99) 94 % (92-99) Arterial Blood pH 7.40 (7.35-7.45) 7.38 (7.35-7.45) Arterial Blood pCO2 at Patient Temp 35 mmHg (35-46) 39 mmHg (35-46) Arterial Blood pO2 at Patient Temp 95 mmHg (65-108) 70 mmHg (65-108) Arterial Blood HCO3 21 mmol/L (21-28) 23 mmol/L (21-28) Arterial Blood Base Excess -4 mmol/L (-3-3) -3 mmol/L (-3-3) FiO2 30 28 Troponin I Quantitative 0.037 ng/mL (0.000-0.055) 0.031 ng/mL (0.000-0.055) Test 04/14/17 05:00 04/14/17 05:20 White Blood Count 14.7 x10^3/uL (4.0-11.0) Red Blood Count 3.29 x10^6/uL (4.30-5.70) Hemoglobin 8.9 g/dL (13.0-17.5) Hematocrit 27.2 % (39.0-53.0) Mean Corpuscular Volume 83 fL (79-100) Mean Corpuscular Hemoglobin 27 pg (25-35) Mean Corpuscular Hemoglobin Concent 33 g/dL (31-37) Red Cell Distribution Width 17.5 % (11.5-14.5) Platelet Count 141 x10^3/uL (140-400) Neutrophils (%) (Auto) 87 % (31-73) Lymphocytes (%) (Auto) 5 % (24-48) Monocytes (%) (Auto) 7 % (0-9) Eosinophils (%) (Auto) 1 % (0-3) Basophils (%) (Auto) 0 % (0-3) Neutrophils # (Auto) 12.8 x10^3uL (1.8-7.7) Lymphocytes # (Auto) 0.7 x10^3/uL (1.0-4.8) Monocytes # (Auto) 1.0 x10^3/uL (0.0-1.1) Eosinophils # (Auto) 0.2 x10^3/uL (0.0-0.7) Basophils # (Auto) 0.0 x10^3/uL (0.0-0.2) Sodium Level 135 mmol/L (136-145) Potassium Level 4.2 mmol/L (3.5-5.1) Chloride Level 101 mmol/L (98-107) Carbon Dioxide Level 23 mmol/L (21-32) Anion Gap 11 (6-14) Blood Urea Nitrogen 54 mg/dL (8-26) Creatinine 2.3 mg/dL (0.7-1.3) Estimated GFR (Cockcroft-Gault) 27.8 BUN/Creatinine Ratio 23 (6-20) Glucose Level 116 mg/dL (70-99) Calcium Level 8.5 mg/dL (8.5-10.1) Total Bilirubin 0.6 mg/dL (0.2-1.0) Aspartate Amino Transf (AST/SGOT) 32 U/L (15-37) Alanine Aminotransferase (ALT/SGPT) 45 U/L (16-63) Alkaline Phosphatase 67 U/L (46-116) Total Protein 6.4 g/dL (6.4-8.2) Albumin 2.6 g/dL (3.4-5.0) Albumin/Globulin Ratio 0.7 (1.0-1.7) Laboratory Tests Test 04/13/17 13:30 04/13/17 15:25 04/13/17 18:30 04/14/17 00:30 O2 Saturation 97 % (92-99) 94 % (92-99) Arterial Blood pH 7.40 (7.35-7.45) 7.38 (7.35-7.45) Arterial Blood pCO2 at Patient Temp 35 mmHg (35-46) 39 mmHg (35-46) Arterial Blood pO2 at Patient Temp 95 mmHg (65-108) 70 mmHg (65-108) Arterial Blood HCO3 21 mmol/L (21-28) 23 mmol/L (21-28) Arterial Blood Base Excess -4 mmol/L (-3-3) -3 mmol/L (-3-3) FiO2 30 28 Troponin I Quantitative 0.037 ng/mL (0.000-0.055) 0.031 ng/mL (0.000-0.055) Test 04/14/17 05:00 04/14/17 05:20 White Blood Count 14.7 x10^3/uL (4.0-11.0) Red Blood Count 3.29 x10^6/uL (4.30-5.70) Hemoglobin 8.9 g/dL (13.0-17.5) Hematocrit 27.2 % (39.0-53.0) Mean Corpuscular Volume 83 fL (79-100) Mean Corpuscular Hemoglobin 27 pg (25-35) Mean Corpuscular Hemoglobin Concent 33 g/dL (31-37) Red Cell Distribution Width 17.5 % (11.5-14.5) Platelet Count 141 x10^3/uL (140-400) Neutrophils (%) (Auto) 87 % (31-73) Lymphocytes (%) (Auto) 5 % (24-48) Monocytes (%) (Auto) 7 % (0-9) Eosinophils (%) (Auto) 1 % (0-3) Basophils (%) (Auto) 0 % (0-3) Neutrophils # (Auto) 12.8 x10^3uL (1.8-7.7) Lymphocytes # (Auto) 0.7 x10^3/uL (1.0-4.8) Monocytes # (Auto) 1.0 x10^3/uL (0.0-1.1) Eosinophils # (Auto) 0.2 x10^3/uL (0.0-0.7) Basophils # (Auto) 0.0 x10^3/uL (0.0-0.2) Sodium Level 135 mmol/L (136-145) Potassium Level 4.2 mmol/L (3.5-5.1) Chloride Level 101 mmol/L (98-107) Carbon Dioxide Level 23 mmol/L (21-32) Anion Gap 11 (6-14) Blood Urea Nitrogen 54 mg/dL (8-26) Creatinine 2.3 mg/dL (0.7-1.3) Estimated GFR (Cockcroft-Gault) 27.8 BUN/Creatinine Ratio 23 (6-20) Glucose Level 116 mg/dL (70-99) Calcium Level 8.5 mg/dL (8.5-10.1) Total Bilirubin 0.6 mg/dL (0.2-1.0) Aspartate Amino Transf (AST/SGOT) 32 U/L (15-37) Alanine Aminotransferase (ALT/SGPT) 45 U/L (16-63) Alkaline Phosphatase 67 U/L (46-116) Total Protein 6.4 g/dL (6.4-8.2) Albumin 2.6 g/dL (3.4-5.0) Albumin/Globulin Ratio 0.7 (1.0-1.7) Medications Active Scripts Medications Dose Route/Sig Max Daily Dose Days Date Category Montelukast Sodium Tablet (Montelukast Sodium) 10 Mg Tablet 10 Mg PO HS 04/12/17 Reported Zolpidem Tartrate 5 Mg Tablet 5 Mg PO PRN QHS PRN 04/12/17 Reported Ferrous Sulfate 325 Mg Tablet 325 Mg PO DAILY 04/12/17 Reported Senokot-S Tablet (Sennosides/Docusate Sodium) 1 Each Tablet 1 Each PO BID 04/12/17 Reported Spiriva (Tiotropium Alpine) 18 Mcg Cap.w.dev 1 Inh IH DAILY 04/12/17 Reported Cetirizine Hcl 10 Mg Tablet 10 Mg PO DAILY 04/12/17 Reported Propranolol Hcl 20 Mg Tablet 20 Mg PO DAILY 04/12/17 Reported Maalox Advanced Suspension (Mag Hydrox/Aluminum Hyd/Simeth) 355 Ml Oral.susp 5 Ml PO 04/12/17 Reported Nitrostat (Nitroglycerin) 0.4 Mg Tab.subl 0.4 Mg SL PRN Q5MIN PRN 04/12/17 Reported Ondansetron Odt (Ondansetron) 4 Mg Tab.rapdis 4 Mg PO PRN Q6HRS PRN 04/12/17 Reported Furosemide 40 Mg Tablet 40 Mg PO DAILY 04/12/17 Reported Metoprolol Succinate ( Xl ) (Metoprolol Succinate) 25 Mg Tab.er.24h 25 Mg PO DAILY 04/12/17 Reported Pantoprazole Sodium 40 Mg Tablet.dr 40 Mg PO DAILY 04/12/17 Reported Lisinopril 5 Mg Tablet 5 Mg PO DAILY 04/12/17 Reported Albuterol Sulfate Conc Neb Soln (Albuterol Sulfate) 2.5 Mg/0.5 Ml Vial.neb 2.5 Mg NEB PRN Q4HRS PRN 02/26/17 Reported Symbicort 160-4.5 Mcg Inhaler (Budesonide/Formoterol Fumarate) 10.2 Gm Hfa.aer.ad 1 Puff IH DAILY 02/26/17 Reported Nystatin 15 Gm Powder 15 Gm TP PRN PRN 02/26/17 Reported Atorvastatin Calcium 10 Mg Tablet 10 Mg PO HS 02/26/17 Reported Alum-Mag Hydroxide-Simeth Liq (Mag Hydrox/Al Hydrox/Simeth) 360 Ml Oral.susp 30 Ml PO PRN Q2HR PRN 02/26/17 Reported Dulcolax (Bisacodyl) 5 Mg Tablet.dr 1 Supp RC PRN DAILY PRN 02/26/17 Reported Robitussin Cough-Chest Dm Liq (Guaifenesin/Dextromethorphan) 237 Ml Liquid 10 Ml PO PRN Q4HRS PRN 02/26/17 Reported Milk Of Magnesia (Magnesium Hydroxide) 400 Mg/5 Ml Oral.susp 400 Mg PO PRN DAILY PRN 02/26/17 Reported Tylenol (Acetaminophen) 325 Mg Tablet 650 Mg PO PRN Q4HRS PRN 02/26/17 Reported Clopidogrel (Clopidogrel Bisulfate) 75 Mg Tablet 1 Tab PO DAILY 06/08/16 Reported Lo-Dose Aspirin EC (Aspirin) 81 Mg Tablet. 81 Mg PO 06/08/16 Reported Voltaren (Diclofenac Sodium) 100 Gm Gel..gram. 100 Gm TP TID 10/17/14 Reported Proair Hfa Inhaler (Albuterol Sulfate) 8.5 Gm Hfa.aer.ad 1 Puff INH PRN Q6HRS PRN 10/17/14 Reported [place] Carbonate 300 Mg Tablet 300 Mg PO HS 10/17/14 Reported Hydrocodone-Apap 5-325 (Hydrocodone Bit/Acetaminophen) 1 Each Tablet 1 Tab PO QID 10/17/14 Reported Flomax (Tamsulosin Hcl) 0.4 Mg Cap.er.24h 1 Cap PO DAILY 10/17/14 Reported Buspirone Hcl 10 Mg Tablet 10 Mg PO TID 10/17/14 Reported Avodart (Dutasteride) 0.5 Mg Capsule 1 Cap PO DAILY 10/17/14 Reported Prozac (Fluoxetine Hcl) 40 Mg Capsule 40 Mg PO DAILY 09/02/13 Reported Impression . 1. Acute hypoxic respiratory failure, which worsened while in the hospital due to development of interstitial pulmonary edema post-fluid resuscitation. 2. Abnormal chest x-ray with development of bilateral interstitial infiltrates with fluid resuscitation, treated with Lasix and now improving. 3. Underlying cardiomyopathy with an EF of 40%, being managed medically. He has moderate global hypokinesis. 4. Suspected urinary tract infection.culture negative 5. Chronic renal insufficiency. 6. Increased troponin level. 7. Moderate protein-calorie malnutrition. 8. Underlying chronic obstructive pulmonary disease. 9. Anemia. 10. shock, suspect cardiogenic,? septic , on BS antibiotics Plan . 1. repeat arterial blood gases showed improvement, doing well on nasal cannula. 2. Antibiotics per Infectious Disease. 3. Follow Cardiology recommendations.on levophed 4. Neg urine cultures. 5. Monitor white cell count. 6. Monitor hemoglobin. 7. Improve nutritional status. 8. Renal function needs to be closely monitored if creatinine continues to increase. 9. Consider IV dobutamine if ok by Cardiology. 10. 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 NICHOLAS DAVENPORT MD Apr 14, 2017 12:14
[2017-04-14] MEDS: MICAFUNGIN 100 MG in IV DEXTROSE 5% 100 ML IV SCH (12:22)
--- NOTE | 2017-04-14 15:21 | EKG ---
[facility] [address] [place] [address] Test Date: 2017-04-14 Test Time: 15:06:56 Pat Name: CHAPARRO FUNG Department: Room: 112 1 Gender: M Research Compliance Specialist: DESMOND : 1940 Requested By: Yenny MULLER Order Number: [id number] Reading MD: Carmita Castillo Measurements Intervals [place] Rate: 78 P: -28 NV: 144 QRS: -24 QRSD: 98 T: -89 QT: 438 QTc: 503 Interpretive Statements SINUS RHYTHM VENTRICULAR PREMATURE COMPLEX(ES) LEFTWARD AXIS T ABNORMALITY IN ANTERIOR LEADS INFEROLATERAL LEADS PROLONGED QT ABNORMAL ECG Electronically Signed On 04-15-2017 20:40:53 CDT by Carmita Castillo
[2017-04-14] MEDS: MONTELUKAST SODIUM 10 MG TABLET. PO SCH (21:23)
[2017-04-14] MEDS: LITHIUM CARBONATE 300 MG CAPSULE PO SCH (21:23)
[2017-04-14] MEDS: ATORVASTATIN CALCIUM 10 MG TABLET. PO SCH (21:23)
[2017-04-15] VITALS (13 sets, daily range): BP systolic 116–148; BP diastolic 39–72
[2017-04-15] MEDS: MEROPENEM 500 MG in IV NORMAL SALINE 50ML 50 ML IV SCH ×2 (05:44→13:53)
[2017-04-15 06:30] LABS: BASO % 0 % (0-3); EOS % 3 % (0-3); HEMATOCRIT 25.5 % (39.0-53.0); HEMOGLOBIN 8.2 g/dL (13.0-17.5); LYMPH # 0.7 x10^3/uL (1.0-4.8); LYMPH % 6 % (24-48); MEAN CORPUSCULAR HEMOGLOBIN 27 pg (25-35); MEAN CORPUSCULAR HGB CONC 32 g/dL (31-37); MEAN CORPUSCULAR VOLUME 82 fL (79-100); MONO % 8 % (0-9); NEUT % 83 % (31-73); PLATELET COUNT 141 x10^3/uL (140-400); RED CELL DISTRIBUTION WIDTH 17.2 % (11.5-14.5); WHITE BLOOD COUNT 11.1 x10^3/uL (4.0-11.0)
[2017-04-15 06:52] LABS: ALBUMIN 2.5 g/dL (3.4-5.0); ALBUMIN/GLOBULIN RATIO 0.7 (1.0-1.7); CALCIUM 8.5 mg/dL (8.5-10.1); CREATININE 2.1 mg/dL (0.7-1.3); GFR 30.9; TOTAL BILIRUBIN 0.5 mg/dL (0.2-1.0); TOTAL PROTEIN 5.9 g/dL (6.4-8.2)
--- NOTE | 2017-04-15 07:27 | PDOC ---
Infectious Disease Note Subjective Subjective Slept some but not enough. Tired. Has had some loose stools but no cramps/ nausea ROS ROS GEN: Denies fevers, chills, sweats HEENT: Denies blurred vision, sore throat CV: Denies chest pain RESP: Denies shortness of air, cough NEURO: Denies confusion, dizziness MSK: Denies weakness, joint pain/swelling Vital Sign Vital Signs Vital Signs Date Time Temp Pulse Resp B/P (MAP) Pulse Ox O2 Delivery O2 Flow Rate FiO2 04/15/17 06:00 90 21 130/71 (90) 99 Nasal Cannula 2.0 04/15/17 04:00 98.4 98.4 Physical Exam PHYSICAL EXAM GENERAL: NAD, Alert, coop. In bed. Does look a little tired HEENT: PERRL, OC/OP -clear NECK: Supple, no JVD, no LN LUNGS: Clear HEART: S1S2, no gallop, no murmur ABD: Soft, NT, no organomegaly, no rebound, obese Mccormick EXT: No edema, no cyanosis HOG MAN: Alert, oriented x 3, no focal neurologic deficit SKIN: No rash IV: ok Labs Lab Laboratory Tests Test 04/14/17 12:25 04/14/17 17:44 04/14/17 21:29 04/15/17 06:00 Glucose (Fingerstick) 141 mg/dL (70-99) 123 mg/dL (70-99) 146 mg/dL (70-99) White Blood Count 11.1 x10^3/uL (4.0-11.0) Red Blood Count 3.10 x10^6/uL (4.30-5.70) Hemoglobin 8.2 g/dL (13.0-17.5) Hematocrit 25.5 % (39.0-53.0) Mean Corpuscular Volume 82 fL (79-100) Mean Corpuscular Hemoglobin 27 pg (25-35) Mean Corpuscular Hemoglobin Concent 32 g/dL (31-37) Red Cell Distribution Width 17.2 % (11.5-14.5) Platelet Count 141 x10^3/uL (140-400) Neutrophils (%) (Auto) 83 % (31-73) Lymphocytes (%) (Auto) 6 % (24-48) Monocytes (%) (Auto) 8 % (0-9) Eosinophils (%) (Auto) 3 % (0-3) Basophils (%) (Auto) 0 % (0-3) Neutrophils # (Auto) 9.2 x10^3uL (1.8-7.7) Lymphocytes # (Auto) 0.7 x10^3/uL (1.0-4.8) Monocytes # (Auto) 0.9 x10^3/uL (0.0-1.1) Eosinophils # (Auto) 0.4 x10^3/uL (0.0-0.7) Basophils # (Auto) 0.0 x10^3/uL (0.0-0.2) Sodium Level 140 mmol/L (136-145) Potassium Level 4.0 mmol/L (3.5-5.1) Chloride Level 105 mmol/L (98-107) Carbon Dioxide Level 26 mmol/L (21-32) Anion Gap 9 (6-14) Blood Urea Nitrogen 45 mg/dL (8-26) Creatinine 2.1 mg/dL (0.7-1.3) Estimated GFR (Cockcroft-Gault) 30.9 BUN/Creatinine Ratio 21 (6-20) Glucose Level 98 mg/dL (70-99) Calcium Level 8.5 mg/dL (8.5-10.1) Total Bilirubin 0.5 mg/dL (0.2-1.0) Aspartate Amino Transf (AST/SGOT) 26 U/L (15-37) Alanine Aminotransferase (ALT/SGPT) 41 U/L (16-63) Alkaline Phosphatase 72 U/L (46-116) Total Protein 5.9 g/dL (6.4-8.2) Albumin 2.5 g/dL (3.4-5.0) Albumin/Globulin Ratio 0.7 (1.0-1.7) Objective Assessment Sepsis with hypotension, POA - now off Levophed - but clinically looks better Leukocytosis with bandemia - improving HCAP, currently off BiPAP. Levoflox dose 04/13 ? UTI, POA DUONG Urinary retention s/p indwelling Mccormick. 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
[2017-04-15] MEDS: busPIRone 10 MG TABLET. PO SCH ×3 (07:59→22:45)
[2017-04-15] MEDS: DUTASTERIDE 0.5 MG CAPSULE PO SCH (07:59)
[2017-04-15] MEDS: CETIRIZINE HCL 10 MG TABLET. PO SCH (07:59)
[2017-04-15] MEDS: FLUoxetine HCL 20 MG CAPSULE PO SCH (07:59)
[2017-04-15] MEDS: PANTOPRAZOLE 40 MG TABLET.DR. PO SCH (07:59)
[2017-04-15] MEDS: TAMSULOSIN 0.4 MG CAP.ER.24H. PO SCH (07:59)
[2017-04-15] MEDS: FERROUS SULFATE 325 MG TABLET. PO SCH (08:00)
[2017-04-15] MEDS: ASPIRIN ENTERIC COATED 81 MG TABLET.DR. PO SCH (08:00)
[2017-04-15] MEDS: SENNOSIDES/DOCUSATE 8.6/50MG TABLET. PO SCH ×2 (08:00→22:45)
[2017-04-15] MEDS: CLOPIDOGREL BISULFATE 75 MG TABLET PO SCH (08:00)
[2017-04-15] MEDS: METOPROLOL SUCC 24HR ER 25 MG TAB.ER.24H. PO SCH (08:00)
[2017-04-15] MEDS: FUROSEMIDE 40 MG TABLET. PO SCH (08:00)
[2017-04-15] MEDS: INSULIN ASPART 300 UNITS/3 ML INSULN.PEN SQ SCH ×3 (08:00→17:55)
[2017-04-15] MEDS: IPRATRPIUM/ALBUTEROL 0.5/2.5MG 3 ML NEBU. NEB SCH ×4 (08:26→20:36)
[2017-04-15] MEDS: BUDESONIDE 0.5 MG/2 ML NEBU. NEB SCH ×2 (08:26→20:36)
--- NOTE | 2017-04-15 10:14 | PDOC ---
FELICIA POLLACK DAIRY FARMER 04/15/17 1014: CARDIO Progress Notes Date and Time Date of Service 04/15/17 Time of Evaluation 1010 Subjective Subjective: No Chest Pain, No shortness of breath, No Palpitations Vitals Vitals Vital Signs Date Time Temp Pulse Resp B/P (MAP) Pulse Ox O2 Delivery O2 Flow Rate FiO2 04/15/17 09:00 98.6 87 30 148/65 (92) 100 Nasal Cannula 2.0 98.6 Weight Weight [ ] Input and Output Intake and Output Intake and Output 04/15/17 07:00 Intake Total 1476.6 ml Output Total 3420 ml Balance -1943.4 ml Intake Oral 515 ml IV Total 961.6 ml Output Urine Total 3420 ml # Bowel Movements 2 Laboratory Labs Laboratory Tests Test 04/14/17 12:25 04/14/17 17:44 04/14/17 21:29 04/15/17 06:00 Glucose (Fingerstick) 141 mg/dL (70-99) 123 mg/dL (70-99) 146 mg/dL (70-99) White Blood Count 11.1 x10^3/uL (4.0-11.0) Red Blood Count 3.10 x10^6/uL (4.30-5.70) Hemoglobin 8.2 g/dL (13.0-17.5) Hematocrit 25.5 % (39.0-53.0) Mean Corpuscular Volume 82 fL (79-100) Mean Corpuscular Hemoglobin 27 pg (25-35) Mean Corpuscular Hemoglobin Concent 32 g/dL (31-37) Red Cell Distribution Width 17.2 % (11.5-14.5) Platelet Count 141 x10^3/uL (140-400) Neutrophils (%) (Auto) 83 % (31-73) Lymphocytes (%) (Auto) 6 % (24-48) Monocytes (%) (Auto) 8 % (0-9) Eosinophils (%) (Auto) 3 % (0-3) Basophils (%) (Auto) 0 % (0-3) Neutrophils # (Auto) 9.2 x10^3uL (1.8-7.7) Lymphocytes # (Auto) 0.7 x10^3/uL (1.0-4.8) Monocytes # (Auto) 0.9 x10^3/uL (0.0-1.1) Eosinophils # (Auto) 0.4 x10^3/uL (0.0-0.7) Basophils # (Auto) 0.0 x10^3/uL (0.0-0.2) Sodium Level 140 mmol/L (136-145) Potassium Level 4.0 mmol/L (3.5-5.1) Chloride Level 105 mmol/L (98-107) Carbon Dioxide Level 26 mmol/L (21-32) Anion Gap 9 (6-14) Blood Urea Nitrogen 45 mg/dL (8-26) Creatinine 2.1 mg/dL (0.7-1.3) Estimated GFR (Cockcroft-Gault) 30.9 BUN/Creatinine Ratio 21 (6-20) Glucose Level 98 mg/dL (70-99) Calcium Level 8.5 mg/dL (8.5-10.1) Total Bilirubin 0.5 mg/dL (0.2-1.0) Aspartate Amino Transf (AST/SGOT) 26 U/L (15-37) Alanine Aminotransferase (ALT/SGPT) 41 U/L (16-63) Alkaline Phosphatase 72 U/L (46-116) Total Protein 5.9 g/dL (6.4-8.2) Albumin 2.5 g/dL (3.4-5.0) Albumin/Globulin Ratio 0.7 (1.0-1.7) Test 04/15/17 08:02 Glucose (Fingerstick) 115 mg/dL (70-99) Microbiology Micro Microbiology 04/12/17 Blood Culture - Preliminary, Resulted NO GROWTH AFTER 2 DAYS 04/11/17 Urine Culture - Preliminary, Resulted 04/11/17 Urine Culture Result 1 (MANDEEP) - Preliminary, Resulted Physical Exam HEENT: Neck Supple W Full Motion Chest: Symmetric LUNGS: Clear to Auscultation, Other (diminished bases) Heart: S1S2, RRR Abdomen: Soft N/T, Other (truncal obesity ) Extremities: No Edema, No Calf Tenderness Neurology: alert, oriented, follow commands Assessment Assessment 1. Sepsis with hypotension; requiring pressor support 2. Acute on chronic systolic HF with ICM; LVEF 40% 3. Acute on chronic respiratory failure 4. CAD s/p PCI/stents 5. DUONG on CKD Recommendations Compensated; continue routine oral diuretic Continue secondary prevention measures. Will follow along peripherally. F/u in our office with Dr. Condon as scheduled Please call with questions RADHA CONDON MD 04/15/17 1206: CARDIO Progress Notes Plan Plan Pt. seen and examined. Agree with above LINE O SCRIBE OPERATOR note. No acute events overnight. Currently on abx. Continue supportive care. Noted DUONG - likely due to urinary obstruction/sepsis. No further plans for cardiac intervention. Continue lipitor, low dose lasix, asa, plavix and toprol. On an outpt basis could consider arcadio-inh after acute renal issues resolved. Thanks FELICIA POLLACK APRN Apr 15, 2017 10:14 RADHA CONDON MD Apr 15, 2017 12:06
[2017-04-15] MEDS: MICAFUNGIN 100 MG in IV DEXTROSE 5% 100 ML IV SCH (10:31)
--- NOTE | 2017-04-15 12:05 | PDOC ---
PULMONARY PROGRESS NOTES Subjective fully awake no soa OFF levophed Vitals Vital Signs Date Time Temp Pulse Resp B/P (MAP) Pulse Ox O2 Delivery O2 Flow Rate FiO2 04/15/17 11:00 98.4 82 17 136/66 (89) 100 Nasal Cannula 2.0 98.4 ROS: No Nausea, No Chest Pain, No Abdominal Pain, No Increase Cough General: Alert, Oriented X4, No acute distress Lungs: Clear Cardiovascular: S1, S2 Abdomen: Soft, Non-tender Neuro Exam: Alert, Oriented, Normal Speech Extremities: Other (1+edema) Skin: Warm, Dry Labs Laboratory Tests Test 04/13/17 13:30 04/13/17 15:25 04/13/17 18:30 04/14/17 00:30 O2 Saturation 97 % (92-99) 94 % (92-99) Arterial Blood pH 7.40 (7.35-7.45) 7.38 (7.35-7.45) Arterial Blood pCO2 at Patient Temp 35 mmHg (35-46) 39 mmHg (35-46) Arterial Blood pO2 at Patient Temp 95 mmHg (65-108) 70 mmHg (65-108) Arterial Blood HCO3 21 mmol/L (21-28) 23 mmol/L (21-28) Arterial Blood Base Excess -4 mmol/L (-3-3) -3 mmol/L (-3-3) FiO2 30 28 Troponin I Quantitative 0.037 ng/mL (0.000-0.055) 0.031 ng/mL (0.000-0.055) Test 04/14/17 05:00 04/14/17 05:20 04/14/17 12:25 04/14/17 17:44 White Blood Count 14.7 x10^3/uL (4.0-11.0) Red Blood Count 3.29 x10^6/uL (4.30-5.70) Hemoglobin 8.9 g/dL (13.0-17.5) Hematocrit 27.2 % (39.0-53.0) Mean Corpuscular Volume 83 fL (79-100) Mean Corpuscular Hemoglobin 27 pg (25-35) Mean Corpuscular Hemoglobin Concent 33 g/dL (31-37) Red Cell Distribution Width 17.5 % (11.5-14.5) Platelet Count 141 x10^3/uL (140-400) Neutrophils (%) (Auto) 87 % (31-73) Lymphocytes (%) (Auto) 5 % (24-48) Monocytes (%) (Auto) 7 % (0-9) Eosinophils (%) (Auto) 1 % (0-3) Basophils (%) (Auto) 0 % (0-3) Neutrophils # (Auto) 12.8 x10^3uL (1.8-7.7) Lymphocytes # (Auto) 0.7 x10^3/uL (1.0-4.8) Monocytes # (Auto) 1.0 x10^3/uL (0.0-1.1) Eosinophils # (Auto) 0.2 x10^3/uL (0.0-0.7) Basophils # (Auto) 0.0 x10^3/uL (0.0-0.2) Sodium Level 135 mmol/L (136-145) Potassium Level 4.2 mmol/L (3.5-5.1) Chloride Level 101 mmol/L (98-107) Carbon Dioxide Level 23 mmol/L (21-32) Anion Gap 11 (6-14) Blood Urea Nitrogen 54 mg/dL (8-26) Creatinine 2.3 mg/dL (0.7-1.3) Estimated GFR (Cockcroft-Gault) 27.8 BUN/Creatinine Ratio 23 (6-20) Glucose Level 116 mg/dL (70-99) Calcium Level 8.5 mg/dL (8.5-10.1) Total Bilirubin 0.6 mg/dL (0.2-1.0) Aspartate Amino Transf (AST/SGOT) 32 U/L (15-37) Alanine Aminotransferase (ALT/SGPT) 45 U/L (16-63) Alkaline Phosphatase 67 U/L (46-116) Total Protein 6.4 g/dL (6.4-8.2) Albumin 2.6 g/dL (3.4-5.0) Albumin/Globulin Ratio 0.7 (1.0-1.7) Glucose (Fingerstick) 141 mg/dL (70-99) 123 mg/dL (70-99) Test 04/14/17 21:29 04/15/17 06:00 04/15/17 08:02 Glucose (Fingerstick) 146 mg/dL (70-99) 115 mg/dL (70-99) White Blood Count 11.1 x10^3/uL (4.0-11.0) Red Blood Count 3.10 x10^6/uL (4.30-5.70) Hemoglobin 8.2 g/dL (13.0-17.5) Hematocrit 25.5 % (39.0-53.0) Mean Corpuscular Volume 82 fL (79-100) Mean Corpuscular Hemoglobin 27 pg (25-35) Mean Corpuscular Hemoglobin Concent 32 g/dL (31-37) Red Cell Distribution Width 17.2 % (11.5-14.5) Platelet Count 141 x10^3/uL (140-400) Neutrophils (%) (Auto) 83 % (31-73) Lymphocytes (%) (Auto) 6 % (24-48) Monocytes (%) (Auto) 8 % (0-9) Eosinophils (%) (Auto) 3 % (0-3) Basophils (%) (Auto) 0 % (0-3) Neutrophils # (Auto) 9.2 x10^3uL (1.8-7.7) Lymphocytes # (Auto) 0.7 x10^3/uL (1.0-4.8) Monocytes # (Auto) 0.9 x10^3/uL (0.0-1.1) Eosinophils # (Auto) 0.4 x10^3/uL (0.0-0.7) Basophils # (Auto) 0.0 x10^3/uL (0.0-0.2) Sodium Level 140 mmol/L (136-145) Potassium Level 4.0 mmol/L (3.5-5.1) Chloride Level 105 mmol/L (98-107) Carbon Dioxide Level 26 mmol/L (21-32) Anion Gap 9 (6-14) Blood Urea Nitrogen 45 mg/dL (8-26) Creatinine 2.1 mg/dL (0.7-1.3) Estimated GFR (Cockcroft-Gault) 30.9 BUN/Creatinine Ratio 21 (6-20) Glucose Level 98 mg/dL (70-99) Calcium Level 8.5 mg/dL (8.5-10.1) Total Bilirubin 0.5 mg/dL (0.2-1.0) Aspartate Amino Transf (AST/SGOT) 26 U/L (15-37) Alanine Aminotransferase (ALT/SGPT) 41 U/L (16-63) Alkaline Phosphatase 72 U/L (46-116) Total Protein 5.9 g/dL (6.4-8.2) Albumin 2.5 g/dL (3.4-5.0) Albumin/Globulin Ratio 0.7 (1.0-1.7) Laboratory Tests Test 04/14/17 12:25 04/14/17 17:44 04/14/17 21:29 04/15/17 06:00 Glucose (Fingerstick) 141 mg/dL (70-99) 123 mg/dL (70-99) 146 mg/dL (70-99) White Blood Count 11.1 x10^3/uL (4.0-11.0) Red Blood Count 3.10 x10^6/uL (4.30-5.70) Hemoglobin 8.2 g/dL (13.0-17.5) Hematocrit 25.5 % (39.0-53.0) Mean Corpuscular Volume 82 fL (79-100) Mean Corpuscular Hemoglobin 27 pg (25-35) Mean Corpuscular Hemoglobin Concent 32 g/dL (31-37) Red Cell Distribution Width 17.2 % (11.5-14.5) Platelet Count 141 x10^3/uL (140-400) Neutrophils (%) (Auto) 83 % (31-73) Lymphocytes (%) (Auto) 6 % (24-48) Monocytes (%) (Auto) 8 % (0-9) Eosinophils (%) (Auto) 3 % (0-3) Basophils (%) (Auto) 0 % (0-3) Neutrophils # (Auto) 9.2 x10^3uL (1.8-7.7) Lymphocytes # (Auto) 0.7 x10^3/uL (1.0-4.8) Monocytes # (Auto) 0.9 x10^3/uL (0.0-1.1) Eosinophils # (Auto) 0.4 x10^3/uL (0.0-0.7) Basophils # (Auto) 0.0 x10^3/uL (0.0-0.2) Sodium Level 140 mmol/L (136-145) Potassium Level 4.0 mmol/L (3.5-5.1) Chloride Level 105 mmol/L (98-107) Carbon Dioxide Level 26 mmol/L (21-32) Anion Gap 9 (6-14) Blood Urea Nitrogen 45 mg/dL (8-26) Creatinine 2.1 mg/dL (0.7-1.3) Estimated GFR (Cockcroft-Gault) 30.9 BUN/Creatinine Ratio 21 (6-20) Glucose Level 98 mg/dL (70-99) Calcium Level 8.5 mg/dL (8.5-10.1) Total Bilirubin 0.5 mg/dL (0.2-1.0) Aspartate Amino Transf (AST/SGOT) 26 U/L (15-37) Alanine Aminotransferase (ALT/SGPT) 41 U/L (16-63) Alkaline Phosphatase 72 U/L (46-116) Total Protein 5.9 g/dL (6.4-8.2) Albumin 2.5 g/dL (3.4-5.0) Albumin/Globulin Ratio 0.7 (1.0-1.7) Test 04/15/17 08:02 Glucose (Fingerstick) 115 mg/dL (70-99) Medications Active Scripts Medications Dose Route/Sig Max Daily Dose Days Date Category Montelukast Sodium Tablet (Montelukast Sodium) 10 Mg Tablet 10 Mg PO HS 04/12/17 Reported Zolpidem Tartrate 5 Mg Tablet 5 Mg PO PRN QHS PRN 04/12/17 Reported Ferrous Sulfate 325 Mg Tablet 325 Mg PO DAILY 04/12/17 Reported Senokot-S Tablet (Sennosides/Docusate Sodium) 1 Each Tablet 1 Each PO BID 04/12/17 Reported Spiriva (Tiotropium [place]) 18 Mcg Cap.w.dev 1 Inh IH DAILY 04/12/17 Reported Cetirizine Hcl 10 Mg Tablet 10 Mg PO DAILY 04/12/17 Reported Propranolol Hcl 20 Mg Tablet 20 Mg PO DAILY 04/12/17 Reported Maalox Advanced Suspension (Mag Hydrox/Aluminum Hyd/Simeth) 355 Ml Oral.susp 5 Ml PO 04/12/17 Reported Nitrostat (Nitroglycerin) 0.4 Mg Tab.subl 0.4 Mg SL PRN Q5MIN PRN 04/12/17 Reported Ondansetron Odt (Ondansetron) 4 Mg Tab.rapdis 4 Mg PO PRN Q6HRS PRN 04/12/17 Reported Furosemide 40 Mg Tablet 40 Mg PO DAILY 04/12/17 Reported Metoprolol Succinate ( Xl ) (Metoprolol Succinate) 25 Mg Tab.er.24h 25 Mg PO DAILY 04/12/17 Reported Pantoprazole Sodium 40 Mg Tablet. 40 Mg PO DAILY 04/12/17 Reported Lisinopril 5 Mg Tablet 5 Mg PO DAILY 04/12/17 Reported Albuterol Sulfate Conc Neb Soln (Albuterol Sulfate) 2.5 Mg/0.5 Ml Vial.neb 2.5 Mg NEB PRN Q4HRS PRN 02/26/17 Reported Symbicort 160-4.5 Mcg Inhaler (Budesonide/Formoterol Fumarate) 10.2 Gm Hfa.aer.ad 1 Puff IH DAILY 02/26/17 Reported Nystatin 15 Gm Powder 15 Gm TP PRN PRN 02/26/17 Reported Atorvastatin Calcium 10 Mg Tablet 10 Mg PO HS 02/26/17 Reported Alum-Mag Hydroxide-Simeth Liq (Mag Hydrox/Al Hydrox/Simeth) 360 Ml Oral.susp 30 Ml PO PRN Q2HR PRN 02/26/17 Reported Dulcolax (Bisacodyl) 5 Mg Tablet.dr 1 Supp RC PRN DAILY PRN 02/26/17 Reported Robitussin Cough-Chest Dm Liq (Guaifenesin/Dextromethorphan) 237 Ml Liquid 10 Ml PO PRN Q4HRS PRN 02/26/17 Reported Milk Of Magnesia (Magnesium Hydroxide) 400 Mg/5 Ml Oral.susp 400 Mg PO PRN DAILY PRN 02/26/17 Reported Tylenol (Acetaminophen) 325 Mg Tablet 650 Mg PO PRN Q4HRS PRN 02/26/17 Reported Clopidogrel (Clopidogrel Bisulfate) 75 Mg Tablet 1 Tab PO DAILY 06/08/16 Reported Lo-Dose Aspirin EC (Aspirin) 81 Mg Tablet. 81 Mg PO 06/08/16 Reported Voltaren (Diclofenac Sodium) 100 Gm Gel..gram. 100 Gm TP TID 10/17/14 Reported Proair Hfa Inhaler (Albuterol Sulfate) 8.5 Gm Hfa.aer.ad 1 Puff INH PRN Q6HRS PRN 10/17/14 Reported [place] Carbonate 300 Mg Tablet 300 Mg PO HS 10/17/14 Reported Hydrocodone-Apap 5-325 (Hydrocodone Bit/Acetaminophen) 1 Each Tablet 1 Tab PO QID 10/17/14 Reported Flomax (Tamsulosin Hcl) 0.4 Mg Cap.er.24h 1 Cap PO DAILY 10/17/14 Reported Buspirone Hcl 10 Mg Tablet 10 Mg PO TID 10/17/14 Reported Avodart (Dutasteride) 0.5 Mg Capsule 1 Cap PO DAILY 10/17/14 Reported Prozac (Fluoxetine Hcl) 40 Mg Capsule 40 Mg PO DAILY 09/02/13 Reported Impression . 1. Acute hypoxic respiratory failure, which worsened while in the hospital due to development of interstitial pulmonary edema post-fluid resuscitation. improved 2. Abnormal chest x-ray with development of bilateral interstitial infiltrates with fluid resuscitation, treated with Lasix and now improved 3. Underlying cardiomyopathy with an EF of 40%, being managed medically. He has moderate global hypokinesis. 4. Suspected urinary tract infection.culture negative 5. Chronic renal insufficiency. 6. Increased troponin level. 7. Moderate protein-calorie malnutrition. 8. Underlying chronic obstructive pulmonary disease. 9. Anemia. 10. shock, suspect cardiogenic,? septic , on BS antibiotics, off levophed Plan . 1. doing well on nasal cannula. 2. Antibiotics per Infectious Disease. 3. Follow Cardiology recommendations. 4. Neg urine cultures. 5. Monitor white cell count. 6. Monitor hemoglobin. 7. Improve nutritional status. 8. Renal function needs to be closely monitored 10. Discussed with chronometer adjuster to [facility] NICHOLAS DAVENPORT MD Apr 15, 2017 12:05
--- NOTE | 2017-04-15 13:55 | PDOC ---
PROGRESS NOTES Subjective Off levaphed and transferred to monitored bed, no cardiac complaints, staff had difficulty getting him to transfer due to SOA caused by that process. Still on IV antibiotics and antifungals but WBC improved, renal function improved and still afebrile. He denies any GI symptomas and is tolerating Mccormick Objective Afebrile BP: 136/66 General: NAD, sitting in chair, no respiratory distress Heart: RRR, S1, S2 Lungs: clear anteriorly Abd: soft, obese, normal bowel sounds, non tender Ext: LE weakness, no significant edema, no clubbing or cyanosis WBC: 11.1 Hgb: 8.2 K+: 4.0 Creat: 2.1 Albumin 2.5 glucose: 98 Vital Signs Vital Signs Date Time Temp Pulse Resp B/P (MAP) Pulse Ox O2 Delivery O2 Flow Rate FiO2 04/15/17 12:03 Nasal Cannula 3.0 04/15/17 11:00 98.4 82 17 136/66 (89) 100 98.4 I & O Intake and Output 04/15/17 07:00 Intake Total 1476.6 ml Output Total 3420 ml Balance -1943.4 ml Intake Oral 515 ml IV Total 961.6 ml Output Urine Total 3420 ml # Bowel Movements 2 Assessment and Plan 1. Sepsis, resolving. This was most likely is a urinary source but cx from negative - antibiotics per ID. 2. Acute respiratory failure with interstitial pulmonary edema, sepsis protocol, fluid resuscitation. Responded to diuresis, now resolved. 3. Acute on chronic systolic/diastolic heart failure with ejection fraction of 40% on echo, moderate global hypokinesis, off pressor support, transferred to monitored bed. 4. Likely urinary tract infection despite negative culture. 5. Acute kidney injury with stage 3 chronic renal disease - stable, mild bump in creatinine after diuresis, slowly improving and I expect it will slowly return to 1.5 range. 6. Abnormal troponin, now down, likely demand ischemia but he has known CAD and had NSTEMI 10 mo ago. 7. Hypocalcemia, likely related to moderate protein calorie malnutrition. 8. Chronic obstructive pulmonary disease. 9. Anemia with a normal MCV, likely of chronic disease. 10. 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 11. Bipolar. 12. Depression. 13. Anxiety with occasional tremor related to that. 14. toxic encephalopathy - resolved 15. diet controlled diabetes, - ADA diet, SSI if needed 16. deconditioning - PT/OT eval and treat, he has been LTC at [facility] but will likely need [facility] for a couple of weeks. He currently needs Collin lift to safely transfer from bed to chair Problems: Yenny MULLER MD Apr 15, 2017 13:55
[2017-04-15 14:36] LABS: % SAT IRON 22 % (15-34); IRON,SERUM 49 ug/dL (65-175)
[2017-04-15 15:43] LABS: FOLATE 5.88 ng/ml (3.2-20.0)
[2017-04-15] MEDS: LITHIUM CARBONATE 300 MG CAPSULE PO SCH (22:44)
[2017-04-15] MEDS: ATORVASTATIN CALCIUM 10 MG TABLET. PO SCH (22:44)
[2017-04-15] MEDS: MONTELUKAST SODIUM 10 MG TABLET. PO SCH (22:45)
[2017-04-16] MEDS: MEROPENEM 500 MG in IV NORMAL SALINE 50ML 50 ML IV SCH ×4 (02:38→20:23)
[2017-04-16 03:00] VITALS: BP 142/57
[2017-04-16 04:26] LABS: BASO # 0.1 x10^3/uL (0.0-0.2); BASO % 1 % (0-3); EOS % 8 % (0-3); HEMATOCRIT 27.9 % (39.0-53.0); HEMOGLOBIN 8.9 g/dL (13.0-17.5); LYMPH # 0.9 x10^3/uL (1.0-4.8); LYMPH % 9 % (24-48); MEAN CORPUSCULAR HEMOGLOBIN 27 pg (25-35); MEAN CORPUSCULAR HGB CONC 32 g/dL (31-37); MEAN CORPUSCULAR VOLUME 84 fL (79-100); MONO % 7 % (0-9); NEUT % 75 % (31-73); PLATELET COUNT 147 x10^3/uL (140-400); RED CELL DISTRIBUTION WIDTH 17.5 % (11.5-14.5); WHITE BLOOD COUNT 9.7 x10^3/uL (4.0-11.0)
[2017-04-16 04:45] LABS: CALCIUM 8.4 mg/dL (8.5-10.1); CREATININE 1.8 mg/dL (0.7-1.3); GFR 36.9; POTASSIUM 3.9 mmol/L (3.5-5.1)
[2017-04-16 07:00] VITALS: BP 133/70
[2017-04-16] MEDS: BUDESONIDE 0.5 MG/2 ML NEBU. NEB SCH ×2 (07:40→20:14)
[2017-04-16] MEDS: IPRATRPIUM/ALBUTEROL 0.5/2.5MG 3 ML NEBU. NEB SCH ×4 (07:40→20:14)
[2017-04-16] MEDS: INSULIN ASPART 300 UNITS/3 ML INSULN.PEN SQ SCH ×3 (08:00→17:00)
[2017-04-16] MEDS ORDERED: FERROUS SULFATE 325 MG TABLET. PO SCH (08:00)
--- NOTE | 2017-04-16 08:42 | PDOC ---
Infectious Disease Note Subjective Subjective Better today. Slept some more. + Hungry. Improved loose stools but no cramps/ nausea Was able to get into chair yesterday ROS ROS GEN: Denies fevers, chills, sweats HEENT: Denies blurred vision, sore throat CV: Denies chest pain RESP: Denies shortness of air, cough GI: Denies n/v/d NEURO: Denies confusion, dizziness MSK: Denies weakness, joint pain/swelling Vital Sign Vital Signs Vital Signs Date Time Temp Pulse Resp B/P (MAP) Pulse Ox O2 Delivery O2 Flow Rate FiO2 04/16/17 07:40 97 Nasal Cannula 1.5 04/16/17 07:00 97.6 85 22 133/70 (91) 97.6 Physical Exam PHYSICAL EXAM GENERAL: NAD, Alert, coop. In bed. Looks better HEENT: PERRL, OC/OP -clear NECK: Supple, no JVD, no LN LUNGS: Clear HEART: S1S2, no gallop, no murmur ABD: Soft, NT, no organomegaly, no rebound, obese Mccormick EXT: No edema, no cyanosis BANK COURIER: Alert, oriented x 3, no focal neurologic deficit SKIN: No rash IV: ok Labs Lab Laboratory Tests Test 04/15/17 12:06 04/15/17 16:35 04/15/17 20:41 04/16/17 04:00 Glucose (Fingerstick) 118 mg/dL (70-99) 151 mg/dL (70-99) 112 mg/dL (70-99) White Blood Count 9.7 x10^3/uL (4.0-11.0) Red Blood Count 3.30 x10^6/uL (4.30-5.70) Hemoglobin 8.9 g/dL (13.0-17.5) Hematocrit 27.9 % (39.0-53.0) Mean Corpuscular Volume 84 fL (79-100) Mean Corpuscular Hemoglobin 27 pg (25-35) Mean Corpuscular Hemoglobin Concent 32 g/dL (31-37) Red Cell Distribution Width 17.5 % (11.5-14.5) Platelet Count 147 x10^3/uL (140-400) Neutrophils (%) (Auto) 75 % (31-73) Lymphocytes (%) (Auto) 9 % (24-48) Monocytes (%) (Auto) 7 % (0-9) Eosinophils (%) (Auto) 8 % (0-3) Basophils (%) (Auto) 1 % (0-3) Neutrophils # (Auto) 7.3 x10^3uL (1.8-7.7) Lymphocytes # (Auto) 0.9 x10^3/uL (1.0-4.8) Monocytes # (Auto) 0.7 x10^3/uL (0.0-1.1) Eosinophils # (Auto) 0.7 x10^3/uL (0.0-0.7) Basophils # (Auto) 0.1 x10^3/uL (0.0-0.2) Sodium Level 141 mmol/L (136-145) Potassium Level 3.9 mmol/L (3.5-5.1) Chloride Level 106 mmol/L (98-107) Carbon Dioxide Level 29 mmol/L (21-32) Anion Gap 6 (6-14) Blood Urea Nitrogen 33 mg/dL (8-26) Creatinine 1.8 mg/dL (0.7-1.3) Estimated GFR (Cockcroft-Gault) 36.9 Glucose Level 108 mg/dL (70-99) Calcium Level 8.4 mg/dL (8.5-10.1) Test 04/16/17 07:46 Glucose (Fingerstick) 113 mg/dL (70-99) Objective Assessment Sepsis with hypotension, POA - now off Levophed - but clinically looks better Leukocytosis with bandemia - improving HCAP, currently off BiPAP. Levoflox dose 04/13 ? UTI, POA DUONG Urinary retention s/p indwelling Mccormick. 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
[2017-04-16] MEDS: DUTASTERIDE 0.5 MG CAPSULE PO SCH (08:54)
[2017-04-16] MEDS: METOPROLOL SUCC 24HR ER 25 MG TAB.ER.24H. PO SCH (08:54)
--- NOTE | 2017-04-16 08:54 | PDOC ---
PROGRESS NOTES Subjective Mr. Hannon is feeling better than yesterday, c/o SOB but is improving. Weaning off antibiotics, WBC count down. Renal function continues to improve. States he had diarrhea 2 days ago, had 8 BM's in a 30-hour period, but did not have any yesterday or last night. Denies chest pain, fever or abdominal pain. Does have a cough. Lab yesterday showed he is iron deficient Objective Afebrile General: AAOx3, NAD Heart: heart sounds distant but RRR without murmurs Lungs: Clear to auscultation Abd: obese, soft Ext: unable to lift legs, no significant edema WBC: 9.7 Hgb: 8.9 Creat: 1.8 Vital Signs Vital Signs Date Time Temp Pulse Resp B/P (MAP) Pulse Ox O2 Delivery O2 Flow Rate FiO2 04/16/17 07:40 97 Nasal Cannula 1.5 04/16/17 07:00 97.6 85 22 133/70 (91) 97.6 I & O Intake and Output 04/16/17 07:00 Intake Total 1400 ml Output Total 650 ml Balance 750 ml Intake Oral 900 ml IV Total 500 ml Output Urine Total 650 ml Assessment and Plan Problems 1. Sepsis, resolving. This was most likely is a urinary source but cx from negative - antibiotics per ID. 2. Acute respiratory failure with interstitial pulmonary edema, sepsis protocol, fluid resuscitation. Responded to diuresis, now resolved. 3. Acute on chronic systolic/diastolic heart failure with ejection fraction of 40% on echo, moderate global hypokinesis, off pressor support, transferred to monitored bed. 4. Likely urinary tract infection despite negative culture. 5. Acute kidney injury with stage 3 chronic renal disease - stable, mild bump in creatinine after diuresis, slowly improving and I expect it will slowly return to 1.5 range. 6. Abnormal troponin, now down, likely demand ischemia but he has known CAD and had NSTEMI 10 mo ago. 7. Hypocalcemia, likely related to moderate protein calorie malnutrition. 8. Chronic obstructive pulmonary disease. 9. Anemia with a normal MCV, lab shows iron deficiency, iron added po dose daily. 10. 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 11. Bipolar. 12. Depression. 13. Anxiety with occasional tremor related to that. 14. toxic encephalopathy - resolved 15. diet controlled diabetes, - ADA diet, SSI if needed 16. deconditioning - PT/OT eval and treat, he has been LTC at [facility] but will likely need retirement for a couple of weeks. He currently needs Collin lift to safely transfer from bed to chair Problems: Yenny MULLER MD Apr 16, 2017 08:53
[2017-04-16] MEDS: FUROSEMIDE 40 MG TABLET. PO SCH (08:55)
[2017-04-16] MEDS: ASPIRIN ENTERIC COATED 81 MG TABLET.DR. PO SCH (08:55)
[2017-04-16] MEDS: FLUoxetine HCL 20 MG CAPSULE PO SCH (08:55)
[2017-04-16] MEDS: TAMSULOSIN 0.4 MG CAP.ER.24H. PO SCH (08:55)
[2017-04-16] MEDS: PANTOPRAZOLE 40 MG TABLET.DR. PO SCH (08:55)
[2017-04-16] MEDS: FERROUS SULFATE 325 MG TABLET. PO SCH (08:55)
[2017-04-16] MEDS: busPIRone 10 MG TABLET. PO SCH ×3 (08:55→20:21)
[2017-04-16] MEDS: CETIRIZINE HCL 10 MG TABLET. PO SCH (08:55)
[2017-04-16] MEDS: CLOPIDOGREL BISULFATE 75 MG TABLET PO SCH (08:55)
[2017-04-16] MEDS: SENNOSIDES/DOCUSATE 8.6/50MG TABLET. PO SCH ×2 (09:00→20:20)
--- NOTE | 2017-04-16 10:30 | PDOC ---
PULMONARY PROGRESS NOTES Subjective fully awake no soa Vitals Vital Signs Date Time Temp Pulse Resp B/P (MAP) Pulse Ox O2 Delivery O2 Flow Rate FiO2 04/16/17 08:54 85 133/70 04/16/17 07:40 97 Nasal Cannula 1.5 04/16/17 07:00 97.6 22 97.6 ROS: No Nausea, No Chest Pain, No Abdominal Pain, No Increase Cough General: Alert, Oriented X4, No acute distress Lungs: Clear Cardiovascular: S1, S2 Abdomen: Soft, Non-tender Neuro Exam: Alert, Oriented, Normal Speech Extremities: Other (1+edema) Skin: Warm, Dry Labs Laboratory Tests Test 04/14/17 12:25 04/14/17 17:44 04/14/17 21:29 04/15/17 06:00 Glucose (Fingerstick) 141 mg/dL (70-99) 123 mg/dL (70-99) 146 mg/dL (70-99) White Blood Count 11.1 x10^3/uL (4.0-11.0) Red Blood Count 3.10 x10^6/uL (4.30-5.70) Hemoglobin 8.2 g/dL (13.0-17.5) Hematocrit 25.5 % (39.0-53.0) Mean Corpuscular Volume 82 fL (79-100) Mean Corpuscular Hemoglobin 27 pg (25-35) Mean Corpuscular Hemoglobin Concent 32 g/dL (31-37) Red Cell Distribution Width 17.2 % (11.5-14.5) Platelet Count 141 x10^3/uL (140-400) Neutrophils (%) (Auto) 83 % (31-73) Lymphocytes (%) (Auto) 6 % (24-48) Monocytes (%) (Auto) 8 % (0-9) Eosinophils (%) (Auto) 3 % (0-3) Basophils (%) (Auto) 0 % (0-3) Neutrophils # (Auto) 9.2 x10^3uL (1.8-7.7) Lymphocytes # (Auto) 0.7 x10^3/uL (1.0-4.8) Monocytes # (Auto) 0.9 x10^3/uL (0.0-1.1) Eosinophils # (Auto) 0.4 x10^3/uL (0.0-0.7) Basophils # (Auto) 0.0 x10^3/uL (0.0-0.2) Sodium Level 140 mmol/L (136-145) Potassium Level 4.0 mmol/L (3.5-5.1) Chloride Level 105 mmol/L (98-107) Carbon Dioxide Level 26 mmol/L (21-32) Anion Gap 9 (6-14) Blood Urea Nitrogen 45 mg/dL (8-26) Creatinine 2.1 mg/dL (0.7-1.3) Estimated GFR (Cockcroft-Gault) 30.9 BUN/Creatinine Ratio 21 (6-20) Glucose Level 98 mg/dL (70-99) Calcium Level 8.5 mg/dL (8.5-10.1) Iron Level 49 ug/dL (65-175) Total Iron Binding Capacity 218 ug/dL (250-450) Iron Saturation 22 % (15-34) Ferritin 131 ng/mL (26-388) Total Bilirubin 0.5 mg/dL (0.2-1.0) Aspartate Amino Transf (AST/SGOT) 26 U/L (15-37) Alanine Aminotransferase (ALT/SGPT) 41 U/L (16-63) Alkaline Phosphatase 72 U/L (46-116) Total Protein 5.9 g/dL (6.4-8.2) Albumin 2.5 g/dL (3.4-5.0) Albumin/Globulin Ratio 0.7 (1.0-1.7) Vitamin B12 Level 338 pg/mL (247-911) Serum Folate 5.88 ng/ml (3.2-20.0) Test 04/15/17 08:02 04/15/17 12:06 04/15/17 16:35 04/15/17 20:41 Glucose (Fingerstick) 115 mg/dL (70-99) 118 mg/dL (70-99) 151 mg/dL (70-99) 112 mg/dL (70-99) Test 04/16/17 04:00 04/16/17 07:46 White Blood Count 9.7 x10^3/uL (4.0-11.0) Red Blood Count 3.30 x10^6/uL (4.30-5.70) Hemoglobin 8.9 g/dL (13.0-17.5) Hematocrit 27.9 % (39.0-53.0) Mean Corpuscular Volume 84 fL (79-100) Mean Corpuscular Hemoglobin 27 pg (25-35) Mean Corpuscular Hemoglobin Concent 32 g/dL (31-37) Red Cell Distribution Width 17.5 % (11.5-14.5) Platelet Count 147 x10^3/uL (140-400) Neutrophils (%) (Auto) 75 % (31-73) Lymphocytes (%) (Auto) 9 % (24-48) Monocytes (%) (Auto) 7 % (0-9) Eosinophils (%) (Auto) 8 % (0-3) Basophils (%) (Auto) 1 % (0-3) Neutrophils # (Auto) 7.3 x10^3uL (1.8-7.7) Lymphocytes # (Auto) 0.9 x10^3/uL (1.0-4.8) Monocytes # (Auto) 0.7 x10^3/uL (0.0-1.1) Eosinophils # (Auto) 0.7 x10^3/uL (0.0-0.7) Basophils # (Auto) 0.1 x10^3/uL (0.0-0.2) Sodium Level 141 mmol/L (136-145) Potassium Level 3.9 mmol/L (3.5-5.1) Chloride Level 106 mmol/L (98-107) Carbon Dioxide Level 29 mmol/L (21-32) Anion Gap 6 (6-14) Blood Urea Nitrogen 33 mg/dL (8-26) Creatinine 1.8 mg/dL (0.7-1.3) Estimated GFR (Cockcroft-Gault) 36.9 Glucose Level 108 mg/dL (70-99) Calcium Level 8.4 mg/dL (8.5-10.1) Glucose (Fingerstick) 113 mg/dL (70-99) Laboratory Tests Test 04/15/17 12:06 04/15/17 16:35 04/15/17 20:41 04/16/17 04:00 Glucose (Fingerstick) 118 mg/dL (70-99) 151 mg/dL (70-99) 112 mg/dL (70-99) White Blood Count 9.7 x10^3/uL (4.0-11.0) Red Blood Count 3.30 x10^6/uL (4.30-5.70) Hemoglobin 8.9 g/dL (13.0-17.5) Hematocrit 27.9 % (39.0-53.0) Mean Corpuscular Volume 84 fL (79-100) Mean Corpuscular Hemoglobin 27 pg (25-35) Mean Corpuscular Hemoglobin Concent 32 g/dL (31-37) Red Cell Distribution Width 17.5 % (11.5-14.5) Platelet Count 147 x10^3/uL (140-400) Neutrophils (%) (Auto) 75 % (31-73) Lymphocytes (%) (Auto) 9 % (24-48) Monocytes (%) (Auto) 7 % (0-9) Eosinophils (%) (Auto) 8 % (0-3) Basophils (%) (Auto) 1 % (0-3) Neutrophils # (Auto) 7.3 x10^3uL (1.8-7.7) Lymphocytes # (Auto) 0.9 x10^3/uL (1.0-4.8) Monocytes # (Auto) 0.7 x10^3/uL (0.0-1.1) Eosinophils # (Auto) 0.7 x10^3/uL (0.0-0.7) Basophils # (Auto) 0.1 x10^3/uL (0.0-0.2) Sodium Level 141 mmol/L (136-145) Potassium Level 3.9 mmol/L (3.5-5.1) Chloride Level 106 mmol/L (98-107) Carbon Dioxide Level 29 mmol/L (21-32) Anion Gap 6 (6-14) Blood Urea Nitrogen 33 mg/dL (8-26) Creatinine 1.8 mg/dL (0.7-1.3) Estimated GFR (Cockcroft-Gault) 36.9 Glucose Level 108 mg/dL (70-99) Calcium Level 8.4 mg/dL (8.5-10.1) Test 04/16/17 07:46 Glucose (Fingerstick) 113 mg/dL (70-99) Medications Active Scripts Medications Dose Route/Sig Max Daily Dose Days Date Category Montelukast Sodium Tablet (Montelukast Sodium) 10 Mg Tablet 10 Mg PO HS 04/12/17 Reported Zolpidem Tartrate 5 Mg Tablet 5 Mg PO PRN QHS PRN 04/12/17 Reported Ferrous Sulfate 325 Mg Tablet 325 Mg PO DAILY 04/12/17 Reported Senokot-S Tablet (Sennosides/Docusate Sodium) 1 Each Tablet 1 Each PO BID 04/12/17 Reported Spiriva (Tiotropium [place]) 18 Mcg Cap.w.dev 1 Inh IH DAILY 04/12/17 Reported Cetirizine Hcl 10 Mg Tablet 10 Mg PO DAILY 04/12/17 Reported Propranolol Hcl 20 Mg Tablet 20 Mg PO DAILY 04/12/17 Reported Maalox Advanced Suspension (Mag Hydrox/Aluminum Hyd/Simeth) 355 Ml Oral.susp 5 Ml PO 04/12/17 Reported Nitrostat (Nitroglycerin) 0.4 Mg Tab.subl 0.4 Mg SL PRN Q5MIN PRN 04/12/17 Reported Ondansetron Odt (Ondansetron) 4 Mg Tab.rapdis 4 Mg PO PRN Q6HRS PRN 04/12/17 Reported Furosemide 40 Mg Tablet 40 Mg PO DAILY 04/12/17 Reported Metoprolol Succinate ( Xl ) (Metoprolol Succinate) 25 Mg Tab.er.24h 25 Mg PO DAILY 04/12/17 Reported Pantoprazole Sodium 40 Mg Tablet. 40 Mg PO DAILY 04/12/17 Reported Lisinopril 5 Mg Tablet 5 Mg PO DAILY 04/12/17 Reported Albuterol Sulfate Conc Neb Soln (Albuterol Sulfate) 2.5 Mg/0.5 Ml Vial.neb 2.5 Mg NEB PRN Q4HRS PRN 02/26/17 Reported Symbicort 160-4.5 Mcg Inhaler (Budesonide/Formoterol Fumarate) 10.2 Gm Hfa.aer.ad 1 Puff IH DAILY 02/26/17 Reported Nystatin 15 Gm Powder 15 Gm TP PRN PRN 02/26/17 Reported Atorvastatin Calcium 10 Mg Tablet 10 Mg PO HS 02/26/17 Reported Alum-Mag Hydroxide-Simeth Liq (Mag Hydrox/Al Hydrox/Simeth) 360 Ml Oral.susp 30 Ml PO PRN Q2HR PRN 02/26/17 Reported Dulcolax (Bisacodyl) 5 Mg Tablet.dr 1 Supp RC PRN DAILY PRN 02/26/17 Reported Robitussin Cough-Chest Dm Liq (Guaifenesin/Dextromethorphan) 237 Ml Liquid 10 Ml PO PRN Q4HRS PRN 02/26/17 Reported Milk Of Magnesia (Magnesium Hydroxide) 400 Mg/5 Ml Oral.susp 400 Mg PO PRN DAILY PRN 02/26/17 Reported Tylenol (Acetaminophen) 325 Mg Tablet 650 Mg PO PRN Q4HRS PRN 02/26/17 Reported Clopidogrel (Clopidogrel Bisulfate) 75 Mg Tablet 1 Tab PO DAILY 06/08/16 Reported Lo-Dose Aspirin EC (Aspirin) 81 Mg Tablet.dr 81 Mg PO 06/08/16 Reported Voltaren (Diclofenac Sodium) 100 Gm Gel..gram. 100 Gm TP TID 10/17/14 Reported Proair Hfa Inhaler (Albuterol Sulfate) 8.5 Gm Hfa.aer.ad 1 Puff INH PRN Q6HRS PRN 10/17/14 Reported [place] Carbonate 300 Mg Tablet 300 Mg PO HS 10/17/14 Reported Hydrocodone-Apap 5-325 (Hydrocodone Bit/Acetaminophen) 1 Each Tablet 1 Tab PO QID 10/17/14 Reported Flomax (Tamsulosin Hcl) 0.4 Mg Cap.er.24h 1 Cap PO DAILY 10/17/14 Reported Buspirone Hcl 10 Mg Tablet 10 Mg PO TID 10/17/14 Reported Avodart (Dutasteride) 0.5 Mg Capsule 1 Cap PO DAILY 10/17/14 Reported Prozac (Fluoxetine Hcl) 40 Mg Capsule 40 Mg PO DAILY 09/02/13 Reported Impression . 1. Acute hypoxic respiratory failure, which worsened while in the hospital due to development of interstitial pulmonary edema post-fluid resuscitation. improved 2. Abnormal chest x-ray with development of bilateral interstitial infiltrates with fluid resuscitation, treated with Lasix and now improved 3. Underlying cardiomyopathy with an EF of 40%, being managed medically. He has moderate global hypokinesis. 4. Suspected urinary tract infection.culture negative 5. Chronic renal insufficiency. 6. Increased troponin level. 7. Moderate protein-calorie malnutrition. 8. Underlying chronic obstructive pulmonary disease. 9. Anemia. 10. shock, suspect cardiogenic,? septic , on BS antibiotics, off levophed Plan . 1. doing well on nasal cannula. 2. Antibiotics per Infectious Disease. 3. Follow Cardiology recommendations. 4. Neg urine cultures. 5. Monitor white cell count. 6. Monitor hemoglobin. 7. Improve nutritional status. 8. Renal function needs to be closely monitored 10. Discussed with RN ok with NH transfer if ok by NICHOLAS GALINDO MD Apr 16, 2017 10:30
[2017-04-16 11:00] VITALS: BP 160/58
[2017-04-16] MEDS: MICAFUNGIN 100 MG in IV DEXTROSE 5% 100 ML IV SCH (13:02)
[2017-04-16] MEDS: LINEZOLID 600 MG TABLET PO SCH ×2 (13:02→20:21)
[2017-04-16 14:38] VITALS: BP 134/48
[2017-04-16 19:00] VITALS: BP 135/64
[2017-04-16] MEDS: LITHIUM CARBONATE 300 MG CAPSULE PO SCH (20:21)
[2017-04-16] MEDS: ATORVASTATIN CALCIUM 10 MG TABLET. PO SCH (20:21)
[2017-04-16] MEDS: MONTELUKAST SODIUM 10 MG TABLET. PO SCH (20:21)
[2017-04-16 23:00] VITALS: BP 139/67
[2017-04-17 03:00] VITALS: BP 149/69
[2017-04-17 06:14] LABS: BASO # 0.1 x10^3/uL (0.0-0.2); BASO % 1 % (0-3); EOS % 8 % (0-3); HEMATOCRIT 29.1 % (39.0-53.0); HEMOGLOBIN 9.3 g/dL (13.0-17.5); LYMPH # 1.1 x10^3/uL (1.0-4.8); LYMPH % 9 % (24-48); MEAN CORPUSCULAR HEMOGLOBIN 27 pg (25-35); MEAN CORPUSCULAR HGB CONC 32 g/dL (31-37); MEAN CORPUSCULAR VOLUME 83 fL (79-100); MONO % 7 % (0-9); NEUT % 75 % (31-73); PLATELET COUNT 168 x10^3/uL (140-400); RED BLOOD COUNT 3.49 x10^6/uL (4.30-5.70); RED CELL DISTRIBUTION WIDTH 17.2 % (11.5-14.5); WHITE BLOOD COUNT 12.2 x10^3/uL (4.0-11.0)
[2017-04-17 06:30] LABS: CALCIUM 8.5 mg/dL (8.5-10.1); CREATININE 1.6 mg/dL (0.7-1.3); GFR 42.2
[2017-04-17] MEDS: MEROPENEM 500 MG in IV NORMAL SALINE 50ML 50 ML IV SCH (06:32)
[2017-04-17 07:00] VITALS: BP 119/68
[2017-04-17] MEDS: IPRATRPIUM/ALBUTEROL 0.5/2.5MG 3 ML NEBU. NEB SCH ×2 (07:30→11:14)
[2017-04-17] MEDS: BUDESONIDE 0.5 MG/2 ML NEBU. NEB SCH (07:30)
--- NOTE | 2017-04-17 08:08 | PDOC ---
Infectious Disease Note Subjective Subjective Slow to respond today. States ok and slept alright. Denies loose stools/cramps /nausea/F/C ROS ROS GEN: Denies fevers, chills, sweats HEENT: Denies blurred vision, sore throat CV: Denies chest pain RESP: Denies shortness of air, cough GI: Denies n/v/d NEURO: Denies confusion, dizziness MSK: Denies weakness, joint pain/swelling Vital Sign Vital Signs Vital Signs Date Time Temp Pulse Resp B/P (MAP) Pulse Ox O2 Delivery O2 Flow Rate FiO2 04/17/17 07:31 97 Nasal Cannula 1.5 04/17/17 07:00 97.4 79 22 119/68 (85) 97.4 Physical Exam PHYSICAL EXAM GENERAL: NAD, sleeping but arousable. 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: Alert, oriented to person but seems confused, no focal neurologic deficit SKIN: No rash IV: ok Labs Lab Laboratory Tests Test 04/16/17 10:31 04/16/17 16:50 04/16/17 21:05 04/17/17 05:10 Glucose (Fingerstick) 115 mg/dL (70-99) 129 mg/dL (70-99) 131 mg/dL (70-99) White Blood Count 12.2 x10^3/uL (4.0-11.0) Red Blood Count 3.49 x10^6/uL (4.30-5.70) Hemoglobin 9.3 g/dL (13.0-17.5) Hematocrit 29.1 % (39.0-53.0) Mean Corpuscular Volume 83 fL (79-100) Mean Corpuscular Hemoglobin 27 pg (25-35) Mean Corpuscular Hemoglobin Concent 32 g/dL (31-37) Red Cell Distribution Width 17.2 % (11.5-14.5) Platelet Count 168 x10^3/uL (140-400) Neutrophils (%) (Auto) 75 % (31-73) Lymphocytes (%) (Auto) 9 % (24-48) Monocytes (%) (Auto) 7 % (0-9) Eosinophils (%) (Auto) 8 % (0-3) Basophils (%) (Auto) 1 % (0-3) Neutrophils # (Auto) 9.1 x10^3uL (1.8-7.7) Lymphocytes # (Auto) 1.1 x10^3/uL (1.0-4.8) Monocytes # (Auto) 0.9 x10^3/uL (0.0-1.1) Eosinophils # (Auto) 1.0 x10^3/uL (0.0-0.7) Basophils # (Auto) 0.1 x10^3/uL (0.0-0.2) Sodium Level 141 mmol/L (136-145) Potassium Level 4.0 mmol/L (3.5-5.1) Chloride Level 105 mmol/L (98-107) Carbon Dioxide Level 28 mmol/L (21-32) Anion Gap 8 (6-14) Blood Urea Nitrogen 25 mg/dL (8-26) Creatinine 1.6 mg/dL (0.7-1.3) Estimated GFR (Cockcroft-Gault) 42.2 Glucose Level 102 mg/dL (70-99) Calcium Level 8.5 mg/dL (8.5-10.1) Test 04/17/17 07:18 Glucose (Fingerstick) 102 mg/dL (70-99) Objective Assessment Sepsis with hypotension, POA - now off Levophed - Leukocytosis with bandemia - increased ? Encephalopathy HCAP, currently off BiPAP. Levoflox dose 04/13 ? UTI, POA DUONG -better Urinary retention s/p indwelling Mccormick. 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 WBC could be reactive Cont Zyvox but po Cont Meropenem try to wean soon to po 04/17 D/c Micafungin monitor labs and f/u cultures D/w nursing VANESSA NINA MD Apr 17, 2017 08:08
[2017-04-17] MEDS: INSULIN ASPART 300 UNITS/3 ML INSULN.PEN SQ SCH ×2 (08:40→12:00)
[2017-04-17] MEDS: ASPIRIN ENTERIC COATED 81 MG TABLET.DR. PO SCH (09:18)
[2017-04-17] MEDS: FERROUS SULFATE 325 MG TABLET. PO SCH (09:18)
[2017-04-17] MEDS: CETIRIZINE HCL 10 MG TABLET. PO SCH (09:19)
[2017-04-17] MEDS: DUTASTERIDE 0.5 MG CAPSULE PO SCH (09:19)
[2017-04-17] MEDS: FUROSEMIDE 40 MG TABLET. PO SCH (09:19)
[2017-04-17] MEDS: LINEZOLID 600 MG TABLET PO SCH (09:19)
[2017-04-17 09:20] LABS: HCO3 ABG 27 mmol/L (21-28); PCO2 ABG 43 mmHg (35-46); PH ABG 7.41 (7.35-7.45); PO2 ABG 93 mmHg (65-108); SAT O2 ABG 97 % (92-99)
[2017-04-17] MEDS: FLUoxetine HCL 20 MG CAPSULE PO SCH (09:20)
[2017-04-17] MEDS: PANTOPRAZOLE 40 MG TABLET.DR. PO SCH (09:20)
[2017-04-17] MEDS: busPIRone 10 MG TABLET. PO SCH (09:20)
[2017-04-17] MEDS: TAMSULOSIN 0.4 MG CAP.ER.24H. PO SCH (09:20)
[2017-04-17] MEDS: CLOPIDOGREL BISULFATE 75 MG TABLET PO SCH (09:20)
[2017-04-17 09:21] LABS: FIO2 ABG 26%
[2017-04-17] MEDS: METOPROLOL SUCC 24HR ER 25 MG TAB.ER.24H. PO SCH (09:21)
[2017-04-17] MEDS: SENNOSIDES/DOCUSATE 8.6/50MG TABLET. PO SCH (09:22)
--- NOTE | 2017-04-17 10:25 | PDOC ---
PULMONARY PROGRESS NOTES Subjective fully awake no soa Vitals Vital Signs Date Time Temp Pulse Resp B/P (MAP) Pulse Ox O2 Delivery O2 Flow Rate FiO2 04/17/17 09:21 79 119/68 04/17/17 07:31 97 Nasal Cannula 1.5 04/17/17 07:00 97.4 22 97.4 ROS: No Nausea, No Chest Pain, No Abdominal Pain, No Increase Cough General: Alert, Oriented X4, No acute distress Lungs: Clear Cardiovascular: S1, S2 Abdomen: Soft, Non-tender Neuro Exam: Alert, Oriented, Normal Speech Extremities: Other (1+edema) Skin: Warm, Dry Labs Laboratory Tests Test 04/15/17 12:06 04/15/17 16:35 04/15/17 20:41 04/16/17 04:00 Glucose (Fingerstick) 118 mg/dL (70-99) 151 mg/dL (70-99) 112 mg/dL (70-99) White Blood Count 9.7 x10^3/uL (4.0-11.0) Red Blood Count 3.30 x10^6/uL (4.30-5.70) Hemoglobin 8.9 g/dL (13.0-17.5) Hematocrit 27.9 % (39.0-53.0) Mean Corpuscular Volume 84 fL (79-100) Mean Corpuscular Hemoglobin 27 pg (25-35) Mean Corpuscular Hemoglobin Concent 32 g/dL (31-37) Red Cell Distribution Width 17.5 % (11.5-14.5) Platelet Count 147 x10^3/uL (140-400) Neutrophils (%) (Auto) 75 % (31-73) Lymphocytes (%) (Auto) 9 % (24-48) Monocytes (%) (Auto) 7 % (0-9) Eosinophils (%) (Auto) 8 % (0-3) Basophils (%) (Auto) 1 % (0-3) Neutrophils # (Auto) 7.3 x10^3uL (1.8-7.7) Lymphocytes # (Auto) 0.9 x10^3/uL (1.0-4.8) Monocytes # (Auto) 0.7 x10^3/uL (0.0-1.1) Eosinophils # (Auto) 0.7 x10^3/uL (0.0-0.7) Basophils # (Auto) 0.1 x10^3/uL (0.0-0.2) Sodium Level 141 mmol/L (136-145) Potassium Level 3.9 mmol/L (3.5-5.1) Chloride Level 106 mmol/L (98-107) Carbon Dioxide Level 29 mmol/L (21-32) Anion Gap 6 (6-14) Blood Urea Nitrogen 33 mg/dL (8-26) Creatinine 1.8 mg/dL (0.7-1.3) Estimated GFR (Cockcroft-Gault) 36.9 Glucose Level 108 mg/dL (70-99) Calcium Level 8.4 mg/dL (8.5-10.1) Test 04/16/17 07:46 04/16/17 10:31 04/16/17 16:50 04/16/17 21:05 Glucose (Fingerstick) 113 mg/dL (70-99) 115 mg/dL (70-99) 129 mg/dL (70-99) 131 mg/dL (70-99) Test 04/17/17 05:10 04/17/17 07:18 04/17/17 08:12 White Blood Count 12.2 x10^3/uL (4.0-11.0) Red Blood Count 3.49 x10^6/uL (4.30-5.70) Hemoglobin 9.3 g/dL (13.0-17.5) Hematocrit 29.1 % (39.0-53.0) Mean Corpuscular Volume 83 fL (79-100) Mean Corpuscular Hemoglobin 27 pg (25-35) Mean Corpuscular Hemoglobin Concent 32 g/dL (31-37) Red Cell Distribution Width 17.2 % (11.5-14.5) Platelet Count 168 x10^3/uL (140-400) Neutrophils (%) (Auto) 75 % (31-73) Lymphocytes (%) (Auto) 9 % (24-48) Monocytes (%) (Auto) 7 % (0-9) Eosinophils (%) (Auto) 8 % (0-3) Basophils (%) (Auto) 1 % (0-3) Neutrophils # (Auto) 9.1 x10^3uL (1.8-7.7) Lymphocytes # (Auto) 1.1 x10^3/uL (1.0-4.8) Monocytes # (Auto) 0.9 x10^3/uL (0.0-1.1) Eosinophils # (Auto) 1.0 x10^3/uL (0.0-0.7) Basophils # (Auto) 0.1 x10^3/uL (0.0-0.2) Sodium Level 141 mmol/L (136-145) Potassium Level 4.0 mmol/L (3.5-5.1) Chloride Level 105 mmol/L (98-107) Carbon Dioxide Level 28 mmol/L (21-32) Anion Gap 8 (6-14) Blood Urea Nitrogen 25 mg/dL (8-26) Creatinine 1.6 mg/dL (0.7-1.3) Estimated GFR (Cockcroft-Gault) 42.2 Glucose Level 102 mg/dL (70-99) Calcium Level 8.5 mg/dL (8.5-10.1) Glucose (Fingerstick) 102 mg/dL (70-99) O2 Saturation 97 % (92-99) Arterial Blood pH 7.41 (7.35-7.45) Arterial Blood pCO2 at Patient Temp 43 mmHg (35-46) Arterial Blood pO2 at Patient Temp 93 mmHg (65-108) Arterial Blood HCO3 27 mmol/L (21-28) Arterial Blood Base Excess 2 mmol/L (-3-3) FiO2 26% Laboratory Tests Test 04/16/17 10:31 04/16/17 16:50 04/16/17 21:05 04/17/17 05:10 Glucose (Fingerstick) 115 mg/dL (70-99) 129 mg/dL (70-99) 131 mg/dL (70-99) White Blood Count 12.2 x10^3/uL (4.0-11.0) Red Blood Count 3.49 x10^6/uL (4.30-5.70) Hemoglobin 9.3 g/dL (13.0-17.5) Hematocrit 29.1 % (39.0-53.0) Mean Corpuscular Volume 83 fL (79-100) Mean Corpuscular Hemoglobin 27 pg (25-35) Mean Corpuscular Hemoglobin Concent 32 g/dL (31-37) Red Cell Distribution Width 17.2 % (11.5-14.5) Platelet Count 168 x10^3/uL (140-400) Neutrophils (%) (Auto) 75 % (31-73) Lymphocytes (%) (Auto) 9 % (24-48) Monocytes (%) (Auto) 7 % (0-9) Eosinophils (%) (Auto) 8 % (0-3) Basophils (%) (Auto) 1 % (0-3) Neutrophils # (Auto) 9.1 x10^3uL (1.8-7.7) Lymphocytes # (Auto) 1.1 x10^3/uL (1.0-4.8) Monocytes # (Auto) 0.9 x10^3/uL (0.0-1.1) Eosinophils # (Auto) 1.0 x10^3/uL (0.0-0.7) Basophils # (Auto) 0.1 x10^3/uL (0.0-0.2) Sodium Level 141 mmol/L (136-145) Potassium Level 4.0 mmol/L (3.5-5.1) Chloride Level 105 mmol/L (98-107) Carbon Dioxide Level 28 mmol/L (21-32) Anion Gap 8 (6-14) Blood Urea Nitrogen 25 mg/dL (8-26) Creatinine 1.6 mg/dL (0.7-1.3) Estimated GFR (Cockcroft-Gault) 42.2 Glucose Level 102 mg/dL (70-99) Calcium Level 8.5 mg/dL (8.5-10.1) Test 04/17/17 07:18 04/17/17 08:12 Glucose (Fingerstick) 102 mg/dL (70-99) O2 Saturation 97 % (92-99) Arterial Blood pH 7.41 (7.35-7.45) Arterial Blood pCO2 at Patient Temp 43 mmHg (35-46) Arterial Blood pO2 at Patient Temp 93 mmHg (65-108) Arterial Blood HCO3 27 mmol/L (21-28) Arterial Blood Base Excess 2 mmol/L (-3-3) FiO2 26% Medications Active Scripts Medications Dose Route/Sig Max Daily Dose Days Date Category Montelukast Sodium Tablet (Montelukast Sodium) 10 Mg Tablet 10 Mg PO HS 04/12/17 Reported Zolpidem Tartrate 5 Mg Tablet 5 Mg PO PRN QHS PRN 04/12/17 Reported Ferrous Sulfate 325 Mg Tablet 325 Mg PO DAILY 04/12/17 Reported Senokot-S Tablet (Sennosides/Docusate Sodium) 1 Each Tablet 1 Each PO BID 04/12/17 Reported Spiriva (Tiotropium [place]) 18 Mcg Cap.w.dev 1 Inh IH DAILY 04/12/17 Reported Cetirizine Hcl 10 Mg Tablet 10 Mg PO DAILY 04/12/17 Reported Propranolol Hcl 20 Mg Tablet 20 Mg PO DAILY 04/12/17 Reported Maalox Advanced Suspension (Mag Hydrox/Aluminum Hyd/Simeth) 355 Ml Oral.susp 5 Ml PO 04/12/17 Reported Nitrostat (Nitroglycerin) 0.4 Mg Tab.subl 0.4 Mg SL PRN Q5MIN PRN 04/12/17 Reported Ondansetron Odt (Ondansetron) 4 Mg Tab.rapdis 4 Mg PO PRN Q6HRS PRN 04/12/17 Reported Furosemide 40 Mg Tablet 40 Mg PO DAILY 04/12/17 Reported Metoprolol Succinate ( Xl ) (Metoprolol Succinate) 25 Mg Tab.er.24h 25 Mg PO DAILY 04/12/17 Reported Pantoprazole Sodium 40 Mg Tablet. 40 Mg PO DAILY 04/12/17 Reported Lisinopril 5 Mg Tablet 5 Mg PO DAILY 04/12/17 Reported Albuterol Sulfate Conc Neb Soln (Albuterol Sulfate) 2.5 Mg/0.5 Ml Vial.neb 2.5 Mg NEB PRN Q4HRS PRN 02/26/17 Reported Symbicort 160-4.5 Mcg Inhaler (Budesonide/Formoterol Fumarate) 10.2 Gm Hfa.aer.ad 1 Puff IH DAILY 02/26/17 Reported Nystatin 15 Gm Powder 15 Gm TP PRN PRN 02/26/17 Reported Atorvastatin Calcium 10 Mg Tablet 10 Mg PO HS 02/26/17 Reported Alum-Mag Hydroxide-[place] Liq (Mag Hydrox/Al Hydrox/Simeth) 360 Ml Oral.susp 30 Ml PO PRN Q2HR PRN 02/26/17 Reported Dulcolax (Bisacodyl) 5 Mg Tablet.dr 1 Supp RC PRN DAILY PRN 02/26/17 Reported Robitussin Cough-Chest Dm Liq (Guaifenesin/Dextromethorphan) 237 Ml Liquid 10 Ml PO PRN Q4HRS PRN 02/26/17 Reported Milk Of Magnesia (Magnesium Hydroxide) 400 Mg/5 Ml Oral.susp 400 Mg PO PRN DAILY PRN 02/26/17 Reported Tylenol (Acetaminophen) 325 Mg Tablet 650 Mg PO PRN Q4HRS PRN 02/26/17 Reported Clopidogrel (Clopidogrel Bisulfate) 75 Mg Tablet 1 Tab PO DAILY 06/08/16 Reported Lo-Dose Aspirin EC (Aspirin) 81 Mg Tablet.dr 81 Mg PO 06/08/16 Reported Voltaren (Diclofenac Sodium) 100 Gm Gel..gram. 100 Gm TP TID 10/17/14 Reported Proair Hfa Inhaler (Albuterol Sulfate) 8.5 Gm Hfa.aer.ad 1 Puff INH PRN Q6HRS PRN 10/17/14 Reported [place] Carbonate 300 Mg Tablet 300 Mg PO HS 10/17/14 Reported Hydrocodone-Apap 5-325 (Hydrocodone Bit/Acetaminophen) 1 Each Tablet 1 Tab PO QID 10/17/14 Reported Flomax (Tamsulosin Hcl) 0.4 Mg Cap.er.24h 1 Cap PO DAILY 10/17/14 Reported Buspirone Hcl 10 Mg Tablet 10 Mg PO TID 10/17/14 Reported Avodart (Dutasteride) 0.5 Mg Capsule 1 Cap PO DAILY 10/17/14 Reported Prozac (Fluoxetine Hcl) 40 Mg Capsule 40 Mg PO DAILY 09/02/13 Reported Impression . 1. Acute hypoxic respiratory failure, which worsened while in the hospital due to development of interstitial pulmonary edema post-fluid resuscitation. improved 2. Abnormal chest x-ray with development of bilateral interstitial infiltrates with fluid resuscitation, treated with Lasix and now improved 3. Underlying cardiomyopathy with an EF of 40%, being managed medically. He has moderate global hypokinesis. 4. Suspected urinary tract infection.culture negative 5. Chronic renal insufficiency. 6. Increased troponin level. 7. Moderate protein-calorie malnutrition. 8. Underlying chronic obstructive pulmonary disease. 9. Anemia. 10. shock, suspect cardiogenic,? septic , on BS antibiotics, off levophed Plan . 1. doing well on nasal cannula. 2. Antibiotics per Infectious Disease. 3. Follow Cardiology recommendations. 4. Neg urine cultures. 5. Monitor white cell count. 6. Monitor hemoglobin. 7. Improve nutritional status. 8. Renal function needs to be closely monitored 10. Discussed with RN ok with NH transfer if ok by NICHOLAS GALINDO MD Apr 17, 2017 10:25
[2017-04-17 10:49] VITALS: BP 125/64
--- NOTE | 2017-04-17 17:41 | PDOC3 ---
Discharge Summary [facility] Date of Admission: Apr 12, 2017 Discharge Date: Apr 17, 2017 Admitting Diagnosis sepsis Problems: Final Diagnosis 1. Sepsis 2. Acute respiratory failure with interstitial pulmonary edema, sepsis 3. Acute on chronic systolic/diastolic heart failure 4. Likely urinary tract infection despite negative culture. 5. Acute kidney injury with stage 3 chronic renal disease 6. Abnormal troponin, now down, likely demand ischemia but he has known CAD and had NSTEMI 10 mo ago. 7. Hypocalcemia, likely related to moderate protein calorie malnutrition. 8. Chronic obstructive pulmonary disease. 9. Anemia, iron deficiency 10. Spinal stenosis with neurogenic bladder and urinary retention 11. Bipolar. 12. Depression. 13. Anxiety with occasional tremor related to that. 14. toxic encephalopathy - resolved 15. diet controlled diabetes, 16. deconditioning CONSULTS Miguelina House pulJustine khan - ID, [place] - cardiology Procedures none Brief Hospital Course Mr. Patrick is a 76 oldwho presented with: 1. Sepsis, resolved This was most likely is a urinary source but cx from 04/11 negative - antibiotics per ID. 2. Acute respiratory failure with interstitial pulmonary edema from fluid challenge per sepsis protocol which then responded to diuresis and resolved. 3. Acute on chronic systolic/diastolic heart failure with ejection fraction of 40% on echo, moderate global hypokinesis, off pressor support, transferred to monitored bed. 4. Likely urinary tract infection despite negative culture. 5. Acute kidney injury with stage 3 chronic renal disease - stable, mild bump in creatinine after diuresis, slowly improving and I expect it will slowly return to 1.5 range. 6. Abnormal troponin, now down, likely demand ischemia but he has known CAD and had NSTEMI 10 mo ago. 7. Hypocalcemia, likely related to moderate protein calorie malnutrition. 8. Chronic obstructive pulmonary disease. 9. Anemia with a normal MCV, lab shows iron deficiency, iron added po dose daily. 10. 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 11. Bipolar. 12. Depression. 13. Anxiety with occasional tremor related to that. 14. toxic encephalopathy - resolved 15. diet controlled diabetes, - ADA diet, SSI if needed 16. deconditioning - PT/OT eval and treat, he has been LTC at [facility] but will likely need senior care for a couple of weeks. He currently needs Collin lift to safely transfer from bed to chair Patient History: Family history: Angina (situation) 19 CHILD Problems: CONDITION AT DISCHARGE: Improved, Stable Scheduled Atorvastatin Calcium (Atorvastatin Calcium), 10 MG PO HS, (Reported) Budesonide/Formoterol Fumarate (Symbicort 160-4.5 Mcg Inhaler), 1 PUFF IH DAILY, (Reported) Buspirone Hcl (Buspirone Hcl), 10 MG PO TID, (Reported) Cetirizine Hcl (Cetirizine Hcl), 10 MG PO DAILY, (Reported) Clopidogrel Bisulfate (Clopidogrel), 1 TAB PO DAILY, (Reported) Diclofenac Sodium (Voltaren), 100 GM TP TID, (Reported) Dutasteride (Avodart), 1 CAP PO DAILY, (Reported) Ferrous Sulfate (Ferrous Sulfate), 325 MG PO DAILY, (Reported) Fluoxetine Hcl (Prozac), 40 MG PO DAILY, (Reported) Furosemide (Furosemide), 40 MG PO DAILY, (Reported) Hydrocodone Bit/Acetaminophen (Hydrocodone-Apap 5-325 ), 1 TAB PO QID, ( Reported) Lisinopril (Lisinopril), 5 MG PO DAILY, (Reported) [place] Carbonate ([place] Carbonate), 300 MG PO HS, (Reported) Metoprolol Succinate (Metoprolol Succinate ( Xl )), 25 MG PO DAILY, (Reported) Montelukast Sodium (Montelukast Sodium Tablet), 10 MG PO HS, (Reported) Pantoprazole Sodium (Pantoprazole Sodium), 40 MG PO DAILY, (Reported) Propranolol Hcl (Propranolol Hcl), 20 MG PO DAILY, (Reported) Sennosides/Docusate Sodium (Senokot-S Tablet), 1 EACH PO BID, (Reported) Tamsulosin Hcl (Flomax), 1 CAP PO DAILY, (Reported) Tiotropium [place] (Spiriva), 1 INH IH DAILY, (Reported) Scheduled PRN Acetaminophen (Tylenol), 650 MG PO PRN Q4HRS PRN for MILD PAIN / TEMP, (Reported ) Albuterol Sulfate (Proair Hfa Inhaler), 1 PUFF INH PRN Q6HRS PRN for SHORTNESS OF BREATH, (Reported) Albuterol Sulfate (Albuterol Sulfate Conc Neb Soln), 2.5 MG NEB PRN Q4HRS PRN for SHORTNESS OF BREATH, (Reported) Bisacodyl (Dulcolax), 1 SUPP RC PRN DAILY PRN for CONSTIPATION, (Reported) Guaifenesin/Dextromethorphan (Robitussin Cough-Chest Dm Liq), 10 ML PO PRN Q4HRS PRN for COUGH, (Reported) Mag Hydrox/Al Hydrox/Simeth (Alum-Mag Hydroxide-Simeth Liq), 30 ML PO PRN Q2HR PRN for HEARTBURN / GAS, (Reported) Magnesium Hydroxide (Milk Of Magnesia), 400 MG PO PRN DAILY PRN for CONSTIPATION , (Reported) Nitroglycerin (Nitrostat), 0.4 MG SL PRN Q5MIN PRN for CHEST PAIN, (Reported) Nystatin (Nystatin), 15 GM TP PRN PRN for REDNESS, (Reported) Ondansetron (Ondansetron Odt), 4 MG PO PRN Q6HRS PRN for NAUSEA/VOMITING, ( Reported) Zolpidem Tartrate (Zolpidem Tartrate), 5 MG PO PRN QHS PRN for INSOMNIA, ( Reported) Miscellaneous Medications Aspirin (Lo-Dose Aspirin EC), 81 MG PO, (Reported) Mag Hydrox/Aluminum Hyd/Simeth (Maalox Advanced Suspension), 5 ML PO, (Reported) Discontinued Medications Lisinopril (Lisinopril), 1 TAB PO DAILY, (Reported) Discontinued Reason: Prescription changed Pantoprazole Sodium (Protonix), 20 MG PO DAILY, (Reported) Discontinued Reason: Prescription changed Yenny MULLER MD Apr 17, 2017 17:41
== END 2017-04-17 14:05 | DRG 871 ==
LOC: ER 10:08 → 6 SOUTH 12:33 → 1 WEST ICU 21:02 → 5 SOUTH 04-15 12:49
PROVIDERS: ADMIT Family Medicine; ATTEND Family Medicine
PROC: 5A09357 Assistance with Respiratory Ventilation, Less than 24 Consecutive Hours, Continuous Positive Airway Pressure (ICD-10-PCS; principal; 2017-04-12)
DX: A41.9 Sepsis, unspecified organism (principal); J96.21 Acute and chronic respiratory failure with hypoxia; R57.9 Shock, unspecified; I50.43 Acute on chronic combined systolic (congestive) and diastolic (congestive) heart failure; G92 Toxic encephalopathy; I42.9 Cardiomyopathy, unspecified; Z68.42 Body mass index [BMI] 45.0-49.9, adult; N17.9 Acute kidney failure, unspecified; J44.0 Chronic obstructive pulmonary disease with (acute) lower respiratory infection; I13.0 Hypertensive heart and chronic kidney disease with heart failure and stage 1 through stage 4 chronic kidney disease, or unspecified chronic kidney disease; E44.0 Moderate protein-calorie malnutrition; N39.0 Urinary tract infection, site not specified; E11.22 Type 2 diabetes mellitus with diabetic chronic kidney disease; E11.65 Type 2 diabetes mellitus with hyperglycemia; N18.3 Chronic kidney disease, stage 3 (moderate); E78.5 Hyperlipidemia, unspecified; E83.51 Hypocalcemia; F31.9 Bipolar disorder, unspecified; F41.9 Anxiety disorder, unspecified; I25.10 Atherosclerotic heart disease of native coronary artery without angina pectoris; K21.9 Gastro-esophageal reflux disease without esophagitis; M48.00 Spinal stenosis, site unspecified; N31.9 Neuromuscular dysfunction of bladder, unspecified; Z85.828 Personal history of other malignant neoplasm of skin; Z87.891 Personal history of nicotine dependence; Z95.5 Presence of coronary angioplasty implant and graft; Z99.3 Dependence on wheelchair; J45.909 Unspecified asthma, uncomplicated; E66.01 Morbid (severe) obesity due to excess calories; M19.90 Unspecified osteoarthritis, unspecified site; Z16.11 Resistance to penicillins; I25.2 Old myocardial infarction
CPT/HCPCS: 36415; 36600; 71010; 80048; 80053; 81001; 82607; 82728; 82746; 82805; 82962; 83540; 83550; 83605; 83735; 83880; 84484; 85007; 85025; 85610; 85730; 87040; 87086; 87641; 93005; 93306; 94640; 94660; 96360; J1250; J1815; J1940; J1956; J2020; J2185; J2248; J2405; J2543; J3370; J7030; J7040; J7613; J7620; J7626; 99285-25

== ENCOUNTER → 2017-04-12 | Outpatient (CLI) | payer MEDICARE, OTHER ==
[~2017-04-12] MED LIST changes: +ACET325T9 PO; +ALBU2.5V14 NEB; +ATOR10TA60 PO; +BISA-42 PO; +BISA-42 RC; +BUDE10.2 IH; +CETI10TA16 PO; +CIPR500T94 PO; +FERR-26 PO; +FURO40TA4 PO; +GUAI237L83 PO; +LINE600T PO; +MAG355OR11 PO; +MAG360OR24 PO; +MAGN400O7 PO; +METO25TA4 PO; +METO25TA9 PO; +MONT10TA9 PO; +NITR0.4T SL; +NITR1PAT9 TD; +NYST15PO9 TP; +ONDA4TAB12 PO; +PANT20TA2 PO; +PANT40TA5 PO; +PROP20TA PO; +SENN-37 PO; +TIOT18CA IH; +ZOLP5TAB5 PO
[2017-04-12 06:09] LABS: BASO # 0.1 x10^3/uL (0.0-0.2); BASO % 1 % (0-3); EOS % 2 % (0-3); HEMATOCRIT 29.2 % (39.0-53.0); HEMOGLOBIN 9.1 g/dL (13.0-17.5); LYMPH # 0.4 x10^3/uL (1.0-4.8); LYMPH % 4 % (24-48); MEAN CORPUSCULAR HEMOGLOBIN 27 pg (25-35); MEAN CORPUSCULAR HGB CONC 31 g/dL (31-37); MEAN CORPUSCULAR VOLUME 86 fL (79-100); MONO % 3 % (0-9); NEUT % 91 % (31-73); PLATELET COUNT 190 x10^3/uL (140-400); RED BLOOD COUNT 3.39 x10^6/uL (4.30-5.70); RED CELL DISTRIBUTION WIDTH 17.2 % (11.5-14.5); WHITE BLOOD COUNT 11.7 x10^3/uL (4.0-11.0)
[2017-04-12 07:10] LABS: % BASOS 1 % (0-3); % EOS 3 % (0-5); ANISOCYTOSIS SLIGHT; PLT ESTIMATE ADEQUATE (ADEQUATE)
[2017-04-12 07:11] LABS: OVALOCYTES FEW; TEAR DROP CELLS OCC
== END | disposition home or self-care (01) ==
LOC: SPEC 05:43
PROVIDERS: ATTEND Family Medicine
DX: A41.9 Sepsis, unspecified organism (principal)
CPT/HCPCS: 36415; 85007; 85025

== ENCOUNTER → 2017-04-18 | Outpatient (CLI) | payer MEDICARE, OTHER ==
[2017-04-17 10:49] VITALS: BP 125/64
[~2017-04-18] MED LIST changes: +CETI10TA16 PO; +FERR-26 PO; +FURO40TA4 PO; +MAG355OR11 PO; +METO25TA9 PO; +MONT10TA9 PO; +NITR0.4T SL; +ONDA4TAB12 PO; +PANT40TA5 PO; +PROP20TA PO; +SENN-37 PO; +ZOLP5TAB5 PO
== END | disposition home or self-care (01) ==
LOC: SPEC 13:14
PROVIDERS: ATTEND Family Medicine
DX: R19.7 Diarrhea, unspecified (principal)
CPT/HCPCS: 36415; 87324

== ENCOUNTER → 2017-04-24 | Outpatient (CLI) | payer MEDICARE, OTHER ==
[2017-04-17 10:49] VITALS: BP 125/64
[2017-04-24 10:44] LABS: BASO # 0.1 x10^3/uL (0.0-0.2); BASO % 1 % (0-3); EOS % 4 % (0-3); HEMATOCRIT 29.1 % (39.0-53.0); HEMOGLOBIN 9.3 g/dL (13.0-17.5); LYMPH # 0.8 x10^3/uL (1.0-4.8); LYMPH % 8 % (24-48); MEAN CORPUSCULAR HEMOGLOBIN 27 pg (25-35); MEAN CORPUSCULAR HGB CONC 32 g/dL (31-37); MEAN CORPUSCULAR VOLUME 85 fL (79-100); MONO % 6 % (0-9); NEUT % 81 % (31-73); PLATELET COUNT 232 x10^3/uL (140-400); RED BLOOD COUNT 3.42 x10^6/uL (4.30-5.70); RED CELL DISTRIBUTION WIDTH 17.4 % (11.5-14.5); WHITE BLOOD COUNT 9.7 x10^3/uL (4.0-11.0)
[2017-04-24 10:56] LABS: CALCIUM 8.6 mg/dL (8.5-10.1); CREATININE 1.7 mg/dL (0.7-1.3); GFR 39.4; POTASSIUM 5.1 mmol/L (3.5-5.1)
== END | disposition home or self-care (01) ==
LOC: SPEC 10:36
PROVIDERS: ATTEND Family Medicine
DX: N18.3 Chronic kidney disease, stage 3 (moderate) (principal); J44.9 Chronic obstructive pulmonary disease, unspecified
CPT/HCPCS: 36415; 80048; 85025

== ENCOUNTER → 2017-05-05 | Outpatient (CLI) | payer MEDICARE, OTHER ==
[2017-04-17 10:49] VITALS: BP 125/64
[2017-05-05 07:05] LABS: BASO # 0.1 x10^3/uL (0.0-0.2); BASO % 1 % (0-3); EOS % 7 % (0-3); HEMATOCRIT 30.2 % (39.0-53.0); HEMOGLOBIN 9.5 g/dL (13.0-17.5); LYMPH # 0.9 x10^3/uL (1.0-4.8); LYMPH % 11 % (24-48); MEAN CORPUSCULAR HEMOGLOBIN 27 pg (25-35); MEAN CORPUSCULAR HGB CONC 32 g/dL (31-37); MEAN CORPUSCULAR VOLUME 86 fL (79-100); MONO % 6 % (0-9); NEUT % 75 % (31-73); PLATELET COUNT 211 x10^3/uL (140-400); RED BLOOD COUNT 3.49 x10^6/uL (4.30-5.70); WHITE BLOOD COUNT 8.4 x10^3/uL (4.0-11.0)
[2017-05-05 07:25] LABS: ALBUMIN 3.2 g/dL (3.4-5.0); ALBUMIN/GLOBULIN RATIO 0.8 (1.0-1.7); CALCIUM 8.7 mg/dL (8.5-10.1); CREATININE 1.4 mg/dL (0.7-1.3); GFR 49.3; POTASSIUM 4.8 mmol/L (3.5-5.1); TOTAL BILIRUBIN 0.3 mg/dL (0.2-1.0)
== END | disposition home or self-care (01) ==
LOC: SPEC 06:29
PROVIDERS: ATTEND Family Medicine
DX: I10 Essential (primary) hypertension (principal); I50.9 Heart failure, unspecified; E78.5 Hyperlipidemia, unspecified
CPT/HCPCS: 36415; 80053; 85025

== ENCOUNTER → 2017-12-15 | Outpatient (CLI) | payer MEDICARE, OTHER | END | disposition home or self-care (01) | LOC: ECHO 10:01 | DX: I13.0 Hypertensive heart and chronic kidney disease with heart failure and stage 1 through stage 4 chronic kidney disease, or unspecified chronic kidney disease (principal); E11.22 Type 2 diabetes mellitus with diabetic chronic kidney disease; I50.22 Chronic systolic (congestive) heart failure; N18.3 Chronic kidney disease, stage 3 (moderate) | CPT/HCPCS: 93306 ==

== ENCOUNTER 2018-07-11 23:00 | Emergency (ER) | payer MEDICARE, OTHER ==
[~2018-07-11] VITALS: Ht 180.3 cm; Wt 131.5 kg
[~2018-07-11 23:00] MED LIST changes: +CEFP100T PO; -CLON1TAB3 PO; +CLON1TAB4 PO; -FERR-26 PO; +FERR325T14 PO; +LACT1CAP19 PO; +LITH300T30 PO; +LOSA25TA PO; +METO-239 PO; -METO25TA9 PO
--- NOTE | 2018-07-12 01:06 | PHYS DOC ---
Past Medical History Past Medical History: Anxiety, Bipolar, CAD, COPD, Diabetes-Type II, Hypertension, [place], Pneumonia, Renal Failure, UTI Additional Past Medical Histor: Morbid obesity, CANCER ON LEFT EAR Past Surgical History: Other Additional Past Surgical Histo: LEFT Ear, CARDIAC STENTS Alcohol Use: None Drug Use: None Adult General Chief Complaint Chief Complaint: BLOOD IN URINE HPI HPI Patient is a 78 year old male who presents with bleeding in his catheter times the last 2 days. Patient states 4 days ago his catheter was pulled alf out because it got caught and then again tonight when they're moving into the gurney the catheter then again got caught. When he arrived to the ED he did not have a stat LOC. Patient is from [facility]. Patient states she is diagnosed with a urinary tract infection about 2 days ago and some antibiotics but does not know what antibiotics he states. He states his primary care is Dr. colorado. Review of Systems Review of Systems Constitutional: Denies fever or chills [] Eyes: Denies change in visual acuity, redness, or eye pain [] HENT: Denies nasal congestion or sore throat [] Respiratory: Denies cough or shortness of breath [] Cardiovascular: No additional information not addressed in HPI [] GI: Denies abdominal pain, nausea, vomiting, bloody stools or diarrhea [] : Denies dysuria. Hematuria. Mccormick not draining properly and urethral pain. [ ] Musculoskeletal: Denies back pain or joint pain [] Integument: Denies rash or skin lesions [] Neurologic: Denies headache, focal weakness or sensory changes [] Endocrine: Denies polyuria or polydipsia [] All other systems were reviewed and found to be within normal limits, except as documented in this note. Current Medications Current Medications Current Medications Medications (Trade) Dose Ordered Sig/Jeannette Start Time Stop Time Status Last Admin Dose Admin Tramadol HCl (Ultram) 50 mg 1X ONCE 07/12/18 03:00 07/12/18 03:01 DC 07/12/18 02:55 50 MG Allergies Allergies Allergies Coded Allergies Type Severity Reaction Last Updated Verified I S O L A T I O N *CONTACT* Allergy Unknown 04/13/17 Yes No Known Medication Allergies Allergy Unknown 06/03/16 Yes Physical Exam Physical Exam Constitutional: Well developed, well nourished, no acute distress, non-toxic appearance. [] HENT: Normocephalic, atraumatic, bilateral external ears normal, oropharynx moist, no oral exudates, nose normal. [] Eyes: PERRLA, EOMI, conjunctiva normal, no discharge. [] Neck: Normal range of motion, no tenderness, supple, no stridor. [] Cardiovascular:Heart rate regular rhythm, no murmur [] Lungs & Thorax: Bilateral breath sounds clear to auscultation [] Abdomen: Bowel sounds normal, soft, no tenderness, no masses, no pulsatile masses. Tenderness to penis, bloody discharge around the meatus and on the Mccormick catheter. [] Skin: Warm, dry, no erythema, no rash. [] Back: No tenderness, no CVA tenderness. [] Extremities: No tenderness, no cyanosis, no clubbing, ROM intact, no edema. [] Neurologic: Alert and oriented X 3, normal motor function, normal sensory function, no focal deficits noted. [] Psychologic: Affect normal, judgement normal, mood normal. [] Current Patient Data Vital Signs Vital Signs Date Time Temp Pulse Resp B/P (MAP) Pulse Ox O2 Delivery O2 Flow Rate FiO2 07/12/18 09:00 78 165/75 (105) 98 07/12/18 08:00 16 Room Air 07/12/18 06:00 3.0 07/11/18 23:00 98.0 98.0 Lab Values Laboratory Tests Test 07/12/18 00:55 07/12/18 04:00 Urine Collection Type Unknown Urine Color Red Urine Clarity Turbid Urine pH Urine Specific [place] 1.015 Urine Protein mg/dL (NEG-TRACE) Urine Glucose (UA) mg/dL (NEG) Urine Ketones (Stick) mg/dL (NEG) Urine Blood (NEG) Urine Nitrite (NEG) Urine Bilirubin (NEG) Urine Urobilinogen Dipstick mg/dL (0.2 mg/dL) Urine Leukocyte Esterase (NEG) Urine RBC Tntc /HPF (0-2) Urine WBC Tntc /HPF (0-4) Urine Squamous Epithelial Cells Few /LPF Urine Bacteria Moderate /HPF (0-FEW) White Blood Count 11.0 x10^3/uL (4.0-11.0) Red Blood Count 2.85 x10^6/uL (4.30-5.70) L Hemoglobin 7.7 g/dL (13.0-17.5) L Hematocrit 24.2 % (39.0-53.0) L Mean Corpuscular Volume 85 fL (79-100) Mean Corpuscular Hemoglobin 27 pg (25-35) Mean Corpuscular Hemoglobin Concent 32 g/dL (31-37) Red Cell Distribution Width 16.4 % (11.5-14.5) H Platelet Count 274 x10^3/uL (140-400) Neutrophils (%) (Auto) 78 % (31-73) H Lymphocytes (%) (Auto) 10 % (24-48) L Monocytes (%) (Auto) 7 % (0-9) Eosinophils (%) (Auto) 5 % (0-3) H Basophils (%) (Auto) 1 % (0-3) Neutrophils # (Auto) 8.6 x10^3uL (1.8-7.7) H Lymphocytes # (Auto) 1.1 x10^3/uL (1.0-4.8) Monocytes # (Auto) 0.8 x10^3/uL (0.0-1.1) Eosinophils # (Auto) 0.5 x10^3/uL (0.0-0.7) Basophils # (Auto) 0.1 x10^3/uL (0.0-0.2) Prothrombin Time 13.2 SEC (11.7-14.0) Prothrombin Time INR 1.1 (0.8-1.1) Sodium Level 138 mmol/L (136-145) Potassium Level 4.3 mmol/L (3.5-5.1) Chloride Level 103 mmol/L (98-107) Carbon Dioxide Level 25 mmol/L (21-32) Anion Gap 10 (6-14) Blood Urea Nitrogen 48 mg/dL (8-26) H Creatinine 1.9 mg/dL (0.7-1.3) H Estimated GFR (Cockcroft-Gault) 34.5 Glucose Level 106 mg/dL (70-99) H Calcium Level 8.6 mg/dL (8.5-10.1) Laboratory Tests 07/12/18 04:00 Laboratory Tests 07/12/18 04:00 EKG EKG [] Radiology/Procedures Radiology/Procedures [] Course & Med Decision Making Course & Med Decision Making Patient is a 78 year old male who presents with bleeding in his catheter times the last 2 days. Patient states 4 days ago his catheter was pulled alf out because it got caught and then again tonight when they're moving into the gurney the catheter then again got caught. When he arrived to the ED he did not have a stat LOC. Patient is from [facility]. Patient states he is diagnosed with a urinary tract infection about 2 days ago and some antibiotics but does not know what antibiotics he states. He states his primary care is Dr. colorado. Very catheter is in place and looks to have some blood in the catheter area but is clamped off so that we can get a specimen. Patient has a history of insomnia, hypertension, bipolar, hyperlipidemia, CHF, COPD. Alert and oriented. Skin is pink warm and dry. Afebrile. Abdomen is soft and nontender. He denies any chest pain, shortness of air, abdominal pain, nausea, vomiting. Upon examination shouldn't states he has burning in his urethra around his penis and blood to the outside of the Mccormick catheter is seen. 0030: No hearing head still come out into the catheter as it was clamped off. I the nurses bladder scan the patient and his bladder shows 700ml of urine in his bladder. A new Mccormick is put in at this time. The nurse states that the Mccormick that she removed only had 5 mL of fluid in the balloon and it was not up into his bladder. A new Mccormick is placed and his bladder is drained and the patient states he actually feels a lot better. The urine that came out of the color of prune juice. Patient will get a three-way urinary catheter for CBI. 0100: I will hand this patient off to Dr Henderson at this time. Received patient at 0100. Agreed with previous H&P. Patient has been irrigating for several hours with clearing of the urine. Patient's laboratory studies appear to be stable compared to his previous baseline. Due to concern for a false tract having been created given his history and findings, consultation was made with urology. 11:00am VERNON from Dr. Henderson. Renal function comparable to previous labs. Pt has been seen by Urology. Recommendations to hold flushing and monitor output. This was held and for the past 1hr pt has had clear urine output. Will transfer back to facility. Pt to follow up with Dr. Boggs in 30 days. ER return precautions given. pt verbalized understanding. All questions answers. Pt able to verbalize his discharge follow up plan. Jackie Disclaimer Jackie Disclaimer This electronic medical record was generated, in whole or in part, using a voice recognition dictation system. Departure Departure Impression: Primary Impression: Complication of Mccormick catheter Additional Impression: Hematuria Disposition: 01 HOME, SELF-CARE Condition: IMPROVED Referrals: JOSE COLORADO (PCP) LOY BOGGS MD Patient Instructions: Mccormick Catheter Care, Adult Additional Instructions: [facility] Please repeat the attached handouts. Please follow-up with your primary care physician. Return to the ER if your symptoms worsen or you have any other concerns. Please keep your follow-up with urology in 30 days. Problem Qualifiers Primary Impression: Complication of Mccormick catheter Encounter type: initial encounter Qualified Codes: T83.9XXA - Unspecified complication of genitourinary prosthetic device, implant and graft, initial encounter RIANNA SHELBY APRN Jul 12, 2018 01:06 ALYSSA HENDERSON DO Jul 12, 2018 04:51 CHARMAINE HUNT DO Jul 12, 2018 11:10
[2018-07-12 01:08] LABS: CLARITY,URINE TURBID; COLOR,URINE RED
[2018-07-12 01:20] LABS: BACTERIA,URINE MODERATE /HPF (0-FEW); RBC,URINE TNTC /HPF (0-2); SQUAMOUS EPITHELIAL CELL,UR FEW /LPF; WBC,URINE TNTC /HPF (0-4)
[2018-07-12] MEDS ORDERED: traMADol 50 MG TABLET PO ONE (03:00)
[2018-07-12 04:22] LABS: BASO # 0.1 x10^3/uL (0.0-0.2); BASO % 1 % (0-3); EOS # 0.5 x10^3/uL (0.0-0.7); EOS % 5 % (0-3); HEMATOCRIT 24.2 % (39.0-53.0); HEMOGLOBIN 7.7 g/dL (13.0-17.5); LYMPH # 1.1 x10^3/uL (1.0-4.8); LYMPH % 10 % (24-48); MEAN CORPUSCULAR HEMOGLOBIN 27 pg (25-35); MEAN CORPUSCULAR HGB CONC 32 g/dL (31-37); MEAN CORPUSCULAR VOLUME 85 fL (79-100); MONO # 0.8 x10^3/uL (0.0-1.1); MONO % 7 % (0-9); NEUT # 8.6 x10^3uL (1.8-7.7); NEUT % 78 % (31-73); PLATELET COUNT 274 x10^3/uL (140-400); RED BLOOD COUNT 2.85 x10^6/uL (4.30-5.70); RED CELL DISTRIBUTION WIDTH 16.4 % (11.5-14.5)
[2018-07-12 04:31] LABS: PROTHROMBIN TIME PATIENT 13.2 SEC (11.7-14.0)
[2018-07-12 04:33] LABS: CALCIUM 8.6 mg/dL (8.5-10.1); CREATININE 1.9 mg/dL (0.7-1.3); GFR 34.5; POTASSIUM 4.3 mmol/L (3.5-5.1)
[2018-07-12 09:00] VITALS: BP 165/75
== END 2018-07-12 13:18 | disposition home or self-care (01) ==
LOC: ER 23:00
DX: T83.098A Other mechanical complication of other urinary catheter, initial encounter (principal); R30.0 Dysuria; F41.9 Anxiety disorder, unspecified; F31.9 Bipolar disorder, unspecified; J44.9 Chronic obstructive pulmonary disease, unspecified; E11.9 Type 2 diabetes mellitus without complications; I25.2 Old myocardial infarction; I25.10 Atherosclerotic heart disease of native coronary artery without angina pectoris; I10 Essential (primary) hypertension; E66.01 Morbid (severe) obesity due to excess calories; Z68.41 Body mass index [BMI] 40.0-44.9, adult; Z87.440 Personal history of urinary (tract) infections
CPT/HCPCS: 36415; 51702; 80048; 81001; 85025; 85610; 87086; 87186; 99284